=== PATIENT | male | born 1930 | race Caucasian/White ===

== ENCOUNTER 2017-05-22 08:22 | Inpatient (IN) | payer OTHER ==
--- NOTE | 2017-05-22 08:33 | PDOC ---
Attending Attestation - HPI HPI: 05/22/17 10:41 The patient is a 87 year old male, with a significant past medical history of COPD, pneumonia (bilaterally, with recent hospitalization at [facility] 2 weeks ago, treated with Levaquin), hypertension, diverticulosis, and osteoarthritis, who presents to the emergency department [facility] from [facility] with shortness of breath for approximately 2 days. Per EMS patients O2 sat was found to be in the low 30s earlier this morning. EMS reports patient was given a Duoneb treatment with minimal relief of symptoms. However, patients O2 sat went up to 88, which is part of his baseline. Patient reports associated diaphoresis and lightheadedness, but denies any chest pain or palpitations. He denies any recent fever, chills, or headache. He denies any abdominal pain, nausea, or vomiting. Patients history is limited, as he only responds to yes or no questions due to CPap in place. Allergies: NKDA Past Surgical History: None reported - Physicial Exam PE: 05/22/17 10:41 GENERAL: The patient is awake, alert, and fully oriented, Nontoxic - in no acute distress. HEAD: Normocephalic, atraumatic. EYES: extraocular movements intact, sclera anicteric, conjunctiva clear. ENT: + Mildly dry mucous membranes. Normal voice. NECK: Normal range of motion, supple LUNGS: Breath sounds equal, clear to auscultation bilaterally. No wheezes, no rhonchi, no rales. HEART: Regular rate and rhythm, without murmur, rub or gallop. ABDOMEN: Soft, nontender, normoactive bowel sounds. No guarding, no rebound.No CVA tenderness EXTREMITIES: Normal range of motion, no edema. No clubbing or cyanosis. No cords , erythema, or tenderness. NEUROLOGICAL: No facial asymmetry, Normal speech, PSYCH: Normal mood, normal affect. SKIN: Warm, Dry, normal turgor. Back: No midline tenderness to the cervical, thoracic or lumbar spine Musculoskelatal: FROM of b/l shoulders, elbows, wrist. FROM of hips, knees, ankles - No signs of ecchymosis, erythema, or crepitus noted on palpation extremities, chest wall, clavicals, ribs, back. - Medical Decision Making 05/22/17 10:41 Documentation prepared by Beckie Fairbanks, acting as administrative medical director for Zay Major MD. <Beckie Fairbanks - Last Filed: 05/22/17 10:41> - Resident Resident Name: Sourav Beauchamp - ED Attending Attestation I have performed the following: I have examined & evaluated the patient, The case was reviewed & discussed with the resident, I agree w/resident's findings & plan, Exceptions are as noted - HPI HPI: 05/22/17 10:24 87y M hx of anxiety, osteo, htn, copd on3 l of o2, recent admission for b/l pna in early apr sent from [facility] on [address] for evaluation of sob, pt notes he was feeling ok yesterday, this morning started feeling sob. pt notes he felt sweaty yetserday, but denies any fever/chills, cp, n/v, palptitations, abd pain, diarrhea. o2 sat in the 80s per EMS, started on cpap in the field with mild improvement on arrival the pt was started on bipap noted hypoxic to 80 on RA, improvement with bipap to 90s with improvement of respiratory effort. pts pulm exam revealed deiminshed breath sounds at the bases differential ncludes pna, chf, copd exacerbation sepsis orderset initiated continue bipap anticipate admission for further managment - Medical Decision Making 05/22/17 11:39 CRITICAL CARE DOCUMENTATION: I spent ~35 minutes of Critical Care time, excluding separately billable procedures, involving high complexity decision making to assess, manipulate and support vital system function(s) to treat single or multiple vital organ system failure and/or to prevent further life threatening deterioration of the patient' s condition. 05/22/17 11:[address] Young - agree with admission under dr. thornton service Case discussed in detail with admitting physician including history, physical exam and ancillary studies. Admitting physician has assumed care for the patient, will follow all pending diagnostics and will complete the evaluation and treatment. <Zay Major - Last Filed: 05/22/17 11:51> Heart Score/ECG Review - ECG Impressions Comment:: 05/22/17 10:35 Twelve-lead EKG was performed and reviewed by me. There is normal sinus rhythm Right bundle-branch block No ST changes suggestive of acute ischemia <Zay Major - Last Filed: 05/22/17 11:51>
[2017-05-22] MEDS ORDERED: MAGNESIUM SULF 50% (8.12 MEQ/2 ML-1 GM VIAL) IVPB ONE (08:39)
[2017-05-22] MEDS ORDERED: MAGNESIUM SULF 50% (8.12 MEQ/2 ML-1 GM VIAL) ONE (09:30)
--- NOTE | 2017-05-22 09:48 | PDOC ---
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 EMS reports patient was found in respiratory distress and was given 3 rounds of duonebs. Patient denies fevers. Endorses cough, chest pain, shortness of breath. States that he just doesn't feel good. Patient was admitted to [facility] from 04/09-05/01 for sigmoid diverticulosis. Patient finished levaquin 7 day course on 05/15 for bilateral pneumoina. <Sourav Beauchamp - Last Filed: 05/22/17 11:39> <Zay Major - Last Filed: 05/22/17 11:50> - General Chief Complaint: Shortness of Breath Stated Complaint: SOB Time Seen by Provider: 05/22/17 08:25 Past History <Sourav Beauchamp - Last Filed: 05/22/17 11:39> <Zay Major - Last Filed: 05/22/17 11:50> - Past Medical History Allergies/Adverse Reactions: Allergies Allergy/AdvReac Type Severity Reaction Status Date / Time No Known Allergies Allergy Verified 05/22/17 08:24 Home Medications: Ambulatory Orders Albuterol 2.5/Ipratropium 0.5 [Duoneb -] 1 amp NEB TID 05/22/17 Budesonide [Pulmicort Flexhaler] 90 mcg IH BID 05/22/17 Ipratropium 0.02% Nebulizer [Atrovent 0.02% Nebulizer -] 1 amp NEB Q6H PRN 05/22 Metoclopramide HCl 10 mg PO TID 05/22/17 Prednisone 10 mg PO BID 05/22/17 Tramadol HCl [Ultram] 50 mg PO DAILY 05/22/17 Review of Systems - Review of Systems Comments:: 05/22/17 09:48 GENERAL/CONSTITUTIONAL: No fever or chills. HEAD, EYES, EARS, NOSE AND THROAT: No change in vision. Positive for sore throat. CARDIOVASCULAR: Positive for chest pain and shortness of breath. RESPIRATORY: Positive for cough and wheezing. GASTROINTESTINAL: No nausea, vomiting, diarrhea or constipation. GENITOURINARY: No dysuria, frequency, or change in urination. MUSCULOSKELETAL: Positive for arthritis issues, chronic hip/back pain. SKIN: No rash NEUROLOGIC: No headache, vertigo, loss of consciousness, or change in strength/ sensation. HEMATOLOGIC/LYMPHATIC: No anemia, easy bleeding, or history of blood clots. <Sourav Beauchamp - Last Filed: 05/22/17 11:39> *Physical Exam - Vital Signs Last Vital Signs Temp Pulse Resp BP Pulse Ox 91 L 05/22/17 08:35 - Physical Exam Comments: 05/22/17 09:57 GENERAL: Awake, alert, and fully oriented, on bipap, ill appearing HEAD: No signs of trauma, normocephalic, atraumatic EYES: PERRLA, EOMI, sclera anicteric, conjunctiva clear ENT: Auricles normal inspection, hearing grossly normal, nares patent, oropharynx clear without exudates. Dry mucosa NECK: Normal ROM, supple, no lymphadenopathy, JVD, or masses LUNGS: On bipap, shaking head yes/no, not speaking sentences, equal breath rounds, coarse breath sounds HEART: Regular rate, irregular rhythm, normal S1 and S2, no murmurs, rubs or gallops, peripheral pulses normal and equal bilaterally. ABDOMEN: Soft, nontender, normoactive bowel sounds. No guarding, no rebound. No masses EXTREMITIES: Normal inspection, Normal range of motion, no edema. No clubbing or cyanosis. NEUROLOGICAL: Cranial nerves II through XII grossly intact. Normal speech, no focal sensorimotor deficits SKIN: Warm, Dry, normal turgor, in ulna boots, sacral ulcer <Sourav Beauchamp - Last Filed: 05/22/17 11:39> - Vital Signs Last Vital Signs Temp Pulse Resp BP Pulse Ox 100.8 F H 78 22 113/71 86 L 05/22/17 09:46 05/22/17 11:13 05/22/17 11:13 05/22/17 11:13 05/22/17 11:13 <Zay Major - Last Filed: 05/22/17 11:50> ED Treatment Course - LABORATORY CBC & Chemistry Diagram: 05/22/17 09:15 05/22/17 09:15 <QuynhSourav - Last Filed: 05/22/17 11:39> - LABORATORY CBC & Chemistry Diagram: 05/22/17 09:15 05/22/17 09:15 - ADDITIONAL ORDERS Additional order review: Laboratory Results 05/22/17 05/22/17 05/22/17 10:25 09:15 09:15 PT with INR INR PTT (Actin FS) Puncture Site Right brachial ABG pH 7.40 ABG pCO2 at Pt Temp 55.6 H ABG pO2 at Pt Temp 63.3 L ABG HCO3 33.4 H ABG O2 Sat (Measured) 87.5 L ABG O2 Content 13.2 L ABG Base Excess 7.5 H Jonathan Test Not applicable VBG pH POC VBG pCO2 POC VBG pO2 Mixed VBG HCO3 Carboxyhemoglobin 1.4 Methemoglobin 1.1 O2 Delivery Device Bipap Oxygen Flow Rate 50 Vent Mode S/t 12/6 Vent Rate 10 Mechanical Rate Yes Sodium Potassium Chloride Carbon Dioxide Anion Gap BUN Creatinine Creat Clearance w eGFR Random Glucose Lactic Acid 1.5 Calcium Total Bilirubin AST ALT Alkaline Phosphatase Creatine Kinase Troponin I Total Protein Albumin Blood Type A POSITIVE Antibody Screen Negative 05/22/17 05/22/17 05/22/17 09:15 09:15 09:15 PT with INR 12.70 H INR 1.12 PTT (Actin FS) 40.1 H Puncture Site ABG pH ABG pCO2 at Pt Temp ABG pO2 at Pt Temp ABG HCO3 ABG O2 Sat (Measured) ABG O2 Content ABG Base Excess Jonathan Test VBG pH No Result Required. POC VBG pCO2 No Result Required. POC VBG pO2 No Result Required. Mixed VBG HCO3 No Result Required. Carboxyhemoglobin Methemoglobin O2 Delivery Device Oxygen Flow Rate Vent Mode Vent Rate Mechanical Rate Sodium 141 Potassium 3.6 Chloride 100 Carbon Dioxide 34 H Anion Gap 7 L BUN 13 Creatinine 0.4 L Creat Clearance w eGFR > 60 Random Glucose 129 H Lactic Acid Calcium 8.8 Total Bilirubin 0.4 AST 14 L ALT 12 Alkaline Phosphatase 96 Creatine Kinase 36 L Troponin I 0.18 H Total Protein 6.5 Albumin 2.6 L Blood Type Antibody Screen 05/22/17 09:15 RBC 4.13 MCV 95.8 MCHC 29.5 L RDW 16.5 H MPV 8.5 Neutrophils % 85.0 H Lymphocytes % 5.7 L Monocytes % 9.2 Eosinophils % 0.0 Basophils % 0.1 - Medications Given in the ED: ED Medications Discontinued Medications Generic Name Dose Route Start Last Admin Trade Name Bj PRN Reason Stop Dose Admin Acetaminophen 1,000 mg 05/22/17 09:56 05/22/17 10:15 Ofirmev Injection - IVPB 05/22/17 09:57 1,000 mg ONCE ONE Administration Sodium Chloride 1,000 mls @ 1,000 mls/hr 05/22/17 10:07 05/22/17 10:38 Normal Saline - IV 05/22/17 11:06 1,000 mls/hr ASDIR STA Administration Magnesium Sulfate 1 gm 05/22/17 08:39 05/22/17 09:35 Magnesium Sulfate IVPB 05/22/17 08:40 1 gm ONCE ONE Administration Piperacillin/Tazobactam/Dextrose 3.375 gm 05/22/17 10:15 05/22/17 10:38 Zosyn 3.375gm Ivpb (Premix) IVPB 05/22/17 10:16 3.375 gm ONCE ONE Administration <Zay Major - Last Filed: 05/22/17 11:50> Medical Decision Making - Critical Care Time Total Critical Care Time (minutes): 30 Critical Care Statement: The care of this patient involved high complexity decision making to prevent further life threatening deterioration of the patient 's condition and/or to evaluate & treat vital organ system(s) failure or risk of failure. 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 Vital signs notable for fever, tachycardia, tachypnea. PE notable for coarse breath sounds and dry mucosa. Suspect the patient is septic secondary to pneumonia. Differential also includes: pulmonary edema 2/2 CHF, ACS, arrhythmia. Will draw septic workup, give 1L NS and vanc/zosyn. EKG shows sinus tachy (rate 104) with RBBB. QTc 536. [place] 156. No ST elevations/ depressions. No prior EKG available for comparison. Will give mag 1g for QTc prolongation. 05/22/17 10:14 CXR shows possible infiltrate and effusion. 05/22/17 11:16 Laboratory Tests 05/22/17 05/22/17 09:15 10:25 ABG pH 7.40 ABG pCO2 at Pt Temp 55.6 H ABG pO2 at Pt Temp 63.3 L ABG HCO3 33.4 H BUN 13 Creatinine 0.4 L Troponin I 0.18 H ABG shows carbon dioxide retention. Trop positive to .18, no pre-renal picture on labs. Pending CBC. Believe trop is secondary to demand 2/2 sepsis. 05/22/17 11:23 Laboratory Tests 05/22/17 09:15 WBC 12.8 H Hgb 11.7 Hct 39.6 CBC shows leukocytosis, no anemia. Will admit to hospitalist to ICU for sepsis 2 /2 pneumonia. <Sourav Beauchamp - Last Filed: 05/22/17 11:39> *DC/Admit/Observation/Transfer <Sourav Beauchamp - Last Filed: 05/22/17 11:39> - Discharge Dispostion Admit: Yes <Zay Major - Last Filed: 05/22/17 11:50> Diagnosis at time of Disposition: COPD (chronic obstructive pulmonary disease) Qualifiers: COPD type: COPD with acute lower respiratory infection Qualified Code(s): J44.0 - Chronic obstructive pulmonary disease with acute lower respiratory infection Pneumonia Qualifiers: Pneumonia type: due to unspecified organism Laterality: left Lung location: lower lobe of lung Qualified Code(s): J18.1 - Lobar pneumonia, unspecified organism Sepsis Qualifiers: Sepsis type: sepsis due to unspecified organism Qualified Code(s): A41.9 - Sepsis, unspecified organism - Discharge Dispostion Condition at time of disposition: Guarded - Referrals Referrals: Elkin Lockwood MD [Primary Care Provider] - - Patient Instructions - Post Discharge Activity
[2017-05-22] MEDS ORDERED: ACETAMINOPHEN 1000 MG/100 ML VIAL (NON FORMULARY) IVPB ONE (09:56)
[2017-05-22 10:07] VITALS: BMI 28.2
[2017-05-22] MEDS ORDERED: ACETAMINOPHEN INJECTION 100 ML IVPB ONE (10:07)
[2017-05-22] MEDS ORDERED: VANCOMYCIN 1,000 MG in DEXTROSE 5%-WATER - 250 ML IVPB ONE (10:07)
[2017-05-22] MEDS ORDERED: SODIUM CHLORIDE 1,000 ML IV STA (10:07)
[2017-05-22 10:11] LABS: BASO % 0.1 % (0-2.0); HEMATOCRIT 39.6 % (35.4-49); HEMOGLOBIN 11.7 GM/dL (11.7-16.9); LYMPH % 5.7 % (8-40); MCH 28.3 pg (25.7-33.7); MCHC 29.5 g/dl (32.0-35.9); MEAN CELL VOLUME 95.8 fl (80-96); MEAN PLT VOLUME 8.5 fl (7.5-11.1); MONO % 9.2 % (3.8-10.2); RBC 4.13 M/mm3 (4.00-5.60); RDW 16.5 % (11.9-15.9); WHITE BLOOD COUNT 12.8 K/mm3 (4.0-10.0)
[2017-05-22] MEDS ORDERED: PIPERACIL/TAZOB 3.375 GM 3.375 GM/50 ML PREMIX IVPB ONE (10:15)
[2017-05-22] MEDS ORDERED: VANCOMYCIN 1 GRAM (PRE-DOCKED) 1,000 MG/250 ML BAG IVPB ONE (10:25)
[2017-05-22] MEDS ORDERED: PIPERACILLIN/TAZOB 3.375 GM 3.375 GM/50 ML BAG IVPB ONE (10:25)
[2017-05-22 10:27] LABS: INR 1.12 (0.82-1.09); PROTHROMBIN TIME (PATIENT) 12.7 SEC (9.98-11.88)
[2017-05-22 10:29] LABS: ACTIVATED PTT 40.1 SECONDS (26.9-34.4)
[2017-05-22 10:35] LABS: ARTERIAL BLD GAS O2 SATURATION 87.5 % (90-98.9); ARTERIAL BLOOD GAS BASE EXCESS 7.5 meq/l (-2-2); ARTERIAL BLOOD GAS PCO2 55.6 mmHg (35-45); ARTERIAL BLOOD GAS PO2 63.3 mmHg (68-100); CARBOXYHEMOGLOBIN 1.4 gm% (0.5-2.0)
[2017-05-22 10:48] LABS: ALBUMIN 2.6 g/dl (3.4-5.0); ANION GAP 7 (8-16); BLOOD UREA NITROGEN 13 mg/dL (7-18); CALCIUM 8.8 mg/dL (8.5-10.1); CHLORIDE 100 mmol/L (98-107); CO2 34 mmol/L (21-32); GLUCOSE,RANDOM 129 mg/dL (74-106); POTASSIUM 3.6 mmol/L (3.5-5.1); SGPT/ALT 12 U/L (12-78); SODIUM 141 mmol/L (136-145)
[2017-05-22 10:54] LABS: ALK PHOS 96 U/L (45-117); BILIRUBIN,TOTAL 0.4 mg/dL (0.2-1.0); CREATININE 0.4 mg/dL (0.7-1.3); SGOT/AST 14 U/L (15-37); TOT PROT 6.5 g/dl (6.4-8.2)
[2017-05-22] MEDS ORDERED: ALBUTEROL SO4 0.083% IH SOL 2.5 MG/3 ML VIAL.NEB. NEB PRN (12:43)
--- NOTE | 2017-05-22 13:06 | EKG ---
Test Reason : Blood Pressure : / mmHG Vent. Rate : 104 BPM Atrial Rate : 104 BPM P-R Int : 156 ms QRS Dur : 148 ms QT Int : 408 ms P-R-T Axes : 044 070 011 degrees QTc Int : 536 ms SINUS TACHYCARDIA WITH PREMATURE ATRIAL COMPLEXES WITH ABERRANT CONDUCTION RIGHT BUNDLE BRANCH BLOCK ABNORMAL ECG NO PREVIOUS ECGS AVAILABLE Confirmed by NELL HILLS MD ([id number]) on 05/22/2017 1:05:52 PM Referred By: Confirmed By:NELL HILLS MD
--- NOTE | 2017-05-22 13:07 | HP ---
HISTORY OF PRESENT ILLNESS: Unable to obtain information due to patients medical condition. Most information obtained from health care proxy and ED staff. Patient is an 87 year old male with a PMHx of HTN, COPD (oxygen at night), Osteoarthritis, Dysphagia, PUD with recent admission to [facility] for GI bleed, who was BIBEMS from [facility] due to respiratory distress during rounds at the alf at approximately 07:15 this morning. Patient's Respiratory rate was in the mid 20's with accessory muscle use and abdominal breathing. According to the alf records, patient stated that he "doesn't feel good." Patient was given two rounds of DuoNebs at the [facility] with no improvement and transferred here. Patient's health care proxy at bedside who states he was recently hospitalized for GI bleed with an endoscopy done that revealed duodenal ulcers and eventually acquired bilateral pneumonia for which he just completed a 7 day course of Levaquin on 05/15/17. PHYSICAL EXAMINATION Vital Signs - 24 hr 05/22/17 05/22/17 05/22/17 08:35 09:46 11:13 Temperature 100.8 F H Pulse Rate 94 H Pulse Rate [ 78 Apical] Respiratory 26 H 22 Rate Blood Pressure 120/68 Blood Pressure 113/71 [Left Arm] O2 Sat by Pulse 91 L 91 L 86 L Oximetry (%) GENERAL: Awake, alert, in respiratory distress on BIPAP, unable to speak in full sentences EYES: Pupils equal, round and reactive to light, extraocular movements intact, sclera anicteric, conjunctiva clear. No lid lag. LUNGS: Bilateral coarse breath sounds nteriorly. Accessory muscle use and abdominal breathing on BIPAP HEART: Tachycardic with regular rhythm, normal S1 and S2 without murmur, rub or gallop. ABDOMEN: Soft, nontender, not distended, normoactive bowel sounds, no guarding, no rebound, no masses. UPPER EXTREMITIES: No peripheral edema. LOWER EXTREMITIES: 2+ pulses, warm, well-perfused. No calf tenderness. No peripheral edema. Echymosis of the right anterior lizama NEUROLOGICAL: unable to fully assess due to patients medical condition. No facial droop. Laboratory Results - last 24 hr 05/22/17 05/22/17 05/22/17 09:15 09:15 09:15 WBC 12.8 H RBC 4.13 Hgb 11.7 Hct 39.6 MCV 95.8 MCH 28.3 MCHC 29.5 L RDW 16.5 H MPV 8.5 Neutrophils % 85.0 H Lymphocytes % 5.7 L Monocytes % 9.2 Eosinophils % 0.0 Basophils % 0.1 PT with INR 12.70 H INR 1.12 PTT (Actin FS) 40.1 H Puncture Site ABG pH ABG pCO2 at Pt Temp ABG pO2 at Pt Temp ABG HCO3 ABG O2 Sat (Measured) ABG O2 Content ABG Base Excess Jonathan Test VBG pH No Result Required. POC VBG pCO2 No Result Required. POC VBG pO2 No Result Required. Mixed VBG HCO3 No Result Required. Carboxyhemoglobin Methemoglobin O2 Delivery Device Oxygen Flow Rate Vent Mode Vent Rate Mechanical Rate Sodium Potassium Chloride Carbon Dioxide Anion Gap BUN Creatinine Creat Clearance w eGFR Random Glucose Lactic Acid Calcium Total Bilirubin AST ALT Alkaline Phosphatase Creatine Kinase Troponin I Total Protein Albumin Blood Type Antibody Screen 05/22/17 05/22/17 05/22/17 09:15 09:15 09:15 WBC RBC Hgb Hct MCV MCH MCHC RDW MPV Neutrophils % Lymphocytes % Monocytes % Eosinophils % Basophils % PT with INR INR PTT (Actin FS) Puncture Site ABG pH ABG pCO2 at Pt Temp ABG pO2 at Pt Temp ABG HCO3 ABG O2 Sat (Measured) ABG O2 Content ABG Base Excess Jonathan Test VBG pH POC VBG pCO2 POC VBG pO2 Mixed VBG HCO3 Carboxyhemoglobin Methemoglobin O2 Delivery Device Oxygen Flow Rate Vent Mode Vent Rate Mechanical Rate Sodium 141 Potassium 3.6 Chloride 100 Carbon Dioxide 34 H Anion Gap 7 L BUN 13 Creatinine 0.4 L Creat Clearance w eGFR > 60 Random Glucose 129 H Lactic Acid 1.5 Calcium 8.8 Total Bilirubin 0.4 AST 14 L ALT 12 Alkaline Phosphatase 96 Creatine Kinase 36 L Troponin I 0.18 H Total Protein 6.5 Albumin 2.6 L Blood Type A POSITIVE Antibody Screen Negative 05/22/17 10:25 WBC RBC Hgb Hct MCV MCH MCHC RDW MPV Neutrophils % Lymphocytes % Monocytes % Eosinophils % Basophils % PT with INR INR PTT (Actin FS) Puncture Site Right brachial ABG pH 7.40 ABG pCO2 at Pt Temp 55.6 H ABG pO2 at Pt Temp 63.3 L ABG HCO3 33.4 H ABG O2 Sat (Measured) 87.5 L ABG O2 Content 13.2 L ABG Base Excess 7.5 H Jonathan Test Not applicable VBG pH POC VBG pCO2 POC VBG pO2 Mixed VBG HCO3 Carboxyhemoglobin 1.4 Methemoglobin 1.1 O2 Delivery Device Bipap Oxygen Flow Rate 50 Vent Mode S/t 12/6 Vent Rate 10 Mechanical Rate Yes Sodium Potassium Chloride Carbon Dioxide Anion Gap BUN Creatinine Creat Clearance w eGFR Random Glucose Lactic Acid Calcium Total Bilirubin AST ALT Alkaline Phosphatase Creatine Kinase Troponin I Total Protein Albumin Blood Type Antibody Screen IMAGES Chest X-Ray (05/22/17): Imaging reveals scoliosis with degenerative changes, convexity to the right, elevated left hemidiaphragm, normal heart, sclerotic knob and congestive ages with questionable superimposed infiltrate. There is a right effusion. The soft tissues are intact. ASSESSMENT/PLAN: Patient is an 87 year old male who was found to be in respiratory distress at the alf and was found to have sepsis with acute respiratory distress. Patient admitted for further monitoring and management. Sepsis Likely secondary to Healthcare Acquired Pneumonia -Fever 100.8, tachy >90, Tachypnia >20, Leukocytosis 12.8 -Chest X-Ray showing infiltrates -Recently discharged from [facility] due to GI bleed from duodenal ulcer and bilateral PNA. Completed a course of Levaquin on 05/15/17 due to bilateral Pneumonia. -Urine antigens, Mycoplasma IgM, sputum cultures, and influenza swab ordered -Zosyn 3.375mg IVPB ordered Q8H with one dose of Vancomycin 1000mg given. Will resume if ID approves. -IV fluids with D5NS @75mls/hr -IV Tylenol 1000mg IVPB PRN for fevers -Blood cultures pending -HOB -Aspiration precautions -ICU monitoring -Pulmonology consult appreciated -ID consult placed Acute Hypoxic Hypercapnic Respiratory failure -Possibly secondary to PNA vs. COPD exacerbation. 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 Patient also has history of Dysphagia and possibly aspirated. -DuoNeb QID standing -Albuterol PRN -MethylPrednisone 40mg daily -Continue IV antibiotics with Zosyn and Vancomycin -Continue NIPPV and maintain 02 >90% Elevated Troponins -Likely secondary to demand ischemia -Initial Troponins 0.18 -EKG revealed no ST elevations or depressions but did show RBBB. No previous EKG for comparison -Will continue to trend troponins -Cardiac monitoring QTc Prolongation -Initial EKG revealed >530 -Magnesium 1gm IV given in ED -Will need to avoid medications that prolong QTc such as Zofran, azithromycin and Levaquin -Serial EKG's HTN -On no medications currently -Will continue to monitor BP F/E/N -IV D5/NS@75mls/hr -Electrolytes wnl -NPO Prophylaxis -Moderate risk. Heparin 5000 units SQ Q8H for DVT -Protonix 40mg IV daily due to steroid use Disposition -DNR/DNI. Patient's healthcare proxy at bedside who has official documentation of DNR/DNI. Also asked patient three times and nods with agreement -Patient remains hypoxic on BIPAP and will need to be in the ICU for further monitoring. Will likely require three days minimum as inpatient. Visit type - Emergency Visit Emergency Visit: Yes ED Registration Date: 05/22/17 Care time: The patient presented to the Emergency Department on the above date and was hospitalized for further evaluation of their emergent condition. - New Patient This patient is new to me today: Yes Date on this admission: 05/22/17 - Critical Care Critical Care patient: Yes Total Critical Care Time (in minutes): 45 Critical Care Statement: The care of this patient involved high complexity decision making to prevent further life threatening deterioration of the patient 's condition and/or to evaluate & treat vital organ system(s) failure or risk of failure.
[2017-05-22] MEDS ORDERED: PANTOPRAZOLE SODIUM 40 MG/100 ML BAG IVPB ONE (13:27)
[2017-05-22] MEDS ORDERED: ACETAMINOPHEN 1000 MG/100 ML VIAL (NON FORMULARY) IVPB PRN (13:29)
[2017-05-22] MEDS ORDERED: DEXTROSE 5%-NORMAL SALINE 1,000 ML IV SCH (13:30)
[2017-05-22 13:31] LABS: PLATELET ESTIMATE DECREASED
--- NOTE | 2017-05-22 13:56 | HP ---
CHIEF COMPLAINT: PCP: HISTORY OF PRESENT ILLNESS: HPI limited due to medical condition. Information obtained through HCP and chart. 87yo M with history of COPD (3LNC at night), HTN, OA, and PUD who was brought by ambulance from [facility] due to respiratory distress noted during the fdc rounds this morning. Pt has a recent admission to [facility] for GI bleed and received an endoscopy showing duodenal ulcers. Pt was also noted during his previous hospitalization to have bilateral lobe PNA and has completed a 7 day course of Levaquin (terminated 05/15/17). Pt this morning was having respiratory distress and was noted to have tachypnea to 20 breaths per minute and notable accessory muscle use. ER course was notable for: (1) Vanc and Zosyn x1 (2) CXR - Elevated left hemidiaphragm and congestive changes with questionable superimposed infiltrate. R effusion noted (3) BCx x2 (4) DNR/DNI, no pressors, no central lines per HCP confirmed (5) QTc on EKG >530; 1gm IV Magnesium administered Recent Travel: PAST MEDICAL HISTORY: COPD (3LNC at night) HTN OA PUD - recent endoscopy 04/2017 PAST SURGICAL HISTORY: Endoscopy Social History: Smoking: Alcohol: Drugs: Family History: Allergies No Known Allergies Allergy (Verified 05/22/17 08:24) HOME MEDICATIONS: Home Medications Medication Instructions Recorded Albuterol 2.5/Ipratropium 0.5 1 amp NEB TID 05/22/17 [Duoneb -] Budesonide [Pulmicort Flexhaler] 90 mcg IH BID 05/22/17 Ipratropium 0.02% Nebulizer 1 amp NEB Q6H PRN 05/22/17 [Atrovent 0.02% Nebulizer -] Metoclopramide HCl 10 mg PO TID 05/22/17 Prednisone 10 mg PO BID 05/22/17 Tramadol HCl [Ultram] 50 mg PO DAILY 05/22/17 REVIEW OF SYSTEMS ROS limited due to medical condition CONSTITUTIONAL: Absent: fever, chills, generalized weakness HEENT: Absent: rhinorrhea, nasal congestion, throat pain CARDIOVASCULAR: Absent: chest pain, palpitations, irregular heart rat RESPIRATORY: Present: Shortness of breath, accessory muscle use Absent: cough, orthopnea, stridor, hemoptysis GASTROINTESTINAL: Absent: abdominal pain, nausea, vomiting, diarrhea NEUROLOGIC: Absent: headache, focal weakness or paresthesias, dizziness, bladder or bowel incontinence PHYSICAL EXAMINATION Vital Signs - 24 hr 05/22/17 05/22/17 05/22/17 08:35 09:46 11:13 Temperature 100.8 F H Pulse Rate 94 H Pulse Rate [ 78 Apical] Respiratory 26 H 22 Rate Blood Pressure 120/68 Blood Pressure 113/71 [Left Arm] O2 Sat by Pulse 91 L 91 L 86 L Oximetry (%) 05/22/17 12:59 Temperature Pulse Rate Pulse Rate [ 96 H Apical] Respiratory 24 Rate Blood Pressure Blood Pressure 125/78 [Left Arm] O2 Sat by Pulse 86 L Oximetry (%) GENERAL: Moderate distress, awake, unable to speak in full sentences EYES: BRYANT, sclera anicteric, conjunctiva clear. No lid lag. LUNGS: Coarse breath sounds noted bilaterally. Accessory muscle use. On BIPAP HEART: Tachycardic with regular rhythm, normal S1 and S2 without murmur, rub or gallop. ABDOMEN: Soft, nontender, nondistended, normoactive bowel sounds, no guarding, no masses. EXTREMITIES: No peripheral edema. 2+ DP pulses, no calf tenderness, ecchymosis on R anterior lower leg NEUROLOGICAL: unable to fully assess due to patients medical condition. Face symmetrical at baseline Laboratory Results - last 24 hr 05/22/17 05/22/17 05/22/17 09:15 09:15 09:15 WBC 12.8 H RBC 4.13 Hgb 11.7 Hct 39.6 MCV 95.8 MCH 28.3 MCHC 29.5 L RDW 16.5 H MPV 8.5 Neutrophils % 85.0 H Lymphocytes % 5.7 L Monocytes % 9.2 Eosinophils % 0.0 Basophils % 0.1 Platelet Estimate Decreased Platelet Comment Present PT with INR 12.70 H INR 1.12 PTT (Actin FS) 40.1 H Puncture Site ABG pH ABG pCO2 at Pt Temp ABG pO2 at Pt Temp ABG HCO3 ABG O2 Sat (Measured) ABG O2 Content ABG Base Excess Jonathan Test VBG pH No Result Required. POC VBG pCO2 No Result Required. POC VBG pO2 No Result Required. Mixed VBG HCO3 No Result Required. Carboxyhemoglobin Methemoglobin O2 Delivery Device Oxygen Flow Rate Vent Mode Vent Rate Mechanical Rate Sodium Potassium Chloride Carbon Dioxide Anion Gap BUN Creatinine Creat Clearance w eGFR Random Glucose Lactic Acid Calcium Total Bilirubin AST ALT Alkaline Phosphatase Creatine Kinase Troponin I Total Protein Albumin Blood Type Antibody Screen 05/22/17 05/22/17 05/22/17 09:15 09:15 09:15 WBC RBC Hgb Hct MCV MCH MCHC RDW MPV Neutrophils % Lymphocytes % Monocytes % Eosinophils % Basophils % Platelet Estimate Platelet Comment PT with INR INR PTT (Actin FS) Puncture Site ABG pH ABG pCO2 at Pt Temp ABG pO2 at Pt Temp ABG HCO3 ABG O2 Sat (Measured) ABG O2 Content ABG Base Excess Jonathan Test VBG pH POC VBG pCO2 POC VBG pO2 Mixed VBG HCO3 Carboxyhemoglobin Methemoglobin O2 Delivery Device Oxygen Flow Rate Vent Mode Vent Rate Mechanical Rate Sodium 141 Potassium 3.6 Chloride 100 Carbon Dioxide 34 H Anion Gap 7 L BUN 13 Creatinine 0.4 L Creat Clearance w eGFR > 60 Random Glucose 129 H Lactic Acid 1.5 Calcium 8.8 Total Bilirubin 0.4 AST 14 L ALT 12 Alkaline Phosphatase 96 Creatine Kinase 36 L Troponin I 0.18 H Total Protein 6.5 Albumin 2.6 L Blood Type A POSITIVE Antibody Screen Negative 05/22/17 10:25 WBC RBC Hgb Hct MCV MCH MCHC RDW MPV Neutrophils % Lymphocytes % Monocytes % Eosinophils % Basophils % Platelet Estimate Platelet Comment PT with INR INR PTT (Actin FS) Puncture Site Right brachial ABG pH 7.40 ABG pCO2 at Pt Temp 55.6 H ABG pO2 at Pt Temp 63.3 L ABG HCO3 33.4 H ABG O2 Sat (Measured) 87.5 L ABG O2 Content 13.2 L ABG Base Excess 7.5 H Jonathan Test Not applicable VBG pH POC VBG pCO2 POC VBG pO2 Mixed VBG HCO3 Carboxyhemoglobin 1.4 Methemoglobin 1.1 O2 Delivery Device Bipap Oxygen Flow Rate 50 Vent Mode S/t 12/6 Vent Rate 10 Mechanical Rate Yes Sodium Potassium Chloride Carbon Dioxide Anion Gap BUN Creatinine Creat Clearance w eGFR Random Glucose Lactic Acid Calcium Total Bilirubin AST ALT Alkaline Phosphatase Creatine Kinase Troponin I Total Protein Albumin Blood Type Antibody Screen ASSESSMENT/PLAN: 87yo M with history of COPD (3LNC at night), HTN, OA, and PUD who was brought by ambulance from [facility] due to respiratory distress noted during the fdc rounds this morning 1) Severe sepsis 2/2 suspected aspiration PNA --SIRS 4/4 met --CXR noted with superimposed infiltrates --f/u Cultures --Sputum culture, urine antigens, mycoplasma IgM, and flu swab ordered --Continue Vancomycin and Zosyn --ID consulted --IVF D5NS @75cc/hr --Ofirmev PRN for fever --Aspiration precautions --head of bed elevated >30 degrees 2) Acute hypoxic hypercapnic respiratory failure --Pulmonology consulted --Duoneb QID scheduled --Albuterol PRN --Medrol 40mg qDaily --Would benefit from high-flow O2, however if unable continue BiPap due to improving status --Maintain SpO2 >90% 3) Elevated Troponin --Most likely deman ischemia in the setting of severe sepsis --Continue to trend (initial trop 0.18) --EKG - RBBB (unknown if new), no ST elevations or depressions noted; QTc 530 --Mag given in ED 4) HTN --Continue to monitor --No home medications noted; will have to confirm FEN: Fluids: D5NS @75cc/hr Electrolyte abnormalities: None currently Nutrition: None currently; will need speech and swallow eval eventually PPX DVT - Moderate risk pt; Heparin SQ TID GI - Due to initiation of steroids and possible prolonged ICU stay: Protonix 40mg IV qDaily Prognosis: Guarded Code Status: DNR/DNI, no central lines, no pressor support; confirmed by HCP Elis Dispoisition: Admit to ICU Case discussed with Dr. Glez and Dr. Hector Sanabria, DO - Internal Medicine PGY-1 Visit type - Emergency Visit Emergency Visit: Yes ED Registration Date: 05/22/17 Care time: The patient presented to the Emergency Department on the above date and was hospitalized for further evaluation of their emergent condition. - New Patient This patient is new to me today: Yes Date on this admission: 06/10/17 - Critical Care Critical Care patient: Yes Total Critical Care Time (in minutes): 38 Critical Care Statement: The care of this patient involved high complexity decision making to prevent further life threatening deterioration of the patient 's condition and/or to evaluate & treat vital organ system(s) failure or risk of failure.
[2017-05-22] MEDS: methylPREDNISolone NA SUCC 40 MG/1 ML VIAL IVPUSH SCH (14:12)
--- NOTE | 2017-05-22 14:25 | CON.PULM ---
Consult Consult Specialty:: PULMONARY Referred by:: JOSETTE Reason for Consultation:: RESP FAILURE - History of Present Illness Chief Complaint: SOB/COUGH/FEVER History of Present Illness: 87 W MALE ADMITTED FROM [facility] FOUND TO BE SOB/WITH O2 DESAT, BIBA. NOW WITH NIPPV AND IS BEING SEEN IN ER PT HAS H/O RECENT [facility] ADMISSION FOR ACUTE DIVERTICULITIS/PUD WITH HEMORRHAGE AND POSSIBLE PNEUMONIA. THESE EVENTS ARE OBTAINED FROM THE CHART. PATIENT HAS H/O COPD ON O2 AT NIGHT/OA/B/L ILIAC ART ANEURYSMS. - History Source History Provided By: Family Member, Medical Record Limitations to Obtaining History: Clinical Condition - Past Medical History RAVELER: No: Alzheimer's Cardio/Vascular: No: AFIB Pulmonary: Yes: COPD, O2 Dependent, Pneumonia Gastrointestinal: Yes: Diverticulosis, GI Bleed, Peptic Ulcer Disease, Other ( GASTRIC OUTLET OBSTRUCTION) Hepatobiliary: No: Cirrhosis Renal/: No: Renal Failure Heme/Onc: Yes: Anemia Infectious Disease: No: AIDS Psych: No: Addictions - Past Surgical History Additional Surgical History: UNABLE TO OBTAIN ACCURATE INFO/BACK SURG MULTIPLE - Alcohol/Substance Use Hx Alcohol Use: No History of Substance Use: reports: None - Smoking History Smoking history: Unknown if ever smoked - Social History Usual Living Arrangement: Senior Living ADL: Support Services Place of : [facility] History of Recent Travel: No Home Medications - Allergies Allergies/Adverse Reactions: Allergies Allergy/AdvReac Type Severity Reaction Status Date / Time No Known Allergies Allergy Verified 05/22/17 08:24 - Home Medications Home Medications: Ambulatory Orders Albuterol 2.5/Ipratropium 0.5 [Duoneb -] 1 amp NEB TID 05/22/17 Budesonide [Pulmicort Flexhaler] 90 mcg IH BID 05/22/17 Ipratropium 0.02% Nebulizer [Atrovent 0.02% Nebulizer -] 1 amp NEB Q6H PRN 05/22 Metoclopramide HCl 10 mg PO TID 05/22/17 Prednisone 10 mg PO BID 05/22/17 Tramadol HCl [Ultram] 50 mg PO DAILY 05/22/17 Family Disease History - Family Disease History Family History: Unable to Obtain Review of Systems Unable to obtain ROS, reason: UNABLE Physical Exam Vital Sings: Vital Signs Temperature 99 F 05/22/17 14:13 Pulse Rate 96 H 05/22/17 12:59 Respiratory Rate 24 05/22/17 12:59 Blood Pressure 125/78 05/22/17 12:59 O2 Sat by Pulse Oximetry (%) 86 L 05/22/17 12:59 Constitutional: Yes: Moderate Distress Eyes: Yes: EOM Intact HENT: Yes: Normocephalic Neck: Yes: Other (NIPPV MASK) Cardiovascular: Yes: Tachycardia, S1, S2 Respiratory: Yes: Diminished, Rhonchi (SCATTERED B/L) Gastrointestinal: Yes: Normal Bowel Sounds, Soft Renal/: Yes: WNL Extremities: Yes: Other (HEEL OFFLOADERS) Labs: CBC, BMP 05/22/17 09:15 05/22/17 09:15 ABG Results ABG pH 7.40 (7.35-7.45) 05/22/17 10:25 ABG pCO2 at Pt Temp 55.6 mmHg (35-45) H 05/22/17 10:25 ABG pO2 at Pt Temp 63.3 mmHg (68-100) L 05/22/17 10:25 ABG HCO3 33.4 meq/L (22-26) H 05/22/17 10:25 ABG O2 Sat (Measured) 87.5 % (90-98.9) L 05/22/17 10:25 ABG O2 Content 13.2 % vol (15-22) L 05/22/17 10:25 ABG Base Excess 7.5 meq/l (-2-2) H 05/22/17 10:25 REST REVIEWED Imaging - Results Chest X-ray: Report Reviewed, Image Reviewed X-ray: Report Reviewed, Image Reviewed Problem List - Problems (1) COPD (chronic obstructive pulmonary disease) Code(s): J44.9 - CHRONIC OBSTRUCTIVE PULMONARY DISEASE, UNSPECIFIED Qualifiers: COPD type: COPD with acute lower respiratory infection Qualified Code(s): J44.0 - Chronic obstructive pulmonary disease with acute lower respiratory infection (2) Pneumonia Code(s): J18.9 - PNEUMONIA, UNSPECIFIED ORGANISM Qualifiers: Pneumonia type: due to unspecified organism Laterality: left Lung location: lower lobe of lung Qualified Code(s): J18.1 - Lobar pneumonia, unspecified organism (3) Anemia Code(s): D64.9 - ANEMIA, UNSPECIFIED (4) Sepsis Code(s): A41.9 - SEPSIS, UNSPECIFIED ORGANISM Qualifiers: Sepsis type: sepsis due to unspecified organism Qualified Code(s): A41.9 - Sepsis, unspecified organism (5) Hypertension Code(s): I10 - ESSENTIAL (PRIMARY) HYPERTENSION (6) Chronic steroid use Code(s): TPP2331 - Assessment/Plan HYPOXEMIC HYPERCAPNEIC RESP FAILURE LIKELY MULTI-FACTORIAL R/O PNEUMONIA (NO PREVIOUS XRAYS FOR COMPARISON) MULTIPLE CO-MORBID CONDITIONS LISTED IN HX FAILURE TO THRIVE WOULD OBTAIN RECORDS FROM RECENT ADMISSION TO [facility] NOT TO REPEAT TESTING PANCULTURE/BLOOD/SPUTUM/URINE CONTINUE NIPPV WITH O2 TO KEEP SAT GREATER THAN 90% EMPIRIC ANTIBIOTICS TO COVER FACILITY ACQUIRED PATHOGENS INFLU SWAB/URINARY ANTIGENS CYCLE TROPONINS/SERIAL EKG'S/TELEMETRY MONITORING/CARDIAC CONSULT CHECK ECHO/BNP FOLLOW CXR Raheem MONROE MD
[2017-05-22] MEDS: PANTOPRAZOLE SODIUM 40 MG VIAL IVPUSH SCH (15:56)
[2017-05-22] MEDS: HEPARIN NA (PORCINE) 5,000 UNITS/ML 1ML VIAL SQ SCH ×2 (15:56→21:17)
--- NOTE | 2017-05-22 16:24 | PN ---
Progress Note (short form) - Note Progress Note: ID consult dictated imp/reccd 87 year old man admitted from or with fever/hypoxia impending respiratory failure treated with nebs in the field, now awake and alert on high flow nasal canulla recent admission to [facility] 04/19 to 05/01 for gi bleed with endoscopy showing duodenal ulcers- had bilateral pneumonia- treated with levaquin that he completed 05/15 impending resp failure pneumonia (HAP) COPD vanco/zosyn to continue f/u cultures influenza screen legionella/pneumococcal urinary antigens Problem List - Problems (1) Pneumonia Code(s): J18.9 - PNEUMONIA, UNSPECIFIED ORGANISM Qualifiers: Pneumonia type: due to unspecified organism Laterality: left Lung location: lower lobe of lung Qualified Code(s): J18.1 - Lobar pneumonia, unspecified organism (2) Respiratory failure Code(s): J96.90 - RESPIRATORY FAILURE, UNSP, UNSP W HYPOXIA OR HYPERCAPNIA (3) COPD (chronic obstructive pulmonary disease) Code(s): J44.9 - CHRONIC OBSTRUCTIVE PULMONARY DISEASE, UNSPECIFIED Qualifiers: COPD type: COPD with acute lower respiratory infection Qualified Code(s): J44.0 - Chronic obstructive pulmonary disease with acute lower respiratory infection
--- NOTE | 2017-05-22 17:16 | PN ---
Teaching Attending Note Name of Resident: Kolton Sanabria ATTENDING PHYSICIAN STATEMENT I saw and evaluated the patient. I reviewed the resident's note and discussed the case with the resident. I agree with the resident's findings and plan as documented. SUBJECTIVE:pt is non verbal. HPI is from resident report 87 year old male with a PMHx of HTN, COPD (3L NC at night), Osteoarthritis, Dysphagia, PUD with recent admission to [facility] for GI bleed, who was BIBEMS from [facility] due to respiratory distress during rounds at the [facility] at approximately 07:15 this morning. Patient's Respiratory rate was in the mid 20's with accessory muscle use and abdominal breathing. According to the [facility] records, patient stated that he "doesn't feel good." Patient was given two rounds of DuoNebs at the [facility] with no improvement and transferred here. Patient's health care proxy at bedside who states he was recently hospitalized for GI bleed with an endoscopy done that revealed duodenal ulcers and eventually acquired bilateral pneumonia for which he just completed a 7 day course of Levaquin on 05/15/17. OBJECTIVE: Last Vital Signs Temp Pulse Resp BP Pulse Ox 97.5 F L 75 19 112/61 89 L 05/22/17 16:00 05/22/17 16:40 05/22/17 16:40 05/22/17 16:40 05/22/17 16:13 General resting comfortbale, non verbal, alert CV S1 S2 + Lungs coarse breath sounds anteriorly Abdomen soft NT/ND Extremities no pedal edema ASSESSMENT AND PLAN: 87 year old male with a PMHx of HTN, COPD (3L NC at night), Osteoarthritis, Dysphagia, PUD presented to the ER with acute hypoxic respiratory distress 1. Acute hypoxic hypercapnic respiratory distress- ICU admission. due to possible PNA vs acute on chronic COPD. currently saturating well on high flow oxygen. start medrol 40mg Daily. supplemental oxygen to maintain spO2 >88%. pulmonary on board 2. Sepsis due to PNA- Tm 100.8 with tachycardia and leukocytosis,. lactic acid normal. jasonley HCAP with recent hospitalization. start on Vanco/zosyn. check flu , legionella, strep. consult ID 3. HTN- currently normotensive. not on medications at home. cont to monitor. 4. PUD- no sings of bleeding. start ppi as on steroids 5. DVT ppx- hep sq 6. family decided to make status DNR/DNI, no central line or pressors. pt nods in agreement to decision. The care of this patient involved high complexity decision making to prevent further life threatening deterioration of the patient's condition and/or to evaluate & treat vital organ system(s) failure or risk of failure. 40 minutes
[2017-05-22] MEDS: PIPERACILLIN/TAZOB 3.375 GM 3.375 GM in DEXTROSE 5%-WATER - 100 ML IVPB SCH (17:31)
--- NOTE | 2017-05-22 17:34 | CONS ---
INFECTIOUS DISEASE CONSULTATION DATE OF CONSULTATION: 05/22/2017 REQUESTING PROVIDER: The hospitalist service. HISTORY OF PRESENT ILLNESS: This is an 87-year-old man who was admitted for rehab following a hospitalization at [facility] from April 09 to May 01. He had more diverticulosis, a GI bleed, was found to have, on endoscopy, 3 ulcers in his duodenum. He was found as well to have bilateral pneumonia and was treated with a course of Levaquin, apparently which he finished on the 15 of May. This morning, he was noted to have respiratory distress. [facility]. He was hypoxic, he had a fever of 101.1, and he was transferred to the hospital. He was given vancomycin and Zosyn in the ER. His respiratory status improved in the emergency room. He is DNR/DNI. He is currently in the ICU on high-flow oxygen. PAST MEDICAL HISTORY: He has adjustment disorder. He has difficulty walking. He has primary osteoarthritis. He has a history of pneumonia; pressure ulcer of the right hip, stage 2; pressure ulcer of the left hip, stage 2; COPD; rhabdomyolysis; hypertension; BPH; and he has a history of dysphagia, hypoxemia. ALLERGIES: He has no known drug allergies. MEDICATIONS: [facility] include Tylenol, Reglan, prednisone, Pulmicort, Cepastat throat lozenges, DuoNebs, and tramadol. SURGICAL HISTORY: Not available. SOCIAL HISTORY: As well is not available. He is [facility]. REVIEW OF SYSTEMS: As per the [facility] note. PHYSICAL EXAMINATION: General: He is currently on high-flow oxygen, resting comfortably. He has been transferred to the ICU. Vital Signs: Temperature is 98.3. T-max was 100.8, was 101.1 this morning [facility] the [facility]. Pulse is 83, blood pressure 123/73, respiratory rate is 26, saturating 87%. HEENT: He is normocephalic. His eyes are anicteric. He has no thrush. Neck: Supple. Lungs: Diminished breath sounds at the bases. Heart: Regular rate and rhythm. Abdomen: Soft, nontender. Extremities: Without edema. DIAGNOSTIC DATA: His white count is 12.8, hemoglobin 11.7, platelet count is pending. His INR is 1.1. BUN is 13 and creatinine 0.4. Blood cultures are pending. Chest x-ray: He has a right effusion, with congestive changes with questionable superimposed infiltrate. In summary, this is an elderly man recently hospitalized with impending respiratory failure, pneumonia (hospital-acquired), and chronic obstructive pulmonary disease. Given the recent Levaquin use, vancomycin and Zosyn appear to be appropriate. Would follow up his cultures, obtain an influenza screen, and check legionella and pneumococcal antigens. Further recommendations to follow based on his clinical course. ANTONIO FLORES M.D. [id number]
[2017-05-22] MEDS: ALBUTEROL SO4 2.5/IPRATROPIUM 0.5 INH SOL 3 ML VIAL.NEB. NEB SCH (17:53)
[2017-05-22] MEDS ORDERED: PIPERACIL/TAZOB 3.375 GM 3.375 GM/50 ML PREMIX IVPB SCH (18:00)
[2017-05-22] MEDS ORDERED: PIPERACILLIN/TAZOB 3.375 GM 3.375 GM in DEXTROSE 5%-WATER - 100 ML IVPB SCH (18:00)
[2017-05-22 18:48] LABS: URINE APPEARANCE CLOUDY; URINE BILIRUBIN NEGATIVE (NEGATIVE); URINE BLOOD NEGATIVE (NEGATIVE); URINE COLOR YELLOW; URINE GLUCOSE (UA) NEGATIVE (NEGATIVE); URINE KETONE NEGATIVE (NEGATIVE); URINE LEUK ESTERASE NEGATIVE (NEGATIVE); URINE NITRITE NEGATIVE (NEGATIVE); URINE UROBILINOGEN NEGATIVE mg/dL (0.2-1.0)
[2017-05-22 19:22] LABS: URINE PROTEIN 1+ (NEGATIVE)
--- NOTE | 2017-05-22 20:45 | CONSULT ---
Consult Consult Specialty:: Pulmonary Critical Care - History of Present Illness Chief Complaint: SOB History of Present Illness: Pt is a 87 yo male with h/o COPD, HTN, diverticulosis, who was recently hospitalized (04/09-05/01) for GIB 2/2 duodenal ulcer with course at the time c/ b PNA. He has completed a course of Levaquin and was discharged to [place]. Today EMS activated for SOB x 2 days, and pt was brought to ED for evaluation. Admission labs notable for WBC 12, Trop 0.18. EKG with no ischemic changes. Pt placed on BiPAP with improvement in his respiratory status and SpO2. Pt was started on nebs, methylpred, zosyn/vanco and was transferred to the ICU for further management. On arrival to the ICU BiPAP changed to HFNC. Current Medications Acetaminophen (Ofirmev Injection -) 1,000 mg IVPB Q6H PRN PRN Reason: FEVER OR PAIN Albuterol Sulfate (Ventolin 0.083% Nebulizer Soln -) 1 amp NEB Q4H PRN PRN Reason: SHORT OF BREATH/WHEEZING Albuterol/Ipratropium (Duoneb -) 1 amp NEB QIDR [facility] Last Admin: 05/22/17 17:53 Dose: 1 amp Chlorhexidine Gluconate (Hibiclens For Decolonization -) 1 applic TP HS [facility] Heparin Sodium (Porcine) (Heparin -) 5,000 unit SQ TID [facility] Last Admin: 05/22/17 15:56 Dose: 5,000 unit Dextrose/Sodium Chloride (D5-Ns -) 1,000 mls @ 75 mls/hr IV ASDIR [facility] Last Admin: 05/22/17 15:52 Dose: 75 mls/hr Vancomycin HCl 1,000 mg/ (Dextrose) 250 mls @ 250 mls/hr IVPB BID [facility] PRN Reason: Protocol Piperacillin Sod/Tazobactam (Sod 3.375 gm/ Dextrose) 100 mls @ 200 mls/hr IVPB Q8H-IV [facility] Last Admin: 05/22/17 17:31 Dose: 200 mls/hr Methylprednisolone Sodium Succinate (Solu-Medrol -) 40 mg IVPUSH DAILY [facility] Last Admin: 05/22/17 14:12 Dose: 40 mg Mupirocin (Bactroban Ointment (For Decolonization) -) 1 applic NS BID [facility] Stop: 05/27/17 21:59 Pantoprazole Sodium (Protonix Iv) 40 mg IVPUSH DAILY [facility] Last Admin: 05/22/17 15:56 Dose: 40 mg - Past Medical History 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 Cardio/Vascular: No: AFIB Pulmonary: Yes: COPD, O2 Dependent, Pneumonia Gastrointestinal: Yes: Diverticulosis, GI Bleed, Peptic Ulcer Disease, Other ( GASTRIC OUTLET OBSTRUCTION) Hepatobiliary: No: Cirrhosis Renal/: No: Renal Failure Infectious Disease: No: AIDS Psych: No: Addictions - Past Surgical History Additional Surgical History: UNABLE TO OBTAIN ACCURATE INFO/BACK SURG MULTIPLE - Alcohol/Substance Use Hx Alcohol Use: No History of Substance Use: reports: None - Smoking History Smoking history: Unknown if ever smoked - Social History Usual Living Arrangement: [facility] ADL: Support Services History of Recent Travel: No Home Medications - Allergies Allergies/Adverse Reactions: Allergies Allergy/AdvReac Type Severity Reaction Status Date / Time No Known Allergies Allergy Verified 05/22/17 08:24 - Home Medications Home Medications: Ambulatory Orders Acetaminophen [Tylenol] 2 tab PO Q6H PRN 05/22/17 Albuterol 2.5/Ipratropium 0.5 [Duoneb -] 1 amp NEB TID 05/22/17 Budesonide [Pulmicort 0.5 mg Nebulizer -] 1 neb PO BID 05/22/17 Ipratropium 0.02% Nebulizer [Atrovent 0.02% Nebulizer -] 1 amp NEB Q6H PRN 05/22 Menthol/Phenol [Cepastat Lozenge -] 1 each MM QID PRN 05/22/17 Metoclopramide HCl 10 mg PO TID 05/22/17 Prednisone 10 mg PO BID 05/22/17 Tramadol HCl [Ultram] 2 mg PO DAILY 05/22/17 Physical Exam Vital Signs: Vital Signs Temperature 97.5 F L 05/22/17 16:00 Pulse Rate 75 05/22/17 16:40 Respiratory Rate 19 05/22/17 19:28 Blood Pressure 112/61 05/22/17 16:40 O2 Sat by Pulse Oximetry (%) 93 L 05/22/17 19:28 Constitutional: Yes: No Distress Cardiovascular: Yes: Regular Rate and Rhythm, S1, S2 Respiratory: Yes: Regular, On Nasal O2, Other (crackles at bases) Gastrointestinal: Yes: Normal Bowel Sounds, Soft. No: Tenderness Edema: No Labs: CBC, BMP 05/22/17 09:15 05/22/17 09:15 CBCD WBC 12.8 K/mm3 (4.0-10.0) H 05/22/17 09:15 RBC 4.13 M/mm3 (4.00-5.60) 05/22/17 09:15 Hgb 11.7 GM/dL (11.7-16.9) 05/22/17 09:15 Hct 39.6 % (35.4-49) 05/22/17 09:15 MCV 95.8 fl (80-96) 05/22/17 09:15 MCHC 29.5 g/dl (32.0-35.9) L 05/22/17 09:15 RDW 16.5 % (11.9-15.9) H 05/22/17 09:15 Plt Count No Result Required. 05/22/17 09:15 MPV 8.5 fl (7.5-11.1) 05/22/17 09:15 CMP Sodium 141 mmol/L (136-145) 05/22/17 09:15 Potassium 3.6 mmol/L (3.5-5.1) 05/22/17 09:15 Chloride 100 mmol/L (98-107) 05/22/17 09:15 Carbon Dioxide 34 mmol/L (21-32) H 05/22/17 09:15 Anion Gap 7 (8-16) L 05/22/17 09:15 BUN 13 mg/dL (7-18) 05/22/17 09:15 Creatinine 0.4 mg/dL (0.7-1.3) L 05/22/17 09:15 Creat Clearance w eGFR > 60 (>60) 05/22/17 09:15 Calcium 8.8 mg/dL (8.5-10.1) 05/22/17 09:15 Total Bilirubin 0.4 mg/dL (0.2-1.0) 05/22/17 09:15 AST 14 U/L (15-37) L 05/22/17 09:15 ALT 12 U/L (12-78) 05/22/17 09:15 Alkaline Phosphatase 96 U/L (45-117) 05/22/17 09:15 Total Protein 6.5 g/dl (6.4-8.2) 05/22/17 09:15 Albumin 2.6 g/dl (3.4-5.0) L 05/22/17 09:15 Imaging - Results Chest X-ray: Report Reviewed Problem List - Problems (1) COPD (chronic obstructive pulmonary disease) Code(s): J44.9 - CHRONIC OBSTRUCTIVE PULMONARY DISEASE, UNSPECIFIED Qualifiers: COPD type: COPD with acute lower respiratory infection Qualified Code(s): J44.0 - Chronic obstructive pulmonary disease with acute lower respiratory infection (2) Hypertension Code(s): I10 - ESSENTIAL (PRIMARY) HYPERTENSION (3) Pneumonia Code(s): J18.9 - PNEUMONIA, UNSPECIFIED ORGANISM Qualifiers: Pneumonia type: due to unspecified organism Laterality: left Lung location: lower lobe of lung Qualified Code(s): J18.1 - Lobar pneumonia, unspecified organism (4) Respiratory failure Code(s): J96.90 - RESPIRATORY FAILURE, UNSP, UNSP W HYPOXIA OR HYPERCAPNIA Assessment/Plan Hypoxemic respiratory failure, PNA (bacterial or viral) vs fluid overload vs COPD exacerbation Troponin leak likely demand ischemia HTN Recent GIB, now with stable Hgb -f/u respiratory swab -send sputum if able -cont Zosyn/Vanco -cont nebs -cont methylpred -cont HFNC --> wean flow and FiO2 for SpO2 88-94% (currently at 50%/60L) -TTE -stop standing fluids -consider diuresis if depressed EF -trend troponin -not hypertensive now, monitor -LE dopplers -heparin SubQ for ppx -protonix for GI ppx (recent GIB) -DNR/DNI/no invasive procedures as per prior GOC conversations AMY Ralph Critical Care time: 35 min
[2017-05-22] MEDS: MUPIROCIN 2% TOPICAL OINTMENT FOR DECOLONIZATION NS SCH (21:17)
[2017-05-22] MEDS: VANCOMYCIN 1,000 MG in DEXTROSE 5%-WATER - 250 ML IVPB SCH (21:17)
[2017-05-22] MEDS ORDERED: CHLORHEXIDINE GLUCONATE 4% CLEANSER FOR DECOLONIZATION TP SCH (22:00)
[2017-05-22 22:41] LABS: EPI CELLS RARE /HPF (FEW); URINE BACTERIA RARE /hpf (NONE SEEN); URINE MUCUS RARE
[2017-05-23] MEDS: PIPERACILLIN/TAZOB 3.375 GM 3.375 GM in DEXTROSE 5%-WATER - 100 ML IVPB SCH ×3 (02:01→17:39)
[2017-05-23] MEDS: ALBUTEROL SO4 2.5/IPRATROPIUM 0.5 INH SOL 3 ML VIAL.NEB. NEB SCH ×5 (05:44→22:20)
[2017-05-23] MEDS: HEPARIN NA (PORCINE) 5,000 UNITS/ML 1ML VIAL SQ SCH ×3 (06:27→21:06)
[2017-05-23 06:29] LABS: HEMATOCRIT 35.4 % (35.4-49); MCH 29.6 pg (25.7-33.7); MCHC 31.1 g/dl (32.0-35.9); MEAN CELL VOLUME 95.1 fl (80-96); MEAN PLT VOLUME 8.5 fl (7.5-11.1); PLATELET COUNT 217 K/MM3 (134-434); RBC 3.72 M/mm3 (4.00-5.60); RDW 16.4 % (11.9-15.9); WHITE BLOOD COUNT 14.7 K/mm3 (4.0-10.0)
[2017-05-23 07:16] LABS: ANION GAP 5 (8-16); BLOOD UREA NITROGEN 9 mg/dL (7-18); CALCIUM 8.3 mg/dL (8.5-10.1); CHLORIDE 101 mmol/L (98-107); CO2 35 mmol/L (21-32); GLUCOSE,RANDOM 124 mg/dL (74-106); MAGNESIUM 2.2 mg/dL (1.8-2.4); POTASSIUM 3.4 mmol/L (3.5-5.1); SODIUM 141 mmol/L (136-145)
[2017-05-23 07:17] LABS: CREATININE 0.2 mg/dL (0.7-1.3)
--- NOTE | 2017-05-23 07:28 | PN ---
Physical Exam: SUBJECTIVE: Patient seen and examined. Patient did not respond well to Bipap and was put on high flow oxygen. Had a choking episode on water this am. OBJECTIVE: Vital Signs Period Temp Pulse Resp BP Sys/Calderon Pulse Ox Last 24 Hr 97.5 F-100.8 F 71-96 13-32 112-134/57-78 86-96 GENERAL: The patient is awake, alert, and fully oriented, on high flow oxygen HEAD: Normal with no signs of trauma. EYES: PERRL, extraocular movements intact, sclera anicteric, conjunctiva clear. No ptosis. ENT: Ears normal, nares patent, oropharynx clear without exudates, moist mucous membranes. NECK: supple. LUNGS: tachypneic, rhonchi and scattered creps HEART: Regular rate and rhythm, S1, S2 without murmur, rub or gallop. ABDOMEN: Soft, nontender, nondistended, normoactive bowel sounds, no guarding, no rebound, no hepatosplenomegaly, no masses. EXTREMITIES: 2+ pulses, warm, well-perfused, no edema. NEUROLOGICAL: Cranial nerves II through XII grossly intact. Normal speech, gait not observed. PSYCH: Normal mood, normal affect. SKIN: Warm, dry, normal turgor, no rashes or lesions noted Laboratory Results - last 24 hr 05/22/17 05/22/17 05/22/17 09:15 09:15 09:15 WBC 12.8 H RBC 4.13 Hgb 11.7 Hct 39.6 MCV 95.8 MCH 28.3 MCHC 29.5 L RDW 16.5 H Plt Count No Result Required. MPV 8.5 Neutrophils % 85.0 H Lymphocytes % 5.7 L Monocytes % 9.2 Eosinophils % 0.0 Basophils % 0.1 Platelet Estimate Decreased Platelet Comment Present PT with INR 12.70 H INR 1.12 PTT (Actin FS) 40.1 H Puncture Site ABG pH ABG pCO2 at Pt Temp ABG pO2 at Pt Temp ABG HCO3 ABG O2 Sat (Measured) ABG O2 Content ABG Base Excess Jonathan Test VBG pH Quality Control Director POC VBG pCO2 No Result Required. POC VBG pO2 No Result Required. Mixed VBG HCO3 No Result Required. Carboxyhemoglobin Methemoglobin O2 Delivery Device Oxygen Flow Rate Vent Mode Vent Rate Mechanical Rate Sodium Potassium Chloride Carbon Dioxide Anion Gap BUN Creatinine Creat Clearance w eGFR Random Glucose Lactic Acid Calcium Phosphorus Magnesium Total Bilirubin AST ALT Alkaline Phosphatase Creatine Kinase Troponin I B-Natriuretic Peptide Total Protein Albumin Urine Color Urine Appearance Urine pH Ur Specific [place] Urine Protein Urine Glucose (UA) Urine Ketones Urine Blood Urine Nitrite Urine Bilirubin Urine Urobilinogen Ur Leukocyte Esterase Urine WBC (Auto) Urine RBC (Auto) Ur Epithelial Cells Urine Bacteria Urine Mucus Blood Type Antibody Screen 05/22/17 05/22/17 05/22/17 09:15 09:15 09:15 WBC RBC Hgb Hct MCV MCH MCHC RDW Plt Count MPV Neutrophils % Lymphocytes % Monocytes % Eosinophils % Basophils % Platelet Estimate Platelet Comment PT with INR INR PTT (Actin FS) Puncture Site ABG pH ABG pCO2 at Pt Temp ABG pO2 at Pt Temp ABG HCO3 ABG O2 Sat (Measured) ABG O2 Content ABG Base Excess Jonathan Test VBG pH POC VBG pCO2 POC VBG pO2 Mixed VBG HCO3 Carboxyhemoglobin Methemoglobin O2 Delivery Device Oxygen Flow Rate Vent Mode Vent Rate Mechanical Rate Sodium 141 Potassium 3.6 Chloride 100 Carbon Dioxide 34 H Anion Gap 7 L BUN 13 Creatinine 0.4 L Creat Clearance w eGFR > 60 Random Glucose 129 H Lactic Acid 1.5 Calcium 8.8 Phosphorus Magnesium Total Bilirubin 0.4 AST 14 L ALT 12 Alkaline Phosphatase 96 Creatine Kinase 36 L Troponin I 0.18 H B-Natriuretic Peptide Total Protein 6.5 Albumin 2.6 L Urine Color Urine Appearance Urine pH Ur Specific [place] Urine Protein Urine Glucose (UA) Urine Ketones Urine Blood Urine Nitrite Urine Bilirubin Urine Urobilinogen Ur Leukocyte Esterase Urine WBC (Auto) Urine RBC (Auto) Ur Epithelial Cells Urine Bacteria Urine Mucus Blood Type A POSITIVE Antibody Screen Negative 05/22/17 05/22/17 05/22/17 10:25 18:00 18:00 WBC RBC Hgb Hct MCV MCH MCHC RDW Plt Count MPV Neutrophils % Lymphocytes % Monocytes % Eosinophils % Basophils % Platelet Estimate Platelet Comment PT with INR INR PTT (Actin FS) Puncture Site Right brachial ABG pH 7.40 ABG pCO2 at Pt Temp 55.6 H ABG pO2 at Pt Temp 63.3 L ABG HCO3 33.4 H ABG O2 Sat (Measured) 87.5 L ABG O2 Content 13.2 L ABG Base Excess 7.5 H Jonathan Test Not applicable VBG pH POC VBG pCO2 POC VBG pO2 Mixed VBG HCO3 Carboxyhemoglobin 1.4 Methemoglobin 1.1 O2 Delivery Device Bipap Oxygen Flow Rate 50 Vent Mode S/t 12/6 Vent Rate 10 Mechanical Rate Yes Sodium Potassium Chloride Carbon Dioxide Anion Gap BUN Creatinine Creat Clearance w eGFR Random Glucose Lactic Acid Calcium Phosphorus Magnesium Total Bilirubin AST ALT Alkaline Phosphatase Creatine Kinase Troponin I 0.12 H D B-Natriuretic Peptide 1599.52 H Total Protein Albumin Urine Color Urine Appearance Urine pH Ur Specific [place] Urine Protein Urine Glucose (UA) Urine Ketones Urine Blood Urine Nitrite Urine Bilirubin Urine Urobilinogen Ur Leukocyte Esterase Urine WBC (Auto) Urine RBC (Auto) Ur Epithelial Cells Urine Bacteria Urine Mucus Blood Type Antibody Screen 05/22/17 05/23/17 05/23/17 18:08 05:10 05:10 WBC 14.7 H RBC 3.72 L Hgb 11.0 L Hct 35.4 MCV 95.1 MCH 29.6 MCHC 31.1 L RDW 16.4 H Plt Count MPV Neutrophils % Lymphocytes % Monocytes % Eosinophils % Basophils % Platelet Estimate Platelet Comment PT with INR INR PTT (Actin FS) Puncture Site ABG pH ABG pCO2 at Pt Temp ABG pO2 at Pt Temp ABG HCO3 ABG O2 Sat (Measured) ABG O2 Content ABG Base Excess Jonathan Test VBG pH POC VBG pCO2 POC VBG pO2 Mixed VBG HCO3 Carboxyhemoglobin Methemoglobin O2 Delivery Device Oxygen Flow Rate Vent Mode Vent Rate Mechanical Rate Sodium 141 Potassium 3.4 L Chloride 101 Carbon Dioxide 35 H Anion Gap 5 L BUN 9 D Creatinine 0.2 L D Creat Clearance w eGFR Random Glucose 124 H Lactic Acid Calcium 8.3 L Phosphorus 2.0 L Magnesium 2.2 Total Bilirubin AST ALT Alkaline Phosphatase Creatine Kinase Troponin I B-Natriuretic Peptide Total Protein Albumin Urine Color Yellow Urine Appearance Cloudy Urine pH 5.0 Ur Specific [place] 1.032 Urine Protein 1+ H Urine Glucose (UA) Negative Urine Ketones Negative Urine Blood Negative Urine Nitrite Negative Urine Bilirubin Negative Urine Urobilinogen Negative Ur Leukocyte Esterase Negative Urine WBC (Auto) 3 Urine RBC (Auto) 7 Ur Epithelial Cells Rare Urine Bacteria Rare Urine Mucus Rare Blood Type Antibody Screen Active Medications Generic Name Dose Route Start Last Admin Trade Name Freq PRN Reason Stop Dose Admin Acetaminophen 1,000 mg 05/22/17 13:29 Ofirmev Injection - IVPB Q6H PRN FEVER OR PAIN Albuterol Sulfate 1 amp 12/27/17 12:43 Ventolin 0.083% Nebulizer Soln - NEB Q4H PRN SHORT OF BREATH/WHEEZING Albuterol/Ipratropium 1 amp 05/22/17 18:00 05/23/17 05:44 Duoneb - NEB 1 amp QIDR BRITT[facility] Administration Chlorhexidine Gluconate 1 applic 05/22/17 22:00 05/22/17 21:18 Hibiclens For Decolonization - TP 1 applic HS [facility] Administration Heparin Sodium (Porcine) 5,000 unit 05/22/17 12:30 05/23/17 06:27 Heparin - SQ 5,000 unit TID [facility]ITT[facility] Administration Vancomycin HCl 1,000 mg/ 250 mls @ 250 mls/hr 05/22/17 22:00 05/22/17 21:17 Dextrose IVPB 250 mls/hr BID [facility] Administration Protocol Piperacillin Sod/Tazobactam 100 mls @ 200 mls/hr 05/22/17 18:00 05/23/17 02: 01 Sod 3.375 gm/ Dextrose IVPB 200 mls/hr Q8H-IV [facility] Administration Methylprednisolone Sodium Succinate 40 mg 05/22/17 13:30 05/22/17 14:12 Solu-Medrol - IVPUSH 40 mg DAILY [facility] Administration Mupirocin 1 applic 05/22/17 22:00 05/22/17 21:17 Bactroban Ointment (For Decolonization) - NS 05/27/17 21:59 1 applic BID [facility] Administration Pantoprazole Sodium 40 mg 05/22/17 15:15 05/22/17 15:56 Protonix Iv IVPUSH 40 mg DAILY [facility] Administration ASSESSMENT/PLAN: 87 year old male with a PMHx of HTN, COPD (3L NC at night), Osteoarthritis, Dysphagia, PUD presented to the ER with acute hypoxic respiratory distress Resp: Acute hypoxic hypercapnic respiratory distress due to possible PNA vs acute on chronic COPD. currently saturating well on high flow oxygen. on medrol 40mg Daily supplemental oxygen to maintain spO2 >88%. pulmonary on board wean to nasal cannular monitor respiratory status ID: Sepsis due to PNA- afebrile. leukocytosis improving. on Vanco/zosyn day 2. Flu negative. check legionella, strep. consult ID Cardio: HTN- currently normotensive. not on medications at home. monitor. GI: R/o poor swallow speech and swallow consult PUD- no signs of bleeding. stress ulcer ppx Prophylaxis: DVT ppx- hep sq GI prophylaxis Dispo: Currently DNR/DNI, no central line or pressors. For likely transfer to [facility] if stable on NC Visit type - Emergency Visit Emergency Visit: Yes ED Registration Date: 05/22/17 Care time: The patient presented to the Emergency Department on the above date and was hospitalized for further evaluation of their emergent condition. - New Patient This patient is new to me today: Yes Date on this admission: 05/28/17 - Critical Care Critical Care patient: Yes Total Critical Care Time (in minutes): 35 Critical Care Statement: The care of this patient involved high complexity decision making to prevent further life threatening deterioration of the patient 's condition and/or to evaluate & treat vital organ system(s) failure or risk of failure. - Discharge Referral Referred to [facility] No
[2017-05-23] MEDS ORDERED: POTASSIUM CHLORIDE TABS 20 MEQ TABLET.ER (FP) PO ONE (08:30)
[2017-05-23 09:43] LABS: ARTERIAL BLD GAS O2 SATURATION 92.7 % (90-98.9); ARTERIAL BLOOD GAS BASE EXCESS 8.6 meq/l (-2-2); ARTERIAL BLOOD GAS PCO2 53.1 mmHg (35-45); ARTERIAL BLOOD GAS PO2 62.3 mmHg (68-100); ARTERIAL BLOOD GAS pH 7.42 (7.35-7.45)
[2017-05-23 09:55] LABS: ALLENS TEST POSITIVE
[2017-05-23] MEDS: PANTOPRAZOLE SODIUM 40 MG VIAL IVPUSH SCH (10:03)
[2017-05-23] MEDS: methylPREDNISolone NA SUCC 40 MG/1 ML VIAL IVPUSH SCH (10:04)
[2017-05-23] MEDS: VANCOMYCIN 1,000 MG in DEXTROSE 5%-WATER - 250 ML IVPB SCH ×2 (10:04→21:05)
[2017-05-23] MEDS: MUPIROCIN 2% TOPICAL OINTMENT FOR DECOLONIZATION NS SCH (10:38)
--- NOTE | 2017-05-23 13:02 | PN ---
Teaching Attending Note Name of Resident: Linda Pedro ATTENDING PHYSICIAN STATEMENT I saw and evaluated the patient. I reviewed the resident's note and discussed the case with the resident. I agree with the resident's findings and plan as documented. SUBJECTIVE: Patient seen and examined in the ICU. Awake and responsive on HFOT. Reports some improvement in his breathing. Congested cough. CXR: rotated, minimal improvement in congestion/infiltrates. Intake & Output 05/20/17 05/21/17 05/22/17 05/23/17 23:59 23:59 23:59 23:59 Intake Total 550 950 Output Total 75 Balance 475 950 Weight 219 lb 15.988 oz 164 lb 6 oz Last Vital Signs Temp Pulse Resp BP Pulse Ox 98.6 F 80 24 129/65 90 L 05/23/17 12:00 05/23/17 12:19 05/23/17 12:00 05/23/17 12:00 05/23/17 12:19 Active Medications Acetaminophen (Ofirmev Injection -) 1,000 mg IVPB Q6H PRN PRN Reason: FEVER OR PAIN Last Admin: 05/23/17 09:00 Dose: 1,000 mg Albuterol Sulfate (Ventolin 0.083% Nebulizer Soln -) 1 amp NEB Q4H PRN PRN Reason: SHORT OF BREATH/WHEEZING Albuterol/Ipratropium (Duoneb -) 1 amp NEB QIDR [facility] Last Admin: 05/23/17 12:36 Dose: 1 amp Chlorhexidine Gluconate (Hibiclens For Decolonization -) 1 applic TP HS [facility] Last Admin: 05/22/17 21:18 Dose: 1 applic Heparin Sodium (Porcine) (Heparin -) 5,000 unit SQ TID [facility] Last Admin: 05/23/17 06:27 Dose: 5,000 unit Vancomycin HCl 1,000 mg/ (Dextrose) 250 mls @ 250 mls/hr IVPB BID [facility] PRN Reason: Protocol Last Admin: 05/23/17 10:04 Dose: 250 mls/hr Piperacillin Sod/Tazobactam (Sod 3.375 gm/ Dextrose) 100 mls @ 200 mls/hr IVPB Q8H-IV [facility] Last Admin: 05/23/17 10:04 Dose: 200 mls/hr Methylprednisolone Sodium Succinate (Solu-Medrol -) 40 mg IVPUSH DAILY [facility] Last Admin: 05/23/17 10:04 Dose: 40 mg Mupirocin (Bactroban Ointment (For Decolonization) -) 1 applic NS BID [facility] Stop: 05/27/17 21:59 Last Admin: 05/23/17 10:38 Dose: 1 applic Pantoprazole Sodium (Protonix Iv) 40 mg IVPUSH DAILY [facility] Last Admin: 05/23/17 10:03 Dose: 40 mg Constitutional: Yes: Mildly tachypneic Cardiovascular: Yes: Regular Rate and Rhythm, S1, S2 Respiratory: Yes: On HFOT, bibasilar crackles, mild expiratory wheeze Gastrointestinal: Yes: Normal Bowel Sounds, Soft. No: Tenderness Edema: No Labs: Laboratory Results - last 24 hr 05/22/17 05/22/17 05/22/17 09:15 09:15 09:15 WBC RBC Hgb Hct MCV MCH MCHC RDW Plt Count No Result Required. Platelet Estimate Decreased Platelet Comment Present Puncture Site ABG pH ABG pCO2 at Pt Temp ABG pO2 at Pt Temp ABG HCO3 ABG O2 Sat (Measured) ABG O2 Content ABG Base Excess Jonathan Test VBG pH Corrections Officer PEEP Pressure Support Vent Sodium Potassium Chloride Carbon Dioxide Anion Gap BUN Creatinine Random Glucose Lactic Acid 1.5 Calcium Phosphorus Magnesium Troponin I B-Natriuretic Peptide Urine Color Urine Appearance Urine pH Ur Specific [place] Urine Protein Urine Glucose (UA) Urine Ketones Urine Blood Urine Nitrite Urine Bilirubin Urine Urobilinogen Ur Leukocyte Esterase Urine WBC (Auto) Urine RBC (Auto) Ur Epithelial Cells Urine Bacteria Urine Mucus 05/22/17 05/22/17 05/22/17 18:00 18:00 18:08 WBC RBC Hgb Hct MCV MCH MCHC RDW Plt Count Platelet Estimate Platelet Comment Puncture Site ABG pH ABG pCO2 at Pt Temp ABG pO2 at Pt Temp ABG HCO3 ABG O2 Sat (Measured) ABG O2 Content ABG Base Excess Jonathan Test VBG pH PEEP Pressure Support Vent Sodium Potassium Chloride Carbon Dioxide Anion Gap BUN Creatinine Random Glucose Lactic Acid Calcium Phosphorus Magnesium Troponin I 0.12 H D B-Natriuretic Peptide 1599.52 H Urine Color Yellow Urine Appearance Cloudy Urine pH 5.0 Ur Specific [place] 1.032 Urine Protein 1+ H Urine Glucose (UA) Negative Urine Ketones Negative Urine Blood Negative Urine Nitrite Negative Urine Bilirubin Negative Urine Urobilinogen Negative Ur Leukocyte Esterase Negative Urine WBC (Auto) 3 Urine RBC (Auto) 7 Ur Epithelial Cells Rare Urine Bacteria Rare Urine Mucus Rare 05/23/17 05/23/17 05/23/17 05:10 05:10 09:30 WBC 14.7 H RBC 3.72 L Hgb 11.0 L Hct 35.4 MCV 95.1 MCH 29.6 MCHC 31.1 L RDW 16.4 H Plt Count Platelet Estimate Platelet Comment Puncture Site Right radial ABG pH 7.42 ABG pCO2 at Pt Temp 53.1 H ABG pO2 at Pt Temp 62.3 L ABG HCO3 34.1 H ABG O2 Sat (Measured) 92.7 ABG O2 Content 14.1 L ABG Base Excess 8.6 H Jonathan Test Positive VBG pH PEEP 5.0 Pressure Support Vent 300 Sodium 141 Potassium 3.4 L Chloride 101 Carbon Dioxide 35 H Anion Gap 5 L BUN 9 D Creatinine 0.2 L D Random Glucose 124 H Lactic Acid Calcium 8.3 L Phosphorus 2.0 L Magnesium 2.2 Troponin I B-Natriuretic Peptide Urine Color Urine Appearance Urine pH Ur Specific [place] Urine Protein Urine Glucose (UA) Urine Ketones Urine Blood Urine Nitrite Urine Bilirubin Urine Urobilinogen Ur Leukocyte Esterase Urine WBC (Auto) Urine RBC (Auto) Ur Epithelial Cells Urine Bacteria Urine Mucus Problem List - Problems (1) COPD (chronic obstructive pulmonary disease) Code(s): J44.9 - CHRONIC OBSTRUCTIVE PULMONARY DISEASE, UNSPECIFIED Qualifiers: COPD type: COPD with acute lower respiratory infection Qualified Code(s): J44.0 - Chronic obstructive pulmonary disease with acute lower respiratory infection (2) Hypertension Code(s): I10 - ESSENTIAL (PRIMARY) HYPERTENSION (3) Pneumonia Code(s): J18.9 - PNEUMONIA, UNSPECIFIED ORGANISM Qualifiers: Pneumonia type: due to unspecified organism Laterality: left Lung location: lower lobe of lung Qualified Code(s): J18.1 - Lobar pneumonia, unspecified organism (4) Respiratory failure Code(s): J96.90 - RESPIRATORY FAILURE, UNSP, UNSP W HYPOXIA OR HYPERCAPNIA Assessment/Plan Hypoxemic respiratory failure R/O PNA vs fluid overload Acute COPD exacerbation Troponin leak likely demand ischemia HTN Recent GIB, now with stable Hgb -f/u respiratory swab -Check sputum if able -ABX per ID -BD TX -Medrol -Wean HFOT -TTE -Monitor off IVF -trend troponin -LE dopplers -heparin SubQ -protonix for GI ppx (recent GIB) -DNR/DNI/no invasive procedures as per prior GOC conversations Dr Tobar Critical care time spent in reviewing chart, evaluating patient and formulating plan - 40 minutes.
--- NOTE | 2017-05-23 14:24 | CONSULT ---
Admitting History and Physical - Primary Care Physician PCP: Nora Glez - Admission History of Present Illness: Per EMR: hypoxemic respiratory failure R/O PNA vs fluid overload Acute COPD exacerbation Troponin leak likely demand ischemia HTN Recent GIB, now with stable Hgb pt transferred from [facility], with h/o PNA/dysphagia on transfer summary. Pt was on pureed diet and thin liquid. Per [facility] Sp path, he refuses to sit up at [place]. Pt referred as noted to cough on thin liquids in ICU. 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 Cardiovascular: No: AFIB Pulmonary: Yes: COPD, O2 Dependent, Pneumonia Gastrointestinal: Yes: Diverticulosis, GI Bleed, Peptic Ulcer Disease, Other ( GASTRIC OUTLET OBSTRUCTION) Hepatobiliary: No: Cirrhosis Renal/: No: Renal Failure Heme/Onc: Yes: Anemia Infectious Disease: No: AIDS Psych: No: Addictions - Advance Directives Advance Directives: Yes: Health Care Proxy, DNR - Smoking History Smoking history: Unknown if ever smoked - Alcohol/Substance Use Hx Alcohol Use: No History of Substance Use: reports: None - Social History ADL: Support Services History of Recent Travel: No History - Admission Reason For Visit: SEPSIS,COPD,PNEUMONIA - Diagnostics X-ray: Report Reviewed - General Mental Status: Alert and Oriented, Awake and Alert, Able to Follow Commands Attention: Intact Ability to Follow Directions: Good Head/Neck Control: WFL - Hearing Hearing: Impaired Speech Evaluation - Communication Primary Language: BERMUDIAN Communication: Yes: Within Normal Limits Oral Expression Ability: Yes: No Impairment - Speech Production Able to Make Needs Known: Yes: WNL Intelligibility: Yes: Mildly Impaired - Speech Characteristics Voice Loudness: Mildly Soft/Quiet, Hypophonia Voice Pitch: Yes: Pitch Breaks Voice Phonatory-based Quality: Yes: Breathy, Weak, Dysphonia Speech Pattern: Impaired Speech Clarity: < 100% Nasal Resonance: Normal Articulation: Yes: Precise - Language/Auditory Comprehension Follows: Yes: 2 Stage Simple Commands - Language/Verbal Expression Able to Respond to Simple Queries: Yes: WNL Able to Communicate Wants and Needs: Yes: WNL Functional Communication Status: Yes: WNL - 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/Perception 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 Memory: Yes: WNL Short Term Memory: Yes: WNL - Swallow Evaluation/Bedside Assessment Current Nutritional Intake: Soft, Thin Liquids Dentition: Yes: Edentulous Facial Symmetry at Rest: Symmetrical Facial Symmetry on Retraction: Symmetrical Facial Movement: Controlled Sensation: Normal Jaw Position: Open at Rest Against Resistance Opening: Weak Pucker Lips: Normal Smile: Normal Lingual Movement: Symmetric Lingual Speed of Movement: Normal Lingual Movement Strgth Against Opposition: Normal Lingual Movement Characteristics: Normal Velopharyngeal Movement: Normal Laryngeal Elevation: Impaired Laryngeal Movement: Reduced Excursion, Labored,delay initiation, Reduced Velocity Bolus Size: WFL Labial Seal: WFL Chewing: Impaired Oral Prep Time: WFL A-P Transit: WFL Pocketing: None Timing of Swallow: Delayed Coughing/Throat Clear: Yes Recommendations - Speech Evaluation, Impression/Plan Impression: Dysphonia with impaired breath support for speech. Swallow reflex is quite weak, with delayed onset and reduced laryngeal excursion and rate. Suspect pharyngeal stasis and intermittent aspiration. Pt was a good historian for me. o2 saturation was 85-93 with nasal o2. - [facility]position [facility] - Dysphagia Impressions/Plan Swallowing Skills: Impaired Dysphagia Impressions: Moderate Impairment *Silent aspiration: cannot be R/O at bedside Dysphagia Treatment Plan: Small Bites, Chin Tuck/Down, 1/2 tsp. at a time, Other (Swallow is weak. HOB fully elevated, chin tucked down, tell pt to swallow HARD, TWICE, per 1/2 tsp) Recommendations: Modified Barium Swallow, Other (monitor tolerance. NPO if cough , congestion, fever) - Recommendations Diet Consistency: Dysphagia Pureed (thinned out with gravy) Liquids: [place] Thick Supplement: Other (ensure compact)
--- NOTE | 2017-05-23 14:55 | PN ---
Progress Note (short form) - Note Progress Note: much more comfortable today on nc alert and conversant no complaints Vital Signs Period Temp Pulse Resp BP Sys/Calderon Pulse Ox Last 24 Hr 97.5 F-98.8 F 71-89 13-32 107-134/50-73 89-98 cor-rrr lungs decreased bs at bases abd soft,nt ext no edema CBC, BMP 05/23/17 05:10 05/23/17 05:10 Microbiology 05/22/17 09:15 Blood - Peripheral Venous Blood Culture - Preliminary NO GROWTH OBTAINED AFTER 24 HOURS, INCUBATION TO CONTINUE FOR 4 DAYS. 05/22/17 09:15 Blood - Peripheral Venous Blood Culture - Preliminary NO GROWTH OBTAINED AFTER 24 HOURS, INCUBATION TO CONTINUE FOR 4 DAYS. 05/22/17 17:30 Nasopharyngeal Swab Influenza Types A,B Antigen (LAURA) - Final 05/22/17 17:30 Nasopharyngeal Swab - Final Active Medications Generic Name Dose Route Start Last Admin Trade Name Freq PRN Reason Stop Dose Admin Acetaminophen 1,000 mg 05/22/17 13:29 05/23/17 09:00 Ofirmev Injection - IVPB 1,000 mg Q6H PRN Administration FEVER OR PAIN Albuterol Sulfate 1 amp 05/22/17 12:43 Ventolin 0.083% Nebulizer Soln - NEB Q4H PRN SHORT OF BREATH/WHEEZING Albuterol/Ipratropium 1 amp 05/22/17 18:00 05/23/17 12:36 Duoneb - NEB 1 amp QIDR BRITTNY Administration Chlorhexidine Gluconate 1 applic 05/22/17 22:00 05/22/17 21:18 Hibiclens For Decolonization - TP 1 applic HS BRITTNY Administration Heparin Sodium (Porcine) 5,000 unit 05/22/17 12:30 05/23/17 13:21 Heparin - SQ 5,000 unit TID BRITTNY Administration Vancomycin HCl 1,000 mg/ 250 mls @ 250 mls/hr 05/22/17 22:00 05/23/17 10:04 Dextrose IVPB 250 mls/hr BID BRITTNY Administration Protocol Piperacillin Sod/Tazobactam 100 mls @ 200 mls/hr 05/22/17 18:00 05/23/17 10: 04 Sod 3.375 gm/ Dextrose IVPB 200 mls/hr Q8H-IV BRITTNY Administration Methylprednisolone Sodium Succinate 40 mg 05/22/17 13:30 05/23/17 10:04 Solu-Medrol - IVPUSH 40 mg DAILY BRITTNY Administration Mupirocin 1 applic 05/22/17 22:00 05/23/17 10:38 Bactroban Ointment (For Decolonization) - NS 05/27/17 21:59 1 applic BID BRITTNY Administration Pantoprazole Sodium 40 mg 05/22/17 15:15 05/23/17 10:03 Protonix Iv IVPUSH 40 mg DAILY BRITTNY Administration a/p i pneumonia (HAP) COPD vanco/zosyn to continue f/u cultures influenza screen negative legionella/pneumococcal urinary antigens-reorder check vanco trough Problem List - Problems (1) Pneumonia Code(s): J18.9 - PNEUMONIA, UNSPECIFIED ORGANISM Qualifiers: Pneumonia type: due to unspecified organism Laterality: left Lung location: lower lobe of lung Qualified Code(s): J18.1 - Lobar pneumonia, unspecified organism (2) Respiratory failure Code(s): J96.90 - RESPIRATORY FAILURE, UNSP, UNSP W HYPOXIA OR HYPERCAPNIA (3) COPD (chronic obstructive pulmonary disease) Code(s): J44.9 - CHRONIC OBSTRUCTIVE PULMONARY DISEASE, UNSPECIFIED Qualifiers: COPD type: COPD with acute lower respiratory infection Qualified Code(s): J44.0 - Chronic obstructive pulmonary disease with acute lower respiratory infection
--- NOTE | 2017-05-23 16:03 | PN ---
Physical Exam: SUBJECTIVE: Patient looks comfortable today. Minimal speaking, but verbal with yes and no questions. Says no to associated symptoms, but unsure if reliable at this point. OBJECTIVE: Vital Signs Period Temp Pulse Resp BP Sys/Calderon Pulse Ox Last 24 Hr 97.6 F-98.8 F 71-89 19-32 107-134/50-71 89-98 GENERAL: NAD, awake, alert to verbal stimulus HEENT: NC/AT, No JVD, sclera anicteric, EOMI, BRYANT LUNGS: Coarse breath sounds anteriorly, questionable superimposed rales? No accessory muscle use. HEART: RRR, S1, S2 without murmur ABDOMEN: Soft, nontender, nondistended, normoactive bowel sounds, no guarding EXTREMITIES: 2+ DP pulses, no edema, DIP joint deviation noted on hands b/l NEUROLOGICAL: Cannot assess due to clinical condition SKIN: Warm, no rashes noted, sacral ulcer noted Laboratory Results - last 24 hr 05/22/17 05/22/17 05/22/17 09:15 09:15 18:00 WBC RBC Hgb Hct MCV MCH MCHC RDW Plt Count MPV Platelet Comment Puncture Site ABG pH ABG pCO2 at Pt Temp ABG pO2 at Pt Temp ABG HCO3 ABG O2 Sat (Measured) ABG O2 Content ABG Base Excess Jonathan Test VBG pH Cryptanalyst PEEP Pressure Support Vent Sodium Potassium Chloride Carbon Dioxide Anion Gap BUN Creatinine Random Glucose Lactic Acid 1.5 Calcium Phosphorus Magnesium Troponin I 0.12 H D B-Natriuretic Peptide Urine Color Urine Appearance Urine pH Ur Specific [place] Urine Protein Urine Glucose (UA) Urine Ketones Urine Blood Urine Nitrite Urine Bilirubin Urine Urobilinogen Ur Leukocyte Esterase Urine WBC (Auto) Urine RBC (Auto) Ur Epithelial Cells Urine Bacteria Urine Mucus 05/22/17 05/22/17 05/23/17 18:00 18:08 05:10 WBC RBC Hgb Hct MCV MCH MCHC RDW Plt Count MPV Platelet Comment Puncture Site ABG pH ABG pCO2 at Pt Temp ABG pO2 at Pt Temp ABG HCO3 ABG O2 Sat (Measured) ABG O2 Content ABG Base Excess Jonathan Test VBG pH PEEP Pressure Support Vent Sodium 141 Potassium 3.4 L Chloride 101 Carbon Dioxide 35 H Anion Gap 5 L BUN 9 D Creatinine 0.2 L D Random Glucose 124 H Lactic Acid Calcium 8.3 L Phosphorus 2.0 L Magnesium 2.2 Troponin I B-Natriuretic Peptide 1599.52 H Urine Color Yellow Urine Appearance Cloudy Urine pH 5.0 Ur Specific [place] 1.032 Urine Protein 1+ H Urine Glucose (UA) Negative Urine Ketones Negative Urine Blood Negative Urine Nitrite Negative Urine Bilirubin Negative Urine Urobilinogen Negative Ur Leukocyte Esterase Negative Urine WBC (Auto) 3 Urine RBC (Auto) 7 Ur Epithelial Cells Rare Urine Bacteria Rare Urine Mucus Rare 05/23/17 05/23/17 05:10 09:30 WBC 14.7 H RBC 3.72 L Hgb 11.0 L Hct 35.4 MCV 95.1 MCH 29.6 MCHC 31.1 L RDW 16.4 H Plt Count 217 MPV 8.5 Platelet Comment No clumping noted Puncture Site Right radial ABG pH 7.42 ABG pCO2 at Pt Temp 53.1 H ABG pO2 at Pt Temp 62.3 L ABG HCO3 34.1 H ABG O2 Sat (Measured) 92.7 ABG O2 Content 14.1 L ABG Base Excess 8.6 H Jonathan Test Positive VBG pH PEEP 5.0 Pressure Support Vent 300 Sodium Potassium Chloride Carbon Dioxide Anion Gap BUN Creatinine Random Glucose Lactic Acid Calcium Phosphorus Magnesium Troponin I B-Natriuretic Peptide Urine Color Urine Appearance Urine pH Ur Specific [place] Urine Protein Urine Glucose (UA) Urine Ketones Urine Blood Urine Nitrite Urine Bilirubin Urine Urobilinogen Ur Leukocyte Esterase Urine WBC (Auto) Urine RBC (Auto) Ur Epithelial Cells Urine Bacteria Urine Mucus Active Medications Generic Name Dose Route Start Last Admin Trade Name Freq PRN Reason Stop Dose Admin Acetaminophen 1,000 mg 05/22/17 13:29 05/23/17 09:00 Ofirmev Injection - IVPB 1,000 mg Q6H PRN Administration FEVER OR PAIN Albuterol Sulfate 1 amp 05/22/17 12:43 Ventolin 0.083% Nebulizer Soln - NEB Q4H PRN SHORT OF BREATH/WHEEZING Albuterol/Ipratropium 1 amp 05/22/17 18:00 05/23/17 12:36 Duoneb - NEB 1 amp QIDR BRITTNY Administration Chlorhexidine Gluconate 1 applic 05/22/17 22:00 05/22/17 21:18 Hibiclens For Decolonization - TP 1 applic HS BRITTNY Administration Heparin Sodium (Porcine) 5,000 unit 05/22/17 12:30 05/23/17 13:21 Heparin - SQ 5,000 unit TID BRITTNY Administration Vancomycin HCl 1,000 mg/ 250 mls @ 250 mls/hr 05/22/17 22:00 05/23/17 10:04 Dextrose IVPB 250 mls/hr BID BRITTNY Administration Protocol Piperacillin Sod/Tazobactam 100 mls @ 200 mls/hr 05/22/17 18:00 05/23/17 10: 04 Sod 3.375 gm/ Dextrose IVPB 200 mls/hr Q8H-IV BRITTNY Administration Methylprednisolone Sodium Succinate 40 mg 05/22/17 13:30 05/23/17 10:04 Solu-Medrol - IVPUSH 40 mg DAILY BRITTNY Administration Mupirocin 1 applic 05/22/17 22:00 05/23/17 10:38 Bactroban Ointment (For Decolonization) - NS 05/27/17 21:59 1 applic BID BRITTNY Administration Pantoprazole Sodium 40 mg 05/22/17 15:15 05/23/17 10:03 Protonix Iv IVPUSH 40 mg DAILY BRITTNY Administration ASSESSMENT/PLAN: 87yo M with history of COPD (3LNC at night), HTN, OA, and PUD who was brought by ambulance from [facility] due to respiratory distress noted during the half-way rounds this morning 1) Severe sepsis 2/2 suspected aspiration PNA --SIRS 4/4 met --CXR noted with superimposed infiltrates --f/u Cultures --Sputum culture, urine antigens, mycoplasma IgM, and flu swab ordered --Continue Vancomycin and Zosyn Day 2 --ID consulted --Ofirmev PRN for fever --Aspiration precautions --head of bed elevated >30 degrees 2) Acute hypoxic hypercapnic respiratory failure --Pulmonology consulted --Duoneb QID scheduled --Albuterol PRN --Continue solu-medrol 40mg qDaily --Would benefit from high-flow O2, however if unable continue BiPap due to improving status --Maintain SpO2 >90% 3) Elevated Troponin --Most likely demand ischemia in the setting of severe sepsis --Continue to trend (initial trop 0.18) --EKG - RBBB (unknown if new), no ST elevations or depressions noted; QTc 530 --Mag given in ED 4) HTN --Continue to monitor --No home medications noted; will have to confirm FEN: Fluids: Hold fluids due to overload? Electrolyte abnormalities: None currently Nutrition: None currently; will need speech and swallow eval eventually PPX DVT - Moderate risk pt; Heparin SQ TID GI - Due to initiation of steroids and possible prolonged ICU stay: Protonix 40mg IV qDaily Code Status: DNR/DNI, no central lines, no pressor support; confirmed by HCP Elis Dispoisition: Continue ICU monitoring Case discussed with Dr. Newton Sanabria, DO - Internal Medicine PGY-1 Visit type - Emergency Visit Emergency Visit: No - New Patient This patient is new to me today: No - Critical Care Critical Care patient: Yes Total Critical Care Time (in minutes): 36 Critical Care Statement: The care of this patient involved high complexity decision making to prevent further life threatening deterioration of the patient 's condition and/or to evaluate & treat vital organ system(s) failure or risk of failure.
--- NOTE | 2017-05-23 16:28 | PN ---
Teaching Attending Note Name of Resident: Kolton Sanabria ATTENDING PHYSICIAN STATEMENT I saw and evaluated the patient. I reviewed the resident's note and discussed the case with the resident. I agree with the resident's findings and plan as documented. SUBJECTIVE:resting comfortable. answers no to all questions OBJECTIVE: Last Vital Signs Temp Pulse Resp BP Pulse Ox 98.6 F 80 24 129/64 90 L 05/23/17 16:00 05/23/17 16:00 05/23/17 16:00 05/23/17 16:00 05/23/17 12:19 General NAD CV S1 S2 + Lungs coarse breath sounds anteriorly Abdomen soft NT/ND Extremities no pedal edema ASSESSMENT AND PLAN: 87 year old male with a PMHx of HTN, COPD (3L NC at night), Osteoarthritis, Dysphagia, PUD presented to the ER with acute hypoxic respiratory distress 1. Acute hypoxic hypercapnic respiratory distress- due to possible PNA vs acute on chronic COPD. currently saturating well on high flow oxygen.on medrol 40mg Daily,. supplemental oxygen to maintain spO2 >88%. pulmonary on board 2. Sepsis due to PNA- afebrile. leukocytosis improving. on Vanco/zosyn day 2. Flu negative. check legionella, strep. consult ID 3. HTN- currently normotensive. not on medications at home. cont to monitor. 4. PUD- no sings of bleeding. stress ulcer ppx 5. DVT ppx- hep sq 6. family decided to make status DNR/DNI, no central line or pressors. The care of this patient involved high complexity decision making to prevent further life threatening deterioration of the patient's condition and/or to evaluate & treat vital organ system(s) failure or risk of failure. 35 minutes
[2017-05-23] MEDS ORDERED: ACETAMINOPHEN 1000 MG/100 ML VIAL (NON FORMULARY) IVPB PRN (16:51)
[2017-05-23] MEDS ORDERED: PT OWN MED DRAWER 7, Y5N ONE (17:01)
[2017-05-23] MEDS ORDERED: FUROSEMIDE 40 MG/4 ML INJECTABLE VIAL ONE (19:57)
[2017-05-23] MEDS ORDERED: FUROSEMIDE 40 MG/4 ML INJECTABLE VIAL IVPUSH ONE (21:00)
--- NOTE | 2017-05-23 22:00 | RAPID ---
Physical Examination Vital Signs: Vital Signs Temperature 97.5 F L 05/23/17 17:41 Pulse Rate 98 H 05/23/17 17:41 Respiratory Rate 20 05/23/17 17:41 Blood Pressure 127/73 05/23/17 17:41 O2 Sat by Pulse Oximetry (%) 90 L 05/23/17 12:19 Constitutional: Yes: Anxious Eyes: Yes: WNL HENT: Yes: WNL, Atraumatic, Normocephalic Neck: Yes: WNL, Trachea Midline Cardiovascular: Yes: WNL, Regular Rate and Rhythm Respiratory: Yes: Tachypnea, Other (BL diffuse crackles, decreased lung sounds at bases) Gastrointestinal: Yes: WNL, Normal Bowel Sounds, Soft Extremities: Yes: WNL Edema: No Peripheral Pulses WNL: Yes Labs: CBC, BMP 05/23/17 05:10 05/23/17 05:10 Rapid Response - Rapid Response Assessment: Rapid Response called by nurse due to pt tachypnea, decreased sat to 85%, increased WOB Vitals 121/78 pulse 95 sat 85% on 3L NC, T 97.5 PE: NCAT S1S2 no m/c/r/g BL pulmonary crackles, decreased breath sounds at base Abdomen S/NT/ND No LE edema. 2+ pulses DP, PT Patient placed on Venti mask w/ correction of sats to low 90s. Given one dose lasix 40mg IV. Stat EKG, CXR, BMP, Trops ordered. Assessment: f/u CXR, EKG f/u BMP, Trops Venti mask w/ escalation to NRB as needed. If persistently hypoxic, start on bipap and send stat ABG Replete K, given lasix dose
[2017-05-24] MEDS: HEPARIN NA (PORCINE) 5,000 UNITS/ML 1ML VIAL SQ SCH ×4 (00:30→21:38)
[2017-05-24 00:49] LABS: ANION GAP 9 (8-16); BLOOD UREA NITROGEN 11 mg/dL (7-18); CALCIUM 8.9 mg/dL (8.5-10.1); CHLORIDE 97 mmol/L (98-107); CO2 35 mmol/L (21-32); CREATININE 0.5 mg/dL (0.7-1.3); GLUCOSE,RANDOM 234 mg/dL (74-106); POTASSIUM 3.3 mmol/L (3.5-5.1); SODIUM 141 mmol/L (136-145)
[2017-05-24] MEDS: PIPERACILLIN/TAZOB 3.375 GM 3.375 GM in DEXTROSE 5%-WATER - 100 ML IVPB SCH ×3 (02:07→17:33)
[2017-05-24] MEDS ORDERED: KCL 10 MEQ IVPB 10 MEQ/100 ML INFUS.BAG IVPB SCH (04:00)
[2017-05-24] MEDS ORDERED: POTASSIUM CHLORIDE 30 MEQ in SODIUM CHLORIDE 300 ML IVPB ONE (04:30)
[2017-05-24] MEDS ORDERED: POTASSIUM CHLORIDE TABS 20 MEQ TABLET.ER (FP) PO ONE (06:00)
[2017-05-24] MEDS: ALBUTEROL SO4 2.5/IPRATROPIUM 0.5 INH SOL 3 ML VIAL.NEB. NEB SCH ×4 (06:35→23:25)
[2017-05-24 07:28] LABS: BASO % 0.2 % (0-2.0); HEMATOCRIT 36.2 % (35.4-49); HEMOGLOBIN 11.1 GM/dL (11.7-16.9); LYMPH % 3.7 % (8-40); MCH 28.6 pg (25.7-33.7); MCHC 30.6 g/dl (32.0-35.9); MEAN CELL VOLUME 93.5 fl (80-96); MEAN PLT VOLUME 8.4 fl (7.5-11.1); MONO % 6.4 % (3.8-10.2); NEUT % 89.7 % (42.8-82.8); PLATELET COUNT 278 K/MM3 (134-434); RBC 3.87 M/mm3 (4.00-5.60); RDW 16.4 % (11.9-15.9)
[2017-05-24 08:44] LABS: CHLORIDE 98 mmol/L (98-107); POTASSIUM 3.9 mmol/L (3.5-5.1); SODIUM 142 mmol/L (136-145)
[2017-05-24 08:51] LABS: ALBUMIN 2.2 g/dl (3.4-5.0); ALK PHOS 102 U/L (45-117); ANION GAP 11 (8-16); BILIRUBIN,TOTAL 0.5 mg/dL (0.2-1.0); BLOOD UREA NITROGEN 11 mg/dL (7-18); CALCIUM 8.9 mg/dL (8.5-10.1); CO2 33 mmol/L (21-32); CREATININE 0.3 mg/dL (0.7-1.3); GLUCOSE,RANDOM 94 mg/dL (74-106); MAGNESIUM 2.1 mg/dL (1.8-2.4); PHOSPHOROUS 1.9 mg/dL (2.5-4.9); SGOT/AST 34 U/L (15-37); SGPT/ALT 20 U/L (12-78); TOT PROT 6.1 g/dl (6.4-8.2)
[2017-05-24] MEDS ORDERED: PT OWN MED DRAWER 7, Y5N ONE (09:18)
[2017-05-24] MEDS: methylPREDNISolone NA SUCC 40 MG/1 ML VIAL IVPUSH SCH (09:20)
[2017-05-24] MEDS: PANTOPRAZOLE SODIUM 40 MG VIAL IVPUSH SCH (09:21)
[2017-05-24] MEDS: MULTIVITAMINS (DAILY MVI) TABLET (FP) PO SCH (10:45)
[2017-05-24] MEDS: VANCOMYCIN 1,000 MG in DEXTROSE 5%-WATER - 250 ML IVPB SCH ×2 (10:45→21:38)
--- NOTE | 2017-05-24 10:57 | PN ---
Progress Note, UI DESIGNER - Note Progress Note: RR yesterday. Now on telemetry. On pureed diet and nectar thick liquid. Cup with thin water and pitcher noted at bedside. Pt reports he had thin water last night but not today. On VM. dyspneic with reduced respiratory support for speech purposes and dysphonia. CXR noted. Selected Entries 05/24/17 05/24/17 05/24/17 02:38 06:04 09:33 Temperature 97.8 F 97.5 F L 97.8 F Laboratory Tests 05/22/17 05/23/17 05/24/17 09:15 05:10 06:20 WBC 12.8 H 14.7 H 16.0 H MBS indicated to further evaluate swallowing function and r/o silent aspiration on PO intake. Pt coughs responsively on thin liquid but not nectar/puree. Pt with limited cooperation, however, oriented x 3 for me. He is refusing MBS for me. "No tests!" If he changes his mind, next date MBS are done is 05/28/17. If continued aspiration is suspected, consider thick liquid on a tsp only, possibly downgrade to honey/NPO, pending on pulmonary status.
--- NOTE | 2017-05-24 11:00 | PN ---
Progress Note (short form) - Note Progress Note: more dyspneic today Vital Signs Period Temp Pulse Resp BP Sys/Calderon Pulse Ox Last 24 Hr 97.4 F-98.8 F 71-98 20-30 119-142/58-93 83-90 cor-rrr lungs bibasilar crackles abd soft,nt ext no edema cxray-unchanged, ?new right effusion CBC, BMP 05/24/17 06:20 05/24/17 06:20 Microbiology 05/22/17 09:15 Blood - Peripheral Venous Blood Culture - Preliminary NO GROWTH OBTAINED AFTER 48 HOURS, INCUBATION TO CONTINUE FOR 3 DAYS. 05/22/17 09:15 Blood - Peripheral Venous Blood Culture - Preliminary NO GROWTH OBTAINED AFTER 48 HOURS, INCUBATION TO CONTINUE FOR 3 DAYS. 05/22/17 17:30 Nasopharyngeal Swab Influenza Types A,B Antigen (LAURA) - Final 05/22/17 17:30 Nasopharyngeal Swab - Final a/p i pneumonia (HAP) COPD ?CHF-consider echo vanco/zosyn to continue f/u cultures influenza screen negative legionella/pneumococcal urinary antigens-reorder check vanco trough suspect leukocytosis may be partially due to steroids Problem List - Problems (1) Pneumonia Code(s): J18.9 - PNEUMONIA, UNSPECIFIED ORGANISM Qualifiers: Pneumonia type: due to unspecified organism Laterality: left Lung location: lower lobe of lung Qualified Code(s): J18.1 - Lobar pneumonia, unspecified organism (2) Respiratory failure Code(s): J96.90 - RESPIRATORY FAILURE, UNSP, UNSP W HYPOXIA OR HYPERCAPNIA (3) COPD (chronic obstructive pulmonary disease) Code(s): J44.9 - CHRONIC OBSTRUCTIVE PULMONARY DISEASE, UNSPECIFIED Qualifiers: COPD type: COPD with acute lower respiratory infection Qualified Code(s): J44.0 - Chronic obstructive pulmonary disease with acute lower respiratory infection
[2017-05-24] MEDS ORDERED: FUROSEMIDE 40 MG/4 ML INJECTABLE VIAL IVPUSH ONE (11:40)
[2017-05-24] MEDS ORDERED: NAPH,MB-DB/K PH,MBDB POWDER PACKET PO ONE (12:35)
--- NOTE | 2017-05-24 12:41 | PN ---
Teaching Attending Note Name of Resident: Kolton Sanabria ATTENDING PHYSICIAN STATEMENT I saw and evaluated the patient. I reviewed the resident's note and discussed the case with the resident. I agree with the resident's findings and plan as documented. SUBJECTIVE:offers no complaints. 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 now improved. becca Cp , SOB, fever, chills, cough OBJECTIVE: Last Vital Signs Temp Pulse Resp BP Pulse Ox 97.8 F 98 H 20 142/93 83 L 05/24/17 09:33 05/24/17 09:33 05/24/17 09:33 05/24/17 09:33 05/23/17 20:00 General NAD, A&O x2 (self and location) CV S1 S2 + Lungs crackles B/L bases Abdomen soft NT/ND Extremities no pedal edema ASSESSMENT AND PLAN: 87 year old male with a PMHx of HTN, COPD (3L NC at night), Osteoarthritis, Dysphagia, PUD presented to the ER with acute hypoxic respiratory distress 1. Acute hypoxic hypercapnic respiratory distress- due to possible PNA vs acute on chronic COPD. episode of hypoxia. improved with lasix IV. will give additional dose of Lasix IV. monitor respiratory status. will cont Medrol 40mg today and transition po if improved. currently 90% on 40% face mask. Supplemental oxygen to maintain spO2 >88%. pulmonary on board 2. Sepsis due to PNA- afebrile. leukocytosis trending up likely due to steroids. concern for aspiration. swallow therapist evaluated but pt refusing MBS. on Vanco/zosyn day 3. check vanco trough. Flu and legonella negative. ID on board 3. Hypophosphatemia- neutraphos x2 4. HTN- currently normotensive. not on medications at home. cont to monitor. 5. PUD- no sings of bleeding. stress ulcer ppx 6. DVT ppx- hep sq 7. family decided to make status DNR/DNI, no central line or pressors. 8. d/c caroline
--- NOTE | 2017-05-24 13:40 | PN ---
Progress Note, Physician History of Present Illness: PULMONARY AWAKE,NON-VERBAL,CONGESTED ,MILDLY DYSPNEIC - Current Medication List Current Medications: Active Medications Acetaminophen (Ofirmev Injection -) 1,000 mg IVPB Q6H PRN PRN Reason: FEVER OR PAIN Albuterol Sulfate (Ventolin 0.083% Nebulizer Soln -) 1 amp NEB Q4H PRN PRN Reason: SHORT OF BREATH/WHEEZING Albuterol/Ipratropium (Duoneb -) 1 amp NEB QIDR [facility] Last Admin: 05/24/17 11:35 Dose: 1 amp Amino Acids (Prosource No Carb Liquid Pkt) 30 ml PO BID@0800,1730 [facility] Heparin Sodium (Porcine) (Heparin -) 5,000 unit SQ TID [facility] Last Admin: 05/24/17 05:10 Dose: 5,000 unit Piperacillin Sod/Tazobactam (Sod 3.375 gm/ Dextrose) 100 mls @ 200 mls/hr IVPB Q8H-IV [facility] Last Admin: 05/24/17 09:20 Dose: 200 mls/hr Vancomycin HCl 1,000 mg/ (Dextrose) 250 mls @ 166.667 mls/hr IVPB BID [facility] PRN Reason: Protocol Last Admin: 05/24/17 10:45 Dose: 166.667 mls/hr Methylprednisolone Sodium Succinate (Solu-Medrol -) 40 mg IVPUSH DAILY [facility] Last Admin: 05/24/17 09:20 Dose: 40 mg Multivitamins/Minerals/Vitamin C (Tab-A-Vit -) 1 tab PO DAILY [facility] Last Admin: 05/24/17 10:45 Dose: 1 tab Pantoprazole Sodium (Protonix Iv) 40 mg IVPUSH DAILY [facility] Last Admin: 05/24/17 09:21 Dose: 40 mg - Objective Vital Signs: Vital Signs Temperature 97.8 F 05/24/17 09:33 Pulse Rate 98 H 05/24/17 09:33 Respiratory Rate 20 05/24/17 09:33 Blood Pressure 142/93 05/24/17 09:33 O2 Sat by Pulse Oximetry (%) 83 L 05/23/17 20:00 Constitutional: Yes: Well Nourished, Calm, Other (DYSPNEIC) Eyes: Yes: WNL HENT: Yes: WNL Neck: Yes: WNL Cardiovascular: Yes: Regular Rate and Rhythm, S1, S2 Respiratory: Yes: Rhonchi (SCATTERED NIYA RHONCHI) Gastrointestinal: Yes: Normal Bowel Sounds, Soft Extremities: Yes: WNL Edema: No Labs: CBC, BMP 05/24/17 06:20 05/24/17 06:20 INR, PTT INR 1.12 (0.82-1.09) 05/22/17 09:15 - ....Imaging Chest X-ray: Report Reviewed, Image Reviewed Assessment/Plan Problem List - Problems (1) COPD (chronic obstructive pulmonary disease) Code(s): J44.9 - CHRONIC OBSTRUCTIVE PULMONARY DISEASE, UNSPECIFIED Qualifiers: COPD type: COPD with acute lower respiratory infection Qualified Code(s): J44.0 - Chronic obstructive pulmonary disease with acute lower respiratory infection (2) Hypertension Code(s): I10 - ESSENTIAL (PRIMARY) HYPERTENSION (3) Pneumonia Code(s): J18.9 - PNEUMONIA, UNSPECIFIED ORGANISM Qualifiers: Pneumonia type: due to unspecified organism Laterality: left Lung location: lower lobe of lung Qualified Code(s): J18.1 - Lobar pneumonia, unspecified organism (4) Respiratory failure Code(s): J96.90 - RESPIRATORY FAILURE, UNSP, UNSP W HYPOXIA OR HYPERCAPNIA Assessment/Plan Hypoxemic respiratory failure R/O PNA vs fluid overload Acute COPD exacerbation Troponin leak likely demand ischemia HTN Recent GIB, now with stable Hgb -ABX per ID -BD TX -Medrol -TTE -trend troponin -heparin SubQ -protonix for GI ppx (recent GIB) -DNR/DNI/no invasive procedures as per prior GOC conversations DR JEFFERS
--- NOTE | 2017-05-24 17:04 | PN ---
Physical Exam: SUBJECTIVE: Pt alert, will nod yes and no per baseline and sometimes speak a few words. Denies any pain or problems. Overnight rapid response was called for hypoxic episode down to 84% SpO2 while on 3LNC. Pt was given one dose of Lasix 40mg IVP and was placed onto VM 35% mask. Pt rapidly regained saturation afterward and had good urine output. OBJECTIVE: Vital Signs Period Temp Pulse Resp BP Sys/Calderon Pulse Ox Last 24 Hr 97.4 F-97.8 F 80-98 20-30 121-142/69-93 83 GENERAL: NAD, awake, alert, laying in bed with VM on face. HEENT: No JVD, sclera anicteric, EOMI, BRYANT LUNGS: Rales noted in bilateral lower lobes with good air entry. No wheezes or rhonchi noted. No accessory muscle use. Currently on VM 35% HEART: RRR, S1, S2 without murmur ABDOMEN: Soft, nontender, nondistended, normoactive bowel sounds, no guarding, no hepatomegaly EXTREMITIES: 2+ DP pulses, warm, well-perfused, no 1+ edema b/l NEUROLOGICAL: Cranial nerves II through XII grossly intact. Normal speech, gait not observed. SKIN: Warm, fragile skin, dry, no rashes noted Laboratory Results - last 24 hr 05/23/17 05/23/17 05/24/17 22:00 23:47 06:20 WBC 16.0 H RBC 3.87 L Hgb 11.1 L Hct 36.2 MCV 93.5 MCH 28.6 MCHC 30.6 L RDW 16.4 H Plt Count 278 D MPV 8.4 Neutrophils % 89.7 H Lymphocytes % 3.7 L D Monocytes % 6.4 Eosinophils % 0.0 Basophils % 0.2 Sodium Cancelled 141 Potassium Cancelled 3.3 L Chloride Cancelled 97 L Carbon Dioxide Cancelled 35 H Anion Gap Cancelled 9 BUN Cancelled 11 D Creatinine Cancelled 0.5 L D Creat Clearance w eGFR Random Glucose Cancelled 234 H D Calcium Cancelled 8.9 Phosphorus Magnesium Total Bilirubin AST ALT Alkaline Phosphatase Creatine Kinase Cancelled 18 L Troponin I Cancelled 0.04 D Total Protein Albumin 05/24/17 06:20 WBC RBC Hgb Hct MCV MCH MCHC RDW Plt Count MPV Neutrophils % Lymphocytes % Monocytes % Eosinophils % Basophils % Sodium 142 Potassium 3.9 Chloride 98 Carbon Dioxide 33 H Anion Gap 11 BUN 11 Creatinine 0.3 L D Creat Clearance w eGFR > 60 Random Glucose 94 D Calcium 8.9 Phosphorus 1.9 L Magnesium 2.1 Total Bilirubin 0.5 D AST 34 D ALT 20 D Alkaline Phosphatase 102 Creatine Kinase Troponin I Total Protein 6.1 L Albumin 2.2 L Active Medications Generic Name Dose Route Start Last Admin Trade Name Freq PRN Reason Stop Dose Admin Acetaminophen 1,000 mg 05/23/17 16:51 Ofirmev Injection - IVPB Q6H PRN FEVER OR PAIN Albuterol Sulfate 1 amp 05/23/17 16:51 Ventolin 0.083% Nebulizer Soln - NEB Q4H PRN SHORT OF BREATH/WHEEZING Albuterol/Ipratropium 1 amp 05/23/17 18:00 05/24/17 11:35 Duoneb - NEB 1 amp QIDR [facility] Administration Amino Acids 30 ml 05/24/17 17:30 Prosource No Carb Liquid Pkt PO BID@0800,1730 [facility] Heparin Sodium (Porcine) 5,000 unit 05/23/17 22:00 05/24/17 14:12 Heparin - SQ 5,000 unit TID [facility] Administration Piperacillin Sod/Tazobactam 100 mls @ 200 mls/hr 05/23/17 18:00 05/24/17 09: 20 Sod 3.375 gm/ Dextrose IVPB 200 mls/hr Q8H-IV [facility] Administration Vancomycin HCl 1,000 mg/ 250 mls @ 166.667 mls/hr 05/23/17 22:00 05/24/17 10: 45 Dextrose IVPB 166.667 mls/hr BID [facility] Administration Protocol Methylprednisolone Sodium Succinate 40 mg 05/24/17 10:00 05/24/17 09:20 Solu-Medrol - IVPUSH 40 mg DAILY [facility] Administration Multivitamins/Minerals/Vitamin C 1 tab 05/24/17 10:00 05/24/17 10:45 Tab-A-Vit - PO 1 tab DAILY [facility] Administration Pantoprazole Sodium 40 mg 05/24/17 10:00 05/24/17 09:21 Protonix Iv IVPUSH 40 mg DAILY [facility] Administration ASSESSMENT/PLAN: 87yo M with h/o COPD (baseline 3LNC at night), HTN, OA who was found to acute hypoxic hypercapnic distress. 1) Acute hypoxic hypercapnic respiratory distress --2/2 to PNA most likely with component of COPD --Lasix given last night --One more dose of Lasix 40mg IVP --Continue Solumedrol 40mg IVP qDaily --Will begin to transition to oral tomorrow --Maintain SpO2 >88-90% on VM 35% --Pulmonology on board 2) Sepsis 2/2 to PNA --Afebrile --WBC noted to increase; 2/2 to steroids --Suspect aspiration --S&S evaluation noted, but pt currently refusing MBS (will reassess later ) --Zosyn Day 3 3) HTN --Continue to hold medications due to being normotensive --Monitor BP and if elevation occurs can start to add on regiment FEN: Fluids: Avoid currently due to hypervolemia Electrolyte abnormalities: Hypophosphatemia (repleted with phos packet) Nutrition: PPX: DVT - Heparin SQ TID Dispo: Continue M/S Case discussed with Dr. Newton Sanabria, DO - Internal Medicine PGY-1 Visit type - Emergency Visit Emergency Visit: No - New Patient This patient is new to me today: No - Critical Care Critical Care patient: No
[2017-05-24] MEDS: AMINO ACIDS/PROTEIN HYDROLYS 30 ML LIQUID.PKT PO SCH (17:33)
[2017-05-25] MEDS ORDERED: PT OWN MED DRAWER 7, Y5N ONE (01:23)
[2017-05-25] MEDS: PIPERACILLIN/TAZOB 3.375 GM 3.375 GM in DEXTROSE 5%-WATER - 100 ML IVPB SCH ×3 (01:31→17:30)
[2017-05-25] MEDS: ALBUTEROL SO4 0.083% IH SOL 2.5 MG/3 ML VIAL.NEB. NEB PRN ×2 (02:16→21:04)
[2017-05-25] MEDS ORDERED: FUROSEMIDE 40 MG/4 ML INJECTABLE VIAL IVPUSH ONE ×2 (03:46→21:05)
[2017-05-25] MEDS: ALBUTEROL SO4 2.5/IPRATROPIUM 0.5 INH SOL 3 ML VIAL.NEB. NEB SCH ×4 (04:55→23:08)
[2017-05-25] MEDS: HEPARIN NA (PORCINE) 5,000 UNITS/ML 1ML VIAL SQ SCH ×3 (05:11→21:23)
[2017-05-25 07:29] LABS: HEMATOCRIT 38.1 % (35.4-49); HEMOGLOBIN 11.6 GM/dL (11.7-16.9); MCH 28.4 pg (25.7-33.7); MCHC 30.5 g/dl (32.0-35.9); MEAN CELL VOLUME 93.1 fl (80-96); PLATELET COUNT 285 K/MM3 (134-434); RDW 16.6 % (11.9-15.9); WHITE BLOOD COUNT 13.8 K/mm3 (4.0-10.0)
[2017-05-25 08:33] LABS: ALBUMIN 2.3 g/dl (3.4-5.0); ANION GAP 8 (8-16); BILIRUBIN,TOTAL 0.7 mg/dL (0.2-1.0); BLOOD UREA NITROGEN 10 mg/dL (7-18); CALCIUM 8.6 mg/dL (8.5-10.1); CHLORIDE 92 mmol/L (98-107); CO2 38 mmol/L (21-32); CREATININE 0.4 mg/dL (0.7-1.3); GLUCOSE,RANDOM 143 mg/dL (74-106); POTASSIUM 3.4 mmol/L (3.5-5.1); SGOT/AST 77 U/L (15-37); SGPT/ALT 55 U/L (12-78); SODIUM 138 mmol/L (136-145); TOT PROT 6.4 g/dl (6.4-8.2)
[2017-05-25 08:34] LABS: ALK PHOS 114 U/L (45-117)
[2017-05-25] MEDS: PANTOPRAZOLE SODIUM 40 MG VIAL IVPUSH SCH (10:12)
[2017-05-25] MEDS: AMINO ACIDS/PROTEIN HYDROLYS 30 ML LIQUID.PKT PO SCH ×2 (10:12→17:30)
[2017-05-25] MEDS: methylPREDNISolone NA SUCC 40 MG/1 ML VIAL IVPUSH SCH (10:12)
[2017-05-25] MEDS: MULTIVITAMINS (DAILY MVI) TABLET (FP) PO SCH (10:12)
--- NOTE | 2017-05-25 11:19 | EKG ---
Test Reason : Blood Pressure : / mmHG Vent. Rate : 090 BPM Atrial Rate : 090 BPM P-R Int : 168 ms QRS Dur : 150 ms QT Int : 402 ms P-R-T Axes : 038 072 026 degrees QTc Int : 491 ms SINUS RHYTHM WITH OCCASIONAL PREMATURE VENTRICULAR COMPLEXES AND PREMATURE ATRIAL COMPLEXES RIGHT BUNDLE BRANCH BLOCK ABNORMAL ECG WHEN COMPARED WITH ECG OF 22-MAY-2017 08:35, PREMATURE VENTRICULAR COMPLEXES ARE NOW PRESENT BASELINE ARTIFACT Confirmed by EDU TEE, ALFONSO ([id number]) on 05/25/2017 11:19:28 AM Referred By: Confirmed By:ALFONSO SORENSEN MD
--- NOTE | 2017-05-25 11:37 | PN ---
Progress Note (short form) - Note Progress Note: Remains mildy tachypneic at rest on 5 L NC O@. Congested cough is noted. Intake & Output 05/22/17 05/23/17 05/24/17 05/25/17 23:59 23:59 23:59 23:59 Intake Total 550 1250 640 50 Output Total 75 1000 Balance 475 1250 640 -950 Weight 219 lb 15.988 oz 164 lb 6 oz Last Vital Signs Temp Pulse Resp BP Pulse Ox 97.7 F 91 H 20 117/72 91 L 05/25/17 10:00 05/25/17 10:00 05/25/17 10:00 05/25/17 10:00 05/24/17 21:00 Active Medications Acetaminophen (Ofirmev Injection -) 1,000 mg IVPB Q6H PRN PRN Reason: FEVER OR PAIN Albuterol Sulfate (Ventolin 0.083% Nebulizer Soln -) 1 amp NEB Q4H PRN PRN Reason: SHORT OF BREATH/WHEEZING Last Admin: 05/25/17 02:16 Dose: 1 amp Albuterol/Ipratropium (Duoneb -) 1 amp NEB QIDR [facility] Last Admin: 05/25/17 04:55 Dose: 1 amp Amino Acids (Prosource No Carb Liquid Pkt) 30 ml PO BID@0800,1730 [facility] Last Admin: 05/25/17 10:12 Dose: 30 ml Heparin Sodium (Porcine) (Heparin -) 5,000 unit SQ TID [facility] Last Admin: 05/25/17 05:11 Dose: 5,000 unit Piperacillin Sod/Tazobactam (Sod 3.375 gm/ Dextrose) 100 mls @ 200 mls/hr IVPB Q8H-IV [facility] Last Admin: 05/25/17 10:12 Dose: 200 mls/hr Vancomycin HCl 1,000 mg/ (Dextrose) 250 mls @ 166.667 mls/hr IVPB BID [facility] PRN Reason: Protocol Last Admin: 05/24/17 21:38 Dose: 166.667 mls/hr Methylprednisolone Sodium Succinate (Solu-Medrol -) 40 mg IVPUSH DAILY [facility] Last Admin: 05/25/17 10:12 Dose: 40 mg Multivitamins/Minerals/Vitamin C (Tab-A-Vit -) 1 tab PO DAILY [facility] Last Admin: 05/25/17 10:12 Dose: 1 tab Pantoprazole Sodium (Protonix Iv) 40 mg IVPUSH DAILY [facility] Last Admin: 05/25/17 10:12 Dose: 40 mg Constitutional: Yes: Mildly tachypneic at rest Eyes: Yes: WNL HENT: Yes: WNL Neck: Yes: WNL Cardiovascular: Yes: Regular Rate and Rhythm, S1, S2 Respiratory: Yes: Bilateral Rhonchi, no wheeze Gastrointestinal: Yes: Normal Bowel Sounds, Soft Extremities: Yes: WNL Edema: No Labs: Laboratory Results - last 24 hr 05/25/17 05/25/17 05/25/17 06:30 06:30 09:15 WBC 13.8 H RBC 4.10 Hgb 11.6 L Hct 38.1 MCV 93.1 MCH 28.4 MCHC 30.5 L RDW 16.6 H Plt Count 285 MPV 9.0 Sodium 138 Potassium 3.4 L Chloride 92 L Carbon Dioxide 38 H Anion Gap 8 BUN 10 Creatinine 0.4 L D Creat Clearance w eGFR > 60 Random Glucose 143 H D Calcium 8.6 Total Bilirubin 0.7 D AST 77 H D ALT 55 D Alkaline Phosphatase 114 Total Protein 6.4 Albumin 2.3 L Vancomycin Pre-Dose 17.728 H* Assessment/Plan Problem List - Problems (1) COPD (chronic obstructive pulmonary disease) Code(s): J44.9 - CHRONIC OBSTRUCTIVE PULMONARY DISEASE, UNSPECIFIED Qualifiers: COPD type: COPD with acute lower respiratory infection Qualified Code(s): J44.0 - Chronic obstructive pulmonary disease with acute lower respiratory infection (2) Hypertension Code(s): I10 - ESSENTIAL (PRIMARY) HYPERTENSION (3) Pneumonia Code(s): J18.9 - PNEUMONIA, UNSPECIFIED ORGANISM Qualifiers: Pneumonia type: due to unspecified organism Laterality: left Lung location: lower lobe of lung Qualified Code(s): J18.1 - Lobar pneumonia, unspecified organism (4) Respiratory failure Code(s): J96.90 - RESPIRATORY FAILURE, UNSP, UNSP W HYPOXIA OR HYPERCAPNIA Assessment/Plan Hypoxemic respiratory failure R/O PNA vs fluid overload Acute COPD exacerbation Troponin leak likely demand ischemia HTN Recent GIB, now with stable Hgb -ABX per ID -BD TX -Medrol -heparin SubQ -protonix for GI ppx (recent GIB) -DNR/DNI/no invasive procedures as per prior GOC conversations Dr Tobar
[2017-05-25] MEDS: VANCOMYCIN 1,000 MG in DEXTROSE 5%-WATER - 250 ML IVPB SCH (11:57)
--- NOTE | 2017-05-25 12:25 | PN ---
Progress Note (short form) - Note Progress Note: less sob congested cough Vital Signs Period Temp Pulse Resp BP Sys/Calderon Pulse Ox Last 24 Hr 97.3 F-98.2 F 81-96 20-20 116-146/71-86 91 cor-rrr lungs bilateral rhonchi abd soft,nt ext no edema CBC, BMP 05/25/17 06:30 05/25/17 06:30 Microbiology 05/22/17 22:52 Urine - Urine Clean Catch Urine Culture - Final NO GROWTH OBTAINED 05/22/17 09:15 Blood - Peripheral Venous Blood Culture - Preliminary NO GROWTH OBTAINED AFTER 72 HOURS, INCUBATION TO CONTINUE FOR 2 DAYS. 05/22/17 09:15 Blood - Peripheral Venous Blood Culture - Preliminary NO GROWTH OBTAINED AFTER 72 HOURS, INCUBATION TO CONTINUE FOR 2 DAYS. 05/23/17 18:15 Urine For Antigen Detection Legionella Antigen - Final 05/23/17 18:15 Urine For Antigen Detection Streptococcus pneumoniae Antigen (M - Final 05/22/17 17:30 Nasopharyngeal Swab Influenza Types A,B Antigen (LAURA) - Final 05/22/17 17:30 Nasopharyngeal Swab - Final vanco trough 17 a/p i pneumonia (HAP) COPD ?CHF-c vanco/zosyn to continue , decrease vanco to daily f/u cultures influenza screen negative Problem List - Problems (1) Pneumonia Code(s): J18.9 - PNEUMONIA, UNSPECIFIED ORGANISM Qualifiers: Pneumonia type: due to unspecified organism Laterality: left Lung location: lower lobe of lung Qualified Code(s): J18.1 - Lobar pneumonia, unspecified organism (2) Respiratory failure Code(s): J96.90 - RESPIRATORY FAILURE, UNSP, UNSP W HYPOXIA OR HYPERCAPNIA (3) COPD (chronic obstructive pulmonary disease) Code(s): J44.9 - CHRONIC OBSTRUCTIVE PULMONARY DISEASE, UNSPECIFIED Qualifiers: COPD type: COPD with acute lower respiratory infection Qualified Code(s): J44.0 - Chronic obstructive pulmonary disease with acute lower respiratory infection
--- NOTE | 2017-05-25 15:11 | PN ---
Progress Note (short form) - Note Progress Note: c/o dypsnea at rest. feels lethargic. dnies Cp, fever, chills, N/V/c/D Current Medications Generic Name Dose Route Start Last Admin Trade Name Freq PRN Reason Stop Dose Admin Acetaminophen 1,000 mg 05/23/17 16:51 Ofirmev Injection - IVPB Q6H PRN FEVER OR PAIN Albuterol Sulfate 1 amp 05/23/17 16:51 05/25/17 02:16 Ventolin 0.083% Nebulizer Soln - NEB 1 amp Q4H PRN Administration SHORT OF BREATH/WHEEZING Albuterol/Ipratropium 1 amp 05/23/17 18:00 05/25/17 11:55 Duoneb - NEB 1 amp QIDR [facility] Administration Amino Acids 30 ml 05/24/17 17:30 05/25/17 10:12 Prosource No Carb Liquid Pkt PO 30 ml BID@0800,1730 [facility] Administration Heparin Sodium (Porcine) 5,000 unit 05/23/17 22:00 05/25/17 05:11 Heparin - SQ 5,000 unit TID [facility] Administration Piperacillin Sod/Tazobactam 100 mls @ 200 mls/hr 05/23/17 18:00 05/25/17 10: 12 Sod 3.375 gm/ Dextrose IVPB 200 mls/hr Q8H-IV [facility] Administration Vancomycin HCl 1,000 mg/ 250 mls @ 166.667 mls/hr 05/26/17 10:00 Dextrose IVPB DAILY [facility] Methylprednisolone Sodium Succinate 40 mg 05/24/17 10:00 05/25/17 10:12 Solu-Medrol - IVPUSH 40 mg DAILY [facility] Administration Multivitamins/Minerals/Vitamin C 1 tab 05/24/17 10:00 05/25/17 10:12 Tab-A-Vit - PO 1 tab DAILY [facility] Administration Pantoprazole Sodium 40 mg 05/24/17 10:00 05/25/17 10:12 Protonix Iv IVPUSH 40 mg DAILY [facility] Administration Last Vital Signs Temp Pulse Resp BP Pulse Ox 97.8 F 90 20 137/76 92 L 05/25/17 13:55 05/25/17 13:55 05/25/17 13:55 05/25/17 13:55 05/25/17 09:00 General tachypnic, A&O x2 (self and location) CV S1 S2 + Lungs coarse breath sounds diffusely. no wheezing Abdomen soft NT/ND Extremities no pedal edema CBCD WBC 13.8 K/mm3 (4.0-10.0) H 05/25/17 06:30 RBC 4.10 M/mm3 (4.00-5.60) 05/25/17 06:30 Hgb 11.6 GM/dL (11.7-16.9) L 05/25/17 06:30 Hct 38.1 % (35.4-49) 05/25/17 06:30 MCV 93.1 fl (80-96) 05/25/17 06:30 MCHC 30.5 g/dl (32.0-35.9) L 05/25/17 06:30 RDW 16.6 % (11.9-15.9) H 05/25/17 06:30 Plt Count 285 K/MM3 (134-434) 05/25/17 06:30 MPV 9.0 fl (7.5-11.1) 05/25/17 06:30 CMP Sodium 138 mmol/L (136-145) 05/25/17 06:30 Potassium 3.4 mmol/L (3.5-5.1) L 05/25/17 06:30 Chloride 92 mmol/L (98-107) L 05/25/17 06:30 Carbon Dioxide 38 mmol/L (21-32) H 05/25/17 06:30 Anion Gap 8 (8-16) 05/25/17 06:30 BUN 10 mg/dL (7-18) 05/25/17 06:30 Creatinine 0.4 mg/dL (0.7-1.3) L D 05/25/17 06:30 Creat Clearance w eGFR > 60 (>60) 05/25/17 06:30 Calcium 8.6 mg/dL (8.5-10.1) 05/25/17 06:30 Total Bilirubin 0.7 mg/dL (0.2-1.0) D 05/25/17 06:30 AST 77 U/L (15-37) H D 05/25/17 06:30 ALT 55 U/L (12-78) D 05/25/17 06:30 Alkaline Phosphatase 114 U/L (45-117) 05/25/17 06:30 Total Protein 6.4 g/dl (6.4-8.2) 05/25/17 06:30 Albumin 2.3 g/dl (3.4-5.0) L 05/25/17 06:30 Microbiology 05/22/17 22:52 Urine Culture - Final Urine - Urine Clean Catch NO GROWTH OBTAINED 05/22/17 09:15 Blood Culture - Preliminary Blood - Peripheral Venous NO GROWTH OBTAINED AFTER 72 HOURS, INCUBATION TO CONTINUE FOR 2 DAYS. 05/22/17 09:15 Blood Culture - Preliminary Blood - Peripheral Venous NO GROWTH OBTAINED AFTER 72 HOURS, INCUBATION TO CONTINUE FOR 2 DAYS. 05/23/17 18:15 Legionella Antigen - Final Urine For Antigen Detection Streptococcus pneumoniae Antigen (M - Final ASSESSMENT AND PLAN: 87 year old male with a PMHx of HTN, COPD (3L NC at night), Osteoarthritis, Dysphagia, PUD presented to the ER with acute hypoxic respiratory distress 1. Acute hypoxic hypercapnic respiratory distress- due to possible PNA vs acute on chronic COPD. remains tachynic. will give additional dose of lasix 40mg IV. saturating 96% on 4L NC. transition to prednisone po tomorrow. Supplemental oxygen to maintain spO2 >88%. pulmonary on board 2. Sepsis due to PNA- afebrile. leukocytosis trending down. agreed to MBS and placed on puree diet no liquids. on Vanco/zosyn day 4. vanco trough reduced. check vanco trough prior to 4th dose ( ) Flu and legonella negative. ID on board 3. Hypophosphatemia- 4. hypokalemia- kcl 40meq 4. HTN- currently normotensive. not on medications at home. cont to monitor. 5. PUD- no sings of bleeding. stress ulcer ppx. switch protonix to po 6. DVT ppx- hep sq 7. family decided to make status DNR/DNI, no central line or pressors. will need JOON on discharge Visit type - Emergency Visit Emergency Visit: Yes ED Registration Date: 05/22/17 Care time: The patient presented to the Emergency Department on the above date and was hospitalized for further evaluation of their emergent condition. - New Patient This patient is new to me today: No - Critical Care Critical Care patient: No - Discharge Referral Referred to [facility] Med P.C.: No
[2017-05-25] MEDS ORDERED: FUROSEMIDE 100 MG/10 ML INJECTABLE VIAL IVPB ONE (16:06)
[2017-05-26] MEDS ORDERED: PT OWN MED DRAWER 7, Y5N ONE ×2 (01:41→16:14)
[2017-05-26] MEDS: PIPERACILLIN/TAZOB 3.375 GM 3.375 GM in DEXTROSE 5%-WATER - 100 ML IVPB SCH ×3 (01:46→17:06)
[2017-05-26] MEDS: HEPARIN NA (PORCINE) 5,000 UNITS/ML 1ML VIAL SQ SCH ×3 (05:32→21:00)
[2017-05-26] MEDS: ALBUTEROL SO4 2.5/IPRATROPIUM 0.5 INH SOL 3 ML VIAL.NEB. NEB SCH ×4 (05:35→23:08)
[2017-05-26] MEDS ORDERED: POTASSIUM CHLORIDE TABS 20 MEQ TABLET.ER (FP) PO ONE ×2 (07:43→10:45)
[2017-05-26 07:57] LABS: BASO % 0.2 % (0-2.0); HEMATOCRIT 39.9 % (35.4-49); HEMOGLOBIN 12.2 GM/dL (11.7-16.9); LYMPH % 8.3 % (8-40); MCH 28.5 pg (25.7-33.7); MCHC 30.7 g/dl (32.0-35.9); MEAN CELL VOLUME 92.9 fl (80-96); MEAN PLT VOLUME 8.6 fl (7.5-11.1); MONO % 8.9 % (3.8-10.2); NEUT % 82.6 % (42.8-82.8); PLATELET COUNT 381 K/MM3 (134-434); RDW 16.8 % (11.9-15.9); WHITE BLOOD COUNT 12.8 K/mm3 (4.0-10.0)
[2017-05-26 08:43] LABS: ANION GAP 9 (8-16); BLOOD UREA NITROGEN 17 mg/dL (7-18); CALCIUM 8.9 mg/dL (8.5-10.1); CHLORIDE 90 mmol/L (98-107); CO2 39 mmol/L (21-32); CREATININE 0.4 mg/dL (0.7-1.3); GLUCOSE,RANDOM 105 mg/dL (74-106); PHOSPHOROUS 2.6 mg/dL (2.5-4.9); POTASSIUM 3.3 mmol/L (3.5-5.1); SODIUM 138 mmol/L (136-145)
[2017-05-26] MEDS ORDERED: VANCOMYCIN 1 GRAM (PRE-DOCKED) 1,000 MG/250 ML BAG IVPB SCH (10:00)
[2017-05-26] MEDS: AMINO ACIDS/PROTEIN HYDROLYS 30 ML LIQUID.PKT PO SCH ×2 (10:45→19:13)
[2017-05-26] MEDS: predniSONE 20 MG TABLET (UD) PO SCH (10:46)
[2017-05-26] MEDS: PANTOPRAZOLE 40 MG TABLET (FP) PO SCH (10:46)
[2017-05-26] MEDS: MULTIVITAMINS (DAILY MVI) TABLET (FP) PO SCH (10:46)
[2017-05-26] MEDS: VANCOMYCIN 1,000 MG in DEXTROSE 5%-WATER - 250 ML IVPB SCH (10:48)
--- NOTE | 2017-05-26 10:50 | PN ---
Progress Note (short form) - Note Progress Note: Remains mildy tachypneic at rest on 5 L NC O@. Still with some congested cough. Intake & Output 05/23/17 05/24/17 05/25/17 05/26/17 23:59 23:59 23:59 23:59 Intake Total 1250 640 270 100 Output Total 1500 500 Balance 1250 640 -1230 -400 Weight 164 lb 6 oz Last Vital Signs Temp Pulse Resp BP Pulse Ox 97.5 F L 82 20 134/69 93 L 05/26/17 06:00 05/26/17 06:00 05/26/17 06:00 05/26/17 06:00 05/25/17 21:00 Active Medications Acetaminophen (Ofirmev Injection -) 1,000 mg IVPB Q6H PRN PRN Reason: FEVER OR PAIN Albuterol Sulfate (Ventolin 0.083% Nebulizer Soln -) 1 amp NEB Q4H PRN PRN Reason: SHORT OF BREATH/WHEEZING Last Admin: 05/25/17 21:04 Dose: 1 amp Albuterol/Ipratropium (Duoneb -) 1 amp NEB QIDR [facility] Last Admin: 05/26/17 05:57 Dose: 1 amp Amino Acids (Prosource No Carb Liquid Pkt) 30 ml PO BID@0800,1730 [facility] Last Admin: 05/26/17 10:45 Dose: 30 ml Heparin Sodium (Porcine) (Heparin -) 5,000 unit SQ TID [facility] Last Admin: 05/26/17 05:32 Dose: 5,000 unit Piperacillin Sod/Tazobactam (Sod 3.375 gm/ Dextrose) 100 mls @ 200 mls/hr IVPB Q8H-IV [facility] Last Admin: 05/26/17 10:46 Dose: 200 mls/hr Vancomycin HCl 1,000 mg/ (Dextrose) 250 mls @ 166.667 mls/hr IVPB DAILY [facility] Last Admin: 05/26/17 10:48 Dose: 166.667 mls/hr Multivitamins/Minerals/Vitamin C (Tab-A-Vit -) 1 tab PO DAILY [facility] Last Admin: 05/26/17 10:46 Dose: 1 tab Pantoprazole Sodium (Protonix -) 40 mg PO DAILY [facility] Last Admin: 05/26/17 10:46 Dose: 40 mg Prednisone (Deltasone -) 40 mg PO DAILY [facility] Last Admin: 05/26/17 10:46 Dose: 40 mg Constitutional: Yes: Mildly tachypneic at rest Eyes: Yes: WNL HENT: Yes: WNL Neck: Yes: WNL Cardiovascular: Yes: Regular Rate and Rhythm, S1, S2 Respiratory: Yes: Bilateral Rhonchi, no wheeze Gastrointestinal: Yes: Normal Bowel Sounds, Soft Extremities: Yes: WNL Edema: No Labs: Laboratory Results - last 24 hr 05/22/17 05/26/17 05/26/17 18:00 07:30 07:30 WBC 12.8 H RBC 4.30 Hgb 12.2 Hct 39.9 MCV 92.9 MCH 28.5 MCHC 30.7 L RDW 16.8 H Plt Count 381 D MPV 8.6 Neutrophils % 82.6 Lymphocytes % 8.3 D Monocytes % 8.9 Eosinophils % 0.0 Basophils % 0.2 Sodium 138 Potassium 3.3 L Chloride 90 L Carbon Dioxide 39 H Anion Gap 9 BUN 17 D Creatinine 0.4 L Random Glucose 105 D Calcium 8.9 Phosphorus 2.6 D Magnesium 2.0 M.pneumoniae IgM Titer <770 Assessment/Plan Problem List - Problems (1) COPD (chronic obstructive pulmonary disease) Code(s): J44.9 - CHRONIC OBSTRUCTIVE PULMONARY DISEASE, UNSPECIFIED Qualifiers: COPD type: COPD with acute lower respiratory infection Qualified Code(s): J44.0 - Chronic obstructive pulmonary disease with acute lower respiratory infection (2) Hypertension Code(s): I10 - ESSENTIAL (PRIMARY) HYPERTENSION (3) Pneumonia Code(s): J18.9 - PNEUMONIA, UNSPECIFIED ORGANISM Qualifiers: Pneumonia type: due to unspecified organism Laterality: left Lung location: lower lobe of lung Qualified Code(s): J18.1 - Lobar pneumonia, unspecified organism (4) Respiratory failure Code(s): J96.90 - RESPIRATORY FAILURE, UNSP, UNSP W HYPOXIA OR HYPERCAPNIA Assessment/Plan Hypoxemic respiratory failure R/O PNA vs fluid overload Acute COPD exacerbation Troponin leak likely demand ischemia HTN Recent GIB, now with stable Hgb -ABX per ID -BD TX -Prednisone -heparin SubQ -protonix for GI ppx (recent GIB) -DNR/DNI/no invasive procedures as per prior GOC conversations Dr Tobar
--- NOTE | 2017-05-26 12:22 | PN ---
Physical Exam: SUBJECTIVE: Patient seen and examined. He is lethargic, denies pain. No overnight events. PVC on monitor recorded. OBJECTIVE: Vital Signs Period Temp Pulse Resp BP Sys/Calderon Pulse Ox Last 24 Hr 97.5 F-98.3 F 82-90 20-20 120-137/68-87 93 GENERAL: NAD, awake, alert, laying in bed with VM on face. HEENT: No JVD, sclera anicteric, EOMI, MMM LUNGS: Rhales B/L, no wheezes or rhonchi noted. No accessory muscle use. HEART: RRR, S1, S2 without murmur, rubs, gallops. ABDOMEN: Soft, nontender, nondistended, normoactive bowel sounds, no guarding, no hepatomegaly EXTREMITIES: 2+ DP pulses, warm, well-perfused, no edema b/l NEUROLOGICAL: Normal speech, gait not observed. SKIN: Warm, no rashes noted Laboratory Results - last 24 hr 05/22/17 05/26/17 05/26/17 18:00 07:30 07:30 WBC 12.8 H RBC 4.30 Hgb 12.2 Hct 39.9 MCV 92.9 MCH 28.5 MCHC 30.7 L RDW 16.8 H Plt Count 381 D MPV 8.6 Neutrophils % 82.6 Lymphocytes % 8.3 D Monocytes % 8.9 Eosinophils % 0.0 Basophils % 0.2 Sodium 138 Potassium 3.3 L Chloride 90 L Carbon Dioxide 39 H Anion Gap 9 BUN 17 D Creatinine 0.4 L Random Glucose 105 D Calcium 8.9 Phosphorus 2.6 D Magnesium 2.0 M.pneumoniae IgM Titer <770 Active Medications Generic Name Dose Route Start Last Admin Trade Name Freq PRN Reason Stop Dose Admin Acetaminophen 1,000 mg 05/23/17 16:51 Ofirmev Injection - IVPB Q6H PRN FEVER OR PAIN Albuterol Sulfate 1 amp 05/23/17 16:51 05/25/17 21:04 Ventolin 0.083% Nebulizer Soln - NEB 1 amp Q4H PRN Administration SHORT OF BREATH/WHEEZING Albuterol/Ipratropium 1 amp 05/23/17 18:00 05/26/17 05:57 Duoneb - NEB 1 amp QIDR BRITTNY Administration Amino Acids 30 ml 05/24/17 17:30 05/26/17 10:45 Prosource No Carb Liquid Pkt PO 30 ml BID@0800,1730 BRITTNY Administration Heparin Sodium (Porcine) 5,000 unit 05/23/17 22:00 05/26/17 05:32 Heparin - SQ 5,000 unit TID BRITTNY Administration Piperacillin Sod/Tazobactam 100 mls @ 200 mls/hr 05/23/17 18:00 05/26/17 10: 46 Sod 3.375 gm/ Dextrose IVPB 200 mls/hr Q8H-IV [facility] Administration Vancomycin HCl 1,000 mg/ 250 mls @ 166.667 mls/hr 05/26/17 10:00 05/26/17 10: 48 Dextrose IVPB 166.667 mls/hr DAILY [facility] Administration Multivitamins/Minerals/Vitamin C 1 tab 05/24/17 10:00 05/26/17 10:46 Tab-A-Vit - PO 1 tab DAILY [facility] Administration Pantoprazole Sodium 40 mg 05/26/17 10:00 05/26/17 10:46 Protonix - PO 40 mg DAILY [facility] Administration Prednisone 40 mg 05/26/17 10:00 05/26/17 10:46 Deltasone - PO 40 mg DAILY [facility] Administration ASSESSMENT/PLAN: 87 year old male with a PMHx of HTN, COPD (3L NC at night), Osteoarthritis, PUD presented to the ER with acute hypoxic respiratory distress. Acute hypoxic hypercapnic respiratory distress due to PNA vs acute on chronic COPD. saturating 93% on VM, continue Prednisone 40 mg PO qd continue supplemental oxygen f/u Pulmonary recmmendations Sepsis due to PNA afebrile, leukocytosis trending down, today 12.8 on Vanco/zosyn day 5, vanco trough prior to 4th dose-will be on Saturday Flu and legonella negative f/u ID recommendations CXR-improvement on R base today blood cultures neg hypokalemia kcl 40meq PO ONCE added today Hypophosphatemia resolved HTN monitor, not on meds PUD cont Protonix PO DVT ppx hep sq Dispo: Med surg Code Status: DNR/DNI Problem List - Problems (1) COPD (chronic obstructive pulmonary disease) Code(s): J44.9 - CHRONIC OBSTRUCTIVE PULMONARY DISEASE, UNSPECIFIED Qualifiers: COPD type: COPD with acute lower respiratory infection Qualified Code(s): J44.0 - Chronic obstructive pulmonary disease with acute lower respiratory infection (2) Chronic steroid use Code(s): HRY1086 - (3) Hypertension Code(s): I10 - ESSENTIAL (PRIMARY) HYPERTENSION (4) Pneumonia Code(s): J18.9 - PNEUMONIA, UNSPECIFIED ORGANISM Qualifiers: Pneumonia type: due to unspecified organism Laterality: left Lung location: lower lobe of lung Qualified Code(s): J18.1 - Lobar pneumonia, unspecified organism (5) Respiratory failure Code(s): J96.90 - RESPIRATORY FAILURE, UNSP, UNSP W HYPOXIA OR HYPERCAPNIA (6) Sepsis Code(s): A41.9 - SEPSIS, UNSPECIFIED ORGANISM Qualifiers: Sepsis type: sepsis due to unspecified organism Qualified Code(s): A41.9 - Sepsis, unspecified organism Visit type - Emergency Visit Emergency Visit: Yes ED Registration Date: 05/22/17 Care time: The patient presented to the Emergency Department on the above date and was hospitalized for further evaluation of their emergent condition. - New Patient This patient is new to me today: No - Critical Care Critical Care patient: No - Discharge Referral Referred to [facility] Med P.C.: No
--- NOTE | 2017-05-26 12:53 | PN ---
Teaching Attending Note Name of Resident: Radhika Ogden ATTENDING PHYSICIAN STATEMENT I saw and evaluated the patient. I reviewed the resident's note and discussed the case with the resident. I agree with the resident's findings and plan as documented. SUBJECTIVE:states breathing is the same. denies Cp, SOB, fever, chills, cough, N /V/C/D. +BM yesterday PVC noted on monitor OBJECTIVE: Last Vital Signs Temp Pulse Resp BP Pulse Ox 97.5 F L 82 20 134/69 93 L 05/26/17 06:00 05/26/17 06:00 05/26/17 06:00 05/26/17 06:00 05/25/17 21:00 General NAD Lungs coarse breath sounds no crackles or wheezing Extremities no pedal edema ASSESSMENT AND PLAN: 87 year old male with a PMHx of HTN, COPD (3L NC at night), Osteoarthritis, Dysphagia, PUD presented to the ER with acute hypoxic respiratory distress 1. Acute hypoxic hypercapnic respiratory distress- due to possible PNA vs acute on chronic COPD. saturating 90% on 3L NC. will hold lasix today as CXR looks improved. no crackles on exam. on prednison po. Supplemental oxygen to maintain spO2 >88%. pulmonary on board 2. Sepsis due to PNA- afebrile. leukocytosis trending down. agreed to MBS and placed on puree diet no liquids. on Vanco/zosyn day 5. vanco trough reduced. check vanco trough prior to 4th dose ( ) Flu and legonella negative. ID on board 3. Hypophosphatemia- resolved 4. hypokalemia- kcl 40meq po 4. HTN- currently normotensive. not on medications at home. cont to monitor. 5. PUD- no sings of bleeding. stress ulcer ppx. protonix po 6. DVT ppx- hep sq 7. family decided to make status DNR/DNI, no central line or pressors. will need JOON on discharge
[2017-05-26] MEDS ORDERED: POTASSIUM CHLORIDE ORAL LIQUID 20 MEQ/15 ML PO ONE ×2 (14:20→19:15)
--- NOTE | 2017-05-26 15:41 | PN ---
Progress Note, BEE KEEPER - Note Progress Note: 87 seen at bedside for f/up to MBS with recommendations for dysphagia puree and honey thicken liquids via spoon when congestion subsides. Currently pt is tolerating the diet with minimal s/s of dysphagia / aspiration. Chart review indicates pt is consuming approximately 50% of most meals at this time. Recommendations: Continue current diet of dysphagia puree and honey thick via spoon BEE KEEPER will continue to monitor and revise diet plan as needed.
[2017-05-27] MEDS ORDERED: PT OWN MED DRAWER 7, Y5N ONE (01:43)
[2017-05-27] MEDS: PIPERACILLIN/TAZOB 3.375 GM 3.375 GM in DEXTROSE 5%-WATER - 100 ML IVPB SCH ×3 (02:12→17:44)
[2017-05-27] MEDS: HEPARIN NA (PORCINE) 5,000 UNITS/ML 1ML VIAL SQ SCH ×3 (05:32→21:09)
[2017-05-27] MEDS: ALBUTEROL SO4 2.5/IPRATROPIUM 0.5 INH SOL 3 ML VIAL.NEB. NEB SCH ×4 (06:48→23:21)
[2017-05-27 08:36] LABS: HEMATOCRIT 41.1 % (35.4-49); HEMOGLOBIN 12.7 GM/dL (11.7-16.9); MCH 28.9 pg (25.7-33.7); MCHC 30.8 g/dl (32.0-35.9); MEAN CELL VOLUME 93.7 fl (80-96); MEAN PLT VOLUME 8.9 fl (7.5-11.1); PLATELET COUNT 388 K/MM3 (134-434); RBC 4.38 M/mm3 (4.00-5.60); RDW 16.9 % (11.9-15.9); WHITE BLOOD COUNT 11.6 K/mm3 (4.0-10.0)
[2017-05-27 08:53] LABS: ANION GAP 8 (8-16); BLOOD UREA NITROGEN 16 mg/dL (7-18); CALCIUM 9.6 mg/dL (8.5-10.1); CHLORIDE 93 mmol/L (98-107); CO2 40 mmol/L (21-32); CREATININE 0.4 mg/dL (0.7-1.3); GLUCOSE,RANDOM 86 mg/dL (74-106); SODIUM 141 mmol/L (136-145)
[2017-05-27] MEDS: MULTIVITAMINS (DAILY MVI) TABLET (FP) PO SCH (10:03)
[2017-05-27] MEDS: PANTOPRAZOLE 40 MG TABLET (FP) PO SCH (10:03)
[2017-05-27] MEDS: predniSONE 20 MG TABLET (UD) PO SCH (10:03)
[2017-05-27] MEDS: AMINO ACIDS/PROTEIN HYDROLYS 30 ML LIQUID.PKT PO SCH ×2 (10:03→17:44)
[2017-05-27 10:32] LABS: PLATELET ESTIMATE ADEQUATE
--- NOTE | 2017-05-27 11:30 | PN ---
Progress Note (short form) - Note Progress Note: Remains mildy tachypneic at rest on 4 L NC O@. Still with some congested cough. Intake & Output 05/24/17 05/25/17 05/26/17 05/27/17 23:59 23:59 23:59 23:59 Intake Total 640 270 450 100 Output Total 1500 900 300 Balance 640 -1230 -450 -200 Weight 170 lb 8 oz Last Vital Signs Temp Pulse Resp BP Pulse Ox 97.7 F 99 H 20 132/83 90 L 05/27/17 09:00 05/27/17 09:00 05/27/17 09:00 05/27/17 09:00 05/26/17 21:00 Active Medications Acetaminophen (Ofirmev Injection -) 1,000 mg IVPB Q6H PRN PRN Reason: FEVER OR PAIN Albuterol Sulfate (Ventolin 0.083% Nebulizer Soln -) 1 amp NEB Q4H PRN PRN Reason: SHORT OF BREATH/WHEEZING Last Admin: 05/25/17 21:04 Dose: 1 amp Albuterol/Ipratropium (Duoneb -) 1 amp NEB QIDR [facility] Last Admin: 05/27/17 06:48 Dose: 1 amp Amino Acids (Prosource No Carb Liquid Pkt) 30 ml PO BID@0800,1730 [facility] Last Admin: 05/27/17 10:03 Dose: 30 ml Heparin Sodium (Porcine) (Heparin -) 5,000 unit SQ TID [facility] Last Admin: 05/27/17 05:32 Dose: 5,000 unit Piperacillin Sod/Tazobactam (Sod 3.375 gm/ Dextrose) 100 mls @ 200 mls/hr IVPB Q8H-IV [facility] Last Admin: 05/27/17 09:44 Dose: 200 mls/hr Vancomycin HCl 1,000 mg/ (Dextrose) 250 mls @ 166.667 mls/hr IVPB DAILY [facility] Last Admin: 05/26/17 10:48 Dose: 166.667 mls/hr Multivitamins/Minerals/Vitamin C (Tab-A-Vit -) 1 tab PO DAILY [facility] Last Admin: 05/27/17 10:03 Dose: 1 tab Pantoprazole Sodium (Protonix -) 40 mg PO DAILY [facility] Last Admin: 05/27/17 10:03 Dose: 40 mg Prednisone (Deltasone -) 40 mg PO DAILY [facility] Last Admin: 05/27/17 10:03 Dose: 40 mg Constitutional: Yes: Mildly tachypneic at rest Eyes: Yes: WNL HENT: Yes: WNL Neck: Yes: WNL Cardiovascular: Yes: Regular Rate and Rhythm, S1, S2 Respiratory: Yes: Bilateral Rhonchi, no wheeze Gastrointestinal: Yes: Normal Bowel Sounds, Soft Extremities: Yes: WNL Edema: No Labs: Laboratory Results - last 24 hr 05/27/17 05/27/17 08:20 08:20 WBC 11.6 H RBC 4.38 Hgb 12.7 Hct 41.1 MCV 93.7 MCH 28.9 MCHC 30.8 L RDW 16.9 H Plt Count 388 MPV 8.9 Total Counted 100 Neutrophils % No Result Required. Neutrophils % (Manual) 68.0 Band Neutrophils % 8.0 Lymphocytes % No Result Required. Lymphocytes % (Manual) 12.0 Monocytes % (Manual) 11 H Platelet Estimate Adequate Sodium 141 Potassium 4.0 D Chloride 93 L Carbon Dioxide 40 H Anion Gap 8 BUN 16 Creatinine 0.4 L Random Glucose 86 Calcium 9.6 Assessment/Plan Problem List - Problems (1) COPD (chronic obstructive pulmonary disease) Code(s): J44.9 - CHRONIC OBSTRUCTIVE PULMONARY DISEASE, UNSPECIFIED Qualifiers: COPD type: COPD with acute lower respiratory infection Qualified Code(s): J44.0 - Chronic obstructive pulmonary disease with acute lower respiratory infection (2) Hypertension Code(s): I10 - ESSENTIAL (PRIMARY) HYPERTENSION (3) Pneumonia Code(s): J18.9 - PNEUMONIA, UNSPECIFIED ORGANISM Qualifiers: Pneumonia type: due to unspecified organism Laterality: left Lung location: lower lobe of lung Qualified Code(s): J18.1 - Lobar pneumonia, unspecified organism (4) Respiratory failure Code(s): J96.90 - RESPIRATORY FAILURE, UNSP, UNSP W HYPOXIA OR HYPERCAPNIA Assessment/Plan Hypoxemic respiratory failure Multilobar PNA Fluid overload Acute COPD exacerbation Troponin leak likely demand ischemia HTN Recent GIB -ABX per ID -BD TX -Prednisone -heparin SubQ -protonix for GI ppx -O2 to maintain saturation -DNR/DNI/no invasive procedures as per prior GOC conversations Dr Tobar
[2017-05-27] MEDS: VANCOMYCIN 1,000 MG in DEXTROSE 5%-WATER - 250 ML IVPB SCH (11:35)
--- NOTE | 2017-05-27 11:53 | PN ---
Progress Note (short form) - Note Progress Note: states breathing is improved. denies Cp, SOB, fever, chills, cough, N/V/C/D Current Medications Generic Name Dose Route Start Last Admin Trade Name Freq PRN Reason Stop Dose Admin Acetaminophen 1,000 mg 05/23/17 16:51 Ofirmev Injection - IVPB Q6H PRN FEVER OR PAIN Albuterol Sulfate 1 amp 05/23/17 16:51 05/25/17 21:04 Ventolin 0.083% Nebulizer Soln - NEB 1 amp Q4H PRN Administration SHORT OF BREATH/WHEEZING Albuterol/Ipratropium 1 amp 05/23/17 18:00 05/27/17 06:48 Duoneb - NEB 1 amp QIDR BRITTNY Administration Amino Acids 30 ml 05/24/17 17:30 05/27/17 10:03 Prosource No Carb Liquid Pkt PO 30 ml BID@0800,1730 BRITTNY Administration Heparin Sodium (Porcine) 5,000 unit 05/23/17 22:00 05/27/17 05:32 Heparin - SQ 5,000 unit TID BRITTNY Administration Piperacillin Sod/Tazobactam 100 mls @ 200 mls/hr 05/23/17 18:00 05/27/17 09: 44 Sod 3.375 gm/ Dextrose IVPB 200 mls/hr Q8H-IV BRITTNY Administration Vancomycin HCl 1,000 mg/ 250 mls @ 166.667 mls/hr 05/26/17 10:00 05/27/17 11: 35 Dextrose IVPB 166.667 mls/hr DAILY BRITTNY Administration Multivitamins/Minerals/Vitamin C 1 tab 05/24/17 10:00 05/27/17 10:03 Tab-A-Vit - PO 1 tab DAILY BRITTNY Administration Pantoprazole Sodium 40 mg 05/26/17 10:00 05/27/17 10:03 Protonix - PO 40 mg DAILY BRITTNY Administration Prednisone 40 mg 05/26/17 10:00 05/27/17 10:03 Deltasone - PO 40 mg DAILY BRITTNY Administration Last Vital Signs Temp Pulse Resp BP Pulse Ox 97.7 F 99 H 20 132/83 90 L 05/27/17 09:00 05/27/17 09:00 05/27/17 09:00 05/27/17 09:00 05/26/17 21:00 General NAD Lungs mild wheezing, no crackles Extremities no pedal edema CBCD WBC 11.6 K/mm3 (4.0-10.0) H 05/27/17 08:20 RBC 4.38 M/mm3 (4.00-5.60) 05/27/17 08:20 Hgb 12.7 GM/dL (11.7-16.9) 05/27/17 08:20 Hct 41.1 % (35.4-49) 05/27/17 08:20 MCV 93.7 fl (80-96) 05/27/17 08:20 MCHC 30.8 g/dl (32.0-35.9) L 05/27/17 08:20 RDW 16.9 % (11.9-15.9) H 05/27/17 08:20 Plt Count 388 K/MM3 (134-434) 05/27/17 08:20 MPV 8.9 fl (7.5-11.1) 05/27/17 08:20 CMP Sodium 141 mmol/L (136-145) 05/27/17 08:20 Potassium 4.0 mmol/L (3.5-5.1) D 05/27/17 08:20 Chloride 93 mmol/L (98-107) L 05/27/17 08:20 Carbon Dioxide 40 mmol/L (21-32) H 05/27/17 08:20 Anion Gap 8 (8-16) 05/27/17 08:20 BUN 16 mg/dL (7-18) 05/27/17 08:20 Creatinine 0.4 mg/dL (0.7-1.3) L 05/27/17 08:20 Creat Clearance w eGFR > 60 (>60) 05/25/17 06:30 Calcium 9.6 mg/dL (8.5-10.1) 05/27/17 08:20 Total Bilirubin 0.7 mg/dL (0.2-1.0) D 05/25/17 06:30 AST 77 U/L (15-37) H D 05/25/17 06:30 ALT 55 U/L (12-78) D 05/25/17 06:30 Alkaline Phosphatase 114 U/L (45-117) 05/25/17 06:30 Total Protein 6.4 g/dl (6.4-8.2) 05/25/17 06:30 Albumin 2.3 g/dl (3.4-5.0) L 05/25/17 06:30 Microbiology 05/22/17 09:15 Blood Culture - Final Blood - Peripheral Venous NO GROWTH AFTER 5 DAYS INCUBATION 05/22/17 09:15 Blood Culture - Final Blood - Peripheral Venous NO GROWTH AFTER 5 DAYS INCUBATION ASSESSMENT AND PLAN: 87 year old male with a PMHx of HTN, COPD (3L NC at night), Osteoarthritis, Dysphagia, PUD presented to the ER with acute hypoxic respiratory distress 1. Acute hypoxic hypercapnic respiratory distress- due to possible PNA vs acute on chronic COPD. saturating 92% on 3.5L NC. clinically improved. less tachypnic. on prednisone taper. reduce dose tomorrow to 30mg. Supplemental oxygen to maintain spO2 >88%. pulmonary on board. check pre and post prior to discharge 2. Sepsis due to PNA- afebrile. leukocytosis trending down. tolerating puree diet. on Vanco/zosyn day 6. vanco trough reduced. check vanco trough prior to 4th dose () Flu and legonella negative. ID on board 3. Hypophosphatemia- resolved 4. hypokalemia-resolved 4. HTN- currently normotensive. not on medications at home. cont to monitor. 5. PUD- no sings of bleeding. stress ulcer ppx. protonix po 6. DVT ppx- hep sq 7. family decided to make status DNR/DNI, no central line or pressors. will need JOON on discharge Visit type - Emergency Visit Emergency Visit: Yes ED Registration Date: 05/22/17 Care time: The patient presented to the Emergency Department on the above date and was hospitalized for further evaluation of their emergent condition. - New Patient This patient is new to me today: No - Critical Care Critical Care patient: No - Discharge Referral Referred to [facility] Med P.C.: No
--- NOTE | 2017-05-27 14:52 | PN ---
Progress Note, Physician History of Present Illness: Awake, lethargic Offers no complaints Breathing non-labored Afebrile WBC improved - Current Medication List Current Medications: Active Medications Acetaminophen (Ofirmev Injection -) 1,000 mg IVPB Q6H PRN PRN Reason: FEVER OR PAIN Albuterol Sulfate (Ventolin 0.083% Nebulizer Soln -) 1 amp NEB Q4H PRN PRN Reason: SHORT OF BREATH/WHEEZING Last Admin: 05/25/17 21:04 Dose: 1 amp Albuterol/Ipratropium (Duoneb -) 1 amp NEB QIDR [facility] Last Admin: 05/27/17 13:49 Dose: Not Given Amino Acids (Prosource No Carb Liquid Pkt) 30 ml PO BID@0800,1730 [facility] Last Admin: 05/27/17 10:03 Dose: 30 ml Heparin Sodium (Porcine) (Heparin -) 5,000 unit SQ TID [facility] Last Admin: 05/27/17 14:45 Dose: 5,000 unit Piperacillin Sod/Tazobactam (Sod 3.375 gm/ Dextrose) 100 mls @ 200 mls/hr IVPB Q8H-IV [facility] Last Admin: 05/27/17 09:44 Dose: 200 mls/hr Vancomycin HCl 1,000 mg/ (Dextrose) 250 mls @ 166.667 mls/hr IVPB DAILY [facility] Last Admin: 05/27/17 11:35 Dose: 166.667 mls/hr Multivitamins/Minerals/Vitamin C (Tab-A-Vit -) 1 tab PO DAILY [facility] Last Admin: 05/27/17 10:03 Dose: 1 tab Pantoprazole Sodium (Protonix -) 40 mg PO DAILY [facility] Last Admin: 05/27/17 10:03 Dose: 40 mg Prednisone (Deltasone -) 30 mg PO DAILY [facility] - Objective Vital Signs: Vital Signs Temperature 97.7 F 05/27/17 09:00 Pulse Rate 99 H 05/27/17 09:00 Respiratory Rate 20 05/27/17 09:00 Blood Pressure 132/83 05/27/17 09:00 O2 Sat by Pulse Oximetry (%) 90 L 05/27/17 09:00 Constitutional: Yes: No Distress Eyes: Yes: Conjunctiva Clear Cardiovascular: Yes: Regular Rate and Rhythm, S1, S2 Respiratory: Yes: Rhonchi Gastrointestinal: Yes: Normal Bowel Sounds, Soft Labs: CBC, BMP 05/27/17 08:20 05/27/17 08:20 INR, PTT INR 1.12 (0.82-1.09) 05/22/17 09:15 Assessment/Plan Pneumonia Leukocytosis Continue zosyn/ vancomycin
[2017-05-28] MEDS ORDERED: PT OWN MED DRAWER 7, Y5N ONE ×2 (02:51→03:11)
[2017-05-28] MEDS: PIPERACILLIN/TAZOB 3.375 GM 3.375 GM in DEXTROSE 5%-WATER - 100 ML IVPB SCH ×3 (03:26→17:04)
[2017-05-28] MEDS: HEPARIN NA (PORCINE) 5,000 UNITS/ML 1ML VIAL SQ SCH ×3 (05:36→21:57)
[2017-05-28] MEDS: ALBUTEROL SO4 2.5/IPRATROPIUM 0.5 INH SOL 3 ML VIAL.NEB. NEB SCH ×3 (06:34→17:24)
[2017-05-28 09:55] LABS: ANION GAP 6 (8-16); BLOOD UREA NITROGEN 16 mg/dL (7-18); CALCIUM 9.5 mg/dL (8.5-10.1); CHLORIDE 97 mmol/L (98-107); CO2 37 mmol/L (21-32); GLUCOSE,RANDOM 103 mg/dL (74-106); POTASSIUM 3.9 mmol/L (3.5-5.1); SODIUM 140 mmol/L (136-145)
[2017-05-28 09:59] LABS: CREATININE 0.4 mg/dL (0.7-1.3)
[2017-05-28] MEDS: AMINO ACIDS/PROTEIN HYDROLYS 30 ML LIQUID.PKT PO SCH ×2 (10:02→17:04)
[2017-05-28] MEDS: predniSONE 20 MG TABLET (UD) PO SCH (10:05)
[2017-05-28] MEDS: PANTOPRAZOLE 40 MG TABLET (FP) PO SCH (10:05)
[2017-05-28] MEDS: MULTIVITAMINS (DAILY MVI) TABLET (FP) PO SCH (10:05)
[2017-05-28] MEDS: VANCOMYCIN 1,000 MG in DEXTROSE 5%-WATER - 250 ML IVPB SCH (11:42)
--- NOTE | 2017-05-28 13:58 | PN ---
Progress Note (short form) - Note Progress Note: Remains mildy tachypneic at rest on 4 L NC O@. Still with some congested cough. No acute events overnight. Intake & Output 05/25/17 05/26/17 05/27/17 05/28/17 23:59 23:59 23:59 23:59 Intake Total 270 450 510 360 Output Total 0172 918 5470 Balance -1230 -450 -540 360 Weight 170 lb 8 oz Last Vital Signs Temp Pulse Resp BP Pulse Ox 97.5 F L 93 H 22 124/78 90 L 05/28/17 10:00 05/28/17 10:00 05/28/17 10:00 05/28/17 10:00 05/28/17 09:00 Active Medications Acetaminophen (Ofirmev Injection -) 1,000 mg IVPB Q6H PRN PRN Reason: FEVER OR PAIN Albuterol Sulfate (Ventolin 0.083% Nebulizer Soln -) 1 amp NEB Q4H PRN PRN Reason: SHORT OF BREATH/WHEEZING Last Admin: 05/25/17 21:04 Dose: 1 amp Albuterol/Ipratropium (Duoneb -) 1 amp NEB QIDR [facility] Last Admin: 05/28/17 11:15 Dose: 1 amp Amino Acids (Prosource No Carb Liquid Pkt) 30 ml PO BID@0800,1730 [facility] Last Admin: 05/28/17 10:02 Dose: 30 ml Heparin Sodium (Porcine) (Heparin -) 5,000 unit SQ TID [facility] Last Admin: 05/28/17 05:36 Dose: 5,000 unit Piperacillin Sod/Tazobactam (Sod 3.375 gm/ Dextrose) 100 mls @ 200 mls/hr IVPB Q8H-IV [facility] Last Admin: 05/28/17 10:02 Dose: 200 mls/hr Vancomycin HCl 1,000 mg/ (Dextrose) 250 mls @ 166.667 mls/hr IVPB DAILY [facility] Last Admin: 05/28/17 11:42 Dose: 166.667 mls/hr Multivitamins/Minerals/Vitamin C (Tab-A-Vit -) 1 tab PO DAILY [facility] Last Admin: 05/28/17 10:05 Dose: 1 tab Pantoprazole Sodium (Protonix -) 40 mg PO DAILY [facility] Last Admin: 05/28/17 10:05 Dose: 40 mg Prednisone (Deltasone -) 30 mg PO DAILY [facility] Last Admin: 05/28/17 10:05 Dose: 30 mg Constitutional: Yes: Mildly tachypneic at rest Eyes: Yes: WNL HENT: Yes: WNL Neck: Yes: WNL Cardiovascular: Yes: Regular Rate and Rhythm, S1, S2 Respiratory: Yes: Bilateral Rhonchi, no wheeze Gastrointestinal: Yes: Normal Bowel Sounds, Soft Extremities: Yes: WNL Edema: No Labs: Laboratory Results - last 24 hr 05/28/17 05/28/17 09:05 09:05 Sodium 140 Potassium 3.9 Chloride 97 L Carbon Dioxide 37 H Anion Gap 6 L BUN 16 Creatinine 0.4 L Random Glucose 103 Calcium 9.5 Vancomycin Pre-Dose 10.663 H D Assessment/Plan Problem List - Problems (1) COPD (chronic obstructive pulmonary disease) Code(s): J44.9 - CHRONIC OBSTRUCTIVE PULMONARY DISEASE, UNSPECIFIED Qualifiers: COPD type: COPD with acute lower respiratory infection Qualified Code(s): J44.0 - Chronic obstructive pulmonary disease with acute lower respiratory infection (2) Hypertension Code(s): I10 - ESSENTIAL (PRIMARY) HYPERTENSION (3) Pneumonia Code(s): J18.9 - PNEUMONIA, UNSPECIFIED ORGANISM Qualifiers: Pneumonia type: due to unspecified organism Laterality: left Lung location: lower lobe of lung Qualified Code(s): J18.1 - Lobar pneumonia, unspecified organism (4) Respiratory failure Code(s): J96.90 - RESPIRATORY FAILURE, UNSP, UNSP W HYPOXIA OR HYPERCAPNIA Assessment/Plan Hypoxemic respiratory failure Multilobar PNA Fluid overload Acute COPD exacerbation Troponin leak likely demand ischemia HTN Recent GIB -ABX per ID -BD TX -Prednisone -heparin SubQ -protonix for GI ppx -O2 to maintain saturation -DNR/DNI/no invasive procedures as per prior GOC conversations Dr Tobar
--- NOTE | 2017-05-28 14:26 | PN ---
Teaching Attending Note Name of Resident: Kolton Sanabria ATTENDING PHYSICIAN STATEMENT time of evaluation: 11:40 AM I saw and evaluated the patient. I reviewed the resident's note and discussed the case with the resident. I agree with the resident's findings and plan as documented. SUBJECTIVE: Patient seen and examined. Eating with assistance from family. no complaints. OBJECTIVE: Vital Signs Period Temp Pulse Resp BP Sys/Calderon Pulse Ox Last 24 Hr 97.4 F-98.0 F 78-93 20-22 117-133/50-79 90-90 Intake & Output 05/25/17 05/26/17 05/27/17 05/28/17 23:59 23:59 23:59 23:59 Intake Total 270 450 510 360 Output Total 0237 577 2466 Balance -1230 -450 -540 360 Weight 170 lb 8 oz general: eating in no acute distress Chest: scattered expiratory wheezing with mild decrease in air entry Abdomen: soft, NT, Nd, positive bowel sounds extremities: no edema Home Medication List Medication Instructions Recorded Confirmed Type Acetaminophen [Tylenol] 2 tab PO Q6H PRN 05/22/17 05/22/17 History Albuterol 2.5/Ipratropium 0.5 1 amp NEB TID 05/22/17 05/22/17 History [Duoneb -] Budesonide [Pulmicort 0.5 mg 1 neb PO BID 05/22/17 05/22/17 History Nebulizer -] Ipratropium 0.02% Nebulizer 1 amp NEB Q6H PRN 05/22/17 05/22/17 History [Atrovent 0.02% Nebulizer -] Menthol/Phenol [Cepastat Lozenge -] 1 each MM QID PRN 05/22/17 05/22/17 History Metoclopramide HCl 10 mg PO TID 05/22/17 05/22/17 History Prednisone 10 mg PO BID 05/22/17 05/22/17 History Tramadol HCl [Ultram] 2 mg PO DAILY 05/22/17 05/22/17 History Active Medications Generic Name Dose Route Start Last Admin Trade Name Freq PRN Reason Stop Dose Admin Acetaminophen 1,000 mg 05/23/17 16:51 Ofirmev Injection - IVPB Q6H PRN FEVER OR PAIN Albuterol Sulfate 1 amp 05/23/17 16:51 05/25/17 21:04 Ventolin 0.083% Nebulizer Soln - NEB 1 amp Q4H PRN Administration SHORT OF BREATH/WHEEZING Albuterol/Ipratropium 1 amp 05/23/17 18:00 05/28/17 17:24 Duoneb - NEB 1 amp QIDR BRITTNY Administration Amino Acids 30 ml 05/24/17 17:30 05/28/17 17:04 Prosource No Carb Liquid Pkt PO 30 ml BID@0800,1730 BRITTNY Administration Heparin Sodium (Porcine) 5,000 unit 05/23/17 22:00 05/28/17 14:19 Heparin - SQ 5,000 unit TID BRITTNY Administration Piperacillin Sod/Tazobactam 100 mls @ 200 mls/hr 05/23/17 18:00 05/28/17 17: 04 Sod 3.375 gm/ Dextrose IVPB 200 mls/hr Q8H-IV BRITTNY Administration Vancomycin HCl 1,000 mg/ 250 mls @ 166.667 mls/hr 05/26/17 10:00 05/28/17 11: 42 Dextrose IVPB 166.667 mls/hr DAILY BRITTNY Administration Multivitamins/Minerals/Vitamin C 1 tab 05/24/17 10:00 05/28/17 10:05 Tab-A-Vit - PO 1 tab DAILY BRITTNY Administration Pantoprazole Sodium 40 mg 05/26/17 10:00 05/28/17 10:05 Protonix - PO 40 mg DAILY BRITTNY Administration Prednisone 30 mg 05/28/17 10:00 05/28/17 10:05 Deltasone - PO 30 mg DAILY BRITTNY Administration Laboratory Results - last 24 hr 05/28/17 05/28/17 09:05 09:05 Sodium 140 Potassium 3.9 Chloride 97 L Carbon Dioxide 37 H Anion Gap 6 L BUN 16 Creatinine 0.4 L Random Glucose 103 Calcium 9.5 Vancomycin Pre-Dose 10.663 H D Microbiology 05/22/17 09:15 Blood - Peripheral Venous Blood Culture - Final NO GROWTH AFTER 5 DAYS INCUBATION 05/22/17 09:15 Blood - Peripheral Venous Blood Culture - Final NO GROWTH AFTER 5 DAYS INCUBATION 05/22/17 22:52 Urine - Urine Clean Catch Urine Culture - Final NO GROWTH OBTAINED 05/23/17 18:15 Urine For Antigen Detection Legionella Antigen - Final 05/23/17 18:15 Urine For Antigen Detection Streptococcus pneumoniae Antigen (M - Final 05/22/17 17:30 Nasopharyngeal Swab Influenza Types A,B Antigen (LAURA) - Final 05/22/17 17:30 Nasopharyngeal Swab - Final ASSESSMENT AND PLAN: 87 year old male with a PMHx of HTN, COPD (3L NC at night), Osteoarthritis, Dysphagia, PUD presented to the ER with acute hypoxic respiratory distress 1. Acute hypoxic hypercapnic respiratory distress- due to possible PNA vs acute on chronic COPD. saturating 90% on 4L NC. clinically improved. less tachypnic. on prednisone taper. reduce dose tomorrow to 30mg. Supplemental oxygen to maintain spO2 >88%. pulmonary on board. check pre and post prior to discharge 2. Sepsis due to PNA- afebrile. leukocytosis trending down. tolerating puree diet. on Vanco/zosyn day 6/. vanco trough noted. flu and legionella neg ID on board Also s/p lasix x 2 since admission, CXR with marked improvement, unlikely infiltrate related, check BNP, follow up 2D echo. additional lasix prn based on oxygenation and volume status. 3. Hypophosphatemia- resolved 4. hypokalemia-resolved 4. HTN- currently normotensive. not on medications at home. cont to monitor. 5. PUD- no sings of bleeding. stress ulcer ppx. protonix po 6. DVT ppx- hep sq 7. family decided to make status DNR/DNI, no central line or pressors. will need JOON on discharge, PT eval and OOB
--- NOTE | 2017-05-28 15:08 | PN ---
Progress Note (short form) - Note Progress Note: less sob feels better no complaints alert vanco trough 17 Vital Signs Period Temp Pulse Resp BP Sys/Calderon Pulse Ox Last 24 Hr 97.4 F-98.2 F 74-93 20-22 117-133/50-79 90-90 cor-rrr lungs clear, decreased bs at bases abd soft,nt ext no edema CBC, BMP 05/27/17 08:20 05/28/17 09:05 a/p pneumonia (HAP) COPD ?CHF- vanco/zosyn day #6 of 7 appears clinically improved Problem List - Problems (1) Pneumonia Code(s): J18.9 - PNEUMONIA, UNSPECIFIED ORGANISM Qualifiers: Pneumonia type: due to unspecified organism Laterality: left Lung location: lower lobe of lung Qualified Code(s): J18.1 - Lobar pneumonia, unspecified organism (2) Respiratory failure Code(s): J96.90 - RESPIRATORY FAILURE, UNSP, UNSP W HYPOXIA OR HYPERCAPNIA (3) COPD (chronic obstructive pulmonary disease) Code(s): J44.9 - CHRONIC OBSTRUCTIVE PULMONARY DISEASE, UNSPECIFIED Qualifiers: COPD type: COPD with acute lower respiratory infection Qualified Code(s): J44.0 - Chronic obstructive pulmonary disease with acute lower respiratory infection
[2017-05-28] MEDS ORDERED: FUROSEMIDE 40 MG/4 ML INJECTABLE VIAL IVPUSH ONE (19:45)
[2017-05-28 21:00] LABS: N-TERMINAL BNP 276.83 pg/ml (5-450)
[2017-05-29] MEDS: PIPERACILLIN/TAZOB 3.375 GM 3.375 GM in DEXTROSE 5%-WATER - 100 ML IVPB SCH ×3 (01:23→17:30)
[2017-05-29] MEDS: ALBUTEROL SO4 2.5/IPRATROPIUM 0.5 INH SOL 3 ML VIAL.NEB. NEB SCH ×5 (05:36→23:22)
[2017-05-29] MEDS: HEPARIN NA (PORCINE) 5,000 UNITS/ML 1ML VIAL SQ SCH ×3 (06:27→22:03)
[2017-05-29] MEDS: AMINO ACIDS/PROTEIN HYDROLYS 30 ML LIQUID.PKT PO SCH ×2 (08:35→17:30)
[2017-05-29 09:05] LABS: ANION GAP 7 (8-16); BLOOD UREA NITROGEN 19 mg/dL (7-18); CALCIUM 8.9 mg/dL (8.5-10.1); CHLORIDE 96 mmol/L (98-107); CO2 37 mmol/L (21-32); CREATININE 0.4 mg/dL (0.7-1.3); GLUCOSE,RANDOM 90 mg/dL (74-106); POTASSIUM 3.8 mmol/L (3.5-5.1); SODIUM 140 mmol/L (136-145)
[2017-05-29] MEDS: PANTOPRAZOLE 40 MG TABLET (FP) PO SCH (09:51)
[2017-05-29] MEDS: MULTIVITAMINS (DAILY MVI) TABLET (FP) PO SCH (09:51)
[2017-05-29] MEDS: predniSONE 20 MG TABLET (UD) PO SCH (09:51)
[2017-05-29] MEDS: VANCOMYCIN 1,000 MG in DEXTROSE 5%-WATER - 250 ML IVPB SCH (09:51)
--- NOTE | 2017-05-29 13:04 | PN ---
Progress Note (short form) - Note Progress Note: PULMONARY AWAKE/ALERT/AFEBRILE PALE/ANICTERIC BIBASILAR DIMINISHED BREATH SOUNDS S1S2 BS+ HEEL OFF-ENGRAVER SEALS NO EDEMA LABS/BARIUM SWALLOW/IMAGES/MEDS REVIEWED Hypoxemic respiratory failure Multilobar PNA Fluid overload Acute COPD exacerbation Troponin leak likely demand ischemia HTN Recent GIB -ABX per ID -BD TX -Prednisone -heparin SubQ -protonix for GI ppx -O2 to maintain saturation -DNR/DNI -Aspiration precautions Raheem MONROE MD Problem List - Problems (1) COPD (chronic obstructive pulmonary disease) Code(s): J44.9 - CHRONIC OBSTRUCTIVE PULMONARY DISEASE, UNSPECIFIED Qualifiers: COPD type: COPD with acute lower respiratory infection Qualified Code(s): J44.0 - Chronic obstructive pulmonary disease with acute lower respiratory infection (2) Pneumonia Code(s): J18.9 - PNEUMONIA, UNSPECIFIED ORGANISM Qualifiers: Pneumonia type: due to unspecified organism Laterality: left Lung location: lower lobe of lung Qualified Code(s): J18.1 - Lobar pneumonia, unspecified organism (3) Anemia Code(s): D64.9 - ANEMIA, UNSPECIFIED (4) Sepsis Code(s): A41.9 - SEPSIS, UNSPECIFIED ORGANISM Qualifiers: Sepsis type: sepsis due to unspecified organism Qualified Code(s): A41.9 - Sepsis, unspecified organism (5) Hypertension Code(s): I10 - ESSENTIAL (PRIMARY) HYPERTENSION (6) Chronic steroid use Code(s): ALA1054 -
--- NOTE | 2017-05-29 15:34 | PN ---
Progress Note (short form) - Note Progress Note: alert NAD Vital Signs Period Temp Pulse Resp BP Sys/Calderon Pulse Ox Last 24 Hr 97.8 F-98.4 F 70-98 20-20 119-139/63-90 90-93 cor-rrr lungs bilateral rhonchi abd soft,nt ext no edema CBC, BMP 05/27/17 08:20 05/29/17 06:30 Microbiology 05/22/17 09:15 Blood - Peripheral Venous Blood Culture - Final NO GROWTH AFTER 5 DAYS INCUBATION 05/22/17 09:15 Blood - Peripheral Venous Blood Culture - Final NO GROWTH AFTER 5 DAYS INCUBATION 05/22/17 22:52 Urine - Urine Clean Catch Urine Culture - Final NO GROWTH OBTAINED 05/23/17 18:15 Urine For Antigen Detection Legionella Antigen - Final 05/23/17 18:15 Urine For Antigen Detection Streptococcus pneumoniae Antigen (M - Final 05/22/17 17:30 Nasopharyngeal Swab Influenza Types A,B Antigen (LAURA) - Final 05/22/17 17:30 Nasopharyngeal Swab - Final a/p pneumonia (HAP) COPD ?CHF-improved with lasix vanco/zosyn day #7 of 7-d/c antibiotics in am please call back if needed Problem List - Problems (1) Pneumonia Code(s): J18.9 - PNEUMONIA, UNSPECIFIED ORGANISM Qualifiers: Pneumonia type: due to unspecified organism Laterality: left Lung location: lower lobe of lung Qualified Code(s): J18.1 - Lobar pneumonia, unspecified organism (2) Respiratory failure Code(s): J96.90 - RESPIRATORY FAILURE, UNSP, UNSP W HYPOXIA OR HYPERCAPNIA (3) COPD (chronic obstructive pulmonary disease) Code(s): J44.9 - CHRONIC OBSTRUCTIVE PULMONARY DISEASE, UNSPECIFIED Qualifiers: COPD type: COPD with acute lower respiratory infection Qualified Code(s): J44.0 - Chronic obstructive pulmonary disease with acute lower respiratory infection
--- NOTE | 2017-05-29 16:03 | PN ---
Physical Exam: SUBJECTIVE: Patient seen and examined at bedside. Patient is breathing comfortably with his nasal cannula partially off his face when examined. Patient denies chest pain, shortness of breath, nausea, vomiting, diarrhea. OBJECTIVE: Vital Signs Period Temp Pulse Resp BP Sys/Calderon Pulse Ox Last 24 Hr 97.8 F-98.4 F 70-98 20-20 119-139/63-90 90-93 GENERAL: The patient is awake, alert, and fully oriented, in no acute distress. LUNGS: Breath sounds equal but course, crackles noted bilaterally at the lung bases, mild wheezes noted bilaterally on exam, accessory muscle use. Saturating at 90% on partially-attached nasal cannula @ 4L. HEART: Regular rate and rhythm, S1, S2 without murmur, rub or gallop. ABDOMEN: Soft, nontender, nondistended, normoactive bowel sounds, no guarding, no rebound, no hepatosplenomegaly, no masses. EXTREMITIES: 2+ pulses, warm, well-perfused, no edema. NEUROLOGICAL: Cranial nerves II through XII grossly intact. Normal speech, gait not observed. Laboratory Results - last 24 hr 05/28/17 05/29/17 05/29/17 09:05 06:30 06:30 Sodium 140 140 Potassium 3.9 3.8 Chloride 97 L 96 L Carbon Dioxide 37 H 37 H Anion Gap 6 L 7 L BUN 16 19 H Creatinine 0.4 L 0.4 L Random Glucose 103 90 Calcium 9.5 8.9 B-Natriuretic Peptide 276.83 232.80 Active Medications Generic Name Dose Route Start Last Admin Trade Name Freq PRN Reason Stop Dose Admin Acetaminophen 1,000 mg 05/23/17 16:51 Ofirmev Injection - IVPB Q6H PRN FEVER OR PAIN Albuterol Sulfate 1 amp 05/23/17 16:51 05/25/17 21:04 Ventolin 0.083% Nebulizer Soln - NEB 1 amp Q4H PRN Administration SHORT OF BREATH/WHEEZING Albuterol/Ipratropium 1 amp 05/23/17 18:00 05/29/17 11:40 Duoneb - NEB 1 amp QIDR BRITTNY Administration Amino Acids 30 ml 05/24/17 17:30 05/29/17 08:35 Prosource No Carb Liquid Pkt PO 30 ml BID@0800,1730 BRITTNY Administration Heparin Sodium (Porcine) 5,000 unit 12/28/17 22:00 05/29/17 13:31 Heparin - SQ 5,000 unit TID BRITTNY Administration Piperacillin Sod/Tazobactam 100 mls @ 200 mls/hr 05/23/17 18:00 05/29/17 09: 51 Sod 3.375 gm/ Dextrose IVPB 200 mls/hr Q8H-IV BRITTNY Administration Vancomycin HCl 1,000 mg/ 250 mls @ 166.667 mls/hr 05/26/17 10:00 05/29/17 09: 51 Dextrose IVPB 166.667 mls/hr DAILY BRITTNY Administration Multivitamins/Minerals/Vitamin C 1 tab 05/24/17 10:00 05/29/17 09:51 Tab-A-Vit - PO 1 tab DAILY BRITTNY Administration Pantoprazole Sodium 40 mg 05/26/17 10:00 05/29/17 09:51 Protonix - PO 40 mg DAILY BRITTNY Administration Prednisone 30 mg 05/28/17 10:00 05/29/17 09:51 Deltasone - PO 30 mg DAILY BRITTNY Administration ASSESSMENT/PLAN: 87 year old male with a PMHx of HTN, COPD (3L NC at night), Osteoarthritis, PUD presented to the ER with acute hypoxic respiratory distress. #Acute hypoxic hypercapnic respiratory distress - PNA vs COPD vs component of CHF, patient afebrile -strict I's/O's -f/u echocardiogram -lasix given previously helped clear patient -continue Prednisone 30 mg PO qd -duonebs -patient completing day 11/30 of abx. Stop in AM per ID recs -blood cx negative -O2 by nasal cannula -f/u Pulmonary recs #Hypokalemia - resolved -kcl 40meq PO ONCE added today #Hypophosphatemia -resolved #HTN -monitor, not on meds #Peptic Ulcer Disease -cont Protonix PO #Prophylaxis -Heparin subq 5000 TID #Disposition: Med surg Pt is DNR/DNI Visit type - Emergency Visit Emergency Visit: No - New Patient This patient is new to me today: No - Critical Care Critical Care patient: No
--- NOTE | 2017-05-29 17:01 | PN ---
Teaching Attending Note Name of Resident: Kolton Rose ATTENDING PHYSICIAN STATEMENT Time of evaluation: 11:15 AM I saw and evaluated the patient. I reviewed the resident's note and discussed the case with the resident. I agree with the resident's findings and plan as documented. SUBJECTIVE: Patient seen and examined. No complaints. limited ROS given dementia. OBJECTIVE: Vital Signs Period Temp Pulse Resp BP Sys/Calderon Pulse Ox Last 24 Hr 97.8 F-98.4 F 70-98 20-20 119-139/63-90 90-93 Intake & Output 05/26/17 05/27/17 05/28/17 05/29/17 23:59 23:59 23:59 23:59 Intake Total 450 510 410 518 Output Total 900 1050 600 200 Balance -450 -540 -190 318 Weight 170 lb 8 oz 1626 lb 8 oz General: lying in bed in mild respiratory distress, mild use of acessory muscles of respiration Chest: bialteral scattered coarse rhonchi, rales bilaterally, improved air entry from yesterday Extremities: trace pedal edema Home Medication List Medication Instructions Recorded Confirmed Type Acetaminophen [Tylenol] 2 tab PO Q6H PRN 05/22/17 05/22/17 History Albuterol 2.5/Ipratropium 0.5 1 amp NEB TID 05/22/17 05/22/17 History [Duoneb -] Budesonide [Pulmicort 0.5 mg 1 neb PO BID 05/22/17 05/22/17 History Nebulizer -] Ipratropium 0.02% Nebulizer 1 amp NEB Q6H PRN 05/22/17 05/22/17 History [Atrovent 0.02% Nebulizer -] Menthol/Phenol [Cepastat Lozenge -] 1 each MM QID PRN 05/22/17 05/22/17 History Metoclopramide HCl 10 mg PO TID 05/22/17 05/22/17 History Prednisone 10 mg PO BID 05/22/17 05/22/17 History Tramadol HCl [Ultram] 2 mg PO DAILY 05/22/17 05/22/17 History Active Medications Generic Name Dose Route Start Last Admin Trade Name Freq PRN Reason Stop Dose Admin Acetaminophen 1,000 mg 05/23/17 16:51 Ofirmev Injection - IVPB Q6H PRN FEVER OR PAIN Albuterol Sulfate 1 amp 05/23/17 16:51 05/25/17 21:04 Ventolin 0.083% Nebulizer Soln - NEB 1 amp Q4H PRN Administration SHORT OF BREATH/WHEEZING Albuterol/Ipratropium 1 amp 05/23/17 18:00 05/29/17 11:40 Duoneb - NEB 1 amp QIDR BRITTNY Administration Amino Acids 30 ml 05/24/17 17:30 05/29/17 17:30 Prosource No Carb Liquid Pkt PO 30 ml BID@0800,1730 BRITTNY Administration Heparin Sodium (Porcine) 5,000 unit 05/23/17 22:00 05/29/17 13:31 Heparin - SQ 5,000 unit TID BRITTNY Administration Piperacillin Sod/Tazobactam 100 mls @ 200 mls/hr 05/23/17 18:00 05/29/17 17: 30 Sod 3.375 gm/ Dextrose IVPB 200 mls/hr Q8H-IV BRITTNY Administration Vancomycin HCl 1,000 mg/ 250 mls @ 166.667 mls/hr 05/26/17 10:00 05/29/17 09: 51 Dextrose IVPB 166.667 mls/hr DAILY BRITTNY Administration Multivitamins/Minerals/Vitamin C 1 tab 05/24/17 10:00 05/29/17 09:51 Tab-A-Vit - PO 1 tab DAILY BRITTNY Administration Pantoprazole Sodium 40 mg 05/26/17 10:00 05/29/17 09:51 Protonix - PO 40 mg DAILY BRITTNY Administration Prednisone 30 mg 05/28/17 10:00 05/29/17 09:51 Deltasone - PO 30 mg DAILY BRITTNY Administration Laboratory Results - last 24 hr 05/28/17 05/29/17 05/29/17 09:05 06:30 06:30 Sodium 140 140 Potassium 3.9 3.8 Chloride 97 L 96 L Carbon Dioxide 37 H 37 H Anion Gap 6 L 7 L BUN 16 19 H Creatinine 0.4 L 0.4 L Random Glucose 103 90 Calcium 9.5 8.9 B-Natriuretic Peptide 276.83 232.80 Microbiology 05/22/17 09:15 Blood - Peripheral Venous Blood Culture - Final NO GROWTH AFTER 5 DAYS INCUBATION 05/22/17 09:15 Blood - Peripheral Venous Blood Culture - Final NO GROWTH AFTER 5 DAYS INCUBATION 05/22/17 22:52 Urine - Urine Clean Catch Urine Culture - Final NO GROWTH OBTAINED 05/23/17 18:15 Urine For Antigen Detection Legionella Antigen - Final 05/23/17 18:15 Urine For Antigen Detection Streptococcus pneumoniae Antigen (M - Final 05/22/17 17:30 Nasopharyngeal Swab Influenza Types A,B Antigen (LAURA) - Final 05/22/17 17:30 Nasopharyngeal Swab - Final ASSESSMENT AND PLAN: 87 year old male with a PMHx of HTN, COPD (3L NC at night), Osteoarthritis, Dysphagia, PUD presented to the ER with acute hypoxic respiratory distress - Acute hypoxic hypercarpneic respiratory distress, due to possible PNA vs acute on chronic COPD -Sepsis due to PNA -Hypophosphateia -Hypokalemia -HTN -PUD Plan: Oxygenation slowly improved. still with coarse . clinically improved. less tachypneic. on prednisone taper. reduce dose tomorrow to 30mg. Supplemental oxygen to maintain spO2 >88%. pulmonary on board. check pre and post prior to discharge. s/p lasix x 2 on admission with improvement in CXR, unlikely infiltrated, follow up 2D echo, Follow up BNP. Additional lasix 20 mg IV today. Strict I/Os. Vanco/zosyn day 11/30, d/c antibiotics in AM. suspect fluid +/- micro-aspiration more contributory. Currently normotensive. not on medications at home. cont to monitor. Stress ulcer ppx. protonix po [id number] Family decided to make status DNR/DNI, no central line or pressors. will need JOON on discharge, PT eval and OOB, dispo planning as respiratory status improves
[2017-05-29] MEDS ORDERED: PT OWN MED DRAWER 7, Y5N ONE (17:28)
[2017-05-29] MEDS ORDERED: FUROSEMIDE 40 MG/4 ML INJECTABLE VIAL IVPUSH ONE (18:00)
[2017-05-30] MEDS ORDERED: PT OWN MED DRAWER 7, Y5N ONE ×2 (01:11→05:44)
[2017-05-30] MEDS: PIPERACILLIN/TAZOB 3.375 GM 3.375 GM in DEXTROSE 5%-WATER - 100 ML IVPB SCH (01:47)
[2017-05-30] MEDS: HEPARIN NA (PORCINE) 5,000 UNITS/ML 1ML VIAL SQ SCH ×3 (05:56→22:29)
[2017-05-30] MEDS: ALBUTEROL SO4 2.5/IPRATROPIUM 0.5 INH SOL 3 ML VIAL.NEB. NEB SCH ×4 (06:29→23:11)
--- NOTE | 2017-05-30 07:12 | PN ---
Physical Exam: SUBJECTIVE: No acute events overnight. No complaints. Denies SOB, CP/discomfort , fevers/chills. OBJECTIVE: Vital Signs Period Temp Pulse Resp BP Sys/Calderon Pulse Ox Last 24 Hr 97.5 F-98.4 F 76-98 18-20 115-134/63-78 93-95 GENERAL: NAD, awake, alert, laying in bed, thin-appearing. HEENT: No JVD, sclera anicteric, EOMI, moist mucosa LUNGS: Coarse breath sounds anteriorly with component of bibasillar rales noted , No wheezes. No accessory muscle use. Currently on 4LNC. HEART: RRR, S1, S2 with 3/6 systolic murmur at LLSB auscultated ABDOMEN: Soft, nontender, nondistended, normoactive bowel sounds, no guarding, no hepatomegaly EXTREMITIES: 2+ DP pulses, warm, well-perfused, no edema b/l NEUROLOGICAL: Normal speech, gait not observed. SKIN: Warm, no rashes noted Laboratory Results - last 24 hr 05/29/17 05/29/17 06:30 06:30 Sodium 140 Potassium 3.8 Chloride 96 L Carbon Dioxide 37 H Anion Gap 7 L BUN 19 H Creatinine 0.4 L Random Glucose 90 Calcium 8.9 B-Natriuretic Peptide 232.80 Active Medications Generic Name Dose Route Start Last Admin Trade Name Freq PRN Reason Stop Dose Admin Acetaminophen 1,000 mg 05/23/17 16:51 Ofirmev Injection - IVPB Q6H PRN FEVER OR PAIN Albuterol Sulfate 1 amp 05/23/17 16:51 05/25/17 21:04 Ventolin 0.083% Nebulizer Soln - NEB 1 amp Q4H PRN Administration SHORT OF BREATH/WHEEZING Albuterol/Ipratropium 1 amp 05/23/17 18:00 05/30/17 06:29 Duoneb - NEB 1 amp QIDR BEKAH Administration Amino Acids 30 ml 05/24/17 17:30 05/29/17 17:30 Prosource No Carb Liquid Pkt PO 30 ml BID@0800,1730 BEKAH Administration Heparin Sodium (Porcine) 5,000 unit 05/23/17 22:00 05/30/17 05:56 Heparin - SQ 5,000 unit TID BEKAH Administration Multivitamins/Minerals/Vitamin C 1 tab 05/24/17 10:00 01/03/18 09:51 Tab-A-Vit - PO 1 tab DAILY BEKAH Administration Pantoprazole Sodium 40 mg 05/26/17 10:00 05/29/17 09:51 Protonix - PO 40 mg DAILY BEKAH Administration Prednisone 30 mg 05/28/17 10:00 05/29/17 09:51 Deltasone - PO 30 mg DAILY BEKAH Administration ASSESSMENT/PLAN: 87yo M with h/o COPD (baseline 3LNC at night), HTN, OA who was found to acute hypoxic hypercapnic distress. 1) Acute hypoxic hypercapnic respiratory distress --2/2 to PNA most likely with component of COPD --Lasix given last night --One more dose of Lasix 20mg IVP --Continue Prednisone 30mg qdaily --Taper down --Maintain SpO2 >88-90% --Pulmonology on board --Duoneb QID bekah --Nebs PRN q4h --RPT CXR today; will assess for vascular congestion 2) Sepsis 2/2 to PNA --Suspected aspiration --Afebrile --downtrending leukocytosis --Completed 7 day course of antibiotics --Can discontinue today per ID 3) HTN --Currently controlled --Continue BP monitoring FEN: Fluids: None; suspected hypervolemia Electrolyte abnormalities: Hypokalemia; repleted with liquid potassium chloride Nutrition: Dysphagia puree with honey-thick liquids PPX: DVT - Heparin SQ TID Dispo: Continue M/S; PT eval (baseline used to walk with walker prior to [facility] admission at [facility]) Case discussed with Dr. Danii Sanabria, DO - Internal Medicine PGY-1 Visit type - Emergency Visit Emergency Visit: No - New Patient This patient is new to me today: No - Critical Care Critical Care patient: No
[2017-05-30 07:58] LABS: HEMATOCRIT 41.8 % (35.4-49); HEMOGLOBIN 12.9 GM/dL (11.7-16.9); MCH 28.8 pg (25.7-33.7); MCHC 30.9 g/dl (32.0-35.9); MEAN CELL VOLUME 93.3 fl (80-96); MEAN PLT VOLUME 8.3 fl (7.5-11.1); PLATELET COUNT 454 K/MM3 (134-434); RBC 4.48 M/mm3 (4.00-5.60); RDW 16.8 % (11.9-15.9); WHITE BLOOD COUNT 9.2 K/mm3 (4.0-10.0)
[2017-05-30] MEDS: AMINO ACIDS/PROTEIN HYDROLYS 30 ML LIQUID.PKT PO SCH ×2 (08:00→16:53)
[2017-05-30 08:19] LABS: ANION GAP 6 (8-16); BLOOD UREA NITROGEN 21 mg/dL (7-18); CHLORIDE 96 mmol/L (98-107); CO2 38 mmol/L (21-32); CREATININE 0.4 mg/dL (0.7-1.3); GLUCOSE,RANDOM 105 mg/dL (74-106); POTASSIUM 3.4 mmol/L (3.5-5.1); SODIUM 140 mmol/L (136-145)
[2017-05-30] MEDS ORDERED: POTASSIUM CHLORIDE IVPB ONE (09:30)
[2017-05-30] MEDS ORDERED: WATER IVPB ONE (09:30)
[2017-05-30] MEDS ORDERED: KCL 10 MEQ IVPB 10 MEQ/100 ML INFUS.BAG IVPB ONE (09:30)
[2017-05-30] MEDS ORDERED: DEXTROSE 5% IVPB ONE (09:30)
[2017-05-30] MEDS: PANTOPRAZOLE 40 MG TABLET (FP) PO SCH (10:02)
[2017-05-30] MEDS: MULTIVITAMINS (DAILY MVI) TABLET (FP) PO SCH (10:02)
[2017-05-30] MEDS: predniSONE 20 MG TABLET (UD) PO SCH (10:03)
[2017-05-30] MEDS: ALBUTEROL SO4 0.083% IH SOL 2.5 MG/3 ML VIAL.NEB. NEB PRN (10:11)
--- NOTE | 2017-05-30 11:46 | PN ---
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 NO EDEMA LABS/BARIUM SWALLOW/IMAGES/MEDS REVIEWED Hypoxemic respiratory failure Multilobar PNA Fluid overload Acute COPD exacerbation Troponin leak likely demand ischemia HTN Recent GIB -ABX per ID -BD TX -Prednisone -heparin SubQ -protonix for GI ppx -O2 to maintain saturation -DNR/DNI -Aspiration precautions Raheem MONROE MD Problem List - Problems (1) COPD (chronic obstructive pulmonary disease) Code(s): J44.9 - CHRONIC OBSTRUCTIVE PULMONARY DISEASE, UNSPECIFIED Qualifiers: COPD type: COPD with acute lower respiratory infection Qualified Code(s): J44.0 - Chronic obstructive pulmonary disease with acute lower respiratory infection (2) Pneumonia Code(s): J18.9 - PNEUMONIA, UNSPECIFIED ORGANISM Qualifiers: Pneumonia type: due to unspecified organism Laterality: left Lung location: lower lobe of lung Qualified Code(s): J18.1 - Lobar pneumonia, unspecified organism (3) Anemia Code(s): D64.9 - ANEMIA, UNSPECIFIED (4) Sepsis Code(s): A41.9 - SEPSIS, UNSPECIFIED ORGANISM Qualifiers: Sepsis type: sepsis due to unspecified organism Qualified Code(s): A41.9 - Sepsis, unspecified organism (5) Hypertension Code(s): I10 - ESSENTIAL (PRIMARY) HYPERTENSION (6) Chronic steroid use Code(s): [id number] -
[2017-05-30] MEDS ORDERED: POTASSIUM CHLORIDE ORAL LIQUID 20 MEQ/15 ML PO ONE (12:18)
--- NOTE | 2017-05-30 15:19 | PN ---
Teaching Attending Note Name of Resident: Kolton Sanabria ATTENDING PHYSICIAN STATEMENT Time of evaluation: 11;10 AM I saw and evaluated the patient. I reviewed the resident's note and discussed the case with the resident. I agree with the resident's findings and plan as documented. SUBJECTIVE: patient seen and examined. feels better, denies dsypnea, oriented to self. No complaints. OBJECTIVE: Vital Signs Period Temp Pulse Resp BP Sys/Calderon Pulse Ox Last 24 Hr 97.3 F-98.4 F 52-96 18-20 115-134/63-78 91-95 Intake & Output 05/27/17 05/28/17 05/29/17 05/30/17 23:59 23:59 23:59 23:59 Intake Total 510 410 638 100 Output Total 6953 872 6367 800 Balance -540 -190 -362 -700 Weight 170 lb 8 oz 1626 lb 8 oz 161 lb 12.8 oz General: lying in bed, improved from yesterday, no use of acessory muslces of respiration Chest: bialteral scattered coarse rhonchi, rales bilaterally, improved air entry from yesterday Extremities: trace pedal edema Home Medication List Medication Instructions Recorded Confirmed Type Acetaminophen [Tylenol] 2 tab PO Q6H PRN 05/22/17 05/22/17 History Albuterol 2.5/Ipratropium 0.5 1 amp NEB TID 05/22/17 05/22/17 History [Duoneb -] Budesonide [Pulmicort 0.5 mg 1 neb PO BID 05/22/17 05/22/17 History Nebulizer -] Ipratropium 0.02% Nebulizer 1 amp NEB Q6H PRN 05/22/17 05/22/17 History [Atrovent 0.02% Nebulizer -] Menthol/Phenol [Cepastat Lozenge -] 1 each MM QID PRN 05/22/17 05/22/17 History Metoclopramide HCl 10 mg PO TID 05/22/17 05/22/17 History Prednisone 10 mg PO BID 05/22/17 05/22/17 History Tramadol HCl [Ultram] 2 mg PO DAILY 05/22/17 05/22/17 History Active Medications Generic Name Dose Route Start Last Admin Trade Name Freq PRN Reason Stop Dose Admin Acetaminophen 1,000 mg 05/23/17 16:51 Ofirmev Injection - IVPB Q6H PRN FEVER OR PAIN Albuterol Sulfate 1 amp 05/23/17 16:51 05/30/17 10:11 Ventolin 0.083% Nebulizer Soln - NEB 1 amp Q4H PRN Administration SHORT OF BREATH/WHEEZING Albuterol/Ipratropium 1 amp 05/23/17 18:00 05/30/17 12:30 Duoneb - NEB 1 amp QIDR BRITTNY Administration Amino Acids 30 ml 05/24/17 17:30 05/30/17 08:00 Prosource No Carb Liquid Pkt PO 30 ml BID@0800,1730 BRITTNY Administration Furosemide 20 mg 05/30/17 16:00 Lasix Injection - IVPUSH 05/30/17 16:01 ONCE ONE Heparin Sodium (Porcine) 5,000 unit 05/23/17 22:00 05/30/17 14:31 Heparin - SQ 5,000 unit TID BRITTNY Administration Multivitamins/Minerals/Vitamin C 1 tab 05/24/17 10:00 05/30/17 10:02 Tab-A-Vit - PO 1 tab DAILY BRITTNY Administration Pantoprazole Sodium 40 mg 05/26/17 10:00 05/30/17 10:02 Protonix - PO 40 mg DAILY BRITTNY Administration Prednisone 20 mg 05/30/17 11:43 Deltasone - PO DAILY [facility] Laboratory Results - last 24 hr 05/30/17 05/30/17 05/30/17 06:00 06:00 06:00 WBC 9.2 RBC 4.48 Hgb 12.9 Hct 41.8 MCV 93.3 MCH 28.8 MCHC 30.9 L RDW 16.8 H Plt Count 454 H MPV 8.3 Sodium 140 Potassium 3.4 L Chloride 96 L Carbon Dioxide 38 H Anion Gap 6 L BUN 21 H Creatinine 0.4 L Random Glucose 105 Calcium 9.0 B-Natriuretic Peptide 191.44 Microbiology 05/22/17 09:15 Blood - Peripheral Venous Blood Culture - Final NO GROWTH AFTER 5 DAYS INCUBATION 05/22/17 09:15 Blood - Peripheral Venous Blood Culture - Final NO GROWTH AFTER 5 DAYS INCUBATION 05/22/17 22:52 Urine - Urine Clean Catch Urine Culture - Final NO GROWTH OBTAINED 05/23/17 18:15 Urine For Antigen Detection Legionella Antigen - Final 05/23/17 18:15 Urine For Antigen Detection Streptococcus pneumoniae Antigen (M - Final 05/22/17 17:30 Nasopharyngeal Swab Influenza Types A,B Antigen (LAURA) - Final 05/22/17 17:30 Nasopharyngeal Swab - Final 2D echo limited study, results reviewed ASSESSMENT AND PLAN: 87 year old male with a PMHx of HTN, COPD (3L NC at night), Osteoarthritis, Dysphagia, PUD presented to the ER with acute hypoxic respiratory distress - Acute hypoxic hypercarpneic respiratory distress, due to possible PNA vs acute on chronic COPD -Sepsis due to PNA -Hypophosphateia -Hypokalemia -HTN -PUD Plan: Oxygenation slowly improved. on prednisone taper. reduce dose tomorrow to 30mg. Supplemental oxygen to maintain spO2 >88%. pulmonary on board. check pre and post prior to discharge. Gentle diuresis as tolerated, responding slowly. Additional lasix 20 mg IV x 1, 2D echo limited, results reviewed. Strict I/Os. s/p 7 days of Vanco/zosyn. suspect fluid +/- micro-aspiration more contributory. Currently normotensive. not on medications at home. cont to monitor. Stress ulcer ppx. protonix po DVTPPX Family decided to make status DNR/DNI, no central line or pressors. will need JOON on discharge, PT eval and OOB, dispo planning as respiratory status improves OOB to Chair, PT eval, dispo planning over next 2-3 days a continues to improve.
[2017-05-30] MEDS ORDERED: FUROSEMIDE 40 MG/4 ML INJECTABLE VIAL IVPUSH ONE (16:00)
[2017-05-30] MEDS ORDERED: FUROSEMIDE 40 MG/4 ML INJECTABLE VIAL ONE (16:18)
[2017-05-31] MEDS: HEPARIN NA (PORCINE) 5,000 UNITS/ML 1ML VIAL SQ SCH ×3 (06:05→22:42)
[2017-05-31] MEDS: ALBUTEROL SO4 2.5/IPRATROPIUM 0.5 INH SOL 3 ML VIAL.NEB. NEB SCH ×4 (06:35→23:06)
[2017-05-31] MEDS: AMINO ACIDS/PROTEIN HYDROLYS 30 ML LIQUID.PKT PO SCH ×2 (07:31→16:47)
[2017-05-31 07:50] LABS: HEMATOCRIT 41.7 % (35.4-49); HEMOGLOBIN 12.7 GM/dL (11.7-16.9); MCH 28.3 pg (25.7-33.7); MCHC 30.4 g/dl (32.0-35.9); MEAN CELL VOLUME 93.3 fl (80-96); MEAN PLT VOLUME 8.5 fl (7.5-11.1); PLATELET COUNT 370 K/MM3 (134-434); RBC 4.47 M/mm3 (4.00-5.60); RDW 16.5 % (11.9-15.9); WHITE BLOOD COUNT 11.1 K/mm3 (4.0-10.0)
[2017-05-31 08:15] LABS: CALCIUM 9.4 mg/dL (8.5-10.1); CHLORIDE 97 mmol/L (98-107); POTASSIUM 3.5 mmol/L (3.5-5.1); SODIUM 142 mmol/L (136-145)
[2017-05-31 08:19] LABS: ANION GAP 9 (8-16); BLOOD UREA NITROGEN 24 mg/dL (7-18); CO2 36 mmol/L (21-32); CREATININE 0.4 mg/dL (0.7-1.3); GLUCOSE,RANDOM 141 mg/dL (74-106); MAGNESIUM 2.5 mg/dL (1.8-2.4)
[2017-05-31] MEDS: MULTIVITAMINS (DAILY MVI) TABLET (FP) PO SCH (09:49)
[2017-05-31] MEDS: PANTOPRAZOLE 40 MG TABLET (FP) PO SCH (09:49)
[2017-05-31] MEDS: predniSONE 20 MG TABLET (UD) PO SCH (09:49)
[2017-05-31] MEDS: POLYETHYLENE GLYCOL 3350 119 GM BTL PO SCH (13:41)
--- NOTE | 2017-05-31 14:48 | PN ---
Progress Note, Physician History of Present Illness: pulmonary alert,comfortable,-resp distress - Current Medication List Current Medications: Active Medications Acetaminophen (Ofirmev Injection -) 1,000 mg IVPB Q6H PRN PRN Reason: FEVER OR PAIN Albuterol Sulfate (Ventolin 0.083% Nebulizer Soln -) 1 amp NEB Q4H PRN PRN Reason: SHORT OF BREATH/WHEEZING Last Admin: 05/30/17 10:11 Dose: 1 amp Albuterol/Ipratropium (Duoneb -) 1 amp NEB QIDR [facility] Last Admin: 05/31/17 11:01 Dose: 1 amp Amino Acids (Prosource No Carb Liquid Pkt) 30 ml PO BID@0800,1730 [facility] Last Admin: 05/31/17 07:31 Dose: 30 ml Heparin Sodium (Porcine) (Heparin -) 5,000 unit SQ TID [facility] Last Admin: 05/31/17 14:19 Dose: 5,000 unit Multivitamins/Minerals/Vitamin C (Tab-A-Vit -) 1 tab PO DAILY [facility] Last Admin: 05/31/17 09:49 Dose: 1 tab Pantoprazole Sodium (Protonix -) 40 mg PO DAILY [facility] Last Admin: 05/31/17 09:49 Dose: 40 mg Polyethylene Glycol (Miralax (For Daily Use) -) 17 gm PO DAILY [facility] Last Admin: 05/31/17 13:41 Dose: 17 grams Prednisone (Deltasone -) 20 mg PO DAILY [facility] Last Admin: 05/31/17 09:49 Dose: 20 mg - Objective Vital Signs: Vital Signs Temperature 97.4 F L 05/31/17 14:27 Pulse Rate 93 H 05/31/17 14:27 Respiratory Rate 18 05/31/17 14:27 Blood Pressure 125/82 05/31/17 14:27 O2 Sat by Pulse Oximetry (%) 92 L 05/31/17 09:45 Constitutional: Yes: Well Nourished, Calm Eyes: Yes: WNL HENT: Yes: WNL Neck: Yes: WNL Cardiovascular: Yes: Regular Rate and Rhythm, S1, S2 Respiratory: Yes: Diminished Gastrointestinal: Yes: Normal Bowel Sounds, Soft Extremities: Yes: WNL Edema: No Labs: CBC, BMP 05/31/17 06:00 05/31/17 06:00 INR, PTT INR 1.12 (0.82-1.09) 05/22/17 09:15 - ....Imaging Chest X-ray: Report Reviewed, Image Reviewed Assessment/Plan Problem List - Problems (1) COPD (chronic obstructive pulmonary disease) Code(s): J44.9 - CHRONIC OBSTRUCTIVE PULMONARY DISEASE, UNSPECIFIED Qualifiers: COPD type: COPD with acute lower respiratory infection Qualified Code(s): J44.0 - Chronic obstructive pulmonary disease with acute lower respiratory infection (2) Hypertension Code(s): I10 - ESSENTIAL (PRIMARY) HYPERTENSION (3) Pneumonia Code(s): J18.9 - PNEUMONIA, UNSPECIFIED ORGANISM Qualifiers: Pneumonia type: due to unspecified organism Laterality: left Lung location: lower lobe of lung Qualified Code(s): J18.1 - Lobar pneumonia, unspecified organism (4) Respiratory failure Code(s): J96.90 - RESPIRATORY FAILURE, UNSP, UNSP W HYPOXIA OR HYPERCAPNIA Assessment/Plan Hypoxemic respiratory failure improved R/O PNA vs fluid overload Acute COPD exacerbation improved Troponin leak likely demand ischemia HTN Recent GIB, now with stable Hgb -ABX per ID -BD TX -prednisone -heparin SubQ -protonix for GI ppx (recent GIB) DR JEFFERS
[2017-05-31] MEDS ORDERED: FUROSEMIDE 20 MG TABLET (FP) PO ONE (17:26)
--- NOTE | 2017-05-31 18:10 | PN ---
Teaching Attending Note Name of Resident: Kolton Sanabria ATTENDING PHYSICIAN STATEMENT Time of evaluation: 11;25 AM I saw and evaluated the patient. I reviewed the resident's note and discussed the case with the resident. I agree with the resident's findings and plan as documented. SUBJECTIVE: Patient seen and examined. looks better today, no complaints. limited ROS given dementia. OBJECTIVE: Vital Signs Period Temp Pulse Resp BP Sys/Calderon Pulse Ox Last 24 Hr 97.2 F-98.3 F 83-93 18-20 114-159/59-82 91-93 Intake & Output 05/28/17 05/29/17 05/30/17 05/31/17 23:59 23:59 23:59 23:59 Intake Total 410 638 330 500 Output Total 600 1000 1300 500 Balance -190 -362 -970 0 Weight 1626 lb 8 oz 161 lb 12.8 oz 160 lb 12.8 oz General: sitting in bed, comfortable today Chest: improved air entry, minimal rhonchi today, few right basilar rales Abdomen: soft, NT, ND, positive bowel sounds extremities: no edema Home Medication List Medication Instructions Recorded Confirmed Type Acetaminophen [Tylenol] 2 tab PO Q6H PRN 05/22/17 05/22/17 History Albuterol 2.5/Ipratropium 0.5 1 amp NEB TID 05/22/17 05/22/17 History [Duoneb -] Budesonide [Pulmicort 0.5 mg 1 neb PO BID 05/22/17 05/22/17 History Nebulizer -] Ipratropium 0.02% Nebulizer 1 amp NEB Q6H PRN 05/22/17 05/22/17 History [Atrovent 0.02% Nebulizer -] Menthol/Phenol [Cepastat Lozenge -] 1 each MM QID PRN 05/22/17 05/22/17 History Metoclopramide HCl 10 mg PO TID 05/22/17 05/22/17 History Prednisone 10 mg PO BID 05/22/17 05/22/17 History Tramadol HCl [Ultram] 2 mg PO DAILY 05/22/17 05/22/17 History Active Medications Generic Name Dose Route Start Last Admin Trade Name Freq PRN Reason Stop Dose Admin Acetaminophen 1,000 mg 05/23/17 16:51 Ofirmev Injection - IVPB Q6H PRN FEVER OR PAIN Albuterol Sulfate 1 amp 05/23/17 16:51 05/30/17 10:11 Ventolin 0.083% Nebulizer Soln - NEB 1 amp Q4H PRN Administration SHORT OF BREATH/WHEEZING Albuterol/Ipratropium 1 amp 05/23/17 18:00 05/31/17 17:37 Duoneb - NEB 1 amp QIDR BRITTNY Administration Amino Acids 30 ml 05/24/17 17:30 05/31/17 16:47 Prosource No Carb Liquid Pkt PO 30 ml BID@0800,1730 BRITTNY Administration Heparin Sodium (Porcine) 5,000 unit 05/23/17 22:00 05/31/17 14:19 Heparin - SQ 5,000 unit TID BRITTNY Administration Multivitamins/Minerals/Vitamin C 1 tab 05/24/17 10:00 05/31/17 09:49 Tab-A-Vit - PO 1 tab DAILY BRITTNY Administration Pantoprazole Sodium 40 mg 05/26/17 10:00 05/31/17 09:49 Protonix - PO 40 mg DAILY BRITTNY Administration Polyethylene Glycol 17 gm 05/31/17 13:00 05/31/17 13:41 Miralax (For Daily Use) - PO 17 grams DAILY BRITTNY Administration Prednisone 20 mg 05/30/17 11:43 05/31/17 09:49 Deltasone - PO 20 mg DAILY BRITTNY Administration Laboratory Results - last 24 hr 05/31/17 05/31/17 06:00 06:00 WBC 11.1 H RBC 4.47 Hgb 12.7 Hct 41.7 MCV 93.3 MCH 28.3 MCHC 30.4 L RDW 16.5 H Plt Count 370 MPV 8.5 Sodium 142 Potassium 3.5 Chloride 97 L Carbon Dioxide 36 H Anion Gap 9 BUN 24 H Creatinine 0.4 L Random Glucose 141 H D Calcium 9.4 Magnesium 2.5 H D Microbiology 05/22/17 09:15 Blood - Peripheral Venous Blood Culture - Final NO GROWTH AFTER 5 DAYS INCUBATION 05/22/17 09:15 Blood - Peripheral Venous Blood Culture - Final NO GROWTH AFTER 5 DAYS INCUBATION 05/22/17 22:52 Urine - Urine Clean Catch Urine Culture - Final NO GROWTH OBTAINED 05/23/17 18:15 Urine For Antigen Detection Legionella Antigen - Final 05/23/17 18:15 Urine For Antigen Detection Streptococcus pneumoniae Antigen (M - Final 05/22/17 17:30 Nasopharyngeal Swab Influenza Types A,B Antigen (LAURA) - Final 05/22/17 17:30 Nasopharyngeal Swab - Final ASSESSMENT AND PLAN: 87 year old male with a PMHx of HTN, COPD (3L NC at night), Osteoarthritis, Dysphagia, PUD presented to the ER with acute hypoxic respiratory distress - Acute hypoxic hypercarpneic respiratory distress, due to possible PNA vs acute on chronic COPD -Sepsis due to PNA -Hypophosphateia -Hypokalemia -HTN -PUD Plan: Oxygenation slowly improved. on prednisone taper. Supplemental oxygen to maintain spO2 >88%. pulmonary on board. check pre and post prior to discharge. Gentle diuresis as tolerated, responding slowly. Improved with gentle diuresis, additional lasix 20 mg PO , 2D echo limited, results reviewed. Strict I/Os. s/p 7 days of Vanco/zosyn. suspect fluid +/- micro-aspiration more contributory. Currently normotensive. not on medications at home. cont to monitor. Stress ulcer ppx. protonix po DVTPPX Family decided to make status DNR/DNI, no central line or pressors. will need JOON on discharge, PT eval and OOB, dispo planning as respiratory status improves OOB to Chair, PT eval, dispo planning in 24-48 hours as improves.
--- NOTE | 2017-05-31 20:36 | PN ---
Physical Exam: SUBJECTIVE: Comfortable looking. no new complaints today. no events overnight. hpi limited due to dementia OBJECTIVE: Vital Signs Period Temp Pulse Resp BP Sys/Calderon Pulse Ox Last 24 Hr 97.2 F-98.3 F 84-93 18-20 123-159/59-82 91-93 GENERAL: NAD, awake, alert HEENT: NC/AT, No JVD LUNGS: Improved since yesterday. Minimal rhonchi, bibasillar rales. No wheezes. No accessory muscle use. HEART: Regular rate and rhythm, S1, S2 without murmur, rub or gallop. ABDOMEN: Soft, nontender, nondistended, normoactive bowel sounds, no hepatomegaly. EXTREMITIES: 2+ DP pulses no edema. SKIN: Warm, no rashes or lesions noted Laboratory Results - last 24 hr 05/31/17 05/31/17 06:00 06:00 WBC 11.1 H RBC 4.47 Hgb 12.7 Hct 41.7 MCV 93.3 MCH 28.3 MCHC 30.4 L RDW 16.5 H Plt Count 370 MPV 8.5 Sodium 142 Potassium 3.5 Chloride 97 L Carbon Dioxide 36 H Anion Gap 9 BUN 24 H Creatinine 0.4 L Random Glucose 141 H D Calcium 9.4 Magnesium 2.5 H D Active Medications Generic Name Dose Route Start Last Admin Trade Name Freq PRN Reason Stop Dose Admin Acetaminophen 1,000 mg 05/23/17 16:51 Ofirmev Injection - IVPB Q6H PRN FEVER OR PAIN Albuterol Sulfate 1 amp 05/23/17 16:51 05/30/17 10:11 Ventolin 0.083% Nebulizer Soln - NEB 1 amp Q4H PRN Administration SHORT OF BREATH/WHEEZING Albuterol/Ipratropium 1 amp 05/23/17 18:00 05/31/17 17:37 Duoneb - NEB 1 amp QIDR BEKAH Administration Amino Acids 30 ml 05/24/17 17:30 05/31/17 16:47 Prosource No Carb Liquid Pkt PO 30 ml BID@0800,1730 BEKAH Administration Heparin Sodium (Porcine) 5,000 unit 05/23/17 22:00 05/31/17 14:19 Heparin - SQ 5,000 unit TID BEKAH Administration Multivitamins/Minerals/Vitamin C 1 tab 05/24/17 10:00 05/31/17 09:49 Tab-A-Vit - PO 1 tab DAILY BEKAH Administration Pantoprazole Sodium 40 mg 05/26/17 10:00 05/31/17 09:49 Protonix - PO 40 mg DAILY BEKAH Administration Polyethylene Glycol 17 gm 05/31/17 13:00 05/31/17 13:41 Miralax (For Daily Use) - PO 17 grams DAILY BEKAH Administration Prednisone 20 mg 05/30/17 11:43 05/31/17 09:49 Deltasone - PO 20 mg DAILY BEKAH Administration ASSESSMENT/PLAN: 87yo M with h/o COPD (baseline 3LNC at night), HTN, OA who was found to acute hypoxic hypercapnic distress. 1) Acute hypoxic hypercapnic respiratory distress --2/2 to PNA most likely with component of COPD --No lasix today --Continue Prednisone 30mg qdaily --Taper down tomorrow? --Maintain SpO2 >88-90% --Pulmonology on board --Duoneb QID bekah --Nebs PRN q4h --RPT CXR today; will assess for vascular congestion 2) Sepsis 2/2 to PNA --Suspected aspiration --Possibly micro-aspiration still --Afebrile --downtrending leukocytosis --Completed 7 day course of antibiotics --Can discontinue today per ID 3) HTN --Currently controlled --Continue BP monitoring FEN: Fluids: None; suspected hypervolemia Electrolyte abnormalities: Hypokalemia; repleted with liquid potassium chloride Nutrition: Dysphagia puree with honey-thick liquids PPX: DVT - Heparin SQ TID Dispo: Continue M/S, will need pre and post prior to discharge Case discussed with Dr. Danii Sanabria, DO - Internal Medicine PGY-1 Visit type - Emergency Visit Emergency Visit: No - New Patient This patient is new to me today: No - Critical Care Critical Care patient: No
[2017-06-01] MEDS: HEPARIN NA (PORCINE) 5,000 UNITS/ML 1ML VIAL SQ SCH ×3 (05:31→22:11)
[2017-06-01] MEDS: ALBUTEROL SO4 2.5/IPRATROPIUM 0.5 INH SOL 3 ML VIAL.NEB. NEB SCH ×3 (05:47→18:52)
[2017-06-01] MEDS: POLYETHYLENE GLYCOL 3350 119 GM BTL PO SCH (09:34)
[2017-06-01] MEDS: predniSONE 20 MG TABLET (UD) PO SCH (09:34)
[2017-06-01] MEDS: PANTOPRAZOLE 40 MG TABLET (FP) PO SCH (09:34)
[2017-06-01] MEDS: MULTIVITAMINS (DAILY MVI) TABLET (FP) PO SCH (09:34)
[2017-06-01] MEDS: AMINO ACIDS/PROTEIN HYDROLYS 30 ML LIQUID.PKT PO SCH ×2 (09:34→18:41)
--- NOTE | 2017-06-01 12:00 | PN ---
Teaching Attending Note Name of Resident: . ATTENDING PHYSICIAN STATEMENT Time of evaluation: 8:40 AM I saw and evaluated the patient. I reviewed the resident's note and discussed the case with the resident. I agree with the resident's findings and plan as documented. SUBJECTIVE: Patient seen and examined. No complaints, ROS limited by dementia. OBJECTIVE: Vital Signs Period Temp Pulse Resp BP Sys/Calderon Pulse Ox Last 24 Hr 97.3 F-97.6 F 82-94 18-20 118-125/67-82 93 Intake & Output 05/29/17 05/30/17 05/31/17 06/01/17 23:59 23:59 23:59 23:59 Intake Total 638 330 500 300 Output Total 1000 1300 800 200 Balance -362 -970 -300 100 Weight 1626 lb 8 oz 161 lb 12.8 oz 160 lb 12.8 oz 160 lb general; still dyspneic with minimal conversation or activity Abdomen: soft, NT chest; scattered rhonchi, few basilar rales extremities: no edema Home Medication List Medication Instructions Recorded Confirmed Type Acetaminophen [Tylenol] 2 tab PO Q6H PRN 05/22/17 05/22/17 History Albuterol 2.5/Ipratropium 0.5 1 amp NEB TID 05/22/17 05/22/17 History [Duoneb -] Budesonide [Pulmicort 0.5 mg 1 neb PO BID 05/22/17 05/22/17 History Nebulizer -] Ipratropium 0.02% Nebulizer 1 amp NEB Q6H PRN 05/22/17 05/22/17 History [Atrovent 0.02% Nebulizer -] Menthol/Phenol [Cepastat Lozenge -] 1 each MM QID PRN 05/22/17 05/22/17 History Metoclopramide HCl 10 mg PO TID 05/22/17 05/22/17 History Prednisone 10 mg PO BID 05/22/17 05/22/17 History Tramadol HCl [Ultram] 2 mg PO DAILY 05/22/17 05/22/17 History Active Medications Generic Name Dose Route Start Last Admin Trade Name Freq PRN Reason Stop Dose Admin Acetaminophen 1,000 mg 05/23/17 16:51 Ofirmev Injection - IVPB Q6H PRN FEVER OR PAIN Albuterol Sulfate 1 amp 05/23/17 16:51 05/30/17 10:11 Ventolin 0.083% Nebulizer Soln - NEB 1 amp Q4H PRN Administration SHORT OF BREATH/WHEEZING Albuterol/Ipratropium 1 amp 05/23/17 18:00 06/01/17 11:27 Duoneb - NEB 1 amp QIDR BRITTNY Administration Amino Acids 30 ml 05/24/17 17:30 06/01/17 09:34 Prosource No Carb Liquid Pkt PO 30 ml BID@0800,1730 BRITTNY Administration Heparin Sodium (Porcine) 5,000 unit 05/23/17 22:00 06/01/17 05:31 Heparin - SQ 5,000 unit TID BRITTNY Administration Methylprednisolone Sodium Succinate 40 mg 06/01/17 22:00 Solu-Medrol - IVPUSH BID BRITTNY Multivitamins/Minerals/Vitamin C 1 tab 05/24/17 10:00 06/01/17 09:34 Tab-A-Vit - PO 1 tab DAILY BRITTNY Administration Pantoprazole Sodium 40 mg 05/26/17 10:00 06/01/17 09:34 Protonix - PO 40 mg DAILY BRITTNY Administration Polyethylene Glycol 17 gm 05/31/17 13:00 06/01/17 09:34 Miralax (For Daily Use) - PO 17 grams DAILY BRITTNY Administration Microbiology 05/22/17 09:15 Blood - Peripheral Venous Blood Culture - Final NO GROWTH AFTER 5 DAYS INCUBATION 05/22/17 09:15 Blood - Peripheral Venous Blood Culture - Final NO GROWTH AFTER 5 DAYS INCUBATION 05/22/17 22:52 Urine - Urine Clean Catch Urine Culture - Final NO GROWTH OBTAINED 05/23/17 18:15 Urine For Antigen Detection Legionella Antigen - Final 05/23/17 18:15 Urine For Antigen Detection Streptococcus pneumoniae Antigen (M - Final 05/22/17 17:30 Nasopharyngeal Swab Influenza Types A,B Antigen (LAURA) - Final 05/22/17 17:30 Nasopharyngeal Swab - Final ASSESSMENT AND PLAN: 87 year old male with a PMHx of HTN, COPD (3L NC at night), Osteoarthritis, Dysphagia, PUD presented to the ER with acute hypoxic respiratory distress - Acute hypoxic hypercarpneic respiratory distress, due to possible PNA vs acute on chronic COPD -Sepsis due to PNA -Hypophosphateia -Hypokalemia -HTN -PUD Plan: Oxygenation overall unchanged. Volume status and gurgling have improved with gentle diuresis. However still dyspneic with minimal exertion and scattered rhonchi. ?ongoing micro-aspiration. Will place on solumedrol 40 mg IV q12h, x 24 hours to see if clinical improvement in symptoms and oxygenation noted. S/p 7 days of zosyn/vancomycin. BUN rising, volume status improved, hold additional diuresis. Supplemental oxygen to maintain spO2 >88%. pulmonary on board. Gentle diuresis 2D echo limited, results reviewed. Strict I/Os. s/p 7 days of Vanco/zosyn. Currently normotensive. not on medications at home. cont to monitor. Stress ulcer ppx. protonix po DVTPPX Family decided to make status DNR/DNI, no central line or pressors. will need JOON on discharge, PT eval and OOB, dispo planning as respiratory status improves OOB to Chair, PT eval, dispo planning in 24-48 hours as improves.
--- NOTE | 2017-06-01 13:46 | PN ---
Progress Note, Physician History of Present Illness: pulmonary alert,mildly dyspneic when talking - Current Medication List Current Medications: Active Medications Acetaminophen (Ofirmev Injection -) 1,000 mg IVPB Q6H PRN PRN Reason: FEVER OR PAIN Albuterol Sulfate (Ventolin 0.083% Nebulizer Soln -) 1 amp NEB Q4H PRN PRN Reason: SHORT OF BREATH/WHEEZING Last Admin: 05/30/17 10:11 Dose: 1 amp Albuterol/Ipratropium (Duoneb -) 1 amp NEB QIDR [facility] Last Admin: 06/01/17 11:27 Dose: 1 amp Amino Acids (Prosource No Carb Liquid Pkt) 30 ml PO BID@0800,1730 [facility] Last Admin: 06/01/17 09:34 Dose: 30 ml Heparin Sodium (Porcine) (Heparin -) 5,000 unit SQ TID [facility] Last Admin: 06/01/17 05:31 Dose: 5,000 unit Methylprednisolone Sodium Succinate (Solu-Medrol -) 40 mg IVPUSH BID [facility] Multivitamins/Minerals/Vitamin C (Tab-A-Vit -) 1 tab PO DAILY [facility] Last Admin: 06/01/17 09:34 Dose: 1 tab Pantoprazole Sodium (Protonix -) 40 mg PO DAILY [facility] Last Admin: 06/01/17 09:34 Dose: 40 mg Polyethylene Glycol (Miralax (For Daily Use) -) 17 gm PO DAILY [facility] Last Admin: 06/01/17 09:34 Dose: 17 grams - Objective Vital Signs: Vital Signs Temperature 98.4 F 06/01/17 13:32 Pulse Rate 97 H 06/01/17 13:32 Respiratory Rate 18 06/01/17 13:32 Blood Pressure 125/66 06/01/17 13:32 O2 Sat by Pulse Oximetry (%) 91 L 06/01/17 09:00 Constitutional: Yes: Well Nourished, Calm Eyes: Yes: WNL HENT: Yes: WNL Neck: Yes: WNL Cardiovascular: Yes: Regular Rate and Rhythm, S1, S2 Respiratory: Yes: Rhonchi (few rhonchi anteriorly) Gastrointestinal: Yes: Normal Bowel Sounds, Soft Extremities: Yes: WNL Edema: No Labs: CBC, BMP Assessment/Plan Problem List - Problems (1) COPD (chronic obstructive pulmonary disease) Code(s): J44.9 - CHRONIC OBSTRUCTIVE PULMONARY DISEASE, UNSPECIFIED Qualifiers: COPD type: COPD with acute lower respiratory infection Qualified Code(s): J44.0 - Chronic obstructive pulmonary disease with acute lower respiratory infection (2) Hypertension Code(s): I10 - ESSENTIAL (PRIMARY) HYPERTENSION (3) Pneumonia Code(s): J18.9 - PNEUMONIA, UNSPECIFIED ORGANISM Qualifiers: Pneumonia type: due to unspecified organism Laterality: left Lung location: lower lobe of lung Qualified Code(s): J18.1 - Lobar pneumonia, unspecified organism (4) Respiratory failure Code(s): J96.90 - RESPIRATORY FAILURE, UNSP, UNSP W HYPOXIA OR HYPERCAPNIA Assessment/Plan Hypoxemic respiratory failure improved R/O PNA vs fluid overload Acute COPD exacerbation improved Troponin leak likely demand ischemia HTN Recent GIB, now with stable Hgb -ABX per ID -BD TX -steroids -heparin SubQ -O2 - ct chest DR JEFFERS
[2017-06-01] MEDS: methylPREDNISolone NA SUCC 40 MG/1 ML VIAL IVPUSH SCH (22:11)
[2017-06-02] MEDS: ALBUTEROL SO4 2.5/IPRATROPIUM 0.5 INH SOL 3 ML VIAL.NEB. NEB SCH ×5 (06:24→23:02)
[2017-06-02] MEDS: HEPARIN NA (PORCINE) 5,000 UNITS/ML 1ML VIAL SQ SCH ×3 (06:27→21:10)
[2017-06-02] MEDS: AMINO ACIDS/PROTEIN HYDROLYS 30 ML LIQUID.PKT PO SCH ×2 (08:05→18:30)
[2017-06-02 08:10] LABS: BASO % 0.2 % (0-2.0); HEMATOCRIT 41.6 % (35.4-49); HEMOGLOBIN 12.8 GM/dL (11.7-16.9); LYMPH % 5.6 % (8-40); MCH 28.7 pg (25.7-33.7); MCHC 30.9 g/dl (32.0-35.9); MEAN CELL VOLUME 92.8 fl (80-96); MEAN PLT VOLUME 8.8 fl (7.5-11.1); MONO % 3.2 % (3.8-10.2); PLATELET COUNT 331 K/MM3 (134-434); RBC 4.48 M/mm3 (4.00-5.60); WHITE BLOOD COUNT 13.8 K/mm3 (4.0-10.0)
[2017-06-02 08:34] LABS: ANION GAP 6 (8-16); BLOOD UREA NITROGEN 21 mg/dL (7-18); CALCIUM 9.4 mg/dL (8.5-10.1); CHLORIDE 97 mmol/L (98-107); CO2 38 mmol/L (21-32); CREATININE 0.4 mg/dL (0.7-1.3); GLUCOSE,RANDOM 144 mg/dL (74-106); POTASSIUM 4.2 mmol/L (3.5-5.1); SODIUM 141 mmol/L (136-145)
[2017-06-02] MEDS: PANTOPRAZOLE 40 MG TABLET (FP) PO SCH (10:07)
[2017-06-02] MEDS: MULTIVITAMINS (DAILY MVI) TABLET (FP) PO SCH (10:07)
[2017-06-02] MEDS: methylPREDNISolone NA SUCC 40 MG/1 ML VIAL IVPUSH SCH ×2 (10:07→21:10)
[2017-06-02] MEDS: POLYETHYLENE GLYCOL 3350 119 GM BTL PO SCH (10:07)
[2017-06-02] MEDS ORDERED: BISACODYL 10 MG SUPP.RECT RC ONE (11:00)
--- NOTE | 2017-06-02 12:27 | PN ---
Teaching Attending Note Name of Resident: . ATTENDING PHYSICIAN STATEMENT SUBJECTIVE: Patient seen and examined, No complaints, just ate a bit. OBJECTIVE: Vital Signs Period Temp Pulse Resp BP Sys/Calderon Pulse Ox Last 24 Hr 97.4 F-98.4 F 61-97 18-20 122-131/66-81 91 Intake & Output 05/30/17 05/31/17 06/01/17 06/02/17 23:59 23:59 23:59 23:59 Intake Total 330 500 300 400 Output Total 1300 800 400 200 Balance -970 -300 -100 200 Weight 161 lb 12.8 oz 160 lb 12.8 oz 160 lb 164 lb 12.8 oz General: dyspneic with minimal exertion or conversation in bed CVS:S1S2 regular Chest: right sided coarse rales anteriorly, right basilar rales, positive air entry bilaterally Abdomen: soft, NT, ND, positive bowel sounds extremities: no edema Home Medication List Medication Instructions Recorded Confirmed Type Acetaminophen [Tylenol] 2 tab PO Q6H PRN 05/22/17 05/22/17 History Albuterol 2.5/Ipratropium 0.5 1 amp NEB TID 05/22/17 05/22/17 History [Duoneb -] Budesonide [Pulmicort 0.5 mg 1 neb PO BID 05/22/17 05/22/17 History Nebulizer -] Ipratropium 0.02% Nebulizer 1 amp NEB Q6H PRN 05/22/17 05/22/17 History [Atrovent 0.02% Nebulizer -] Menthol/Phenol [Cepastat Lozenge -] 1 each MM QID PRN 05/22/17 05/22/17 History Metoclopramide HCl 10 mg PO TID 05/22/17 05/22/17 History Prednisone 10 mg PO BID 05/22/17 05/22/17 History Tramadol HCl [Ultram] 2 mg PO DAILY 05/22/17 05/22/17 History Active Medications Generic Name Dose Route Start Last Admin Trade Name Freq PRN Reason Stop Dose Admin Acetaminophen 1,000 mg 05/23/17 16:51 Ofirmev Injection - IVPB Q6H PRN FEVER OR PAIN Albuterol Sulfate 1 amp 05/23/17 16:51 05/30/17 10:11 Ventolin 0.083% Nebulizer Soln - NEB 1 amp Q4H PRN Administration SHORT OF BREATH/WHEEZING Albuterol/Ipratropium 1 amp 05/23/17 18:00 06/02/17 06:24 Duoneb - NEB 1 amp QIDR BRITTNY Administration Amino Acids 30 ml 05/24/17 17:30 06/02/17 08:05 Prosource No Carb Liquid Pkt PO 30 ml BID@0800,1730 BRITTNY Administration Heparin Sodium (Porcine) 5,000 unit 05/23/17 22:00 06/02/17 06:27 Heparin - SQ 5,000 unit TID BRITTNY Administration Methylprednisolone Sodium Succinate 40 mg 06/01/17 22:00 06/02/17 10:07 Solu-Medrol - IVPUSH 40 mg BID BRITTNY Administration Multivitamins/Minerals/Vitamin C 1 tab 05/24/17 10:00 06/02/17 10:07 Tab-A-Vit - PO 1 tab DAILY BRITTNY Administration Pantoprazole Sodium 40 mg 05/26/17 10:00 06/02/17 10:07 Protonix - PO 40 mg DAILY BRITTNY Administration Polyethylene Glycol 17 gm 05/31/17 13:00 06/02/17 10:07 Miralax (For Daily Use) - PO 17 grams DAILY BRITTNY Administration Laboratory Results - last 24 hr 06/02/17 06/02/17 06:30 06:30 WBC 13.8 H RBC 4.48 Hgb 12.8 Hct 41.6 MCV 92.8 MCH 28.7 MCHC 30.9 L RDW 17.0 H Plt Count 331 MPV 8.8 Neutrophils % 91.0 H Lymphocytes % 5.6 L D Monocytes % 3.2 L Eosinophils % 0.0 Basophils % 0.2 Sodium 141 Potassium 4.2 Chloride 97 L Carbon Dioxide 38 H Anion Gap 6 L BUN 21 H Creatinine 0.4 L Random Glucose 144 H Calcium 9.4 Microbiology 05/22/17 09:15 Blood - Peripheral Venous Blood Culture - Final NO GROWTH AFTER 5 DAYS INCUBATION 05/22/17 09:15 Blood - Peripheral Venous Blood Culture - Final NO GROWTH AFTER 5 DAYS INCUBATION 05/22/17 22:52 Urine - Urine Clean Catch Urine Culture - Final NO GROWTH OBTAINED 05/23/17 18:15 Urine For Antigen Detection Legionella Antigen - Final 05/23/17 18:15 Urine For Antigen Detection Streptococcus pneumoniae Antigen (M - Final 05/22/17 17:30 Nasopharyngeal Swab Influenza Types A,B Antigen (LAURA) - Final 05/22/17 17:30 Nasopharyngeal Swab - Final CT chest reviewed, looks right sided infiltrate vs aspiration, ground glass opacification lung, also stool in colon, follow up official read for additional findings. ASSESSMENT AND PLAN: 87 year old male with a PMHx of HTN, COPD (3L NC at night), Osteoarthritis, Dysphagia, PUD presented to the ER with acute hypoxic respiratory distress - Acute hypoxic hypercarpneic respiratory distress, suspect largely from ongoing aspiration +/- volume overload/COPD exacerbation -Sepsis due to PNA -Hypophosphateia -Hypokalemia -HTN -PUD Plan: Oxygenation overall unchanged. Ongoing coarse rales, right sided, lunch tray at bedside. Overall picture highly suspicious for ongoing aspiration. WBC elevated today, ?Steroids vs aspiration. Monitor for new fevers or increased oxygen needs. Gentle diuresis prn since admission with some response. Follow up CT chest, additional diuresis accordingly. Place on scopolamine patch. Solumedrol 40 mg IV q12h, though COPD doesn't seem the main etiology. Nebs. S/p 7 days of zosyn/vancomycin. Supplemental oxygen to maintain spO2 >88%. pulmonary on board. Gentle diuresis on hold, 2D echo limited, results reviewed. Strict I/Os. s/p 7 days of Vanco/zosyn. Currently normotensive. not on medications at home. cont to monitor. Stress ulcer ppx. protonix po DVTPPX [place] OOB, aspiration precautions, HOB elevated, meals with assist. Family decided to make status DNR/DNI, no central line or pressors. patient dyspneic with minimal exertion or even conversation, unable to work with PT. Suspect ongoing aspiration. ?Clinical endpoint as not infected currently but not much improvement in respiratory status. Palliative care consult to address overall goals of care.
[2017-06-02] MEDS: SCOPOLAMINE HYDROBROMIDE 1 PATCH PATCH.TD72 TD SCH (13:58)
--- NOTE | 2017-06-02 14:00 | PN ---
Progress Note, Physician History of Present Illness: pulmonary alert,no change,mildly dyspneic when speaking - Current Medication List Current Medications: Active Medications Acetaminophen (Ofirmev Injection -) 1,000 mg IVPB Q6H PRN PRN Reason: FEVER OR PAIN Albuterol Sulfate (Ventolin 0.083% Nebulizer Soln -) 1 amp NEB Q4H PRN PRN Reason: SHORT OF BREATH/WHEEZING Last Admin: 05/30/17 10:11 Dose: 1 amp Albuterol/Ipratropium (Duoneb -) 1 amp NEB QIDR [facility] Last Admin: 06/02/17 12:00 Dose: 1 amp Amino Acids (Prosource No Carb Liquid Pkt) 30 ml PO BID@0800,1730 [facility] Last Admin: 06/02/17 08:05 Dose: 30 ml Heparin Sodium (Porcine) (Heparin -) 5,000 unit SQ TID [facility] Last Admin: 06/02/17 06:27 Dose: 5,000 unit Methylprednisolone Sodium Succinate (Solu-Medrol -) 40 mg IVPUSH BID [facility] Last Admin: 06/02/17 10:07 Dose: 40 mg Multivitamins/Minerals/Vitamin C (Tab-A-Vit -) 1 tab PO DAILY [facility] Last Admin: 06/02/17 10:07 Dose: 1 tab Pantoprazole Sodium (Protonix -) 40 mg PO DAILY [facility] Last Admin: 06/02/17 10:07 Dose: 40 mg Polyethylene Glycol (Miralax (For Daily Use) -) 17 gm PO DAILY [facility] Last Admin: 06/02/17 10:07 Dose: 17 grams Scopolamine HBr (Transderm-Scop -) 1 patch TD Q3D [facility] - Objective Vital Signs: Vital Signs Temperature 97.4 F L 06/02/17 09:10 Pulse Rate 61 06/02/17 09:10 Respiratory Rate 20 06/02/17 09:10 Blood Pressure 129/74 06/02/17 09:10 O2 Sat by Pulse Oximetry (%) 89 L 06/02/17 09:00 Constitutional: Yes: Well Nourished, Calm Eyes: Yes: WNL HENT: Yes: WNL Neck: Yes: WNL Cardiovascular: Yes: Regular Rate and Rhythm, S1, S2 Respiratory: Yes: Rhonchi (scattered april rhonchi) Gastrointestinal: Yes: Normal Bowel Sounds, Soft Extremities: Yes: WNL Edema: No Labs: CBC, BMP 06/02/17 06:30 06/02/17 06:30 INR, PTT INR 1.12 (0.82-1.09) 05/22/17 09:15 - ....Imaging Cat Scan: Report Reviewed, Image Reviewed Assessment/Plan Problem List - Problems (1) COPD (chronic obstructive pulmonary disease) Code(s): J44.9 - CHRONIC OBSTRUCTIVE PULMONARY DISEASE, UNSPECIFIED Qualifiers: COPD type: COPD with acute lower respiratory infection Qualified Code(s): J44.0 - Chronic obstructive pulmonary disease with acute lower respiratory infection (2) Hypertension Code(s): I10 - ESSENTIAL (PRIMARY) HYPERTENSION (3) Pneumonia Code(s): J18.9 - PNEUMONIA, UNSPECIFIED ORGANISM Qualifiers: Pneumonia type: due to unspecified organism Laterality: left Lung location: lower lobe of lung Qualified Code(s): J18.1 - Lobar pneumonia, unspecified organism (4) Respiratory failure Code(s): J96.90 - RESPIRATORY FAILURE, UNSP, UNSP W HYPOXIA OR HYPERCAPNIA Assessment/Plan Hypoxemic respiratory failure improved R/O PNA Acute COPD exacerbation improved Bronchiectasis Troponin leak likely demand ischemia HTN Recent GIB, now with stable Hgb -BD TX -steroids -heparin SubQ -O2 DR JEFFERS
[2017-06-03] MEDS: HEPARIN NA (PORCINE) 5,000 UNITS/ML 1ML VIAL SQ SCH ×3 (05:42→21:41)
[2017-06-03] MEDS: ALBUTEROL SO4 2.5/IPRATROPIUM 0.5 INH SOL 3 ML VIAL.NEB. NEB SCH ×3 (06:23→17:11)
[2017-06-03] MEDS: AMINO ACIDS/PROTEIN HYDROLYS 30 ML LIQUID.PKT PO SCH ×2 (07:59→17:41)
[2017-06-03 08:27] LABS: HEMATOCRIT 44.1 % (35.4-49); HEMOGLOBIN 13.5 GM/dL (11.7-16.9); MCH 28.6 pg (25.7-33.7); MCHC 30.6 g/dl (32.0-35.9); MEAN CELL VOLUME 93.5 fl (80-96); PLATELET COUNT 361 K/MM3 (134-434); RBC 4.72 M/mm3 (4.00-5.60); RDW 17.1 % (11.9-15.9); WHITE BLOOD COUNT 16.7 K/mm3 (4.0-10.0)
[2017-06-03 08:53] LABS: BLOOD UREA NITROGEN 21 mg/dL (7-18); CALCIUM 9.4 mg/dL (8.5-10.1); CHLORIDE 100 mmol/L (98-107); MAGNESIUM 2.6 mg/dL (1.8-2.4); POTASSIUM 4.3 mmol/L (3.5-5.1); SODIUM 140 mmol/L (136-145)
[2017-06-03 08:55] LABS: ANION GAP 9 (8-16); CO2 31 mmol/L (21-32); CREATININE 0.5 mg/dL (0.7-1.3); GLUCOSE,RANDOM 125 mg/dL (74-106)
[2017-06-03] MEDS: methylPREDNISolone NA SUCC 40 MG/1 ML VIAL IVPUSH SCH ×2 (09:25→21:44)
[2017-06-03] MEDS: PANTOPRAZOLE 40 MG TABLET (FP) PO SCH (09:25)
[2017-06-03] MEDS: POLYETHYLENE GLYCOL 3350 119 GM BTL PO SCH (09:25)
[2017-06-03] MEDS: MULTIVITAMINS (DAILY MVI) TABLET (FP) PO SCH (09:25)
--- NOTE | 2017-06-03 11:39 | PN ---
Progress Note (short form) - Note Progress Note: PULMONARY Breathing slightly improved from yesterday but still significant dyspnea with minimal exertion. +nonproductive cough and wheezing. No fevers or chills. Last Vital Signs Temp Pulse Resp BP Pulse Ox 98.1 F 92 H 20 123/71 92 L 06/03/17 09:00 06/03/17 09:00 06/03/17 09:00 06/03/17 09:00 06/03/17 09:00 Intake & Output 05/31/17 06/01/17 06/02/17 06/03/17 23:59 23:59 23:59 23:59 Intake Total 500 300 500 120 Output Total 800 400 600 Balance -300 -100 -100 120 Weight 72.938 kg 72.575 kg 74.752 kg 73.028 kg Gen: tachypneic with speaking Heart: RRR Lung: bilateral expiratory rhonchi Abd: soft, nontender Ext: no edema CBC, BMP 06/03/17 07:00 06/03/17 07:00 Active Medications Acetaminophen (Ofirmev Injection -) 1,000 mg IVPB Q6H PRN PRN Reason: FEVER OR PAIN Albuterol Sulfate (Ventolin 0.083% Nebulizer Soln -) 1 amp NEB Q4H PRN PRN Reason: SHORT OF BREATH/WHEEZING Last Admin: 05/30/17 10:11 Dose: 1 amp Albuterol/Ipratropium (Duoneb -) 1 amp NEB QIDR [facility] Last Admin: 06/03/17 06:23 Dose: 1 amp Amino Acids (Prosource No Carb Liquid Pkt) 30 ml PO BID@0800,1730 [facility] Last Admin: 06/03/17 07:59 Dose: 30 ml Heparin Sodium (Porcine) (Heparin -) 5,000 unit SQ TID [facility] Last Admin: 06/03/17 05:42 Dose: 5,000 unit Methylprednisolone Sodium Succinate (Solu-Medrol -) 40 mg IVPUSH BID [facility] Last Admin: 06/03/17 09:25 Dose: 40 mg Multivitamins/Minerals/Vitamin C (Tab-A-Vit -) 1 tab PO DAILY [facility] Last Admin: 06/03/17 09:25 Dose: 1 tab Pantoprazole Sodium (Protonix -) 40 mg PO DAILY [facility] Last Admin: 06/03/17 09:25 Dose: 40 mg Polyethylene Glycol (Miralax (For Daily Use) -) 17 gm PO DAILY [facility] Last Admin: 06/03/17 09:25 Dose: 17 grams Scopolamine HBr (Transderm-Scop -) 1 patch TD Q3D [facility] Last Admin: 06/02/17 13:58 Dose: 1 patch A/P Acute COPD/Bronchiectasis Exacerbation Acute on Chronic Hypoxic Respiratory Failure r/o Pneumonia Emphysema +Troponins likely Demand Ischemia HTN - completed antibiotics - continue medrol at current dose - inhaled bronchodilators standing and PRN - O2 to keep SpO2 >90% - OOB to chair if possible - rehab/physical therapy - DVT prophylaxis
[2017-06-03 12:16] LABS: ANISOCYTOSIS 0; MACROCYTOSIS 0; PLATELET ESTIMATE NORMAL
--- NOTE | 2017-06-03 13:46 | PN ---
Progress Note, [employer] - Note Progress Note: MBS results reviewed with staff. Pt's vocal quality is euphonic, much stronger. Vocal wetness intermittently with honey thick Pt has been on puree and honey thick liquid, self feeding from spoon, cup and straw. He has received Miralax in water. No evidence of coughing with PO intake. Silent aspiration noted on thin, nectar and intermittently on honey during MBS. Selected Entries 06/02/17 06/02/17 06/02/17 05:40 09:10 09:44 Breakfast 75% Lunch Supper Temperature 97.6 F 97.4 F L 06/02/17 06/02/17 06/02/17 15:02 18:00 19:27 Breakfast Lunch 50% Supper 50% Temperature 97.9 F 97.4 F L 06/02/17 06/03/17 06/03/17 20:13 06:00 09:00 Breakfast Lunch Supper Temperature 97.4 F L 97.4 F L 98.1 F 06/03/17 09:57 Breakfast 75% Lunch Supper Temperature Laboratory Tests 05/30/17 05/31/17 06/02/17 06:00 06:00 06:30 WBC 9.2 11.1 H 13.8 H 06/03/17 07:00 WBC 16.7 H Per PULMONARY: Breathing slightly improved from yesterday but still significant dyspnea with minimal exertion. +nonproductive cough and wheezing. No fevers or chills. Gen: tachypneic with speaking Heart: RRR Lung: bilateral expiratory rhonchi IMP:Suspect aspiration REC: d/c miralax/other medication better tolerated? It can NOT be mixed in thick liquid as it becomes thin due to chemical interaction. Honey thick liquid on teaspoon only. Assist with meals. Pt needs reminders to SWALLOW HARD TWICE per tsp. If persistent congestion, elevated wbc, consider holding po liquids, may need peg for hydration.
--- NOTE | 2017-06-03 14:10 | PN ---
Teaching Attending Note Name of Resident: Kolton Sanabria ATTENDING PHYSICIAN STATEMENT time of evaluation: 11:25 AM I saw and evaluated the patient. I reviewed the resident's note and discussed the case with the resident. I agree with the resident's findings and plan as documented. SUBJECTIVE: Patient seen and examined. Denies any complaints or pain. 12 point ROS limited by dementia. OBJECTIVE: Vital Signs Period Temp Pulse Resp BP Sys/Claderon Pulse Ox Last 24 Hr 97.4 F-98.1 F 77-95 18-20 122-134/62-90 90-92 Intake & Output 05/31/17 06/01/17 06/02/17 06/03/17 23:59 23:59 23:59 23:59 Intake Total 500 300 500 120 Output Total 800 400 600 Balance -300 -100 -100 120 Weight 160 lb 12.8 oz 160 lb 164 lb 12.8 oz 161 lb General: lying in bed, dyspneic with minimal exertion or conversation in bed CVs;S1S2 regular Chest: bilateral rhoncherous breath sounds abdomen: soft, NT extremities; no edema Home Medication List Medication Instructions Recorded Confirmed Type Acetaminophen [Tylenol] 2 tab PO Q6H PRN 05/22/17 05/22/17 History Albuterol 2.5/Ipratropium 0.5 1 amp NEB TID 05/22/17 05/22/17 History [Duoneb -] Budesonide [Pulmicort 0.5 mg 1 neb PO BID 05/22/17 05/22/17 History Nebulizer -] Ipratropium 0.02% Nebulizer 1 amp NEB Q6H PRN 05/22/17 05/22/17 History [Atrovent 0.02% Nebulizer -] Menthol/Phenol [Cepastat Lozenge -] 1 each MM QID PRN 05/22/17 05/22/17 History Metoclopramide HCl 10 mg PO TID 05/22/17 05/22/17 History Prednisone 10 mg PO BID 05/22/17 05/22/17 History Tramadol HCl [Ultram] 2 mg PO DAILY 05/22/17 05/22/17 History Active Medications Generic Name Dose Route Start Last Admin Trade Name Freq PRN Reason Stop Dose Admin Acetaminophen 1,000 mg 05/23/17 16:51 Ofirmev Injection - IVPB Q6H PRN FEVER OR PAIN Albuterol Sulfate 1 amp 05/23/17 16:51 05/30/17 10:11 Ventolin 0.083% Nebulizer Soln - NEB 1 amp Q4H PRN Administration SHORT OF BREATH/WHEEZING Albuterol/Ipratropium 1 amp 05/23/17 18:00 06/03/17 11:00 Duoneb - NEB 1 amp QIDR BRITTNY Administration Amino Acids 30 ml 05/24/17 17:30 06/03/17 07:59 Prosource No Carb Liquid Pkt PO 30 ml BID@0800,1730 BRITTNY Administration Heparin Sodium (Porcine) 5,000 unit 05/23/17 22:00 06/03/17 13:52 Heparin - SQ 5,000 unit TID BRITTNY Administration Methylprednisolone Sodium Succinate 40 mg 06/01/17 22:00 06/03/17 09:25 Solu-Medrol - IVPUSH 40 mg BID BRITTNY Administration Multivitamins/Minerals/Vitamin C 1 tab 05/24/17 10:00 06/03/17 09:25 Tab-A-Vit - PO 1 tab DAILY BRITTNY Administration Pantoprazole Sodium 40 mg 05/26/17 10:00 06/03/17 09:25 Protonix - PO 40 mg DAILY BRITTNY Administration Polyethylene Glycol 17 gm 05/31/17 13:00 06/03/17 09:25 Miralax (For Daily Use) - PO 17 grams DAILY BRITTNY Administration Scopolamine HBr 1 patch 06/02/17 12:30 06/02/17 13:58 Transderm-Scop - TD 1 patch Q3D BRITTNY Administration Laboratory Results - last 24 hr 06/03/17 06/03/17 07:00 07:00 WBC 16.7 H RBC 4.72 Hgb 13.5 Hct 44.1 MCV 93.5 MCH 28.6 MCHC 30.6 L RDW 17.1 H Plt Count 361 MPV 9.0 Neutrophils % No Result Required. Neutrophils % (Manual) 88.9 H D Band Neutrophils % 2.0 Lymphocytes % No Result Required. Lymphocytes % (Manual) 2.0 L D Monocytes % (Manual) 7 Eosinophils % (Manual) 0.0 Basophils % (Manual) 0.0 Myelocytes % (Man) 0 Metamyelocytes 0 Hypochromia 0 Platelet Estimate Normal Polychromasia 0 Poikilocytosis 0 Anisocytosis 0 Microcytosis 0 Macrocytosis 0 Sodium 140 Potassium 4.3 Chloride 100 Carbon Dioxide 31 Anion Gap 9 BUN 21 H Creatinine 0.5 L D Random Glucose 125 H Calcium 9.4 Magnesium 2.6 H Microbiology 05/22/17 09:15 Blood - Peripheral Venous Blood Culture - Final NO GROWTH AFTER 5 DAYS INCUBATION 05/22/17 09:15 Blood - Peripheral Venous Blood Culture - Final NO GROWTH AFTER 5 DAYS INCUBATION 05/22/17 22:52 Urine - Urine Clean Catch Urine Culture - Final NO GROWTH OBTAINED 05/23/17 18:15 Urine For Antigen Detection Legionella Antigen - Final 05/23/17 18:15 Urine For Antigen Detection Streptococcus pneumoniae Antigen (M - Final 05/22/17 17:30 Nasopharyngeal Swab Influenza Types A,B Antigen (LAURA) - Final 05/22/17 17:30 Nasopharyngeal Swab - Final CT chest results reviewed ASSESSMENT AND PLAN: 87 year old male with a PMHx of HTN, COPD (3L NC at night), Osteoarthritis, Dysphagia, PUD presented to the ER with acute hypoxic respiratory distress - Acute hypoxic hypercarpneic respiratory distress, suspect largely from ongoing RLL aspiration PNA +/- volume overload/COPD exacerbation -Sepsis due to PNA -Hypophosphateia -Hypokalemia -HTN -PUD Plan: Oxygenation overall unchanged. Ongoing coarse rales. Overall picture highly suspicious for ongoing aspiration. Rising WBC, ?Steroids vs aspiration Gentle diuresis prn since admission with some response. 2D echo reviewed. strict I/Os. CT chest noted Scopolamine patch. Solumedrol 40 mg IV q12h. Nebs. S/p 7 days of zosyn/vancomycin. Discussed with Dr. Mondragon for input, will follow up. Supplemental oxygen to maintain spO2 >88%. pulmonary on board. Currently normotensive. not on medications at home. cont to monitor. Stress ulcer ppx. protonix po DVTPPX Encourage OOB, aspiration precautions, HOB elevated, meals with assist. Family decided to make status DNR/DNI, no central line or pressors. patient dyspneic with minimal exertion or even conversation, unable to work with PT. Suspect ongoing aspiration. Rising WBC and overall unchanged tenuous respiratory status. ?Clinical endpoint Palliative care consult to address overall goals of care and possible hospice options, Discussed with Elaine Palliative care RN.
--- NOTE | 2017-06-03 14:38 | PN ---
Progress Note (short form) - Note Progress Note: alert moist cough unchanged Vital Signs Period Temp Pulse Resp BP Sys/Calderon Pulse Ox Last 24 Hr 97.4 F-98.1 F 77-95 18-20 122-134/62-90 90-92 edentulous cor-rrr lungs bilateral rhonchi abd soft,nt ext no edema CBC, BMP 06/03/17 07:00 06/03/17 07:00 a/p aspiration pneumonia- ct scan with RLL infiltrate rising WBC- ?infection, ?steroids start cefepime, repeat cxray modify diet and meds palliative care COPD ?CHF-improved with lasix Problem List - Problems (1) Pneumonia Code(s): J18.9 - PNEUMONIA, UNSPECIFIED ORGANISM Qualifiers: Pneumonia type: due to unspecified organism Laterality: left Lung location: lower lobe of lung Qualified Code(s): J18.1 - Lobar pneumonia, unspecified organism (2) Respiratory failure Code(s): J96.90 - RESPIRATORY FAILURE, UNSP, UNSP W HYPOXIA OR HYPERCAPNIA (3) COPD (chronic obstructive pulmonary disease) Code(s): J44.9 - CHRONIC OBSTRUCTIVE PULMONARY DISEASE, UNSPECIFIED Qualifiers: COPD type: COPD with acute lower respiratory infection Qualified Code(s): J44.0 - Chronic obstructive pulmonary disease with acute lower respiratory infection
[2017-06-03] MEDS ORDERED: CEFEPIME HCL 1 GM VIAL (RESTRICTED TO ID) IVPB SCH (14:45)
--- NOTE | 2017-06-03 17:01 | PN ---
Physical Exam: SUBJECTIVE: Patient seen and examined no events overnight. No new complaints today. OBJECTIVE: Vital Signs Period Temp Pulse Resp BP Sys/Calderon Pulse Ox Last 24 Hr 97.4 F-98.1 F 77-95 18-20 122-134/68-90 90-92 GENERAL: NAD, awake, alert, laying in bed, thin-appearing. HEENT: No JVD, sclera anicteric, EOMI, moist mucosa LUNGS: Coarse breath sounds anteriorly No wheezes. no rales. No accessory muscle use. Currently on 4LNC. HEART: RRR, S1, S2 with 3/6 systolic murmur at LLSB auscultated ABDOMEN: Soft, nontender, nondistended, normoactive bowel sounds, no guarding, no hepatomegaly EXTREMITIES: 2+ DP pulses, warm, well-perfused, no edema b/l NEUROLOGICAL: Normal speech, gait not observed. SKIN: Warm, no rashes noted Laboratory Results - last 24 hr 06/03/17 06/03/17 07:00 07:00 WBC 16.7 H RBC 4.72 Hgb 13.5 Hct 44.1 MCV 93.5 MCH 28.6 MCHC 30.6 L RDW 17.1 H Plt Count 361 MPV 9.0 Neutrophils % No Result Required. Neutrophils % (Manual) 88.9 H D Band Neutrophils % 2.0 Lymphocytes % No Result Required. Lymphocytes % (Manual) 2.0 L D Monocytes % (Manual) 7 Eosinophils % (Manual) 0.0 Basophils % (Manual) 0.0 Myelocytes % (Man) 0 Metamyelocytes 0 Hypochromia 0 Platelet Estimate Normal Polychromasia 0 Poikilocytosis 0 Anisocytosis 0 Microcytosis 0 Macrocytosis 0 Sodium 140 Potassium 4.3 Chloride 100 Carbon Dioxide 31 Anion Gap 9 BUN 21 H Creatinine 0.5 L D Random Glucose 125 H Calcium 9.4 Magnesium 2.6 H Active Medications Generic Name Dose Route Start Last Admin Trade Name Freq PRN Reason Stop Dose Admin Acetaminophen 1,000 mg 05/23/17 16:51 Ofirmev Injection - IVPB Q6H PRN FEVER OR PAIN Albuterol Sulfate 1 amp 05/23/17 16:51 05/30/17 10:11 Ventolin 0.083% Nebulizer Soln - NEB 1 amp Q4H PRN Administration SHORT OF BREATH/WHEEZING Albuterol/Ipratropium 1 amp 05/23/17 18:00 06/03/17 11:00 Duoneb - NEB 1 amp QIDR BEKAH Administration Amino Acids 30 ml 05/24/17 17:30 06/03/17 07:59 Prosource No Carb Liquid Pkt PO 30 ml BID@0800,1730 BEKAH Administration Cefepime HCl 1 gm 06/03/17 16:15 Maxipime 1 Gm Premix Ivpb IVPB BID BEKAH Heparin Sodium (Porcine) 5,000 unit 05/23/17 22:00 06/03/17 13:52 Heparin - SQ 5,000 unit TID BEKAH Administration Methylprednisolone Sodium Succinate 40 mg 06/01/17 22:00 06/03/17 09:25 Solu-Medrol - IVPUSH 40 mg BID BEKAH Administration Multivitamins/Minerals/Vitamin C 1 tab 05/24/17 10:00 06/03/17 09:25 Tab-A-Vit - PO 1 tab DAILY BEKAH Administration Pantoprazole Sodium 40 mg 05/26/17 10:00 06/03/17 09:25 Protonix - PO 40 mg DAILY BEKAH Administration Scopolamine HBr 1 patch 06/02/17 12:30 06/02/17 13:58 Transderm-Scop - TD 1 patch Q3D BEKAH Administration ASSESSMENT/PLAN: 87yo M with h/o COPD (baseline 3LNC at night), HTN, OA who was found to acute hypoxic hypercapnic distress. 1) Acute hypoxic hypercapnic respiratory distress --2/2 to PNA most likely with component of COPD --Continue Medrol 40mg IVP BID --Maintain SpO2 >88-90% --Pulmonology on board --Duoneb QID bekah --Nebs PRN q4h 2) Sepsis 2/2 to PNA --s/p 7 days regiment of zosyn --Suspected on-going aspiration due to no improvement in breath sounds --Afebrile --Leukocytosis 16.7, most likely steroids however will monitor 3) HTN --Currently controlled --Continue BP monitoring FEN: Fluids: None; suspected hypervolemia Electrolyte abnormalities: None Nutrition: Dysphagia puree with honey-thick liquids PPX: DVT - Heparin SQ TID Code Status: DNR/DNI Dispo: Palliative care consult to address overall goals of care and possible hospice options Case discussed with Dr. Danii Sanabria, DO - Internal Medicine PGY-1 Visit type - Emergency Visit Emergency Visit: No - New Patient This patient is new to me today: No - Critical Care Critical Care patient: No
[2017-06-03] MEDS: CEFEPIME HCL/D5W 1 GM/50 ML PREMIX BAG IVPB SCH ×2 (18:23→22:33)
[2017-06-04] MEDS: ALBUTEROL SO4 2.5/IPRATROPIUM 0.5 INH SOL 3 ML VIAL.NEB. NEB SCH ×5 (06:15→20:20)
[2017-06-04] MEDS: HEPARIN NA (PORCINE) 5,000 UNITS/ML 1ML VIAL SQ SCH ×3 (06:16→21:44)
[2017-06-04] MEDS: AMINO ACIDS/PROTEIN HYDROLYS 30 ML LIQUID.PKT PO SCH ×2 (07:56→17:15)
[2017-06-04] MEDS: methylPREDNISolone NA SUCC 40 MG/1 ML VIAL IVPUSH SCH (09:28)
[2017-06-04] MEDS: MULTIVITAMINS (DAILY MVI) TABLET (FP) PO SCH (09:28)
[2017-06-04 09:29] LABS: HEMATOCRIT 41.3 % (35.4-49); HEMOGLOBIN 12.5 GM/dL (11.7-16.9); MCH 28.4 pg (25.7-33.7); MCHC 30.2 g/dl (32.0-35.9); MEAN CELL VOLUME 93.9 fl (80-96); MEAN PLT VOLUME 8.6 fl (7.5-11.1); PLATELET COUNT 179 K/MM3 (134-434); RDW 17.9 % (11.9-15.9); WHITE BLOOD COUNT 15.7 K/mm3 (4.0-10.0)
[2017-06-04] MEDS: PANTOPRAZOLE 40 MG TABLET (FP) PO SCH (09:29)
[2017-06-04] MEDS: CEFEPIME HCL/D5W 1 GM/50 ML PREMIX BAG IVPB SCH ×3 (09:31→22:35)
--- NOTE | 2017-06-04 12:00 | PN ---
Progress Note, [employer] - Note Progress Note: MBS results reviewed with staff. Pt's vocal quality is euphonic, much stronger. Vocal wetness intermittently with honey thick Pt has been on puree and honey thick liquid, self feeding from spoon, cup and straw. He has received Miralax in water. No evidence of coughing with PO intake. Silent aspiration noted on thin, nectar and intermittently on honey during MBS. Pt is feeding himself. IV fluids on hold, according to nursing. Miralax d/c'd. IMP:Suspect aspiration REC: Please adjust diet order which states puree, honey thick liquid on tsp, no liquids. Appreciate Palliative care consult. F/u regarding pt's end of life wishes for nutrition, especially for hydration. Honey thick liquid on teaspoon only. Assist with meals. Pt needs reminders to SWALLOW HARD TWICE per tsp. Reviewed with [employer]/RN. Monitor nutrition/hydration/pulmonary status. If persistent congestion, consider holding po liquids, may benefit from peg for hydration.
--- NOTE | 2017-06-04 12:00 | PN ---
Progress Note (short form) - Note Progress Note: alert moist cough unchanged he is feeding himself! Vital Signs Period Temp Pulse Resp BP Sys/Calderon Pulse Ox Last 24 Hr 97.4 F-98.4 F 70-92 20-20 115-136/68-81 90-94 cor-rrr lungs scattered rhonchi abd soft,nt ext no edema CBC, BMP 06/04/17 06:00 06/03/17 07:00 Microbiology 05/22/17 09:15 Blood - Peripheral Venous Blood Culture - Final NO GROWTH AFTER 5 DAYS INCUBATION 05/22/17 09:15 Blood - Peripheral Venous Blood Culture - Final NO GROWTH AFTER 5 DAYS INCUBATION 05/22/17 22:52 Urine - Urine Clean Catch Urine Culture - Final NO GROWTH OBTAINED 05/23/17 18:15 Urine For Antigen Detection Legionella Antigen - Final 05/23/17 18:15 Urine For Antigen Detection Streptococcus pneumoniae Antigen (M - Final 05/22/17 17:30 Nasopharyngeal Swab Influenza Types A,B Antigen (LAURA) - Final 05/22/17 17:30 Nasopharyngeal Swab - Final a/p aspiration pneumonia- ct scan with RLL infiltrate rising WBC- ?infection, ?steroids cefepime day #2 repeat cxray is unchanged modify diet and meds palliative care COPD ?CHF-improved with lasix Problem List - Problems (1) Pneumonia Code(s): J18.9 - PNEUMONIA, UNSPECIFIED ORGANISM Qualifiers: Pneumonia type: due to unspecified organism Laterality: left Lung location: lower lobe of lung Qualified Code(s): J18.1 - Lobar pneumonia, unspecified organism (2) Respiratory failure Code(s): J96.90 - RESPIRATORY FAILURE, UNSP, UNSP W HYPOXIA OR HYPERCAPNIA (3) COPD (chronic obstructive pulmonary disease) Code(s): J44.9 - CHRONIC OBSTRUCTIVE PULMONARY DISEASE, UNSPECIFIED Qualifiers: COPD type: COPD with acute lower respiratory infection Qualified Code(s): J44.0 - Chronic obstructive pulmonary disease with acute lower respiratory infection
--- NOTE | 2017-06-04 14:54 | PN ---
Teaching Attending Note Name of Resident: Kolton Sanabria ATTENDING PHYSICIAN STATEMENT I saw and evaluated the patient. I reviewed the resident's note and discussed the case with the resident. I agree with the resident's findings and plan as documented. SUBJECTIVE:no complaints. states he coughs intermittently but not related to food. denies Cp, SOB, fever, chills, N/V/C/D OBJECTIVE: Last Vital Signs Temp Pulse Resp BP Pulse Ox 97.6 F 70 20 136/69 94 L 06/04/17 09:00 06/04/17 10:17 06/04/17 09:00 06/04/17 09:00 06/04/17 10:17 General NAD Lungs coarse breath sounds no crackles or wheezing Extremities no pedal edema ASSESSMENT AND PLAN: 87 year old male with a PMHx of HTN, COPD (3L NC at night), Osteoarthritis, Dysphagia, PUD presented to the ER with acute hypoxic respiratory distress 1. Acute hypoxic hypercapnic respiratory distress- due to possible PNA vs acute on chronic COPD. appears to be aspiration at this time as started to worsen. CT chest showing RLL infiltrate. plan for MBS today. may need to consider PEG. on Cefipime. will decrease medrol to 40mg daily from BID. saturating 94% on 3L NC. Supplemental oxygen to maintain spO2 >88%. pulmonary on board 2. Sepsis due to aspiration PNA- afebrile. leukocytosis trending down. Repeat MBS today. on cefipime day 2. after completing course of vanco/zosyn. Flu and legonella negative. ID on board 3. Hypophosphatemia- resolved 4. hypokalemia-resolved 4. HTN- currently normotensive. not on medications at home. cont to monitor. 5. PUD- no sings of bleeding. stress ulcer ppx. protonix po 6. DVT ppx- hep sq 7. Poor prognosis. palliative care on board. awaiting family decision on GOC. DNR/DNI, no central line or pressors.
--- NOTE | 2017-06-04 15:40 | PN ---
Progress Note (short form) - Note Progress Note: PULMONARY States breathing slightly improving but still significant dyspnea with minimal exertion. +nonproductive cough and wheezing. No fevers or chills. Last Vital Signs Temp Pulse Resp BP Pulse Ox 97.3 F L 94 H 20 139/87 94 L 06/04/17 14:51 06/04/17 14:51 06/04/17 14:51 06/04/17 14:51 06/04/17 10:17 Gen: less tachypneic with speaking Heart: RRR Lung: bilateral expiratory rhonchi Abd: soft, nontender Ext: no edema CBC, BMP 06/04/17 06:00 06/03/17 07:00 Active Medications Acetaminophen (Ofirmev Injection -) 1,000 mg IVPB Q6H PRN PRN Reason: FEVER OR PAIN Albuterol Sulfate (Ventolin 0.083% Nebulizer Soln -) 1 amp NEB Q4H PRN PRN Reason: SHORT OF BREATH/WHEEZING Last Admin: 05/30/17 10:11 Dose: 1 amp Albuterol/Ipratropium (Duoneb -) 1 amp NEB RQID [facility] Last Admin: 06/04/17 12:01 Dose: 1 amp Amino Acids (Prosource No Carb Liquid Pkt) 30 ml PO BID@0800,1730 [facility] Last Admin: 06/04/17 07:56 Dose: 30 ml Cefepime HCl (Maxipime 1 Gm Premix Ivpb) 1 gm IVPB BID [facility] Last Admin: 06/04/17 09:31 Dose: 1 gm Heparin Sodium (Porcine) (Heparin -) 5,000 unit SQ TID [facility] Last Admin: 06/04/17 14:25 Dose: 5,000 unit Methylprednisolone Sodium Succinate (Solu-Medrol -) 40 mg IVPUSH DAILY [facility] Multivitamins/Minerals/Vitamin C (Tab-A-Vit -) 1 tab PO DAILY [facility] Last Admin: 06/04/17 09:28 Dose: 1 tab Pantoprazole Sodium (Protonix -) 40 mg PO DAILY [facility] Last Admin: 06/04/17 09:29 Dose: 40 mg Scopolamine HBr (Transderm-Scop -) 1 patch TD Q3D [facility] Last Admin: 06/02/17 13:58 Dose: 1 patch A/P Acute COPD/Bronchiectasis Exacerbation Acute on Chronic Hypoxic Respiratory Failure r/o Pneumonia Emphysema +Troponins likely Demand Ischemia HTN - antibiotics per ID - slow medrol taper - inhaled bronchodilators standing and PRN - O2 to keep SpO2 >90% - OOB to chair if possible - rehab/physical therapy - DVT prophylaxis
--- NOTE | 2017-06-04 17:23 | PN ---
Physical Exam: SUBJECTIVE: Patient seen and examined earlier in morning. no acute events and no new complaints OBJECTIVE: Vital Signs Period Temp Pulse Resp BP Sys/Calderon Pulse Ox Last 24 Hr 97.3 F-98.4 F 70-94 20-20 115-139/69-87 94-94 GENERAL: NAD, awake, alert, laying in bed, thin-appearing. HEENT: No JVD, sclera anicteric, EOMI, moist mucosa LUNGS: Coarse breath sounds anteriorly No wheezes. no rales. No accessory muscle use. Currently on 4LNC. HEART: RRR, S1, S2 with 3/6 systolic murmur at LLSB auscultated ABDOMEN: Soft, nontender, nondistended, normoactive bowel sounds, no guarding, no hepatomegaly EXTREMITIES: 2+ DP pulses, warm, well-perfused, no edema b/l NEUROLOGICAL: Normal speech, gait not observed. SKIN: Warm, no rashes noted Laboratory Results - last 24 hr 06/04/17 06:00 WBC 15.7 H RBC 4.40 Hgb 12.5 Hct 41.3 MCV 93.9 MCH 28.4 MCHC 30.2 L RDW 17.9 H Plt Count 179 D MPV 8.6 Active Medications Generic Name Dose Route Start Last Admin Trade Name Freq PRN Reason Stop Dose Admin Acetaminophen 1,000 mg 05/23/17 16:51 Ofirmev Injection - IVPB Q6H PRN FEVER OR PAIN Albuterol Sulfate 1 amp 05/23/17 16:51 05/30/17 10:11 Ventolin 0.083% Nebulizer Soln - NEB 1 amp Q4H PRN Administration SHORT OF BREATH/WHEEZING Albuterol/Ipratropium 1 amp 06/04/17 10:22 06/04/17 12:01 Duoneb - NEB 1 amp RQID [facility] Administration Amino Acids 30 ml 05/24/17 17:30 06/04/17 17:15 Prosource No Carb Liquid Pkt PO 30 ml BID@0800,1730 [facility] Administration Cefepime HCl 1 gm 06/03/17 16:15 06/04/17 09:31 Maxipime 1 Gm Premix Ivpb IVPB 1 gm BID [facility] Administration Heparin Sodium (Porcine) 5,000 unit 05/23/17 22:00 06/04/17 14:25 Heparin - SQ 5,000 unit TID [facility] Administration Methylprednisolone Sodium Succinate 40 mg 06/05/17 10:00 Solu-Medrol - IVPUSH DAILY [facility] Multivitamins/Minerals/Vitamin C 1 tab 05/24/17 10:00 06/04/17 09:28 Tab-A-Vit - PO 1 tab DAILY [facility] Administration Pantoprazole Sodium 40 mg 05/26/17 10:00 06/04/17 09:29 Protonix - PO 40 mg DAILY [facility] Administration Scopolamine HBr 1 patch 06/02/17 12:30 06/02/17 13:58 Transderm-Scop - TD 1 patch Q3D [facility] Administration ASSESSMENT/PLAN: 87yo M with h/o COPD (baseline 3LNC at night), HTN, OA who was found to acute hypoxic hypercapnic distress. 1) Acute hypoxic hypercapnic respiratory distress --2/2 to PNA most likely with component of COPD --Continue Medrol 40mg IVP qDaily --Maintain SpO2 >88-90% --Pulmonology on board --Duoneb QID bekah --Nebs PRN q4h 2) Sepsis 2/2 to PNA --Cefepime day 2 --Suspected on-going aspiration due to no improvement in breath sounds --Repeat barium swallow with suggestion of PEG; however will discuss GOC tomorrow with HCP in meeting with palliative tomorrow --Afebrile --Leukocytosis 16.7, most likely steroids however will monitor 3) HTN --Currently controlled --Continue BP monitoring FEN: Fluids: None; suspected hypervolemia Electrolyte abnormalities: None Nutrition: Dysphagia puree with honey-thick liquids PPX: DVT - Heparin SQ TID Code Status: DNR/DNI, no pressors, no central lines Dispo: HCP, palliative, and medical team meeting tomorrow to discuss goals of care Case discussed with Dr. Newton Sanabria, DO - Internal Medicine PGY-1 Visit type - Emergency Visit Emergency Visit: No - New Patient This patient is new to me today: No - Critical Care Critical Care patient: No
[2017-06-04] MEDS ORDERED: PT OWN MED DRAWER 7, Y5N ONE (20:39)
[2017-06-05] MEDS: HEPARIN NA (PORCINE) 5,000 UNITS/ML 1ML VIAL SQ SCH ×3 (05:31→22:13)
[2017-06-05] MEDS: AMINO ACIDS/PROTEIN HYDROLYS 30 ML LIQUID.PKT PO SCH ×2 (08:25→17:19)
[2017-06-05] MEDS: ALBUTEROL SO4 2.5/IPRATROPIUM 0.5 INH SOL 3 ML VIAL.NEB. NEB SCH ×4 (08:54→20:30)
[2017-06-05] MEDS: PANTOPRAZOLE 40 MG TABLET (FP) PO SCH (09:58)
[2017-06-05] MEDS: MULTIVITAMINS (DAILY MVI) TABLET (FP) PO SCH (09:58)
[2017-06-05] MEDS ORDERED: methylPREDNISolone NA SUCC 40 MG/1 ML VIAL IVPUSH SCH (10:00)
[2017-06-05] MEDS: CEFEPIME HCL/D5W 1 GM/50 ML BAG IVPB SCH ×2 (11:29→22:14)
[2017-06-05] MEDS: CEFEPIME HCL/D5W 1 GM/50 ML PREMIX BAG IVPB SCH (11:29)
--- NOTE | 2017-06-05 13:03 | PN ---
Progress Note, LDR NURSE - Note Progress Note: Selected Entries 06/04/17 06/04/17 06/04/17 06:00 09:00 14:51 Breakfast Temperature 98.2 F 97.6 F 97.3 F L 06/04/17 06/04/17 06/05/17 17:44 21:56 05:00 Breakfast Temperature 97.4 F L 97.8 F 97.7 F 06/05/17 06/05/17 10:11 10:17 Breakfast 50% Temperature 97.9 F Laboratory Tests 06/02/17 06/03/17 06/04/17 06:30 07:00 06:00 WBC 13.8 H 16.7 H 15.7 H Reviewed with pt,staff multiple effortful swallows per bite and honey thick on tsp. I spoke with Mr. Pritchett and his HCP. They would like PEG placement. Hopefully PEG can be used for hydration, medication, and supplemental nutrition, with puree continued PO. Suggest continued swallowing tx upon d/c at [facility].
[2017-06-05] MEDS: SCOPOLAMINE HYDROBROMIDE 1 PATCH PATCH.TD72 TD SCH (13:09)
--- NOTE | 2017-06-05 13:56 | PN ---
Teaching Attending Note Name of Resident: Kolton Sanabria ATTENDING PHYSICIAN STATEMENT I saw and evaluated the patient. I reviewed the resident's note and discussed the case with the resident. I agree with the resident's findings and plan as documented. SUBJECTIVE:asymptomatic. continues to have cough but claims not related to eating. dneies CP, SOB, fever, chills, N/V/C/D OBJECTIVE: Last Vital Signs Temp Pulse Resp BP Pulse Ox 97.9 F 82 20 118/74 93 L 06/05/17 10:11 06/05/17 10:11 06/05/17 10:11 06/05/17 10:11 06/05/17 09:00 General NAD Lungs coarse breath sounds no crackles or wheezing Extremities no pedal edema ASSESSMENT AND PLAN: 87 year old male with a PMHx of HTN, COPD (3L NC at night), Osteoarthritis, Dysphagia, PUD presented to the ER with acute hypoxic respiratory distress 1. Acute hypoxic hypercapnic respiratory distress- due to possible PNA vs acute on chronic COPD. appears to be aspiration at this time as started to worsen. CT chest showing RLL infiltrate. family discussion today regarding PEG placement. family decided to proceed with PEG for hydration and enough caloric intake. GI consulted. on Cefipime. will decrease medrol to 40mg daily. titrate as tolerated. saturating 92% on 2L NC. Supplemental oxygen to maintain spO2 >88%. pulmonary on board 2. Sepsis due to aspiration PNA- afebrile. leukocytosis trending down. on cefipime day 3. after completing course of vanco/zosyn. Flu and legonella negative. ID on board 3. Dysphagia- on puree diet. GI consulted for PEG placement 4. Hypophosphatemia- resolved 5. hypokalemia-resolved 6. HTN- currently normotensive. not on medications at home. cont to monitor. 7. PUD- no sings of bleeding. stress ulcer ppx. protonix po 8. DVT ppx- hep sq 9. Poor prognosis. palliative care on board. DNR/DNI, no central line or pressors.
--- NOTE | 2017-06-05 14:00 | PN ---
Progress Note (short form) - Note Progress Note: PULMONARY RESTING COMFORTABLY/FAMILY PRESENT VSS/AFEBRILE PALE/ANICTERIC BIBASILAR DIMINISHED BREATH SOUNDS/SCATTERED RHONCHI S1S2 BS+ HEEL OFF-VINYL WELDER AND FABRICATOR NO EDEMA LABS/IMAGES/MEDS/NOTES REVIEWED Hypoxemic respiratory failure Multilobar PNA/? aspiration Fluid overload Acute COPD exacerbation HTN -wants peg -ABX per ID -BD TX -medrol -heparin SubQ -protonix for GI ppx -O2 to maintain saturation -DNR/DNI -Aspiration precautions Raheem MONROE MD Problem List - Problems (1) COPD (chronic obstructive pulmonary disease) Code(s): J44.9 - CHRONIC OBSTRUCTIVE PULMONARY DISEASE, UNSPECIFIED Qualifiers: Qualified Code(s): J44.0 - Chronic obstructive pulmonary disease with acute lower respiratory infection (2) Pneumonia Code(s): J18.9 - PNEUMONIA, UNSPECIFIED ORGANISM Qualifiers: Qualified Code(s): J18.1 - Lobar pneumonia, unspecified organism (3) Anemia Code(s): D64.9 - ANEMIA, UNSPECIFIED (4) Sepsis Code(s): A41.9 - SEPSIS, UNSPECIFIED ORGANISM Qualifiers: Qualified Code(s): A41.9 - Sepsis, unspecified organism (5) Hypertension Code(s): I10 - ESSENTIAL (PRIMARY) HYPERTENSION (6) Chronic steroid use Code(s): DSO1802 -
--- NOTE | 2017-06-05 19:47 | PN ---
Physical Exam: SUBJECTIVE: Patient seen and examined earlier in morning. No acute events overnight. No new complaints. OBJECTIVE: Vital Signs Period Temp Pulse Resp BP Sys/Calderon Pulse Ox Last 24 Hr 97.7 F-97.9 F 66-88 20-20 118-129/70-79 93-96 GENERAL: NAD, awake, alert, laying in bed, thin-appearing. HEENT: No JVD, sclera anicteric, EOMI, moist mucosa LUNGS: Coarse breath sounds anteriorly No wheezes. no rales. No accessory muscle use. Currently on 4LNC. HEART: RRR, S1, S2 with 3/6 systolic murmur at LLSB auscultated ABDOMEN: Soft, nontender, nondistended, normoactive bowel sounds, no guarding, no hepatomegaly EXTREMITIES: 2+ DP pulses, warm, well-perfused, no edema b/l NEUROLOGICAL: Normal speech, gait not observed. SKIN: Warm, no rashes noted Active Medications Generic Name Dose Route Start Last Admin Trade Name Freq PRN Reason Stop Dose Admin Acetaminophen 1,000 mg 05/23/17 16:51 Ofirmev Injection - IVPB Q6H PRN FEVER OR PAIN Albuterol Sulfate 1 amp 05/23/17 16:51 05/30/17 10:11 Ventolin 0.083% Nebulizer Soln - NEB 1 amp Q4H PRN Administration SHORT OF BREATH/WHEEZING Albuterol/Ipratropium 1 amp 06/04/17 10:22 06/05/17 17:00 Duoneb - NEB 1 amp RQID [facility] Administration Amino Acids 30 ml 05/24/17 17:30 06/05/17 17:19 Prosource No Carb Liquid Pkt PO 30 ml BID@0800,1730 [facility] Administration Heparin Sodium (Porcine) 5,000 unit 05/23/17 22:00 06/05/17 14:47 Heparin - SQ 5,000 unit TID [facility] Administration Cefepime HCl 1 gm in 50 mls @ 100 mls/hr 06/05/17 10:00 06/05/17 11:29 Maxipime 1 Gm Premix Ivpb IVPB 100 mls/hr Q12H [facility] Administration Methylprednisolone Sodium Succinate 40 mg 06/05/17 10:00 06/05/17 09:58 Solu-Medrol - IVPUSH 40 mg DAILY [facility] Administration Multivitamins/Minerals/Vitamin C 1 tab 05/24/17 10:00 06/05/17 09:58 Tab-A-Vit - PO 1 tab DAILY [facility] Administration Pantoprazole Sodium 40 mg 05/26/17 10:00 06/05/17 09:58 Protonix - PO 40 mg DAILY [facility] Administration Scopolamine HBr 1 patch 06/02/17 12:30 06/05/17 13:09 Transderm-Scop - TD 1 patch Q3D [facility] Administration ASSESSMENT/PLAN: 87yo M with h/o COPD (baseline 3LNC at night), HTN, OA who was found to acute hypoxic hypercapnic distress. 1) Acute hypoxic hypercapnic respiratory distress --2/2 to PNA most likely with component of COPD --Continue Medrol 40mg IVP qDaily --Maintain SpO2 >88-90% --Pulmonology on board --Duoneb QID bekah --Nebs PRN q4h 2) Sepsis 2/2 to PNA --Cefepime day 3 --Suspected on-going aspiration due to no improvement in breath sounds --Repeat barium swallow with suggestion of PEG --Pt, Pt's HCP Elaine Cleaning and I had discussion regarding PEG tube and some goals of care. Pt and HCP leaning towards PEG placement however wanted to discuss the possibilities. --Afebrile --Leukocytosis 16.7, most likely steroids however will monitor 3) HTN --Currently controlled --Continue BP monitoring FEN: Fluids: None; suspected hypervolemia Electrolyte abnormalities: None Nutrition: Dysphagia puree with honey-thick liquids PPX: DVT - Heparin SQ TID Code Status: DNR/DNI, no pressors, no central lines Dispo: Pt and HCP to make their decision about PEG Case discussed with Dr. Newton Sanabria, DO - Internal Medicine PGY-1 Visit type - Emergency Visit Emergency Visit: No - New Patient This patient is new to me today: No - Critical Care Critical Care patient: No
[2017-06-06] MEDS: HEPARIN NA (PORCINE) 5,000 UNITS/ML 1ML VIAL SQ SCH ×3 (06:32→21:29)
--- NOTE | 2017-06-06 08:14 | CON.GI ---
Consult Consult Specialty:: GI - History of Present Illness History of Present Illness: Chart reviewed. Events noted. An 87 yom treated for aspiration PNA requires alternative mode of feeding. Speech and swallow recommendation noted. Patient and family wishes regarding PEG noted. - History Source History Provided By: Patient, Medical Record - Past Medical History STORM CHASER: No: Alzheimer's Cardio/Vascular: No: AFIB Pulmonary: Yes: COPD, O2 Dependent, Pneumonia Gastrointestinal: Yes: Diverticulosis, GI Bleed, Peptic Ulcer Disease, Other ( GASTRIC OUTLET OBSTRUCTION) Hepatobiliary: No: Cirrhosis Renal/: No: Renal Failure Infectious Disease: No: AIDS Psych: No: Addictions - Past Surgical History Additional Surgical History: UNABLE TO OBTAIN ACCURATE INFO/BACK SURG MULTIPLE - Alcohol/Substance Use Hx Alcohol Use: No History of Substance Use: reports: None - Smoking History Smoking history: Unknown if ever smoked - Social History Usual Living Arrangement: Prison ADL: Support Services History of Recent Travel: No Home Medications - Allergies Allergies/Adverse Reactions: Allergies Allergy/AdvReac Type Severity Reaction Status Date / Time No Known Allergies Allergy Verified 05/22/17 08:24 - Home Medications Home Medications: Ambulatory Orders Acetaminophen [Tylenol] 2 tab PO Q6H PRN 05/22/17 Albuterol 2.5/Ipratropium 0.5 [Duoneb -] 1 amp NEB TID 05/22/17 Budesonide [Pulmicort 0.5 mg Nebulizer -] 1 neb PO BID 05/22/17 Ipratropium 0.02% Nebulizer [Atrovent 0.02% Nebulizer -] 1 amp NEB Q6H PRN 05/22 Menthol/Phenol [Cepastat Lozenge -] 1 each MM QID PRN 05/22/17 Metoclopramide HCl 10 mg PO TID 05/22/17 Prednisone 10 mg PO BID 05/22/17 Tramadol HCl [Ultram] 2 mg PO DAILY 05/22/17 Family Disease History - Family Disease History Family History: Unremarkable Review of Systems Findings/Remarks: as per H&P Physical Exam-GI Vital Signs: Vital Signs Temperature 98.4 F 06/06/17 05:46 Pulse Rate 67 06/06/17 05:46 Respiratory Rate 20 06/06/17 05:46 Blood Pressure 122/73 06/06/17 05:46 O2 Sat by Pulse Oximetry (%) 93 L 06/05/17 20:22 Constitutional: Yes: No Distress, Calm Eyes: Yes: Conjunctiva Clear HENT: Yes: Atraumatic Neck: Yes: Supple Cardiovascular: Yes: Regular Rate and Rhythm Respiratory: Yes: Rhonchi, Wheezes Gastrointestinal Inspection: No: Ascites, Distention ...Auscultate: Yes: Normoactive Bowel Sounds ...Palpate: Yes: Soft. No: Firm/Rigid, Guarding, Mass, Tenderness, Tenderness, Epigastium, Tenderness, Rebound ...Percussion: No: Fluid Wave Neurological: Yes: Alert, Oriented Labs: CBC, BMP 06/04/17 06:00 06/03/17 07:00 INR, PTT INR 1.12 (0.82-1.09) 05/22/17 09:15 Imaging - Results Cat Scan: Report Reviewed (Chest) Problem List - Problems (1) Aspiration into airway Code(s): T17.908A - UNSP FB IN RESP TRACT, PART UNSP CAUSING OTH INJURY, INIT (2) Inadequate oral nutritional intake Code(s): R63.8 - OTHER SYMPTOMS AND SIGNS CONCERNING FOOD AND FLUID INTAKE Assessment/Plan Stills has mild respiratory symptoms, otherwise clinically appears well. We discussed, and pt agreed to PEG. Continue current management Plan PEG when leukocytes resolves, or consistently trending down Will follow
[2017-06-06] MEDS: AMINO ACIDS/PROTEIN HYDROLYS 30 ML LIQUID.PKT PO SCH ×2 (08:15→17:20)
[2017-06-06] MEDS: ALBUTEROL SO4 2.5/IPRATROPIUM 0.5 INH SOL 3 ML VIAL.NEB. NEB SCH ×4 (08:45→20:57)
[2017-06-06 09:01] LABS: BASO % 0.2 % (0-2.0); EOS % 0.6 % (0-4.5); HEMATOCRIT 40.1 % (35.4-49); HEMOGLOBIN 12.1 GM/dL (11.7-16.9); LYMPH % 8.2 % (8-40); MCH 28.2 pg (25.7-33.7); MCHC 30.2 g/dl (32.0-35.9); MEAN CELL VOLUME 93.5 fl (80-96); MEAN PLT VOLUME 8.3 fl (7.5-11.1); MONO % 8.6 % (3.8-10.2); NEUT % 82.4 % (42.8-82.8); PLATELET COUNT 255 K/MM3 (134-434); RBC 4.29 M/mm3 (4.00-5.60); RDW 17.5 % (11.9-15.9); WHITE BLOOD COUNT 12.3 K/mm3 (4.0-10.0)
--- NOTE | 2017-06-06 09:02 | PN ---
Physical Exam: SUBJECTIVE: No acute events overnight. No new complaints voiced today. OBJECTIVE: Vital Signs Period Temp Pulse Resp BP Sys/Calderon Pulse Ox Last 24 Hr 97.3 F-98.4 F 67-82 20-20 112-122/67-74 93 GENERAL: NAD, awake, alert, laying in bed, thin-appearing. HEENT: No JVD, sclera anicteric, EOMI, moist mucosa LUNGS: Coarse breath sounds anteriorly No wheezes. no rales. No accessory muscle use. Currently on 4LNC. HEART: RRR, S1, S2 with 3/6 systolic murmur at LLSB auscultated ABDOMEN: Soft, nontender, nondistended, normoactive bowel sounds, no guarding, no hepatomegaly EXTREMITIES: 2+ DP pulses, warm, well-perfused, no edema b/l NEUROLOGICAL: Normal speech, gait not observed. SKIN: Warm, no rashes noted Active Medications Generic Name Dose Route Start Last Admin Trade Name Freq PRN Reason Stop Dose Admin Acetaminophen 1,000 mg 05/23/17 16:51 Ofirmev Injection - IVPB Q6H PRN FEVER OR PAIN Albuterol Sulfate 1 amp 05/23/17 16:51 05/30/17 10:11 Ventolin 0.083% Nebulizer Soln - NEB 1 amp Q4H PRN Administration SHORT OF BREATH/WHEEZING Albuterol/Ipratropium 1 amp 06/04/17 10:22 06/05/17 20:30 Duoneb - NEB 1 amp RQID BEK[facility] Administration Amino Acids 30 ml 05/24/17 17:30 06/06/17 08:15 Prosource No Carb Liquid Pkt PO 30 ml BID@0800,1730 [facility] Administration Heparin Sodium (Porcine) 5,000 unit 05/23/17 22:00 06/06/17 06:32 Heparin - SQ 5,000 unit TID [facility] Administration Cefepime HCl 1 gm in 50 mls @ 100 mls/hr 06/05/17 10:00 06/05/17 22:14 Maxipime 1 Gm Premix Ivpb IVPB 100 mls/hr Q12H [facility] Administration Multivitamins/Minerals/Vitamin C 1 tab 05/24/17 10:00 06/05/17 09:58 Tab-A-Vit - PO 1 tab DAILY [facility] Administration Pantoprazole Sodium 40 mg 05/26/17 10:00 06/05/17 09:58 Protonix - PO 40 mg DAILY [facility] Administration Prednisone 40 mg 06/06/17 10:00 Deltasone - PO DAILY [facility] Scopolamine HBr 1 patch 06/02/17 12:30 06/05/17 13:09 Transderm-Scop - TD 1 patch Q3D [facility] Administration ASSESSMENT/PLAN: 87yo M with h/o COPD (baseline 3LNC at night), HTN, OA who was found to acute hypoxic hypercapnic distress. 1) Acute hypoxic hypercapnic respiratory distress --2/2 to PNA most likely with component of COPD --Change to Prednisone 40mg qDaily (day 1 of 3) --Maintain SpO2 >88-90% --Pulmonology on board --Duoneb QID bekah --Nebs PRN q4h 2) Sepsis 2/2 to PNA --Cefepime day 4 --Suspected on-going aspiration due to no improvement in breath sounds --Per PEG tube: pt to be evaluated by Dr. Staples today -- if his leukocytosis is clearly trending down procedure will be in effect --NPO after midnight; hold heparin dose --Afebrile --Leukocytosis 16.7, most likely steroids however will monitor 3) HTN --Currently controlled --Continue BP monitoring FEN: Fluids: None; suspected hypervolemia Electrolyte abnormalities: None Nutrition: Dysphagia puree with honey-thick liquids PPX: DVT - Heparin SQ TID Code Status: DNR/DNI, no pressors, no central lines Dispo: possible PEG tube tomorrow Case discussed with Dr. Newton Sanabria, DO - Internal Medicine PGY-1 Visit type - Emergency Visit Emergency Visit: No - New Patient This patient is new to me today: No - Critical Care Critical Care patient: No
--- NOTE | 2017-06-06 10:43 | PN ---
Progress Note (short form) - Note Progress Note: PULMONARY States breathing slightly better. Sitting on edge of bed with PT, not standing yet. +nonproductive cough. No fevers or chills. Last Vital Signs Temp Pulse Resp BP Pulse Ox 98.4 F 81 20 122/73 95 06/06/17 05:46 06/06/17 09:07 06/06/17 05:46 06/06/17 05:46 06/06/17 09:07 Gen: less tachypneic with speaking Heart: RRR Lung: bilateral expiratory rhonchi but less Abd: soft, nontender Ext: no edema CBC, BMP 06/06/17 08:57 06/03/17 07:00 Active Medications Acetaminophen (Ofirmev Injection -) 1,000 mg IVPB Q6H PRN PRN Reason: FEVER OR PAIN Albuterol Sulfate (Ventolin 0.083% Nebulizer Soln -) 1 amp NEB Q4H PRN PRN Reason: SHORT OF BREATH/WHEEZING Last Admin: 05/30/17 10:11 Dose: 1 amp Albuterol/Ipratropium (Duoneb -) 1 amp NEB RQID [facility] Last Admin: 06/06/17 08:45 Dose: 1 amp Amino Acids (Prosource No Carb Liquid Pkt) 30 ml PO BID@0800,1730 [facility] Last Admin: 06/06/17 08:15 Dose: 30 ml Heparin Sodium (Porcine) (Heparin -) 5,000 unit SQ TID [facility] Last Admin: 06/06/17 06:32 Dose: 5,000 unit Cefepime HCl (Maxipime 1 Gm Premix Ivpb) 1 gm in 50 mls @ 100 mls/hr IVPB Q12H [facility] Last Admin: 06/05/17 22:14 Dose: 100 mls/hr Multivitamins/Minerals/Vitamin C (Tab-A-Vit -) 1 tab PO DAILY [facility] Last Admin: 06/05/17 09:58 Dose: 1 tab Pantoprazole Sodium (Protonix -) 40 mg PO DAILY [facility] Last Admin: 06/05/17 09:58 Dose: 40 mg Prednisone (Deltasone -) 40 mg PO DAILY [facility] Scopolamine HBr (Transderm-Scop -) 1 patch TD Q3D [facility] Last Admin: 06/05/17 13:09 Dose: 1 patch A/P Acute COPD/Bronchiectasis Exacerbation Acute on Chronic Hypoxic Respiratory Failure r/o Pneumonia Emphysema +Troponins likely Demand Ischemia HTN - antibiotics per ID - slow prednisone taper, would taper by 10mg q5-7 days - inhaled bronchodilators standing and PRN - O2 to keep SpO2 >90% - OOB to chair if possible - rehab/physical therapy - DVT prophylaxis
[2017-06-06] MEDS: predniSONE 20 MG TABLET (UD) PO SCH (10:57)
[2017-06-06] MEDS: MULTIVITAMINS (DAILY MVI) TABLET (FP) PO SCH (10:57)
[2017-06-06] MEDS: PANTOPRAZOLE 40 MG TABLET (FP) PO SCH (10:57)
[2017-06-06] MEDS: CEFEPIME HCL/D5W 1 GM/50 ML BAG IVPB SCH ×2 (11:35→21:29)
--- NOTE | 2017-06-06 11:36 | PN ---
Progress Note, [employer] - Note Progress Note: GI note appreciated. Per GI-Stills has mild respiratory symptoms, otherwise clinically appears well. We discussed, and pt agreed to PEG. Continue current management Plan PEG when leukocytes resolves, or consistently trending down Selected Entries 06/05/17 06/05/17 06/06/17 10:17 14:39 10:44 Breakfast 50% 50% Lunch 50% Laboratory Tests 06/03/17 06/04/17 06/06/17 07:00 06:00 08:57 WBC 16.7 H 15.7 H 12.3 H Although pt is now fed and reminded to perform chin tuck and effortful swallow twice per tsp, follow through is not always achieved. May consider holding PO honey thick liquids for now with anticipation that pulmonary status will improve more quickly.
[2017-06-06] MEDS: PANTOPRAZOLE SOD 40 MG SUSPENSION PACKET PO SCH (14:10)
--- NOTE | 2017-06-06 14:52 | PN ---
Teaching Attending Note Name of Resident: Kolton Sanabria ATTENDING PHYSICIAN STATEMENT I saw and evaluated the patient. I reviewed the resident's note and discussed the case with the resident. I agree with the resident's findings and plan as documented. SUBJECTIVE:asymptomatic. denies CP, SOB, fever, chills, N/V/C/D, cough OBJECTIVE: Last Vital Signs Temp Pulse Resp BP Pulse Ox 97.4 F L 87 20 121/73 95 06/06/17 10:00 06/06/17 10:00 06/06/17 10:00 06/06/17 10:00 06/06/17 09:07 General NAD Lungs coarse breath sounds no crackles or wheezing Extremities no pedal edema ASSESSMENT AND PLAN: 87 year old male with a PMHx of HTN, COPD (3L NC at night), Osteoarthritis, Dysphagia, PUD presented to the ER with acute hypoxic respiratory distress 1. Acute hypoxic hypercapnic respiratory distress- due to possible PNA vs acute on chronic COPD. appears to be aspiration at this time as started to worsen. slowly improving. switch medrol to prednsione po. plan for PEG placement once leukocytosis improves. GI and pulmonary on board. saturating 92% on 2L NC. Supplemental oxygen to maintain spO2 >88%. 2. Sepsis due to aspiration PNA- afebrile. leukocytosis trending down. on cefipime day 4. after completing course of vanco/zosyn. Flu and legonella negative. ID on board 3. Dysphagia- on puree diet. plan is for PEG. will d/w GI if able to do tomorrow if leukocytosis resolved. 4. Hypophosphatemia- resolved 5. hypokalemia-resolved 6. HTN- currently normotensive. not on medications at home. cont to monitor. 7. PUD- no sings of bleeding. stress ulcer ppx. protonix po 8. DVT ppx- hep sq 9. Poor prognosis. palliative care on board. DNR/DNI, no central line or pressors. family desires pt to return to [facility] after peg placement. not interested in Hospice at this time
--- NOTE | 2017-06-06 18:45 | PN ---
Progress Note (short form) - Note Progress Note: alert less cough less sob Vital Signs Period Temp Pulse Resp BP Sys/Calderon Pulse Ox Last 24 Hr 97.3 F-98.4 F 67-87 20-20 112-122/63-73 93-96 cor-rrr lungs decreased bs at bases abd soft,nt ext no edema CBC, BMP 06/06/17 08:57 06/03/17 07:00 Microbiology 05/22/17 09:15 Blood - Peripheral Venous Blood Culture - Final NO GROWTH AFTER 5 DAYS INCUBATION 05/22/17 09:15 Blood - Peripheral Venous Blood Culture - Final NO GROWTH AFTER 5 DAYS INCUBATION 05/22/17 22:52 Urine - Urine Clean Catch Urine Culture - Final NO GROWTH OBTAINED 05/23/17 18:15 Urine For Antigen Detection Legionella Antigen - Final 05/23/17 18:15 Urine For Antigen Detection Streptococcus pneumoniae Antigen (M - Final 05/22/17 17:30 Nasopharyngeal Swab Influenza Types A,B Antigen (LAURA) - Final 05/22/17 17:30 Nasopharyngeal Swab - Final Current Medications Acetaminophen (Ofirmev Injection -) 1,000 mg IVPB Q6H PRN PRN Reason: FEVER OR PAIN Albuterol Sulfate (Ventolin 0.083% Nebulizer Soln -) 1 amp NEB Q4H PRN PRN Reason: SHORT OF BREATH/WHEEZING Last Admin: 05/30/17 10:11 Dose: 1 amp Albuterol/Ipratropium (Duoneb -) 1 amp NEB RQID [facility] Last Admin: 06/06/17 16:38 Dose: 1 amp Amino Acids (Prosource No Carb Liquid Pkt) 30 ml PO BID@0800,1730 [facility] Last Admin: 06/06/17 17:20 Dose: 30 ml Heparin Sodium (Porcine) (Heparin -) 5,000 unit SQ TID [facility] Last Admin: 06/06/17 15:00 Dose: 5,000 unit Cefepime HCl (Maxipime 1 Gm Premix Ivpb) 1 gm in 50 mls @ 100 mls/hr IVPB Q12H [facility] Last Admin: 06/06/17 11:35 Dose: 100 mls/hr Multivitamins/Minerals/Vitamin C (Tab-A-Vit -) 1 tab PO DAILY [facility] Last Admin: 06/06/17 10:57 Dose: 1 tab Pantoprazole Sodium (Protonix Packets For Oral Suspension -) 40 mg PO DAILY [facility] Last Admin: 06/06/17 14:10 Dose: Not Given Prednisone (Deltasone -) 40 mg PO DAILY [facility] Last Admin: 06/06/17 10:57 Dose: 40 mg Scopolamine HBr (Transderm-Scop -) 1 patch TD Q3D [facility] Last Admin: 06/05/17 13:09 Dose: 1 patch a/p aspiration pneumonia- ct scan with RLL infiltrate rising WBC- ?infection, ?steroids cefepime day #4 , wbc trending down modify diet and meds palliative care COPD ?CHF Problem List - Problems (1) Pneumonia Code(s): J18.9 - PNEUMONIA, UNSPECIFIED ORGANISM Qualifiers: Pneumonia type: due to unspecified organism Laterality: left Lung location: lower lobe of lung Qualified Code(s): J18.1 - Lobar pneumonia, unspecified organism (2) Respiratory failure Code(s): J96.90 - RESPIRATORY FAILURE, UNSP, UNSP W HYPOXIA OR HYPERCAPNIA (3) COPD (chronic obstructive pulmonary disease) Code(s): J44.9 - CHRONIC OBSTRUCTIVE PULMONARY DISEASE, UNSPECIFIED Qualifiers: COPD type: COPD with acute lower respiratory infection Qualified Code(s): J44.0 - Chronic obstructive pulmonary disease with acute lower respiratory infection
[2017-06-07] MEDS: HEPARIN NA (PORCINE) 5,000 UNITS/ML 1ML VIAL SQ SCH (05:19)
[2017-06-07 08:11] LABS: HEMATOCRIT 38.9 % (35.4-49); HEMOGLOBIN 11.9 GM/dL (11.7-16.9); MCH 28.8 pg (25.7-33.7); MCHC 30.7 g/dl (32.0-35.9); MEAN CELL VOLUME 93.8 fl (80-96); MEAN PLT VOLUME 8.8 fl (7.5-11.1); PLATELET COUNT 237 K/MM3 (134-434); RBC 4.15 M/mm3 (4.00-5.60); RDW 17.3 % (11.9-15.9); WHITE BLOOD COUNT 11.4 K/mm3 (4.0-10.0)
[2017-06-07 08:16] LABS: INR 0.96 (0.82-1.09); PROTHROMBIN TIME (PATIENT) 10.8 SEC (9.98-11.88)
[2017-06-07 08:28] LABS: ANION GAP 6 (8-16); BLOOD UREA NITROGEN 20 mg/dL (7-18); CALCIUM 8.6 mg/dL (8.5-10.1); CHLORIDE 102 mmol/L (98-107); CO2 32 mmol/L (21-32); CREATININE 0.3 mg/dL (0.7-1.3); GLUCOSE,RANDOM 79 mg/dL (74-106); SODIUM 140 mmol/L (136-145)
[2017-06-07] MEDS: ALBUTEROL SO4 2.5/IPRATROPIUM 0.5 INH SOL 3 ML VIAL.NEB. NEB SCH ×4 (09:00→21:11)
--- NOTE | 2017-06-07 09:45 | PN ---
Physical Exam: SUBJECTIVE: Leukocytosis trending down. Pt to have PEG today. No new complaints OBJECTIVE: Vital Signs Period Temp Pulse Resp BP Sys/Calderon Pulse Ox Last 24 Hr 97.4 F-98.4 F 65-87 20-20 114-125/63-73 GENERAL: NAD, awake, alert, laying in bed, thin-appearing. HEENT: No JVD, sclera anicteric, EOMI, moist mucosa LUNGS: Coarse breath sounds anteriorly No wheezes. no rales. No accessory muscle use. Currently on 4LNC. HEART: RRR, S1, S2 with 3/6 systolic murmur at LLSB auscultated ABDOMEN: Soft, nontender, nondistended, normoactive bowel sounds, no guarding, no hepatomegaly EXTREMITIES: 2+ DP pulses, warm, well-perfused, no edema b/l NEUROLOGICAL: Normal speech, gait not observed. SKIN: Warm, no rashes noted Laboratory Results - last 24 hr 06/07/17 06/07/17 06/07/17 06:35 06:35 06:35 WBC 11.4 H RBC 4.15 Hgb 11.9 Hct 38.9 MCV 93.8 MCH 28.8 MCHC 30.7 L RDW 17.3 H Plt Count 237 MPV 8.8 PT with INR 10.80 INR 0.96 Sodium 140 Potassium 4.0 Chloride 102 Carbon Dioxide 32 Anion Gap 6 L BUN 20 H Creatinine 0.3 L D Random Glucose 79 D Calcium 8.6 Active Medications Generic Name Dose Route Start Last Admin Trade Name Freq PRN Reason Stop Dose Admin Acetaminophen 1,000 mg 05/23/17 16:51 Ofirmev Injection - IVPB Q6H PRN FEVER OR PAIN Albuterol Sulfate 1 amp 05/23/17 16:51 05/30/17 10:11 Ventolin 0.083% Nebulizer Soln - NEB 1 amp Q4H PRN Administration SHORT OF BREATH/WHEEZING Albuterol/Ipratropium 1 amp 06/04/17 10:22 06/07/17 09:00 Duoneb - NEB 1 amp RQID [facility] Administration Amino Acids 30 ml 05/24/17 17:30 06/06/17 17:20 Prosource No Carb Liquid Pkt PO 30 ml BID@0800,1730 [facility] Administration Cefepime HCl 1 gm in 50 mls @ 100 mls/hr 06/05/17 10:00 06/06/17 21:29 Maxipime 1 Gm Premix Ivpb IVPB 100 mls/hr Q12H [facility] Administration Multivitamins/Minerals/Vitamin C 1 tab 05/24/17 10:00 06/06/17 10:57 Tab-A-Vit - PO 1 tab DAILY [facility] Administration Pantoprazole Sodium 40 mg 06/06/17 13:15 06/06/17 14:10 Protonix Packets For Oral Suspension - PO Not Given DAILY [facility] Prednisone 40 mg 06/06/17 10:00 06/06/17 10:57 Deltasone - PO 40 mg DAILY [facility] Administration Scopolamine HBr 1 patch 06/02/17 12:30 06/05/17 13:09 Transderm-Scop - TD 1 patch Q3D [facility] Administration ASSESSMENT/PLAN: 87yo M with h/o COPD (baseline 3LNC at night), HTN, OA who was found to acute hypoxic hypercapnic distress. 1) Acute hypoxic hypercapnic respiratory distress --2/2 to PNA most likely with component of COPD --Change to Prednisone 40mg qDaily (day 2 of 3) --Maintain SpO2 >88-90% --Pulmonology on board --Duoneb QID bekah --Nebs PRN q4h 2) Sepsis 2/2 to PNA --Cefepime day 5 --Suspected on-going aspiration due to no improvement in breath sounds --PEG tube to be placed today! --Medication use only; no food or fluids until approved by GI --Afebrile --Leukocytosis downtrending 3) HTN --Currently controlled --Continue BP monitoring FEN: Fluids: None; suspected hypervolemia Electrolyte abnormalities: None Nutrition: Dysphagia puree with honey-thick liquids PPX: DVT - Heparin SQ TID Code Status: DNR/DNI, no pressors, no central lines Dispo: D/C to [facility] over weekend highly likely Case discussed with Dr. Mandie Sanabria, DO - Internal Medicine PGY-1 Visit type - Emergency Visit Emergency Visit: No - New Patient This patient is new to me today: No - Critical Care Critical Care patient: No
[2017-06-07] MEDS ORDERED: amLODIPine BESYLATE 5 MG TABLET (FP) ONE (10:24)
[2017-06-07] MEDS ORDERED: PT OWN MED DRAWER 7, Y5N ONE ×2 (10:45→21:18)
[2017-06-07] MEDS ORDERED: SODIUM CHLORIDE 1,000 ML IV SCH (11:30)
--- NOTE | 2017-06-07 11:35 | PN ---
Progress Note, Physician History of Present Illness: No events. Awake and alert. WBC trending down. Afebrile. - Current Medication List Current Medications: Active Medications Acetaminophen (Ofirmev Injection -) 1,000 mg IVPB Q6H PRN PRN Reason: FEVER OR PAIN Albuterol Sulfate (Ventolin 0.083% Nebulizer Soln -) 1 amp NEB Q4H PRN PRN Reason: SHORT OF BREATH/WHEEZING Last Admin: 05/30/17 10:11 Dose: 1 amp Albuterol/Ipratropium (Duoneb -) 1 amp NEB RQID [facility] Last Admin: 06/07/17 09:00 Dose: 1 amp Amino Acids (Prosource No Carb Liquid Pkt) 30 ml PO BID@0800,1730 [facility] Last Admin: 06/06/17 17:20 Dose: 30 ml Cefepime HCl (Maxipime 1 Gm Premix Ivpb) 1 gm in 50 mls @ 100 mls/hr IVPB Q12H [facility] Last Admin: 06/06/17 21:29 Dose: 100 mls/hr Multivitamins/Minerals/Vitamin C (Tab-A-Vit -) 1 tab PO DAILY [facility] Last Admin: 06/06/17 10:57 Dose: 1 tab Pantoprazole Sodium (Protonix Packets For Oral Suspension -) 40 mg PO DAILY [facility] Last Admin: 06/06/17 14:10 Dose: Not Given Prednisone (Deltasone -) 40 mg PO DAILY [facility] Last Admin: 06/06/17 10:57 Dose: 40 mg Scopolamine HBr (Transderm-Scop -) 1 patch TD Q3D [facility] Last Admin: 06/05/17 13:09 Dose: 1 patch - Objective Vital Signs: Vital Signs Temperature 98.4 F 06/07/17 06:00 Pulse Rate 65 06/07/17 06:00 Respiratory Rate 20 06/07/17 06:00 Blood Pressure 122/72 06/07/17 06:00 O2 Sat by Pulse Oximetry (%) 95 06/06/17 09:07 Constitutional: Yes: No Distress, Calm Eyes: Yes: Conjunctiva Clear HENT: Yes: Atraumatic Neck: Yes: Supple Cardiovascular: Yes: Regular Rate and Rhythm Respiratory: Yes: Regular Gastrointestinal: Yes: Normal Bowel Sounds, Soft. No: Melena, Rectal Bleeding, Tenderness, Tenderness, Epigastrium, Tenderness, Rebound Neurological: Yes: Alert, Oriented Labs: CBC, BMP 06/07/17 06:35 06/07/17 06:35 INR, PTT INR 0.96 (0.82-1.09) 06/07/17 06:35 Abnormal Lab Results 06/07/17 06/07/17 06:35 06:35 WBC 11.4 H MCHC 30.7 L RDW 17.3 H Anion Gap 6 L BUN 20 H Creatinine 0.3 L D Problem List - Problems (1) Aspiration into airway Code(s): T17.908A - UNSP FB IN RESP TRACT, PART UNSP CAUSING OTH INJURY, INIT (2) Inadequate oral nutritional intake Code(s): R63.8 - OTHER SYMPTOMS AND SIGNS CONCERNING FOOD AND FLUID INTAKE Assessment/Plan PEG today Discussed with pt's nurse and resident Msg to call back left with pt's HCP, Hermila @ [phone].
[2017-06-07] MEDS: CEFEPIME HCL/D5W 1 GM/50 ML BAG IVPB SCH ×2 (12:13→22:12)
--- NOTE | 2017-06-07 12:25 | PN ---
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 LABS/IMAGES/MEDS/NOTES REVIEWED Hypoxemic respiratory failure Multilobar PNA/ aspiration Fluid overload Acute COPD exacerbation HTN - peg -ABX per ID -BD TX - prednisone to taper -heparin SubQ -protonix for GI ppx -O2 to maintain saturation -DNR/DNI -Aspiration precautions Raheem MONROE MD Problem List - Problems (1) COPD (chronic obstructive pulmonary disease) Code(s): J44.9 - CHRONIC OBSTRUCTIVE PULMONARY DISEASE, UNSPECIFIED Qualifiers: COPD type: COPD with acute lower respiratory infection Qualified Code(s): J44.0 - Chronic obstructive pulmonary disease with acute lower respiratory infection (2) Pneumonia Code(s): J18.9 - PNEUMONIA, UNSPECIFIED ORGANISM Qualifiers: Pneumonia type: due to unspecified organism Laterality: left Lung location: lower lobe of lung Qualified Code(s): J18.1 - Lobar pneumonia, unspecified organism (3) Anemia Code(s): D64.9 - ANEMIA, UNSPECIFIED (4) Sepsis Code(s): A41.9 - SEPSIS, UNSPECIFIED ORGANISM Qualifiers: Sepsis type: sepsis due to unspecified organism Qualified Code(s): A41.9 - Sepsis, unspecified organism (5) Hypertension Code(s): I10 - ESSENTIAL (PRIMARY) HYPERTENSION (6) Chronic steroid use Code(s): CCX0623 -
[2017-06-07] MEDS ORDERED: MIDAZOLAM HCL 2 MG/2 ML SINGLE DOSE VIAL ONE (14:11)
[2017-06-07] MEDS ORDERED: PROPOFOL 20 ML ONE (14:11)
[2017-06-07] MEDS ORDERED: TETRACAINE/BENZOCAINE/BUTAMBEN 20 GM SPR TP ONE ×2 (14:15)
--- NOTE | 2017-06-07 14:54 | PROC ---
Endoscopy Procedure Endoscopy procedure completed. Please see scanned procedure report. Please see PEG orders in [facility] Do not use PEG for nutrition, or hydration until cleared by GI OK to use peg for medications
[2017-06-07] MEDS ORDERED: ACETAMINOPHEN WITH CODEINE 300MG/30MG TABLET PO PRN (14:58)
--- NOTE | 2017-06-07 16:25 | PN ---
Teaching Attending Note Name of Resident: Kolton Sanabria ATTENDING PHYSICIAN STATEMENT I saw and evaluated the patient. I reviewed the resident's note and discussed the case with the resident. I agree with the resident's findings and plan as documented. SUBJECTIVE: Patient awake, alert and comfortable. OBJECTIVE: Vital Signs Period Temp Pulse Resp BP Sys/Calderon Pulse Ox Last 24 Hr 97.4 F-98.4 F 65-91 18-20 117-143/63-80 90-99 HEART: S1S2, RRR LUNGS: Scattered rhonchi ABDOMEN: Soft, non-tender, non-distended, normal BS EXTREMITIES: No edema Laboratory Results - last 24 hr 06/07/17 06/07/17 06/07/17 06:35 06:35 06:35 WBC 11.4 H RBC 4.15 Hgb 11.9 Hct 38.9 MCV 93.8 MCH 28.8 MCHC 30.7 L RDW 17.3 H Plt Count 237 MPV 8.8 PT with INR 10.80 INR 0.96 Sodium 140 Potassium 4.0 Chloride 102 Carbon Dioxide 32 Anion Gap 6 L BUN 20 H Creatinine 0.3 L D Random Glucose 79 D Calcium 8.6 Current Medications Generic Name Dose Route Start Last Admin Trade Name Freq PRN Reason Stop Dose Admin Acetaminophen 1,000 mg 05/23/17 16:51 Ofirmev Injection - IVPB Q6H PRN FEVER OR PAIN Acetaminophen/Codeine Phosphate 1 tab 06/07/17 14:58 Tylenol # 3 - PO 06/08/17 14:57 Q4H PRN PAIN Albuterol Sulfate 1 amp 05/23/17 16:51 05/30/17 10:11 Ventolin 0.083% Nebulizer Soln - NEB 1 amp Q4H PRN Administration SHORT OF BREATH/WHEEZING Albuterol/Ipratropium 1 amp 06/04/17 10:22 06/07/17 11:31 Duoneb - NEB 1 amp RQID [facility]ITT[facility] Administration Amino Acids 30 ml 05/24/17 17:30 06/06/17 17:20 Prosource No Carb Liquid Pkt PO 30 ml BID@0800,1730 [facility] Administration Cefepime HCl 1 gm in 50 mls @ 100 mls/hr 06/05/17 10:00 06/07/17 12:13 Maxipime 1 Gm Premix Ivpb IVPB 100 mls/hr Q12H [facility] Administration Sodium Chloride 1,000 mls @ 50 mls/hr 06/07/17 11:30 06/07/17 12:13 Normal Saline - IV 06/08/17 11:25 50 mls/hr ASDIR BRITT[facility] Administration Multivitamins/Minerals/Vitamin C 1 tab 05/24/17 10:00 06/06/17 10:57 Tab-A-Vit - PO 1 tab DAILY [facility] Administration Pantoprazole Sodium 40 mg 06/06/17 13:15 06/06/17 14:10 Protonix Packets For Oral Suspension - PO Not Given DAILY [facility] Prednisone 40 mg 06/06/17 10:00 06/06/17 10:57 Deltasone - PO 40 mg DAILY [facility] Administration Scopolamine HBr 1 patch 06/02/17 12:30 06/05/17 13:09 Transderm-Scop - TD 1 patch Q3D [facility] Administration ASSESSMENT AND PLAN: This is an 87 year old man with history of HTN, COPD, osteoarthritis, dysphagia , PUD who presented to the ER from [facility] with respiratory distress 1. Acute hypoxic and hypercapnic respiratory failure secondary to COPD and aspiration pneumonia - Continue Cefepime, Prednisone, DuoNeb - Continue oxygen to maintain saturation >90% 2. Sepsis secondary to aspiration pneumonia - Completed Zosyn, Vancomycin - Continue Cefepime 3. Dysphagia with aspiration - s/p PEG today 4. Hypophosphatemia - Resolved 5. Hypokalemia - Resolved 6. HTN - On no meds 7. PUD - Continue Protonix 8. Disposition - Plan for discharge to [facility] once PEG can be used
[2017-06-07] MEDS: MULTIVITAMINS (DAILY MVI) TABLET (FP) PO SCH (16:59)
[2017-06-07] MEDS: PANTOPRAZOLE SOD 40 MG SUSPENSION PACKET PO SCH (16:59)
[2017-06-07] MEDS: predniSONE 20 MG TABLET (UD) PO SCH (16:59)
[2017-06-07] MEDS: AMINO ACIDS/PROTEIN HYDROLYS 30 ML LIQUID.PKT PO SCH ×2 (16:59)
[2017-06-08] MEDS: ALBUTEROL SO4 2.5/IPRATROPIUM 0.5 INH SOL 3 ML VIAL.NEB. NEB SCH ×4 (08:35→22:00)
--- NOTE | 2017-06-08 09:00 | PN ---
Progress Note (short form) - Note Progress Note: no complaints. denies CP, SOB, fever, chills, N/V/C/D Current Medications Generic Name Dose Route Start Last Admin Trade Name Freq PRN Reason Stop Dose Admin Acetaminophen 1,000 mg 05/23/17 16:51 Ofirmev Injection - IVPB Q6H PRN FEVER OR PAIN Acetaminophen/Codeine Phosphate 1 tab 06/07/17 14:58 06/07/17 16:59 Tylenol # 3 - PO 06/08/17 14:57 1 tab Q4H PRN Administration PAIN Albuterol Sulfate 1 amp 05/23/17 16:51 05/30/17 10:11 Ventolin 0.083% Nebulizer Soln - NEB 1 amp Q4H PRN Administration SHORT OF BREATH/WHEEZING Albuterol/Ipratropium 1 amp 06/04/17 10:22 06/08/17 08:35 Duoneb - NEB 1 amp RQID [facility] Administration Amino Acids 30 ml 05/24/17 17:30 06/07/17 16:59 Prosource No Carb Liquid Pkt PO 30 ml BID@0800,1730 [facility] Administration Cefepime HCl 1 gm in 50 mls @ 100 mls/hr 06/05/17 10:00 06/07/17 22:12 Maxipime 1 Gm Premix Ivpb IVPB 100 mls/hr Q12H [facility] Administration Sodium Chloride 1,000 mls @ 50 mls/hr 06/07/17 11:30 06/07/17 12:13 Normal Saline - IV 06/08/17 11:25 50 mls/hr ASDIR BRITTNY Administration Multivitamins/Minerals/Vitamin C 1 tab 05/24/17 10:00 06/07/17 16:59 Tab-A-Vit - PO 1 tab DAILY [facility] Administration Pantoprazole Sodium 40 mg 06/06/17 13:15 06/07/17 16:59 Protonix Packets For Oral Suspension - PO 40 mg DAILY [facility] Administration Prednisone 40 mg 06/06/17 10:00 06/07/17 16:59 Deltasone - PO 40 mg DAILY [facility] Administration Scopolamine HBr 1 patch 06/02/17 12:30 06/05/17 13:09 Transderm-Scop - TD 1 patch Q3D [facility] Administration Last Vital Signs Temp Pulse Resp BP Pulse Ox 97.6 F 91 H 20 117/81 92 L 06/08/17 05:54 06/08/17 05:54 06/08/17 05:54 06/08/17 05:54 06/07/17 21:00 General NAD Lungs coarse breath sounds + crackles no wheezing Abdomen soft NT/ND +abdominal binder. PEG under binder Extremities no pedal edema ASSESSMENT AND PLAN: 87 year old male with a PMHx of HTN, COPD (3L NC at night), Osteoarthritis, Dysphagia, PUD presented to the ER with acute hypoxic respiratory distress 1. Acute hypoxic hypercapnic respiratory distress- due to possible PNA vs acute on chronic COPD. +crackles. will d/c IVF. titrate down prednisone to 30mg. s/p PEG placement. cont aspiration precuations. NPO. GI and pulmonary on board. saturating 94% on 3.5L NC. Supplemental oxygen to maintain spO2 >88%. 2. Sepsis due to aspiration PNA- afebrile. leukocytosis trending down. on cefipime day 6. after completing course of vanco/zosyn. Flu and legonella negative. ID on board 3. Dysphagia- on puree diet. s/p PEG 06/07. awaiting GI evaluation to start PEG feeds. dietary to recommend TF rate. 4. Hypophosphatemia- resolved 5. hypokalemia-resolved 6. HTN- currently normotensive. not on medications at home. cont to monitor. 7. PUD- no sings of bleeding. stress ulcer ppx. protonix po 8. DVT ppx- hep sq 9. Poor prognosis. palliative care on board. DNR/DNI, no central line or pressors. family desires pt to return to [facility]. not interested in Hospice at this time Visit type - Emergency Visit Emergency Visit: Yes ED Registration Date: 05/22/17 Care time: The patient presented to the Emergency Department on the above date and was hospitalized for further evaluation of their emergent condition. - New Patient This patient is new to me today: No - Critical Care Critical Care patient: No - Discharge Referral Referred to [facility] Med P.C.: No
[2017-06-08] MEDS ORDERED: predniSONE 10 MG TABLET (UD) PO SCH (10:00)
[2017-06-08] MEDS ORDERED: PT OWN MED DRAWER 7, Y5N ONE ×2 (10:28→10:43)
[2017-06-08] MEDS: MULTIVITAMINS (DAILY MVI) TABLET (FP) PO SCH (10:49)
[2017-06-08] MEDS: PANTOPRAZOLE SOD 40 MG SUSPENSION PACKET PO SCH (10:49)
[2017-06-08] MEDS: CEFEPIME HCL/D5W 1 GM/50 ML BAG IVPB SCH ×2 (10:49→22:28)
[2017-06-08] MEDS: AMINO ACIDS/PROTEIN HYDROLYS 30 ML LIQUID.PKT PO SCH (10:49)
--- NOTE | 2017-06-08 13:11 | PN ---
Progress Note (short form) - Note Progress Note: Dr. Guerra covering for Dr. Staples who resumes care 06/10 Asked to evaluate PEG tube: Placed yesterday 06/07 Abdomen non-distended, + normoactive BS. PEG noted in LUQ with external bumper at the 2cm lina at the abdominal wall. some TTP at the peg site itself, rotating freely, flushing well. No induration / erythema. Some dried blood at the incision site was removed with 4 x 4 and betadine OK to use PEG for feeds: Keep head of bed elevated 35 degress at all times Keep loose fitting abdominal binder in place to prevent tube dislodgement Avoid excessive traction on PEG No dressing between external bolster and abdominal wall Flush tube with 30 cc water after feeds and meds Bacitracin to PEG site BID for 5 days Follow dietaician instructions regarding tube feed initiation and titration
--- NOTE | 2017-06-08 13:21 | PN ---
Progress Note (short form) - Note Progress Note: PULMONARY s/p PEG placement. States breathing slightly better. +nonproductive cough. No fevers or chills. Last Vital Signs Temp Pulse Resp BP Pulse Ox 97.6 F 91 H 20 117/81 92 L 06/08/17 05:54 06/08/17 05:54 06/08/17 05:54 06/08/17 05:54 06/07/17 21:00 Gen: less tachypneic with speaking Heart: RRR Lung: bilateral expiratory rhonchi but less Abd: soft, nontender Ext: no edema CBC, BMP 06/07/17 06:35 06/07/17 06:35 Active Medications Acetaminophen (Ofirmev Injection -) 1,000 mg IVPB Q6H PRN PRN Reason: FEVER OR PAIN Acetaminophen/Codeine Phosphate (Tylenol # 3 -) 1 tab PO Q4H PRN PRN Reason: PAIN Stop: 06/08/17 14:57 Last Admin: 06/07/17 16:59 Dose: 1 tab Albuterol Sulfate (Ventolin 0.083% Nebulizer Soln -) 1 amp NEB Q4H PRN PRN Reason: SHORT OF BREATH/WHEEZING Last Admin: 05/30/17 10:11 Dose: 1 amp Albuterol/Ipratropium (Duoneb -) 1 amp NEB RQID [facility] Last Admin: 06/08/17 12:00 Dose: 1 amp Amino Acids (Prosource No Carb Liquid Pkt) 30 ml PO BID@0800,1730 [facility] Last Admin: 06/08/17 10:49 Dose: 30 ml Cefepime HCl (Maxipime 1 Gm Premix Ivpb) 1 gm in 50 mls @ 100 mls/hr IVPB Q12H [facility] Last Admin: 06/08/17 10:49 Dose: 100 mls/hr Multivitamins/Minerals/Vitamin C (Tab-A-Vit -) 1 tab PO DAILY [facility] Last Admin: 06/08/17 10:49 Dose: 1 tab Pantoprazole Sodium (Protonix Packets For Oral Suspension -) 40 mg PO DAILY [facility] Last Admin: 06/08/17 10:49 Dose: 40 mg Prednisone (Deltasone -) 30 mg PO DAILY [facility] Last Admin: 06/08/17 10:49 Dose: 30 mg Scopolamine HBr (Transderm-Scop -) 1 patch TD Q3D [facility] Last Admin: 06/05/17 13:09 Dose: 1 patch A/P Acute COPD/Bronchiectasis Exacerbation Acute on Chronic Hypoxic Respiratory Failure r/o Pneumonia Emphysema +Troponins likely Demand Ischemia HTN - antibiotics per ID - slow prednisone taper, would taper by 10mg q5 days - inhaled bronchodilators standing and PRN - O2 to keep SpO2 >90% - OOB to chair if possible - start enteral feeds - rehab/physical therapy - DVT prophylaxis
[2017-06-08] MEDS: SCOPOLAMINE HYDROBROMIDE 1 PATCH PATCH.TD72 TD SCH (13:48)
[2017-06-08] MEDS: AMINO ACIDS/PROTEIN HYDROLYS 30 ML LIQUID.PKT PEG SCH (17:39)
--- NOTE | 2017-06-09 08:11 | PN ---
Physical Exam: SUBJECTIVE: No acute events overnight. No new complaints. Pt has started tube feeds with Jevity over the weekend and has tolerated well. OBJECTIVE: Vital Signs Period Temp Pulse Resp BP Sys/Calderon Pulse Ox Last 24 Hr 97.3 F-98.8 F 68-72 20-20 115-135/60-82 92-94 GENERAL: NAD, awake, alert, laying in bed, thin-appearing. HEENT: No JVD, sclera anicteric, EOMI, moist mucosa LUNGS: Coarse breath sounds anteriorly, slight rales noted. No wheezes. No accessory muscle use. Currently on 4LNC. HEART: RRR, S1, S2 with no murmur appreciated today ABDOMEN: Soft, nontender, nondistended, normoactive bowel sounds, no guarding, no hepatomegaly. PEG noted under abdominal binder. site C/D/I EXTREMITIES: 2+ DP pulses, warm, well-perfused, no edema b/l NEUROLOGICAL: Normal speech, gait not observed. SKIN: Warm, no rashes noted Active Medications Generic Name Dose Route Start Last Admin Trade Name Freq PRN Reason Stop Dose Admin Acetaminophen 1,000 mg 05/23/17 16:51 Ofirmev Injection - IVPB Q6H PRN FEVER OR PAIN Albuterol Sulfate 1 amp 05/23/17 16:51 05/30/17 10:11 Ventolin 0.083% Nebulizer Soln - NEB 1 amp Q4H PRN Administration SHORT OF BREATH/WHEEZING Albuterol/Ipratropium 1 amp 06/04/17 10:22 06/08/17 22:00 Duoneb - NEB 1 amp RQID BRITTNY Administration Amino Acids 30 ml 06/08/17 17:30 06/08/17 17:39 Prosource No Carb Liquid Pkt PEG 30 ml BID@0800,1730 BRITT[facility] Administration Cefepime HCl 1 gm in 50 mls @ 100 mls/hr 06/05/17 10:00 06/08/17 22:28 Maxipime 1 Gm Premix Ivpb IVPB 100 mls/hr Q12H [facility]ITT[facility] Administration Pantoprazole Sodium 40 mg 06/08/17 16:15 Protonix Packets For Oral Suspension - PEG DAILY [facility]ITT[facility] Prednisone 30 mg 06/08/17 16:15 Deltasone - PEG DAILY BRITT[facility] Scopolamine HBr 1 patch 06/02/17 12:30 06/08/17 13:48 Transderm-Scop - TD 1 patch Q3D BRTITNY Administration ASSESSMENT/PLAN: 87yo M with h/o COPD (baseline 3LNC at night), HTN, OA who was found to acute hypoxic hypercapnic distress. 1) Acute hypoxic hypercapnic respiratory distress --2/2 to PNA most likely with component of COPD --Prednisone 30mg qDaily (day 1); continue to taper --One time dose Lasix 40mg IVP --Maintain SpO2 >88-90% --Pulmonology on board --Duoneb QID PRN --Nebs PRN q4h 2) Sepsis 2/2 to PNA --Cefepime day 7 today --Suspected on-going aspiration due to no improvement in breath sounds --s/p PEG tube 06/07; currently being used --Afebrile --Leukocytosis downtrending 3) HTN --Currently controlled --Continue BP monitoring FEN: Fluids: None; free water with Jevity feeds Electrolyte abnormalities: None Nutrition: Jevity PEG feeds PPX: DVT - Heparin SQ TID Code Status: DNR/DNI, no pressors, no central lines Dispo: Will want to go to [facility]; no interest in hospice Case discussed with Dr. Newton Sanabria, DO - Internal Medicine PGY-1 Visit type - Emergency Visit Emergency Visit: No - New Patient This patient is new to me today: No - Critical Care Critical Care patient: No
[2017-06-09] MEDS: ALBUTEROL SO4 2.5/IPRATROPIUM 0.5 INH SOL 3 ML VIAL.NEB. NEB SCH ×4 (08:16→20:43)
--- NOTE | 2017-06-09 08:45 | PN ---
Teaching Attending Note Name of Resident: Kloton Sanabria ATTENDING PHYSICIAN STATEMENT I saw and evaluated the patient. I reviewed the resident's note and discussed the case with the resident. I agree with the resident's findings and plan as documented. SUBJECTIVE:upset that he is unable to eat. states breathing is ok. continues to have cough. denies CP, fever, chills, N/v/C/D OBJECTIVE: Last Vital Signs Temp Pulse Resp BP Pulse Ox 97.3 F L 71 20 129/71 94 L 06/09/17 06:03 06/09/17 06:03 06/09/17 06:03 06/09/17 06:03 06/08/17 21:00 General NAD Lungs coarse breath sounds + crackles no wheezing Abdomen soft NT/ND +abdominal binder. + PEG no surrounding erythema or drainage noted Extremities no pedal edema ASSESSMENT AND PLAN: 87 year old male with a PMHx of HTN, COPD (3L NC at night), Osteoarthritis, Dysphagia, PUD presented to the ER with acute hypoxic respiratory distress 1. Acute hypoxic hypercapnic respiratory distress- due to possible PNA vs acute on chronic COPD. continues to have crackles with IVF stopped yesterday. will give lasix 40mg IV x1. cont prednisone 30mg with slow taper (decrease by 10mg every 5days). s/p PEG placement 06/07. cont aspiration precautions. NPO until re- evaluated by [facility]. GI and pulmonary on board. saturating 88% on 3.5L NC. Supplemental oxygen to maintain spO2 >88%. 2. Sepsis due to aspiration PNA- afebrile. leukocytosis trending down. on cefipime day 7. after completing course of vanco/zosyn. Flu and legonella negative. ID on board 3. Dysphagia- s/p PEG 06/07. tolerating TF. . dietary to recommend TF rate. 4. Hypophosphatemia- resolved 5. hypokalemia-resolved 6. HTN- currently normotensive. not on medications at home. cont to monitor. 7. PUD- no sings of bleeding. stress ulcer ppx. protonix po 8. DVT ppx- hep sq 9. Poor prognosis. palliative care on board. DNR/DNI, no central line or pressors. family desires pt to return to [facility]. not interested in Hospice at this time
[2017-06-09] MEDS ORDERED: FUROSEMIDE 40 MG/4 ML INJECTABLE VIAL IVPUSH ONE (10:00)
[2017-06-09] MEDS: AMINO ACIDS/PROTEIN HYDROLYS 30 ML LIQUID.PKT PEG SCH ×2 (10:19→17:32)
[2017-06-09] MEDS: predniSONE 10 MG TABLET (UD) PEG SCH (10:19)
[2017-06-09] MEDS: PANTOPRAZOLE SOD 40 MG SUSPENSION PACKET PEG SCH (10:19)
[2017-06-09] MEDS ORDERED: methylPREDNISolone NA SUCC 40 MG/1 ML VIAL IVPUSH ONE (12:28)
--- NOTE | 2017-06-09 12:28 | PN ---
Progress Note (short form) - Note Progress Note: PULMONARY Suprapubic distention today with more shortness of breath. Last Vital Signs Temp Pulse Resp BP Pulse Ox 97.3 F L 71 20 129/71 94 L 06/09/17 06:03 06/09/17 06:03 06/09/17 06:03 06/09/17 06:03 06/08/17 21:00 Gen: more tachypneic today Heart: RRR Lung: increased bilateral rhonchi Abd: soft, nontender Ext: no edema CBC, BMP 06/07/17 06:35 06/07/17 06:35 Active Medications Acetaminophen (Ofirmev Injection -) 1,000 mg IVPB Q6H PRN PRN Reason: FEVER OR PAIN Albuterol Sulfate (Ventolin 0.083% Nebulizer Soln -) 1 amp NEB Q4H PRN PRN Reason: SHORT OF BREATH/WHEEZING Last Admin: 05/30/17 10:11 Dose: 1 amp Albuterol/Ipratropium (Duoneb -) 1 amp NEB RQID [facility] Last Admin: 06/09/17 08:16 Dose: 1 amp Amino Acids (Prosource No Carb Liquid Pkt) 30 ml PEG BID@0800,1730 [facility] Last Admin: 06/09/17 10:19 Dose: 30 ml Cefepime HCl (Maxipime 1 Gm Premix Ivpb) 1 gm in 50 mls @ 100 mls/hr IVPB Q12H [facility] Last Admin: 06/08/17 22:28 Dose: 100 mls/hr Pantoprazole Sodium (Protonix Packets For Oral Suspension -) 40 mg PEG DAILY [facility] Last Admin: 06/09/17 10:19 Dose: 40 mg Prednisone (Deltasone -) 30 mg PEG DAILY [facility] Last Admin: 06/09/17 10:19 Dose: 30 mg Scopolamine HBr (Transderm-Scop -) 1 patch TD Q3D [facility] Last Admin: 06/08/17 13:48 Dose: 1 patch A/P Acute COPD/Bronchiectasis Exacerbation Acute on Chronic Hypoxic Respiratory Failure r/o Pneumonia Emphysema +Troponins likely Demand Ischemia HTN - place velazquez catheter - antibiotics per ID - prednisone taper, but will give additional dose today - inhaled bronchodilators standing and PRN - O2 to keep SpO2 >90% - OOB to chair if possible - hold enteral feeds - rehab/physical therapy - DVT prophylaxis
[2017-06-09 12:57] LABS: HEMATOCRIT 42.5 % (35.4-49); HEMOGLOBIN 13.1 GM/dL (11.7-16.9); MCH 28.5 pg (25.7-33.7); MCHC 30.8 g/dl (32.0-35.9); MEAN CELL VOLUME 92.6 fl (80-96); MEAN PLT VOLUME 8.7 fl (7.5-11.1); PLATELET COUNT 206 K/MM3 (134-434); RBC 4.59 M/mm3 (4.00-5.60); RDW 17.3 % (11.9-15.9); WHITE BLOOD COUNT 18.1 K/mm3 (4.0-10.0)
[2017-06-09 13:23] LABS: ALBUMIN 2.9 g/dl (3.4-5.0); ANION GAP 7 (8-16); BLOOD UREA NITROGEN 20 mg/dL (7-18); CALCIUM 8.6 mg/dL (8.5-10.1); CHLORIDE 99 mmol/L (98-107); CO2 30 mmol/L (21-32); CREATININE 0.4 mg/dL (0.7-1.3); GLUCOSE,RANDOM 163 mg/dL (74-106); POTASSIUM 3.7 mmol/L (3.5-5.1); SGOT/AST 21 U/L (15-37); SGPT/ALT 42 U/L (12-78); SODIUM 136 mmol/L (136-145)
[2017-06-09 13:24] LABS: ALK PHOS 106 U/L (45-117); BILIRUBIN,TOTAL 0.7 mg/dL (0.2-1.0); TOT PROT 6.5 g/dl (6.4-8.2)
[2017-06-09] MEDS: CEFEPIME HCL/D5W 1 GM/50 ML BAG IVPB SCH ×2 (15:50→23:10)
--- NOTE | 2017-06-09 16:11 | PN ---
Progress Note (short form) - Note Progress Note: Mr. Pritchett complained of abdominal pain earlier On exam earlier TTP suprapubic region rectal exam was performed revealing copious amounts of soft light brown stool Moore catheter was subsequently placed with improvement in suprapubic tenderness per nurse suspected urinary retention contributing to pelvic pain Continue to monitor If pain persists, CT scan of the abdomen and pelvis Bowel regimen: MiraLAX 17g BID via G-Tube Dr. Staples resumes coverage 06/10
[2017-06-09] MEDS ORDERED: PT OWN MED DRAWER 7, Y5N ONE (22:44)
[2017-06-09] MEDS: POLYETHYLENE GLYCOL 3350 119 GM BTL NGT SCH (23:10)
[2017-06-10 08:21] LABS: ANION GAP 9 (8-16); BLOOD UREA NITROGEN 21 mg/dL (7-18); CALCIUM 9.3 mg/dL (8.5-10.1); CHLORIDE 96 mmol/L (98-107); CO2 34 mmol/L (21-32); GLUCOSE,RANDOM 103 mg/dL (74-106); MAGNESIUM 2.3 mg/dL (1.8-2.4); POTASSIUM 3.6 mmol/L (3.5-5.1); SODIUM 139 mmol/L (136-145)
[2017-06-10 08:22] LABS: CREATININE 0.3 mg/dL (0.7-1.3)
[2017-06-10] MEDS: ALBUTEROL SO4 2.5/IPRATROPIUM 0.5 INH SOL 3 ML VIAL.NEB. NEB SCH ×4 (08:25→20:30)
[2017-06-10 08:38] LABS: BASO % 0.1 % (0-2.0); EOS % 0.1 % (0-4.5); HEMATOCRIT 43.1 % (35.4-49); HEMOGLOBIN 13.3 GM/dL (11.7-16.9); MCH 28.7 pg (25.7-33.7); MCHC 30.9 g/dl (32.0-35.9); MEAN CELL VOLUME 92.6 fl (80-96); MEAN PLT VOLUME 8.9 fl (7.5-11.1); MONO % 7.7 % (3.8-10.2); NEUT % 88.1 % (42.8-82.8); PLATELET COUNT 176 K/MM3 (134-434); RBC 4.65 M/mm3 (4.00-5.60); RDW 17.7 % (11.9-15.9); WHITE BLOOD COUNT 12.4 K/mm3 (4.0-10.0)
[2017-06-10] MEDS: AMINO ACIDS/PROTEIN HYDROLYS 30 ML LIQUID.PKT PEG SCH ×2 (10:10→17:33)
[2017-06-10] MEDS: PANTOPRAZOLE SOD 40 MG SUSPENSION PACKET PEG SCH (10:11)
[2017-06-10] MEDS: predniSONE 10 MG TABLET (UD) PEG SCH (10:11)
[2017-06-10] MEDS: POLYETHYLENE GLYCOL 3350 119 GM BTL NGT SCH ×2 (10:19→21:49)
--- NOTE | 2017-06-10 10:41 | PN ---
Progress Note (short form) - Note Progress Note: c/o back pain. progressively worsening since being in the hospital. denies Cp, SOB, fever, chills, adbominal pain, N/v/C/D Current Medications Generic Name Dose Route Start Last Admin Trade Name Freq PRN Reason Stop Dose Admin Acetaminophen 1,000 mg 05/23/17 16:51 06/10/17 10:11 Ofirmev Injection - IVPB 1,000 mg Q6H PRN Administration FEVER OR PAIN Albuterol Sulfate 1 amp 05/23/17 16:51 05/30/17 10:11 Ventolin 0.083% Nebulizer Soln - NEB 1 amp Q4H PRN Administration SHORT OF BREATH/WHEEZING Albuterol/Ipratropium 1 amp 06/04/17 10:22 06/10/17 08:25 Duoneb - NEB 1 amp RQID [facility]ITT[facility] Administration Amino Acids 30 ml 06/08/17 17:30 06/10/17 10:10 Prosource No Carb Liquid Pkt PEG Not Given BID@0800,1730 [facility] Cefepime HCl 1 gm in 50 mls @ 100 mls/hr 06/05/17 10:00 06/09/17 23:10 Maxipime 1 Gm Premix Ivpb IVPB 100 mls/hr Q12H [facility] Administration Pantoprazole Sodium 40 mg 06/08/17 16:15 06/10/17 10:11 Protonix Packets For Oral Suspension - PEG 40 mg DAILY [facility] Administration Polyethylene Glycol 17 gm 06/09/17 22:00 06/10/17 10:19 Miralax (For Daily Use) - NGT 17 gm BID [facility]ITTNY Administration Prednisone 30 mg 06/08/17 16:15 06/10/17 10:11 Deltasone - PEG 30 mg DAILY [facility] Administration Scopolamine HBr 1 patch 06/02/17 12:30 06/08/17 13:48 Transderm-Scop - TD 1 patch Q3D [facility]ITT[facility] Administration Last Vital Signs Temp Pulse Resp BP Pulse Ox 98.3 F 85 20 130/78 89 L 06/10/17 06:51 06/10/17 06:51 06/10/17 06:51 06/10/17 06:51 06/09/17 21:00 General NAD Lungs coarse breath sounds + crackles no wheezing Abdomen soft NT/ND +abdominal binder. + PEG no surrounding erythema or drainage noted Extremities no pedal edema CBCD WBC 12.4 K/mm3 (4.0-10.0) H D 06/10/17 06:20 RBC 4.65 M/mm3 (4.00-5.60) 06/10/17 06:20 Hgb 13.3 GM/dL (11.7-16.9) 06/10/17 06:20 Hct 43.1 % (35.4-49) 06/10/17 06:20 MCV 92.6 fl (80-96) 06/10/17 06:20 MCHC 30.9 g/dl (32.0-35.9) L 06/10/17 06:20 RDW 17.7 % (11.9-15.9) H 06/10/17 06:20 Plt Count 176 K/MM3 (134-434) 06/10/17 06:20 MPV 8.9 fl (7.5-11.1) 06/10/17 06:20 CMP Sodium 139 mmol/L (136-145) 06/10/17 06:00 Potassium 3.6 mmol/L (3.5-5.1) 06/10/17 06:00 Chloride 96 mmol/L (98-107) L 06/10/17 06:00 Carbon Dioxide 34 mmol/L (21-32) H 06/10/17 06:00 Anion Gap 9 (8-16) 06/10/17 06:00 BUN 21 mg/dL (7-18) H 06/10/17 06:00 Creatinine 0.3 mg/dL (0.7-1.3) L D 06/10/17 06:00 Creat Clearance w eGFR > 60 (>60) 06/09/17 12:35 Calcium 9.3 mg/dL (8.5-10.1) 06/10/17 06:00 Total Bilirubin 0.7 mg/dL (0.2-1.0) 06/09/17 12:35 AST 21 U/L (15-37) D 06/09/17 12:35 ALT 42 U/L (12-78) D 06/09/17 12:35 Alkaline Phosphatase 106 U/L (45-117) 06/09/17 12:35 Total Protein 6.5 g/dl (6.4-8.2) 06/09/17 12:35 Albumin 2.9 g/dl (3.4-5.0) L D 06/09/17 12:35 ASSESSMENT AND PLAN: 87 year old male with a PMHx of HTN, COPD (3L NC at night), Osteoarthritis, Dysphagia, PUD presented to the ER with acute hypoxic respiratory distress 1. Acute hypoxic hypercapnic respiratory distress- due to possible PNA vs acute on chronic COPD. continues to have crackles. will give lasix 40mg IV. monitor for improvement. saturating 91% on 3L NC. cont prednisone 30mg with slow taper (decrease by 10mg every 5days). pulmonary on board. Supplemental oxygen to maintain spO2 >88%. 2. Sepsis due to aspiration PNA- afebrile. slight bump in leukocytosis yesterday with concern continuing to aspirate. now trending down. on cefipime day 8. ID to determine abx duration. Flu and legonella negative. ID on board 3. Dysphagia- s/p PEG 06/07. will attempt to put back on puree diet. see how tolerated 4. back pain- likely due to laying in bed. refused my exam or XR. "it will get better". tylenol as needed for pain 5. Hypophosphatemia- resolved 6. hypokalemia-resolved 7. HTN- currently normotensive. not on medications at home. cont to monitor. 8. PUD- no sings of bleeding. stress ulcer ppx. protonix po 9. DVT ppx- hep sq 10. Poor prognosis. palliative care on board. DNR/DNI, no central line or pressors. family desires pt to return to [facility]. not interested in Hospice at this time. can liekly return tomorrow. if breathing status is improved. Visit type - Emergency Visit Emergency Visit: Yes ED Registration Date: 05/22/17 Care time: The patient presented to the Emergency Department on the above date and was hospitalized for further evaluation of their emergent condition. - New Patient This patient is new to me today: No - Critical Care Critical Care patient: No - Discharge Referral Referred to [facility] No
[2017-06-10] MEDS ORDERED: FUROSEMIDE 40 MG/4 ML INJECTABLE VIAL IVPUSH ONE (10:49)
[2017-06-10] MEDS: CEFEPIME HCL/D5W 1 GM/50 ML BAG IVPB SCH ×2 (11:14→21:49)
--- NOTE | 2017-06-10 12:19 | PN ---
Progress Note (short form) - Note Progress Note: Still with TAPIA / SOB, but better than yesterday. No CP. No acute events overnight. Intake & Output 06/07/17 06/08/17 06/09/17 06/10/17 23:59 23:59 23:59 23:59 Intake Total 200 600 894 100 Output Total 442 602 5893 200 Balance -400 -200 -756 -100 Weight 160 lb 1.6 oz 166 lb 165 lb 4 oz 161 lb Last Vital Signs Temp Pulse Resp BP Pulse Ox 98.3 F 85 20 130/78 89 L 06/10/17 06:51 06/10/17 06:51 06/10/17 06:51 06/10/17 06:51 06/09/17 21:00 Active Medications Acetaminophen (Ofirmev Injection -) 1,000 mg IVPB Q6H PRN PRN Reason: FEVER OR PAIN Last Admin: 06/10/17 10:11 Dose: 1,000 mg Albuterol Sulfate (Ventolin 0.083% Nebulizer Soln -) 1 amp NEB Q4H PRN PRN Reason: SHORT OF BREATH/WHEEZING Last Admin: 05/30/17 10:11 Dose: 1 amp Albuterol/Ipratropium (Duoneb -) 1 amp NEB RQID [facility] Last Admin: 06/10/17 11:19 Dose: 1 amp Amino Acids (Prosource No Carb Liquid Pkt) 30 ml PEG BID@0800,1730 [facility] Last Admin: 06/10/17 10:10 Dose: Not Given Cefepime HCl (Maxipime 1 Gm Premix Ivpb) 1 gm in 50 mls @ 100 mls/hr IVPB Q12H [facility] Last Admin: 06/10/17 11:14 Dose: 100 mls/hr Pantoprazole Sodium (Protonix Packets For Oral Suspension -) 40 mg PEG DAILY [facility] Last Admin: 06/10/17 10:11 Dose: 40 mg Polyethylene Glycol (Miralax (For Daily Use) -) 17 gm NGT BID [facility] Last Admin: 06/10/17 10:19 Dose: 17 gm Prednisone (Deltasone -) 30 mg PEG DAILY [facility] Last Admin: 06/10/17 10:11 Dose: 30 mg Scopolamine HBr (Transderm-Scop -) 1 patch TD Q3D [facility] Last Admin: 06/08/17 13:48 Dose: 1 patch Gen: Mildly tachypneic at rest Heart: RRR Lung: bilateral rhonchi, no wheeze Abd: soft, nontender Ext: no edema Laboratory Results - last 24 hr 06/09/17 06/09/17 06/10/17 12:35 12:35 06:00 WBC 18.1 H D RBC 4.59 Hgb 13.1 D Hct 42.5 MCV 92.6 MCH 28.5 MCHC 30.8 L RDW 17.3 H Plt Count 206 MPV 8.7 Neutrophils % Lymphocytes % Monocytes % Eosinophils % Basophils % Sodium 136 139 Potassium 3.7 3.6 Chloride 99 96 L Carbon Dioxide 30 34 H Anion Gap 7 L 9 BUN 20 H 21 H Creatinine 0.4 L D 0.3 L D Creat Clearance w eGFR > 60 Random Glucose 163 H D 103 D Calcium 8.6 9.3 Magnesium 2.3 Total Bilirubin 0.7 AST 21 D ALT 42 D Alkaline Phosphatase 106 Total Protein 6.5 Albumin 2.9 L D 06/10/17 06:20 WBC 12.4 H D RBC 4.65 Hgb 13.3 Hct 43.1 MCV 92.6 MCH 28.7 MCHC 30.9 L RDW 17.7 H Plt Count 176 MPV 8.9 Neutrophils % 88.1 H Lymphocytes % 4.0 L D Monocytes % 7.7 Eosinophils % 0.1 D Basophils % 0.1 Sodium Potassium Chloride Carbon Dioxide Anion Gap BUN Creatinine Creat Clearance w eGFR Random Glucose Calcium Magnesium Total Bilirubin AST ALT Alkaline Phosphatase Total Protein Albumin A/P Acute COPD/Bronchiectasis Exacerbation Acute on Chronic Hypoxic Respiratory Failure r/o Pneumonia Emphysema +Troponins likely Demand Ischemia HTN - antibiotics per ID - prednisone taper - inhaled bronchodilators standing and PRN - O2 to keep SpO2 >90% - OOB to chair if possible - rehab/physical therapy - DVT prophylaxis - DNR/DNI Dr Tobar
--- NOTE | 2017-06-10 13:54 | PN ---
Progress Note (short form) - Note Progress Note: alert moist cough unchanged on antibiotics since 06/03 s/p PEG 06/07 Vital Signs Period Temp Pulse Resp BP Sys/Calderon Pulse Ox Last 24 Hr 97.5 F-98.3 F 85-103 20-20 122-141/73-93 89 cor-rrr lungs decreased bs at bases abd soft,nt +GT ext no edema CBC, BMP 06/10/17 06:20 06/10/17 06:00 Microbiology 05/22/17 09:15 Blood - Peripheral Venous Blood Culture - Final NO GROWTH AFTER 5 DAYS INCUBATION 05/22/17 09:15 Blood - Peripheral Venous Blood Culture - Final NO GROWTH AFTER 5 DAYS INCUBATION 05/22/17 22:52 Urine - Urine Clean Catch Urine Culture - Final NO GROWTH OBTAINED 05/23/17 18:15 Urine For Antigen Detection Legionella Antigen - Final 05/23/17 18:15 Urine For Antigen Detection Streptococcus pneumoniae Antigen (M - Final 05/22/17 17:30 Nasopharyngeal Swab Influenza Types A,B Antigen (LAURA) - Final 05/22/17 17:30 Nasopharyngeal Swab - Final cxray unchanged a/p aspiration pneumonia- day #8 antibiotics, will d/c and observe aspiration precautions s/p peg placement COPD please call back if needed Problem List - Problems (1) Pneumonia Code(s): J18.9 - PNEUMONIA, UNSPECIFIED ORGANISM Qualifiers: Pneumonia type: due to unspecified organism Laterality: left Lung location: lower lobe of lung Qualified Code(s): J18.1 - Lobar pneumonia, unspecified organism (2) Respiratory failure Code(s): J96.90 - RESPIRATORY FAILURE, UNSP, UNSP W HYPOXIA OR HYPERCAPNIA (3) COPD (chronic obstructive pulmonary disease) Code(s): J44.9 - CHRONIC OBSTRUCTIVE PULMONARY DISEASE, UNSPECIFIED Qualifiers: COPD type: COPD with acute lower respiratory infection Qualified Code(s): J44.0 - Chronic obstructive pulmonary disease with acute lower respiratory infection
--- NOTE | 2017-06-10 14:37 | PN ---
Progress Note, Physician History of Present Illness: No events. Awake and alert. Mild pain at PEG. Skin intact, no leaks, bleeding - Current Medication List Current Medications: Active Medications Acetaminophen (Ofirmev Injection -) 1,000 mg IVPB Q6H PRN PRN Reason: FEVER OR PAIN Last Admin: 06/10/17 10:11 Dose: 1,000 mg Albuterol Sulfate (Ventolin 0.083% Nebulizer Soln -) 1 amp NEB Q4H PRN PRN Reason: SHORT OF BREATH/WHEEZING Last Admin: 05/30/17 10:11 Dose: 1 amp Albuterol/Ipratropium (Duoneb -) 1 amp NEB RQID [facility] Last Admin: 06/10/17 11:19 Dose: 1 amp Amino Acids (Prosource No Carb Liquid Pkt) 30 ml PEG BID@0800,1730 [facility] Last Admin: 06/10/17 10:10 Dose: Not Given Cefepime HCl (Maxipime 1 Gm Premix Ivpb) 1 gm in 50 mls @ 100 mls/hr IVPB Q12H [facility] Last Admin: 06/10/17 11:14 Dose: 100 mls/hr Pantoprazole Sodium (Protonix Packets For Oral Suspension -) 40 mg PEG DAILY [facility] Last Admin: 06/10/17 10:11 Dose: 40 mg Polyethylene Glycol (Miralax (For Daily Use) -) 17 gm NGT BID [facility] Last Admin: 06/10/17 10:19 Dose: 17 gm Prednisone (Deltasone -) 30 mg PEG DAILY [facility] Last Admin: 06/10/17 10:11 Dose: 30 mg Scopolamine HBr (Transderm-Scop -) 1 patch TD Q3D [facility] Last Admin: 06/08/17 13:48 Dose: 1 patch - Objective Vital Signs: Vital Signs Temperature 98.3 F 06/10/17 06:51 Pulse Rate 85 06/10/17 06:51 Respiratory Rate 20 06/10/17 06:51 Blood Pressure 130/78 06/10/17 06:51 O2 Sat by Pulse Oximetry (%) 89 L 06/09/17 21:00 Constitutional: Yes: No Distress, Calm Eyes: Yes: Conjunctiva Clear HENT: Yes: Atraumatic Gastrointestinal: Yes: Soft, Tenderness (at PEG, mild) Neurological: Yes: Alert Labs: CBC, BMP 06/10/17 06:20 06/10/17 06:00 INR, PTT INR 0.96 (0.82-1.09) 06/07/17 06:35 Laboratory Results - last 24 hr 06/10/17 06/10/17 06:00 06:20 WBC 12.4 H D RBC 4.65 Hgb 13.3 Hct 43.1 MCV 92.6 MCH 28.7 MCHC 30.9 L RDW 17.7 H Plt Count 176 MPV 8.9 Neutrophils % 88.1 H Lymphocytes % 4.0 L D Monocytes % 7.7 Eosinophils % 0.1 D Basophils % 0.1 Sodium 139 Potassium 3.6 Chloride 96 L Carbon Dioxide 34 H Anion Gap 9 BUN 21 H Creatinine 0.3 L D Random Glucose 103 D Calcium 9.3 Magnesium 2.3 Problem List - Problems (1) Aspiration into airway Code(s): T17.908A - UNSP FB IN RESP TRACT, PART UNSP CAUSING OTH INJURY, INIT (2) Inadequate oral nutritional intake Code(s): R63.8 - OTHER SYMPTOMS AND SIGNS CONCERNING FOOD AND FLUID INTAKE Assessment/Plan Keep bumper at 4-5. PEG care and aspiration precautions as per protocol PO/PEG nutrition as tolerated. PEG hydration
--- NOTE | 2017-06-10 15:06 | PN ---
Progress Note, HAM SAWYER - Note Progress Note: Pt now on pureed diet PO. He should not be receiving PO liquids, and per nursing he is not. He is not receiving hydration or nutrition though PEG, with concern of aspiration, per nursing. Pt seen reclining. He refuses to main HOB elevated and lowers the HOB. With HOB rclined, risk of aspiration will be increased. Reviewed with Nursing and GI. Selected Entries 06/09/17 06/09/17 06/09/17 06:03 10:00 15:30 Temperature 97.3 F L 98.2 F 98.2 F 06/09/17 06/09/17 06/10/17 18:06 22:00 02:03 Temperature 97.7 F 97.5 F L 97.5 F L 06/10/17 06:51 Temperature 98.3 F Laboratory Tests 06/07/17 06/09/17 06/10/17 06:35 12:35 06:20 WBC 11.4 H 18.1 H D 12.4 H D Consider slow rate of hydration/possibly some supplemental nutrition nocturnally via PEG, with HOB elevated, as tolerated. Puree/no liquids PO. Supervision with [employer] reminding pt of multiple swallows per bite to clear pharynx.
[2017-06-10] MEDS ORDERED: PT OWN MED DRAWER 7, Y5N ONE (20:52)
[2017-06-11] MEDS: ALBUTEROL SO4 2.5/IPRATROPIUM 0.5 INH SOL 3 ML VIAL.NEB. NEB SCH ×5 (08:42→20:00)
[2017-06-11] MEDS: AMINO ACIDS/PROTEIN HYDROLYS 30 ML LIQUID.PKT PEG SCH ×2 (10:00→20:16)
[2017-06-11] MEDS: SCOPOLAMINE HYDROBROMIDE 1 PATCH PATCH.TD72 TD SCH ×2 (10:00→20:16)
[2017-06-11] MEDS: POLYETHYLENE GLYCOL 3350 119 GM BTL NGT SCH ×2 (10:00→22:20)
[2017-06-11] MEDS: predniSONE 10 MG TABLET (UD) PEG SCH (10:00)
[2017-06-11] MEDS: PANTOPRAZOLE SOD 40 MG SUSPENSION PACKET PEG SCH (10:00)
[2017-06-11] MEDS: CEFEPIME HCL/D5W 1 GM/50 ML BAG IVPB SCH (10:00)
--- NOTE | 2017-06-11 15:18 | PN ---
Teaching Attending Note Name of Resident: Jose F Young ATTENDING PHYSICIAN STATEMENT Time of evaluation: 10:10 AM I saw and evaluated the patient. I reviewed the resident's note and discussed the case with the resident. I agree with the resident's findings and plan as documented. SUBJECTIVE: Patient seen and examined. reports some abdominal and back pain, says is ' chronic'. no urinary or bowel symptoms. Denies any new dyspnea, otherwise no new complaints. OBJECTIVE: Vital Signs Period Temp Pulse Resp BP Sys/Calderon Pulse Ox Last 24 Hr 97.4 F-98.1 F 81-100 18-20 119-136/66-87 90 Intake & Output 06/08/17 06/09/17 06/10/17 06/11/17 23:59 23:59 23:59 23:59 Intake Total 600 894 150 150 Output Total 800 1650 1400 100 Balance -200 -756 -1250 50 Weight 166 lb 165 lb 4 oz 161 lb General: lying in bed, mild use of acessory muscles of respiration Chest: right sided rhonchi, right basilar rales Abdomen: soft, tenderness in RLQ/LLQ, no voluntary or involuntary guarding or rigidity, positive bowel sounds, no suprapubic tenderness Extremities: no edema Home Medication List Medication Instructions Recorded Confirmed Type Acetaminophen [Tylenol] 2 tab PO Q6H PRN 05/22/17 05/22/17 History Albuterol 2.5/Ipratropium 0.5 1 amp NEB TID 05/22/17 05/22/17 History [Duoneb -] Budesonide [Pulmicort 0.5 mg 1 neb PO BID 05/22/17 05/22/17 History Nebulizer -] Ipratropium 0.02% Nebulizer 1 amp NEB Q6H PRN 05/22/17 05/22/17 History [Atrovent 0.02% Nebulizer -] Menthol/Phenol [Cepastat Lozenge -] 1 each MM QID PRN 05/22/17 05/22/17 History Metoclopramide HCl 10 mg PO TID 05/22/17 05/22/17 History Prednisone 10 mg PO BID 05/22/17 05/22/17 History Tramadol HCl [Ultram] 2 mg PO DAILY 05/22/17 05/22/17 History Active Medications Generic Name Dose Route Start Last Admin Trade Name Freq PRN Reason Stop Dose Admin Acetaminophen 1,000 mg 05/23/17 16:51 06/10/17 10:11 Ofirmev Injection - IVPB 1,000 mg Q6H PRN Administration FEVER OR PAIN Albuterol Sulfate 1 amp 05/23/17 16:51 05/30/17 10:11 Ventolin 0.083% Nebulizer Soln - NEB 1 amp Q4H PRN Administration SHORT OF BREATH/WHEEZING Albuterol/Ipratropium 1 amp 06/04/17 10:22 06/11/17 12:50 Duoneb - NEB 1 amp RQID BRITTNY Administration Amino Acids 30 ml 06/08/17 17:30 06/11/17 10:00 Prosource No Carb Liquid Pkt PEG 30 ml BID@0800,1730 BRITTNY Administration Pantoprazole Sodium 40 mg 06/08/17 16:15 06/11/17 10:00 Protonix Packets For Oral Suspension - PEG 40 mg DAILY BRITTNY Administration Polyethylene Glycol 17 gm 06/09/17 22:00 06/11/17 10:00 Miralax (For Daily Use) - NGT Not Given BID BRITTNY Prednisone 30 mg 06/08/17 16:15 06/11/17 10:00 Deltasone - PEG 30 mg DAILY BRITTNY Administration Scopolamine HBr 1 patch 06/02/17 12:30 06/11/17 10:00 Transderm-Scop - TD 1 patch Q3D BRITTNY Administration Microbiology 05/22/17 09:15 Blood - Peripheral Venous Blood Culture - Final NO GROWTH AFTER 5 DAYS INCUBATION 05/22/17 09:15 Blood - Peripheral Venous Blood Culture - Final NO GROWTH AFTER 5 DAYS INCUBATION 05/22/17 22:52 Urine - Urine Clean Catch Urine Culture - Final NO GROWTH OBTAINED 05/23/17 18:15 Urine For Antigen Detection Legionella Antigen - Final 05/23/17 18:15 Urine For Antigen Detection Streptococcus pneumoniae Antigen (M - Final 05/22/17 17:30 Nasopharyngeal Swab Influenza Types A,B Antigen (LAURA) - Final 05/22/17 17:30 Nasopharyngeal Swab - Final ASSESSMENT AND PLAN: 87 year old male with a PMHx of HTN, COPD (3L NC at night), Osteoarthritis, Dysphagia, PUD presented to the ER with acute hypoxic respiratory distress -acute hypoxic/hypercapneic respiratory distress, suspect aspiration PNA, acute on chronic COPD with mild diastolic HF. -Sepsis due to aspiration PNA -Dysphagia -leucocytosis, suspect ongoing aspriation -Back pain -Abdominal pain -hypokalemia -Hypophosphatemia -HTN -PUD plan; s/p 8 days of cefepime, off antibiotics. WBC improved. Suspect ongoing aspiration. Aspiration precautions (patient no compliant with HOB elevation). Check CT A/p given a vague abdominal symptoms. Speech/swallow/nutrition input noted. Start nocturnal tube feeds pending CT A/P , calorie count. s/p PEG 06/07. Hold off additional lasix as looks clinically dry, respiratory symptoms predominantly suspect from ongoing aspiration. Slow prednisone taper. replete lytes prn. GI/DVTPPX Poor prognosis, DNR/DNI, no central line or pressors. Per prior discussion, not interested in hospice at this time, want patient to return to [facility], [place], patient with ongoing respiratory symptoms, with minimal activity or conversation. Dispo planning on hold pending abdominal w/u as above and as respiratory symptoms stable.
--- NOTE | 2017-06-11 15:47 | PN ---
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 LABS/IMAGES/MEDS/NOTES REVIEWED Hypoxemic respiratory failure Multilobar PNA/ aspiration Fluid overload Acute COPD exacerbation HTN - peg in place -ABX discontinued as per ID -BD TX - prednisone to taper -heparin SubQ -protonix for GI ppx -O2 to maintain saturation -DNR/DNI -Aspiration precautions Raheem MONROE MD Problem List - Problems (1) COPD (chronic obstructive pulmonary disease) Code(s): J44.9 - CHRONIC OBSTRUCTIVE PULMONARY DISEASE, UNSPECIFIED Qualifiers: COPD type: COPD with acute lower respiratory infection Qualified Code(s): J44.0 - Chronic obstructive pulmonary disease with acute lower respiratory infection (2) Pneumonia Code(s): J18.9 - PNEUMONIA, UNSPECIFIED ORGANISM Qualifiers: Pneumonia type: due to unspecified organism Laterality: left Lung location: lower lobe of lung Qualified Code(s): J18.1 - Lobar pneumonia, unspecified organism (3) Anemia Code(s): D64.9 - ANEMIA, UNSPECIFIED (4) Sepsis Code(s): A41.9 - SEPSIS, UNSPECIFIED ORGANISM Qualifiers: Sepsis type: sepsis due to unspecified organism Qualified Code(s): A41.9 - Sepsis, unspecified organism (5) Hypertension Code(s): I10 - ESSENTIAL (PRIMARY) HYPERTENSION (6) Chronic steroid use Code(s): [id number] -
--- NOTE | 2017-06-11 18:40 | PN ---
Physical Exam: SUBJECTIVE: Patient seen and examined. Says he feels better today except for RLQ abdominal pain that started a few days ago. He says his last bowel movement was 3 days ago. Denies worsening SOB, dizziness, chest pain, nausea and vomiting. OBJECTIVE: Vital Signs Period Temp Pulse Resp BP Sys/Calderon Pulse Ox Last 24 Hr 97.4 F-98.1 F 81-108 18-20 119-141/66-87 90 GENERAL: Laying in bed, in no acute distress HEAD: Normal with no signs of trauma. EYES: EOMI, PERRLA ENT: Dry mucous membranes LUNGS: course breath sounds throughout, mild use of accessory muscle HEART: regular rate and rhythm, no murmurs appreciated ABDOMEN: RLQ tenderness to palpation, +BS, Peg tube: no drainage, erythema. EXTREMITIES: 2+ pulses, warm, well-perfused, no edema. SKIN: Warm, dry, normal turgor, no rashes or lesions noted Active Medications Generic Name Dose Route Start Last Admin Trade Name Freq PRN Reason Stop Dose Admin Acetaminophen 1,000 mg 05/23/17 16:51 06/10/17 10:11 Ofirmev Injection - IVPB 1,000 mg Q6H PRN Administration FEVER OR PAIN Albuterol Sulfate 1 amp 05/23/17 16:51 05/30/17 10:11 Ventolin 0.083% Nebulizer Soln - NEB 1 amp Q4H PRN Administration SHORT OF BREATH/WHEEZING Albuterol/Ipratropium 1 amp 06/04/17 10:22 06/11/17 16:00 Duoneb - NEB 1 amp RQID BRITTNY Administration Amino Acids 30 ml 06/08/17 17:30 06/11/17 10:00 Prosource No Carb Liquid Pkt PEG 30 ml BID@0800,1730 BRITTNY Administration Pantoprazole Sodium 40 mg 06/08/17 16:15 06/11/17 10:00 Protonix Packets For Oral Suspension - PEG 40 mg DAILY BRITTNY Administration Polyethylene Glycol 17 gm 06/09/17 22:00 06/11/17 10:00 Miralax (For Daily Use) - NGT Not Given BID BRITTNY Prednisone 30 mg 06/08/17 16:15 06/11/17 10:00 Deltasone - PEG 30 mg DAILY BRITTNY Administration Scopolamine HBr 1 patch 06/02/17 12:30 06/11/17 10:00 Transderm-Scop - TD 1 patch Q3D BRITTNY Administration ASSESSMENT/PLAN: 87yo M with h/o COPD (baseline 3LNC at night), HTN, OA who was found to acute hypoxic hypercapnic distress. #Acute hypoxic hypercapnic respiratory distress -2/2 to PNA most likely with component of COPD -Prednisone 30mg qDaily (day 3); continue to taper -Maintain SpO2 >88-90% -Pulmonology on board -Duoneb QID PRN -Nebs PRN q4h #Sepsis 2/2 to PNA -Cefepime day 8 today -Suspected on-going aspiration due to no improvement in breath sounds -s/p PEG tube 06/07; currently being used -Aspiration precautions -Afebrile -Leukocytosis downtrending #UTI -Day 2 Abx: Ceftriaxone -pending urine cultures #Abdominal Pain -resolved #HTN -Currently controlled -Continue BP monitoring #FEN: Fluids: None; free water with Jevity feeds Electrolyte abnormalities: None Nutrition: Dysphagia puree diet with NO PO fluids initiate nocturnal feedings with TF Jevity 1.5 @ 40 ml/10 hr advance by 10 ml q day to goal of 60 ml/10 hrs (8 pm to 6 am) (900 kcal/38 gm Prot/456 ml free water in 600 ml volume) #PPX: DVT - Heparin SQ TID Dispo: Will discharge once moved from IV ABx to PO. Poor prognosis Visit type - Emergency Visit Emergency Visit: Yes ED Registration Date: 05/22/17 Care time: The patient presented to the Emergency Department on the above date and was hospitalized for further evaluation of their emergent condition. - New Patient This patient is new to me today: Yes Date on this admission: 06/11/17 - Critical Care Critical Care patient: No
[2017-06-12 07:58] LABS: HEMATOCRIT 41.7 % (35.4-49); HEMOGLOBIN 12.9 GM/dL (11.7-16.9); MCH 28.7 pg (25.7-33.7); MEAN CELL VOLUME 92.7 fl (80-96); MEAN PLT VOLUME 9.1 fl (7.5-11.1); PLATELET COUNT 133 K/MM3 (134-434); RDW 17.3 % (11.9-15.9)
[2017-06-12 08:12] LABS: ALBUMIN 2.6 g/dl (3.4-5.0); ANION GAP 6 (8-16); BILIRUBIN,TOTAL 0.4 mg/dL (0.2-1.0); BLOOD UREA NITROGEN 23 mg/dL (7-18); CHLORIDE 99 mmol/L (98-107); CO2 37 mmol/L (21-32); CREATININE 0.4 mg/dL (0.7-1.3); GLUCOSE,RANDOM 134 mg/dL (74-106); POTASSIUM 3.7 mmol/L (3.5-5.1); SGOT/AST 14 U/L (15-37); SGPT/ALT 27 U/L (12-78); SODIUM 142 mmol/L (136-145); TOT PROT 6.1 g/dl (6.4-8.2)
[2017-06-12 08:13] LABS: ALK PHOS 93 U/L (45-117)
[2017-06-12] MEDS: ALBUTEROL SO4 2.5/IPRATROPIUM 0.5 INH SOL 3 ML VIAL.NEB. NEB SCH ×4 (08:55→21:45)
[2017-06-12] MEDS: AMINO ACIDS/PROTEIN HYDROLYS 30 ML LIQUID.PKT PEG SCH ×2 (10:35→18:15)
[2017-06-12] MEDS: predniSONE 10 MG TABLET (UD) PEG SCH (10:35)
[2017-06-12] MEDS: POLYETHYLENE GLYCOL 3350 119 GM BTL NGT SCH ×2 (10:35→22:06)
[2017-06-12] MEDS: PANTOPRAZOLE SOD 40 MG SUSPENSION PACKET PEG SCH (10:35)
--- NOTE | 2017-06-12 12:46 | PN ---
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 LABS/IMAGES/MEDS/NOTES REVIEWED Hypoxemic respiratory failure resolved Multilobar PNA/ aspiration Fluid overload Acute COPD exacerbation HTN - peg in place/tolerating oral feedings -ABX discontinued as per ID -BD TX -prednisone to taper -heparin SubQ -protonix for GI ppx -O2 to maintain saturation -DNR/DNI -Aspiration precautions Raheem MONROE MD Problem List - Problems (1) COPD (chronic obstructive pulmonary disease) Code(s): J44.9 - CHRONIC OBSTRUCTIVE PULMONARY DISEASE, UNSPECIFIED Qualifiers: COPD type: COPD with acute lower respiratory infection Qualified Code(s): J44.0 - Chronic obstructive pulmonary disease with acute lower respiratory infection (2) Pneumonia Code(s): J18.9 - PNEUMONIA, UNSPECIFIED ORGANISM Qualifiers: Pneumonia type: due to unspecified organism Laterality: left Lung location: lower lobe of lung Qualified Code(s): J18.1 - Lobar pneumonia, unspecified organism (3) Anemia Code(s): D64.9 - ANEMIA, UNSPECIFIED (4) Sepsis Code(s): A41.9 - SEPSIS, UNSPECIFIED ORGANISM Qualifiers: Sepsis type: sepsis due to unspecified organism Qualified Code(s): A41.9 - Sepsis, unspecified organism (5) Hypertension Code(s): I10 - ESSENTIAL (PRIMARY) HYPERTENSION (6) Chronic steroid use Code(s): [id number] -
--- NOTE | 2017-06-12 13:18 | PN ---
Progress Note, [employer] - Note Progress Note: Selected Entries 06/11/17 06/11/17 06/11/17 06:00 10:00 14:17 Breakfast 25% Lunch 25% Supper Temperature 98.1 F 97.7 F 97.7 F 06/11/17 06/11/17 06/11/17 20:02 20:05 22:27 Breakfast Lunch Supper 25% Temperature 98 F 98 F 06/12/17 06/12/17 06:00 11:44 Breakfast 0 Lunch Supper Temperature 98.3 F Laboratory Tests 06/10/17 06/12/17 06:20 06:00 WBC 12.4 H D 11.0 H Pt now on pureed diet PO. Pt is frequently reclining. He refuses to main HOB elevated and lowers the HOB due to pain. With HOB reclined, risk of aspiration will be increased. Pain mgmt in order to maintain HOB elevation? Supervision with meals. Assist pt, reminding him to swallow HARD with each bite.Monitor pulmonary status. PEG for hydration. Supplemental nutrition via PEG may be beneficial.
--- NOTE | 2017-06-12 17:51 | PN ---
Teaching Attending Note Name of Resident: Jose F Young ATTENDING PHYSICIAN STATEMENT Time of evaluation: 11:20 AM I saw and evaluated the patient. I reviewed the resident's note and discussed the case with the resident. I agree with the resident's findings and plan as documented. SUBJECTIVE: Patient seen and examined. No complaints. Denies any new dyspnea. OBJECTIVE: Vital Signs Period Temp Pulse Resp BP Sys/Calderon Pulse Ox Last 24 Hr 97.9 F-98.3 F 80-103 20-20 116-136/65-91 85-94 Intake & Output 06/09/17 06/10/17 06/11/17 06/12/17 23:59 23:59 23:59 23:59 Intake Total 894 150 150 715 Output Total 1650 1400 300 Balance -756 -1250 -150 715 Weight 165 lb 4 oz 161 lb General: lying in bed, audible gurgling, tachypneic, mild use of accessory muscles of respiration CVS:S1s2 regular Chest: bilateral coarse rhonchi, few scattered rales Abdomen: soft, NT throughout, positive bowel sounds extremities: no edema Home Medication List Medication Instructions Recorded Confirmed Type Acetaminophen [Tylenol] 2 tab PO Q6H PRN 05/22/17 05/22/17 History Albuterol 2.5/Ipratropium 0.5 1 amp NEB TID 05/22/17 05/22/17 History [Duoneb -] Budesonide [Pulmicort 0.5 mg 1 neb PO BID 05/22/17 05/22/17 History Nebulizer -] Ipratropium 0.02% Nebulizer 1 amp NEB Q6H PRN 05/22/17 05/22/17 History [Atrovent 0.02% Nebulizer -] Menthol/Phenol [Cepastat Lozenge -] 1 each MM QID PRN 05/22/17 05/22/17 History Metoclopramide HCl 10 mg PO TID 05/22/17 05/22/17 History Prednisone 10 mg PO BID 05/22/17 05/22/17 History Tramadol HCl [Ultram] 2 mg PO DAILY 05/22/17 05/22/17 History Active Medications Generic Name Dose Route Start Last Admin Trade Name Freq PRN Reason Stop Dose Admin Acetaminophen 1,000 mg 05/23/17 16:51 06/10/17 10:11 Ofirmev Injection - IVPB 1,000 mg Q6H PRN Administration FEVER OR PAIN Albuterol Sulfate 1 amp 05/23/17 16:51 05/30/17 10:11 Ventolin 0.083% Nebulizer Soln - NEB 1 amp Q4H PRN Administration SHORT OF BREATH/WHEEZING Albuterol/Ipratropium 1 amp 06/04/17 10:22 06/12/17 16:47 Duoneb - NEB 1 amp RQID BRITTNY Administration Amino Acids 30 ml 06/08/17 17:30 06/12/17 10:35 Prosource No Carb Liquid Pkt PEG 30 ml BID@0800,1730 BRITTNY Administration Pantoprazole Sodium 40 mg 06/08/17 16:15 06/12/17 10:35 Protonix Packets For Oral Suspension - PEG 40 mg DAILY BRITTNY Administration Polyethylene Glycol 17 gm 06/09/17 22:00 06/12/17 10:35 Miralax (For Daily Use) - NGT 17 gm BID BRITTNY Administration Prednisone 20 mg 06/13/17 10:00 Deltasone - PEG DAILY BRITTNY Scopolamine HBr 1 patch 06/02/17 12:30 06/11/17 20:16 Transderm-Scop - TD Not Given Q3D BRITTNY Laboratory Results - last 24 hr 06/12/17 06/12/17 06:00 06:00 WBC 11.0 H RBC 4.50 Hgb 12.9 Hct 41.7 MCV 92.7 MCH 28.7 MCHC 31.0 L RDW 17.3 H Plt Count 133 L D MPV 9.1 Sodium 142 Potassium 3.7 Chloride 99 Carbon Dioxide 37 H Anion Gap 6 L BUN 23 H Creatinine 0.4 L D Creat Clearance w eGFR > 60 Random Glucose 134 H D Calcium 9.0 Total Bilirubin 0.4 D AST 14 L D ALT 27 D Alkaline Phosphatase 93 Total Protein 6.1 L Albumin 2.6 L Microbiology 05/22/17 09:15 Blood - Peripheral Venous Blood Culture - Final NO GROWTH AFTER 5 DAYS INCUBATION 05/22/17 09:15 Blood - Peripheral Venous Blood Culture - Final NO GROWTH AFTER 5 DAYS INCUBATION 05/22/17 22:52 Urine - Urine Clean Catch Urine Culture - Final NO GROWTH OBTAINED 05/23/17 18:15 Urine For Antigen Detection Legionella Antigen - Final 05/23/17 18:15 Urine For Antigen Detection Streptococcus pneumoniae Antigen (M - Final 05/22/17 17:30 Nasopharyngeal Swab Influenza Types A,B Antigen (LAURA) - Final 05/22/17 17:30 Nasopharyngeal Swab - Final ASSESSMENT AND PLAN: 87 year old male with a PMHx of HTN, COPD (3L NC at night), Osteoarthritis, Dysphagia, PUD presented to the ER with acute hypoxic respiratory distress -acute hypoxic/hypercapneic respiratory distress, suspect aspiration PNA, acute on chronic COPD with mild diastolic HF. -Sepsis due to aspiration PNA -Dysphagia -leucocytosis, suspect ongoing aspriation -Back pain -Abdominal pain -hypokalemia -Hypophosphatemia -HTN -PUD plan; s/p 8 days of cefepime, off antibiotics. WBC improved. Suspect ongoing aspiration. Aspiration precautions (patient no compliant with HOB elevation). Abdominal symptoms resolved after BM. No new concerns. Patient with worsening rhonchi and gurgling today, had received trial with tube feeds over the weekend, held given increased aspiration concerns. Will need to hold tube feeds for now. Dysphagia pureed diet. Reconsult palliative care to address goals of care as patient wtih ongoing aspiration and tenuous respiratory status. Oxygen saturations 80s today that improved later in low 90s. Hold off additional lasix as looks clinically dry, respiratory symptoms predominantly suspect from ongoing aspiration. Slow prednisone taper. replete lytes prn. GI/DVTPPX Poor prognosis, DNR/DNI, no central line or pressors. Discussed with palliative care, will re-address goals of care with HCP as patient with ongoing aspiration , tenuous respiratory status and poor oxygenation inspite of multiple runs of antibiotics, steroids and diuresis. Dispo planning pending above.
--- NOTE | 2017-06-12 17:57 | PN ---
Physical Exam: SUBJECTIVE: Patient seen and examined. No acute events overnight. Offers no new complaints. OBJECTIVE: Vital Signs Period Temp Pulse Resp BP Sys/Calderon Pulse Ox Last 24 Hr 97.9 F-98.3 F 80-103 20-20 116-136/65-91 85-94 GENERAL: Laying in bed, in no acute distress HEAD: Normal with no signs of trauma. EYES: EOMI, PERRLA ENT: Dry mucous membranes LUNGS: course breath sounds throughout (worse than yesterday), mild use of accessory muscle HEART: regular rate and rhythm, no murmurs appreciated ABDOMEN: RLQ tenderness to palpation, +BS, Peg tube: no drainage, erythema. EXTREMITIES: 2+ pulses, warm, well-perfused, no edema. SKIN: Warm, dry, normal turgor, no rashes or lesions noted Laboratory Results - last 24 hr 06/12/17 06/12/17 06:00 06:00 WBC 11.0 H RBC 4.50 Hgb 12.9 Hct 41.7 MCV 92.7 MCH 28.7 MCHC 31.0 L RDW 17.3 H Plt Count 133 L D MPV 9.1 Sodium 142 Potassium 3.7 Chloride 99 Carbon Dioxide 37 H Anion Gap 6 L BUN 23 H Creatinine 0.4 L D Creat Clearance w eGFR > 60 Random Glucose 134 H D Calcium 9.0 Total Bilirubin 0.4 D AST 14 L D ALT 27 D Alkaline Phosphatase 93 Total Protein 6.1 L Albumin 2.6 L Active Medications Generic Name Dose Route Start Last Admin Trade Name Freq PRN Reason Stop Dose Admin Acetaminophen 1,000 mg 05/23/17 16:51 06/10/17 10:11 Ofirmev Injection - IVPB 1,000 mg Q6H PRN Administration FEVER OR PAIN Albuterol Sulfate 1 amp 05/23/17 16:51 05/30/17 10:11 Ventolin 0.083% Nebulizer Soln - NEB 1 amp Q4H PRN Administration SHORT OF BREATH/WHEEZING Albuterol/Ipratropium 1 amp 06/04/17 10:22 06/12/17 16:47 Duoneb - NEB 1 amp RQID BRITTNY Administration Amino Acids 30 ml 06/08/17 17:30 06/12/17 10:35 Prosource No Carb Liquid Pkt PEG 30 ml BID@0800,1730 BRITTNY Administration Pantoprazole Sodium 40 mg 06/08/17 16:15 06/12/17 10:35 Protonix Packets For Oral Suspension - PEG 40 mg DAILY BRITTNY Administration Polyethylene Glycol 17 gm 06/09/17 22:00 06/12/17 10:35 Miralax (For Daily Use) - NGT 17 gm BID BRITTNY Administration Prednisone 20 mg 06/13/17 10:00 Deltasone - PEG DAILY BRITTNY Scopolamine HBr 1 patch 06/02/17 12:30 06/11/17 20:16 Transderm-Scop - TD Not Given Q3D BRITTNY ASSESSMENT/PLAN: 87yo M with h/o COPD (baseline 3LNC at night), HTN, OA who was found to acute hypoxic hypercapnic distress. #Acute hypoxic hypercapnic respiratory distress -2/2 to PNA most likely with component of COPD -Prednisone 20mg qDaily; continue to taper -Maintain SpO2 >88-90% -Pulmonology on board -Duoneb QID PRN -Nebs PRN q4h #Sepsis 2/2 to PNA -Abx completed -Suspected on-going aspiration due to no improvement in breath sounds -worsening breath sounds today. It is documented patient drank juice. -Will stop tube feeds, not tolerating. -s/p PEG tube 06/07; currently being used -Aspiration precautions -Afebrile -Leukocytosis downtrending #Abdominal Pain -resolved #HTN -Currently controlled -Continue BP monitoring #FEN: Fluids: None Electrolyte abnormalities: None Nutrition: Dysphagia puree diet with NO PO fluids #PPx: Heparin SQ TID Dispo: Poor prognosis. DNR/DNI, no central line or pressors. Meeting set up with healthcare proxy for tomorrow to discuss goals of care. Visit type - Emergency Visit Emergency Visit: Yes ED Registration Date: 05/22/17 Care time: The patient presented to the Emergency Department on the above date and was hospitalized for further evaluation of their emergent condition. - New Patient This patient is new to me today: No - Critical Care Critical Care patient: No - Discharge Referral Referred to [facility] Med P.C.: No
[2017-06-12] MEDS: HEPARIN NA (PORCINE) 5,000 UNITS/ML 1ML VIAL SQ SCH (22:06)
[2017-06-13] MEDS: ALBUTEROL SO4 0.083% IH SOL 2.5 MG/3 ML VIAL.NEB. NEB PRN (03:01)
[2017-06-13] MEDS: HEPARIN NA (PORCINE) 5,000 UNITS/ML 1ML VIAL SQ SCH ×3 (05:52→22:24)
[2017-06-13 07:28] LABS: HEMOGLOBIN 12.7 GM/dL (11.7-16.9); MCH 28.6 pg (25.7-33.7); MCHC 30.9 g/dl (32.0-35.9); MEAN CELL VOLUME 92.6 fl (80-96); MEAN PLT VOLUME 8.7 fl (7.5-11.1); PLATELET COUNT 124 K/MM3 (134-434); RBC 4.43 M/mm3 (4.00-5.60); RDW 17.4 % (11.9-15.9); WHITE BLOOD COUNT 9.2 K/mm3 (4.0-10.0)
[2017-06-13 08:25] LABS: CHLORIDE 99 mmol/L (98-107); POTASSIUM 3.8 mmol/L (3.5-5.1); SODIUM 141 mmol/L (136-145)
[2017-06-13] MEDS: ALBUTEROL SO4 2.5/IPRATROPIUM 0.5 INH SOL 3 ML VIAL.NEB. NEB SCH ×4 (08:35→20:00)
[2017-06-13 08:51] LABS: ANION GAP 9 (8-16); BLOOD UREA NITROGEN 20 mg/dL (7-18); CALCIUM 8.9 mg/dL (8.5-10.1); CO2 33 mmol/L (21-32); CREATININE 0.3 mg/dL (0.7-1.3); GLUCOSE,RANDOM 94 mg/dL (74-106)
[2017-06-13] MEDS: AMINO ACIDS/PROTEIN HYDROLYS 30 ML LIQUID.PKT PEG SCH ×2 (08:52→17:01)
--- NOTE | 2017-06-13 09:58 | PN ---
Progress Note (short form) - Note Progress Note: Resting in NAD. Breathing non-labored. No acute events overnight. Intake & Output 06/10/17 06/11/17 06/12/17 06/13/17 23:59 23:59 23:59 23:59 Intake Total 150 150 715 200 Output Total 1400 300 200 Balance -1250 -150 515 200 Weight 161 lb 159 lb 9.6 oz Last Vital Signs Temp Pulse Resp BP Pulse Ox 97.8 F 79 20 138/70 90 L 06/13/17 09:09 06/13/17 09:09 06/13/17 09:09 06/13/17 09:09 06/12/17 21:00 Active Medications Acetaminophen (Ofirmev Injection -) 1,000 mg IVPB Q6H PRN PRN Reason: FEVER OR PAIN Last Admin: 06/10/17 10:11 Dose: 1,000 mg Albuterol Sulfate (Ventolin 0.083% Nebulizer Soln -) 1 amp NEB Q4H PRN PRN Reason: SHORT OF BREATH/WHEEZING Last Admin: 06/13/17 03:01 Dose: 1 amp Albuterol/Ipratropium (Duoneb -) 1 amp NEB RQID [facility] Last Admin: 06/12/17 21:45 Dose: 1 amp Amino Acids (Prosource No Carb Liquid Pkt) 30 ml PEG BID@0800,1730 [facility] Last Admin: 06/13/17 08:52 Dose: 30 ml Heparin Sodium (Porcine) (Heparin -) 5,000 unit SQ TID [facility] Last Admin: 06/13/17 05:52 Dose: 5,000 unit Pantoprazole Sodium (Protonix Packets For Oral Suspension -) 40 mg PEG DAILY [facility] Last Admin: 06/12/17 10:35 Dose: 40 mg Polyethylene Glycol (Miralax (For Daily Use) -) 17 gm NGT BID [facility] Last Admin: 06/12/17 22:06 Dose: 17 gm Prednisone (Deltasone -) 20 mg PEG DAILY [facility] Scopolamine HBr (Transderm-Scop -) 1 patch TD Q3D [facility] Last Admin: 06/11/17 20:16 Dose: Not Given Gen: NAD Heart: RRR Lung: bilateral rhonchi, no wheeze Abd: soft, nontender Ext: no edema Laboratory Results - last 24 hr 06/13/17 06/13/17 06:30 06:30 WBC 9.2 RBC 4.43 Hgb 12.7 Hct 41.0 MCV 92.6 MCH 28.6 MCHC 30.9 L RDW 17.4 H Plt Count 124 L MPV 8.7 Sodium 141 Potassium 3.8 Chloride 99 Carbon Dioxide 33 H Anion Gap 9 BUN 20 H Creatinine 0.3 L D Random Glucose 94 D Calcium 8.9 A/P Acute COPD/Bronchiectasis Exacerbation Acute on Chronic Hypoxic Respiratory Failure r/o Pneumonia Emphysema +Troponins likely Demand Ischemia HTN - prednisone taper - inhaled bronchodilators standing and PRN - O2 to keep SpO2 >90% - OOB to chair if possible - rehab/physical therapy - DVT prophylaxis - DNR/DNI - D/C planning Dr Tobar
[2017-06-13] MEDS: predniSONE 20 MG TABLET (UD) PEG SCH (10:23)
[2017-06-13] MEDS: PANTOPRAZOLE SOD 40 MG SUSPENSION PACKET PEG SCH (10:23)
[2017-06-13] MEDS: POLYETHYLENE GLYCOL 3350 119 GM BTL NGT SCH ×2 (10:23→22:04)
--- NOTE | 2017-06-13 14:39 | PN ---
Progress Note, [employer]IMAL BEH[employer] - Note Progress Note: Selected Entries 06/12/17 06/12/17 06/12/17 06:00 10:00 15:35 Lunch 50% Supper Temperature 98.3 F 98.3 F 97.9 F 06/12/17 06/12/17 06/12/17 20:15 20:17 22:00 Lunch Supper 25% Temperature 97.9 F 97.5 F L 06/13/17 06/13/17 06/13/17 05:37 05:51 09:09 Lunch Supper Temperature 97.6 F 97.2 F L 97.8 F Pureed diet by mouth. Receiving hydration via PEG. Plan is to return [facility].
--- NOTE | 2017-06-13 15:44 | PN ---
Progress Note, Physician History of Present Illness: No events. Awake and alert. Mild pain at PEG. Skin intact, minimal leak, no bleeding. - Current Medication List Current Medications: Active Medications Acetaminophen (Ofirmev Injection -) 1,000 mg IVPB Q6H PRN PRN Reason: FEVER OR PAIN Last Admin: 06/10/17 10:11 Dose: 1,000 mg Albuterol Sulfate (Ventolin 0.083% Nebulizer Soln -) 1 amp NEB Q4H PRN PRN Reason: SHORT OF BREATH/WHEEZING Last Admin: 06/13/17 03:01 Dose: 1 amp Albuterol/Ipratropium (Duoneb -) 1 amp NEB RQID [facility] Last Admin: 06/13/17 12:07 Dose: 1 amp Amino Acids (Prosource No Carb Liquid Pkt) 30 ml PEG BID@0800,1730 [facility] Last Admin: 06/13/17 08:52 Dose: 30 ml Heparin Sodium (Porcine) (Heparin -) 5,000 unit SQ TID [facility] Last Admin: 06/13/17 14:01 Dose: 5,000 unit Pantoprazole Sodium (Protonix Packets For Oral Suspension -) 40 mg PEG DAILY [facility] Last Admin: 06/13/17 10:23 Dose: 40 mg Polyethylene Glycol (Miralax (For Daily Use) -) 17 gm NGT BID [facility] Last Admin: 06/13/17 10:23 Dose: 17 gm Prednisone (Deltasone -) 20 mg PEG DAILY [facility] Last Admin: 06/13/17 10:23 Dose: 20 mg Scopolamine HBr (Transderm-Scop -) 1 patch TD Q3D [facility] Last Admin: 06/11/17 20:16 Dose: Not Given - Objective Vital Signs: Vital Signs Temperature 97.8 F 06/13/17 15:20 Pulse Rate 87 06/13/17 15:20 Respiratory Rate 20 06/13/17 15:20 Blood Pressure 127/69 06/13/17 15:20 O2 Sat by Pulse Oximetry (%) 96 06/13/17 09:00 Gastrointestinal: Yes: Other (G-tube bumper was to tight. Readjusted to 4 from 3.5.) Neurological: Yes: Alert, Oriented Labs: CBC, BMP 06/13/17 06:30 06/13/17 06:30 INR, PTT INR 0.96 (0.82-1.09) 06/07/17 06:35 CBCD WBC 9.2 K/mm3 (4.0-10.0) 06/13/17 06:30 RBC 4.43 M/mm3 (4.00-5.60) 06/13/17 06:30 Hgb 12.7 GM/dL (11.7-16.9) 06/13/17 06:30 Hct 41.0 % (35.4-49) 06/13/17 06:30 MCV 92.6 fl (80-96) 06/13/17 06:30 MCHC 30.9 g/dl (32.0-35.9) L 06/13/17 06:30 RDW 17.4 % (11.9-15.9) H 06/13/17 06:30 Plt Count 124 K/MM3 (134-434) L 06/13/17 06:30 MPV 8.7 fl (7.5-11.1) 06/13/17 06:30 CMP Sodium 141 mmol/L (136-145) 06/13/17 06:30 Potassium 3.8 mmol/L (3.5-5.1) 06/13/17 06:30 Chloride 99 mmol/L (98-107) 06/13/17 06:30 Carbon Dioxide 33 mmol/L (21-32) H 06/13/17 06:30 Anion Gap 9 (8-16) 06/13/17 06:30 BUN 20 mg/dL (7-18) H 06/13/17 06:30 Creatinine 0.3 mg/dL (0.7-1.3) L D 06/13/17 06:30 Creat Clearance w eGFR > 60 (>60) 06/12/17 06:00 Calcium 8.9 mg/dL (8.5-10.1) 06/13/17 06:30 Total Bilirubin 0.4 mg/dL (0.2-1.0) D 06/12/17 06:00 AST 14 U/L (15-37) L D 06/12/17 06:00 ALT 27 U/L (12-78) D 06/12/17 06:00 Alkaline Phosphatase 93 U/L (45-117) 06/12/17 06:00 Total Protein 6.1 g/dl (6.4-8.2) L 06/12/17 06:00 Albumin 2.6 g/dl (3.4-5.0) L 06/12/17 06:00 Problem List - Problems (1) Aspiration into airway Code(s): T17.908A - UNSP FB IN RESP TRACT, PART UNSP CAUSING OTH INJURY, INIT (2) Inadequate oral nutritional intake Code(s): R63.8 - OTHER SYMPTOMS AND SIGNS CONCERNING FOOD AND FLUID INTAKE Assessment/Plan Keep external bumper at about 4. It should be not too tight, or too lose PEG care and aspiration precautions as per protocol PO/PEG nutrition as tolerated. PEG hydration
--- NOTE | 2017-06-13 17:04 | PN ---
Teaching Attending Note Name of Resident: Jose F Young ATTENDING PHYSICIAN STATEMENT Time of evaluation: 9:40 AM and again 2;30 PM I saw and evaluated the patient. I reviewed the resident's note and discussed the case with the resident. I agree with the resident's findings and plan as documented. SUBJECTIVE: Patient seen and examined. Breathing overall unchanged, no new complaints. OBJECTIVE: Vital Signs Period Temp Pulse Resp BP Sys/Calderon Pulse Ox Last 24 Hr 97.2 F-97.9 F 74-92 20-22 115-142/69-87 90-96 Intake & Output 06/10/17 06/11/17 06/12/17 06/13/17 23:59 23:59 23:59 23:59 Intake Total 150 150 715 200 Output Total 1400 300 200 100 Balance -1250 -150 515 100 Weight 161 lb 159 lb 9.6 oz general: lying in bed, tachypneic, some use of accessory muscles of respiration Chest: bilateral scattered rhonchi R>L, decreased air entry all over Abdomen: soft, NT, ND, positive bowel sounds, PEG in place Extremities: no edema Home Medication List Medication Instructions Recorded Confirmed Type Acetaminophen [Tylenol] 2 tab PO Q6H PRN 05/22/17 05/22/17 History Albuterol 2.5/Ipratropium 0.5 1 amp NEB TID 05/22/17 05/22/17 History [Duoneb -] Budesonide [Pulmicort 0.5 mg 1 neb PO BID 05/22/17 05/22/17 History Nebulizer -] Ipratropium 0.02% Nebulizer 1 amp NEB Q6H PRN 05/22/17 05/22/17 History [Atrovent 0.02% Nebulizer -] Menthol/Phenol [Cepastat Lozenge -] 1 each MM QID PRN 05/22/17 05/22/17 History Metoclopramide HCl 10 mg PO TID 05/22/17 05/22/17 History Prednisone 10 mg PO BID 05/22/17 05/22/17 History Tramadol HCl [Ultram] 2 mg PO DAILY 05/22/17 05/22/17 History Active Medications Generic Name Dose Route Start Last Admin Trade Name Freq PRN Reason Stop Dose Admin Acetaminophen 1,000 mg 05/23/17 16:51 06/10/17 10:11 Ofirmev Injection - IVPB 1,000 mg Q6H PRN Administration FEVER OR PAIN Albuterol Sulfate 1 amp 05/23/17 16:51 06/13/17 03:01 Ventolin 0.083% Nebulizer Soln - NEB 1 amp Q4H PRN Administration SHORT OF BREATH/WHEEZING Albuterol/Ipratropium 1 amp 06/04/17 10:22 06/13/17 16:41 Duoneb - NEB 1 amp RQID [facility] Administration Amino Acids 30 ml 06/08/17 17:30 06/13/17 08:52 Prosource No Carb Liquid Pkt PEG 30 ml BID@0800,1730 [facility] Administration Heparin Sodium (Porcine) 5,000 unit 06/12/17 22:00 06/13/17 14:01 Heparin - SQ 5,000 unit TID [facility] Administration Pantoprazole Sodium 40 mg 06/08/17 16:15 06/13/17 10:23 Protonix Packets For Oral Suspension - PEG 40 mg DAILY [facility] Administration Polyethylene Glycol 17 gm 06/09/17 22:00 06/13/17 10:23 Miralax (For Daily Use) - NGT 17 gm BID [facility] Administration Prednisone 20 mg 06/13/17 10:00 06/13/17 10:23 Deltasone - PEG 20 mg DAILY [facility] Administration Scopolamine HBr 1 patch 06/02/17 12:30 06/11/17 20:16 Transderm-Scop - TD Not Given Q3D [facility] Laboratory Results - last 24 hr 06/13/17 06/13/17 06:30 06:30 WBC 9.2 RBC 4.43 Hgb 12.7 Hct 41.0 MCV 92.6 MCH 28.6 MCHC 30.9 L RDW 17.4 H Plt Count 124 L MPV 8.7 Sodium 141 Potassium 3.8 Chloride 99 Carbon Dioxide 33 H Anion Gap 9 BUN 20 H Creatinine 0.3 L D Random Glucose 94 D Calcium 8.9 Microbiology 05/22/17 09:15 Blood - Peripheral Venous Blood Culture - Final NO GROWTH AFTER 5 DAYS INCUBATION 05/22/17 09:15 Blood - Peripheral Venous Blood Culture - Final NO GROWTH AFTER 5 DAYS INCUBATION 05/22/17 22:52 Urine - Urine Clean Catch Urine Culture - Final NO GROWTH OBTAINED 05/23/17 18:15 Urine For Antigen Detection Legionella Antigen - Final 12/28/17 18:15 Urine For Antigen Detection Streptococcus pneumoniae Antigen (M - Final 05/22/17 17:30 Nasopharyngeal Swab Influenza Types A,B Antigen ([facility]) - Final 05/22/17 17:30 Nasopharyngeal Swab - Final ASSESSMENT AND PLAN: 87 year old male with a PMHx of HTN, COPD (3L NC at night), Osteoarthritis, Dysphagia, PUD presented to the ER with acute hypoxic respiratory distress -acute hypoxic/hypercapneic respiratory distress, suspect aspiration PNA, acute on chronic COPD with mild diastolic HF. -Sepsis due to aspiration PNA -Dysphagia -leucocytosis, suspect ongoing aspriation -Back pain -Abdominal pain -hypokalemia -Hypophosphatemia -HTN -PUD plan; s/p 8 days of cefepime, off antibiotics. WBC improved. Suspect ongoing aspiration. Aspiration precautions (patient no compliant with HOB elevation). Abdominal symptoms resolved after BM. No new concerns. Trial with nocturnal tube feeds x 2, patient noted with increased gurgling and respiratory symptoms. Dysphagia pureed diet. Palliative care consulted. detailed meeting with HCP today. Explained about recurrent trials with broad spectrum antibiotics, steroids, diuresis, and ongoing aspiration with or without feeds with poor functional status, continued tenuous respiratory status with respiratory distress at rest and poor oral intake. Discussed overall poor prognosis. HCP confirms DNR/DNI, no aggressive measures. HCP wants patient to be comfortable and does not want to be brought back to the hospital. Agrees with focusing on comfort measures and DNH. Patient agreable with the plan. Agreeable to [facility] with hospice if able. Will consider [place] as indicated. Will follow up with palliative care and social work for possible d/c to [facility] with hospice in AM. Total time spent including patient visit and exam, detailed discussion about goals of care and co-ordination of care 45 min.
--- NOTE | 2017-06-13 18:04 | PN ---
Physical Exam: SUBJECTIVE: Patient seen and examined. No acute events overnight. Patient offers no new complaints. Denies chest pain, dizziness, diarrhea, and abdominal pain. OBJECTIVE: Vital Signs Period Temp Pulse Resp BP Sys/Calderon Pulse Ox Last 24 Hr 97.2 F-97.9 F 74-92 20-22 115-142/69-87 90-96 GENERAL: Laying in bed, in no acute distress HEAD: Normal with no signs of trauma. EYES: EOMI, PERRLA ENT: Dry mucous membranes LUNGS: course breath sounds throughout, use of accessory muscle HEART: regular rate and rhythm, no murmurs appreciated ABDOMEN: +BS, NT, ND, Peg tube: no drainage, erythema. EXTREMITIES: 2+ pulses, warm, well-perfused, no edema. SKIN: Warm, dry, normal turgor, no rashes or lesions noted Laboratory Results - last 24 hr 06/13/17 06/13/17 06:30 06:30 WBC 9.2 RBC 4.43 Hgb 12.7 Hct 41.0 MCV 92.6 MCH 28.6 MCHC 30.9 L RDW 17.4 H Plt Count 124 L MPV 8.7 Sodium 141 Potassium 3.8 Chloride 99 Carbon Dioxide 33 H Anion Gap 9 BUN 20 H Creatinine 0.3 L D Random Glucose 94 D Calcium 8.9 Active Medications Generic Name Dose Route Start Last Admin Trade Name Bj PRN Reason Stop Dose Admin Acetaminophen 1,000 mg 05/23/17 16:51 06/10/17 10:11 Ofirmev Injection - IVPB 1,000 mg Q6H PRN Administration FEVER OR PAIN Albuterol Sulfate 1 amp 05/23/17 16:51 06/13/17 03:01 Ventolin 0.083% Nebulizer Soln - NEB 1 amp Q4H PRN Administration SHORT OF BREATH/WHEEZING Albuterol/Ipratropium 1 amp 06/04/17 10:22 06/13/17 16:41 Duoneb - NEB 1 amp RQID [facility] Administration Amino Acids 30 ml 06/08/17 17:30 06/13/17 17:01 Prosource No Carb Liquid Pkt PEG 30 ml BID@0800,1730 [facility] Administration Heparin Sodium (Porcine) 5,000 unit 06/12/17 22:00 06/13/17 14:01 Heparin - SQ 5,000 unit TID [facility] Administration Pantoprazole Sodium 40 mg 06/08/17 16:15 06/13/17 10:23 Protonix Packets For Oral Suspension - PEG 40 mg DAILY [facility] Administration Polyethylene Glycol 17 gm 06/09/17 22:00 06/13/17 10:23 Miralax (For Daily Use) - NGT 17 gm BID [facility] Administration Prednisone 20 mg 06/13/17 10:00 06/13/17 10:23 Deltasone - PEG 20 mg DAILY [facility] Administration Scopolamine HBr 1 patch 06/02/17 12:30 06/11/17 20:16 Transderm-Scop - TD Not Given Q3D [facility] ASSESSMENT/PLAN: ASSESSMENT/PLAN: 87yo M with h/o COPD (baseline 3LNC at night), HTN, OA who was found to acute hypoxic hypercapnic distress. #Acute hypoxic hypercapnic respiratory distress -2/2 to PNA most likely with component of COPD -off antibiotics s/p 8 days cefepime -Prednisone 20mg; continue to taper -2 trials with nocturnal tube feeds. Patient noted with increased respiratory symptoms. -Maintain SpO2 >88-90% -O2 3L NC -Pulmonology on board -Duoneb QID PRN -Nebs PRN q4h -Palliative care consulted. #Sepsis 2/2 to PNA -Suspected on-going aspiration due to no improvement in breath sounds -s/p PEG tube 06/07; -stopped tube feeds -Aspiration precautions -Afebrile -Leukocytosis downtrending #Abdominal Pain -resolved after BM #HTN -Currently controlled -Continue BP monitoring #FEN: No fluids Will replete if needed Dysphagia puree diet #PPX: DVT - Heparin SQ TID Long discussion today with Health care proxy. Discussed hospital course with no improvement in symptoms with steroids, antibiotic trials, on going aspiration and also failed tube feeds. Explained to HCP prognosis was poor. Patient is DNR /DNI. HCP and patien both agreed for no agressive and comfort care. They are agreenable to [facility] for hospice and will consider [place]. Will FU with Palliative for possible DC tomorrow. Visit type - Emergency Visit Emergency Visit: Yes ED Registration Date: 05/22/17 Care time: The patient presented to the Emergency Department on the above date and was hospitalized for further evaluation of their emergent condition. - New Patient This patient is new to me today: No - Critical Care Critical Care patient: No
[2017-06-14] MEDS: HEPARIN NA (PORCINE) 5,000 UNITS/ML 1ML VIAL SQ SCH ×3 (06:18→22:33)
[2017-06-14 07:56] LABS: ANION GAP 6 (8-16); BLOOD UREA NITROGEN 19 mg/dL (7-18); CALCIUM 8.5 mg/dL (8.5-10.1); CHLORIDE 99 mmol/L (98-107); CO2 34 mmol/L (21-32); GLUCOSE,RANDOM 99 mg/dL (74-106); POTASSIUM 3.7 mmol/L (3.5-5.1); SODIUM 139 mmol/L (136-145)
[2017-06-14 07:57] LABS: CREATININE 0.3 mg/dL (0.7-1.3)
[2017-06-14 08:13] LABS: HEMATOCRIT 40.2 % (35.4-49); HEMOGLOBIN 12.3 GM/dL (11.7-16.9); MCH 28.6 pg (25.7-33.7); MCHC 30.7 g/dl (32.0-35.9); MEAN CELL VOLUME 93.2 fl (80-96); MEAN PLT VOLUME 9.1 fl (7.5-11.1); PLATELET COUNT 126 K/MM3 (134-434); RBC 4.31 M/mm3 (4.00-5.60); RDW 17.5 % (11.9-15.9)
[2017-06-14] MEDS: ALBUTEROL SO4 2.5/IPRATROPIUM 0.5 INH SOL 3 ML VIAL.NEB. NEB SCH ×4 (08:55→20:45)
[2017-06-14] MEDS: PANTOPRAZOLE SOD 40 MG SUSPENSION PACKET PEG SCH (09:22)
[2017-06-14] MEDS: AMINO ACIDS/PROTEIN HYDROLYS 30 ML LIQUID.PKT PEG SCH ×2 (09:23→17:24)
[2017-06-14] MEDS: predniSONE 20 MG TABLET (UD) PEG SCH (09:23)
[2017-06-14] MEDS: POLYETHYLENE GLYCOL 3350 119 GM BTL NGT SCH ×2 (09:24→22:34)
--- NOTE | 2017-06-14 11:43 | PN ---
Progress Note (short form) - Note Progress Note: PULMONAR VSS/AFEBRILE CHRONICALLY ILL IN APPEARANCE PALE/ANICTERIC BIBASILAR DIMINISHED BREATH SOUNDS/SCATTERED RHONCHI S1S2 BS+/PEG HEEL OFF-ORNAMENTAL PLASTER STICKER NO EDEMA LABS/IMAGES/MEDS/NOTES REVIEWED Hypoxemic respiratory failure resolved Multilobar PNA/ aspiration Fluid overload Acute COPD exacerbation HTN - peg in place/ -ABX discontinued as per ID -BD TX -prednisone to taper -heparin SubQ -protonix for GI ppx -O2 to maintain saturation -DNR/DNI -Aspiration precautions -Agree with attending regarding need for comfort measures and hospice evaluation -Please call PRN Thank you, Raheem MONROE MD Problem List - Problems (1) COPD (chronic obstructive pulmonary disease) Code(s): J44.9 - CHRONIC OBSTRUCTIVE PULMONARY DISEASE, UNSPECIFIED Qualifiers: COPD type: COPD with acute lower respiratory infection Qualified Code(s): J44.0 - Chronic obstructive pulmonary disease with acute lower respiratory infection (2) Pneumonia Code(s): J18.9 - PNEUMONIA, UNSPECIFIED ORGANISM Qualifiers: Pneumonia type: due to unspecified organism Laterality: left Lung location: lower lobe of lung Qualified Code(s): J18.1 - Lobar pneumonia, unspecified organism (3) Anemia Code(s): D64.9 - ANEMIA, UNSPECIFIED (4) Sepsis Code(s): A41.9 - SEPSIS, UNSPECIFIED ORGANISM Qualifiers: Sepsis type: sepsis due to unspecified organism Qualified Code(s): A41.9 - Sepsis, unspecified organism (5) Hypertension Code(s): I10 - ESSENTIAL (PRIMARY) HYPERTENSION (6) Chronic steroid use Code(s): VWC2032 -
[2017-06-14] MEDS: SCOPOLAMINE HYDROBROMIDE 1 PATCH PATCH.TD72 TD SCH (13:08)
--- NOTE | 2017-06-14 15:04 | PN ---
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 No liquids. Hydration via PEG. Day 1 Calorie Count results: Pt consumed all of breakfast, 25-50% lunch and dinner. Day 1 intake: 891 Myles 27 g protein. Nutrition Selected Entries 06/13/17 06/13/17 06/13/17 05:37 05:51 09:09 Breakfast Lunch Supper Temperature 97.6 F 97.2 F L 97.8 F 06/13/17 06/13/17 06/13/17 15:18 15:20 19:45 Breakfast 75% Lunch 50% Supper 50% Temperature 97.8 F 98.0 F 06/13/17 06/14/17 06/14/17 22:27 06:17 10:00 Breakfast Lunch Supper Temperature 98 F 97.4 F L 98 F 06/14/17 14:40 Breakfast 75% Lunch 75% Supper Temperature 97.7 F Laboratory Tests 06/14/17 06:30 WBC 9.0 Pending d/c to [facility].
--- NOTE | 2017-06-14 15:23 | PN ---
Progress Note, Physician History of Present Illness: No events. Awake and alert. Skin intact, no leak, no bleeding - Current Medication List Current Medications: Active Medications Acetaminophen (Ofirmev Injection -) 1,000 mg IVPB Q6H PRN PRN Reason: FEVER OR PAIN Last Admin: 06/10/17 10:11 Dose: 1,000 mg Albuterol Sulfate (Ventolin 0.083% Nebulizer Soln -) 1 amp NEB Q4H PRN PRN Reason: SHORT OF BREATH/WHEEZING Last Admin: 06/13/17 03:01 Dose: 1 amp Albuterol/Ipratropium (Duoneb -) 1 amp NEB RQID [facility] Last Admin: 06/14/17 12:19 Dose: 1 amp Amino Acids (Prosource No Carb Liquid Pkt) 30 ml PEG BID@0800,1730 [facility] Last Admin: 06/14/17 09:23 Dose: 30 ml Heparin Sodium (Porcine) (Heparin -) 5,000 unit SQ TID [facility] Last Admin: 06/14/17 13:08 Dose: 5,000 unit Pantoprazole Sodium (Protonix Packets For Oral Suspension -) 40 mg PEG DAILY [facility] Last Admin: 06/14/17 09:22 Dose: 40 mg Polyethylene Glycol (Miralax (For Daily Use) -) 17 gm NGT BID [facility] Last Admin: 06/14/17 09:24 Dose: 17 gm Prednisone (Deltasone -) 20 mg PEG DAILY [facility] Last Admin: 06/14/17 09:23 Dose: 20 mg Scopolamine HBr (Transderm-Scop -) 1 patch TD Q3D [facility] Last Admin: 06/14/17 13:08 Dose: 1 patch - Objective Vital Signs: Vital Signs Temperature 97.7 F 06/14/17 14:40 Pulse Rate 76 06/14/17 14:40 Respiratory Rate 20 06/14/17 14:40 Blood Pressure 129/74 06/14/17 14:40 O2 Sat by Pulse Oximetry (%) 98 06/14/17 09:00 Neurological: Yes: Alert, Oriented Labs: CBC, BMP 06/14/17 06:30 06/14/17 06:30 INR, PTT INR 0.96 (0.82-1.09) 06/07/17 06:35 Laboratory Results - last 24 hr 06/14/17 06/14/17 06:30 06:30 WBC 9.0 RBC 4.31 Hgb 12.3 Hct 40.2 MCV 93.2 MCH 28.6 MCHC 30.7 L RDW 17.5 H Plt Count 126 L MPV 9.1 Sodium 139 Potassium 3.7 Chloride 99 Carbon Dioxide 34 H Anion Gap 6 L BUN 19 H Creatinine 0.3 L Random Glucose 99 Calcium 8.5 Problem List - Problems (1) Aspiration into airway Code(s): T17.908A - UNSP FB IN RESP TRACT, PART UNSP CAUSING OTH INJURY, INIT (2) Inadequate oral nutritional intake Code(s): R63.8 - OTHER SYMPTOMS AND SIGNS CONCERNING FOOD AND FLUID INTAKE Assessment/Plan Keep external bumper at about 4. It should be not too tight, or too lose PEG care and aspiration precautions as per protocol PO/PEG nutrition as tolerated. PEG hydration
[2017-06-14] MEDS: ALBUTEROL SO4 0.083% IH SOL 2.5 MG/3 ML VIAL.NEB. NEB PRN (15:28)
--- NOTE | 2017-06-14 18:31 | PN ---
Teaching Attending Note Name of Resident: Jose F Young ATTENDING PHYSICIAN STATEMENT time of evaluation: 1:20 PM I saw and evaluated the patient. I reviewed the resident's note and discussed the case with the resident. I agree with the resident's findings and plan as documented. SUBJECTIVE: Patient seen and examined. breathing overall unchanged, no new complaints. OBJECTIVE: Vital Signs Period Temp Pulse Resp BP Sys/Calderon Pulse Ox Last 24 Hr 97.4 F-98.0 F 66-77 18-20 114-129/68-74 96-98 Intake & Output 06/11/17 06/12/17 06/13/17 06/14/17 23:59 23:59 23:59 23:59 Intake Total 150 715 300 500 Output Total 300 200 350 650 Balance -150 515 -50 -150 Weight 159 lb 9.6 oz General: lying in bed, mild tachypnea, some use of accessory muscles of respiration Chest: coarse bilateral rhonchi Home Medication List Medication Instructions Recorded Confirmed Type Acetaminophen [Tylenol] 2 tab PO Q6H PRN 05/22/17 05/22/17 History Albuterol 2.5/Ipratropium 0.5 1 amp NEB TID 05/22/17 05/22/17 History [Duoneb -] Budesonide [Pulmicort 0.5 mg 1 neb PO BID 05/22/17 05/22/17 History Nebulizer -] Ipratropium 0.02% Nebulizer 1 amp NEB Q6H PRN 05/22/17 05/22/17 History [Atrovent 0.02% Nebulizer -] Menthol/Phenol [Cepastat Lozenge -] 1 each MM QID PRN 05/22/17 05/22/17 History Metoclopramide HCl 10 mg PO TID 05/22/17 05/22/17 History Tramadol HCl [Ultram] 2 mg PO DAILY 05/22/17 05/22/17 History Active Medications Generic Name Dose Route Start Last Admin Trade Name Freq PRN Reason Stop Dose Admin Acetaminophen 1,000 mg 05/23/17 16:51 06/10/17 10:11 Ofirmev Injection - IVPB 1,000 mg Q6H PRN Administration FEVER OR PAIN Albuterol Sulfate 1 amp 05/23/17 16:51 06/14/17 15:28 Ventolin 0.083% Nebulizer Soln - NEB 1 amp Q4H PRN Administration SHORT OF BREATH/WHEEZING Albuterol/Ipratropium 1 amp 06/04/17 10:22 06/14/17 16:12 Duoneb - NEB 1 amp RQID [facility] Administration Amino Acids 30 ml 06/08/17 17:30 06/14/17 17:24 Prosource No Carb Liquid Pkt PEG 30 ml BID@0800,1730 [facility] Administration Heparin Sodium (Porcine) 5,000 unit 06/12/17 22:00 06/14/17 13:08 Heparin - SQ 5,000 unit TID [facility] Administration Pantoprazole Sodium 40 mg 06/08/17 16:15 06/14/17 09:22 Protonix Packets For Oral Suspension - PEG 40 mg DAILY [facility] Administration Polyethylene Glycol 17 gm 06/09/17 22:00 06/14/17 09:24 Miralax (For Daily Use) - NGT 17 gm BID [facility] Administration Prednisone 20 mg 06/13/17 10:00 06/14/17 09:23 Deltasone - PEG 20 mg DAILY [facility] Administration Scopolamine HBr 1 patch 06/02/17 12:30 06/14/17 13:08 Transderm-Scop - TD 1 patch Q3D [facility] Administration Laboratory Results - last 24 hr 06/14/17 06/14/17 06:30 06:30 WBC 9.0 RBC 4.31 Hgb 12.3 Hct 40.2 MCV 93.2 MCH 28.6 MCHC 30.7 L RDW 17.5 H Plt Count 126 L MPV 9.1 Sodium 139 Potassium 3.7 Chloride 99 Carbon Dioxide 34 H Anion Gap 6 L BUN 19 H Creatinine 0.3 L Random Glucose 99 Calcium 8.5 Microbiology 05/22/17 09:15 Blood - Peripheral Venous Blood Culture - Final NO GROWTH AFTER 5 DAYS INCUBATION 05/22/17 09:15 Blood - Peripheral Venous Blood Culture - Final NO GROWTH AFTER 5 DAYS INCUBATION 05/22/17 22:52 Urine - Urine Clean Catch Urine Culture - Final NO GROWTH OBTAINED 05/23/17 18:15 Urine For Antigen Detection Legionella Antigen - Final 05/23/17 18:15 Urine For Antigen Detection Streptococcus pneumoniae Antigen (M - Final 05/22/17 17:30 Nasopharyngeal Swab Influenza Types A,B Antigen ([facility]) - Final 05/22/17 17:30 Nasopharyngeal Swab - Final ASSESSMENT AND PLAN: 87 year old male with a PMHx of HTN, COPD (3L NC at night), Osteoarthritis, Dysphagia, PUD presented to the ER with acute hypoxic respiratory distress -acute hypoxic/hypercapneic respiratory distress, suspect aspiration PNA, acute on chronic COPD with mild diastolic HF. -Sepsis due to aspiration PNA -Dysphagia -leucocytosis, suspect ongoing aspriation -Back pain -Abdominal pain -hypokalemia -Hypophosphatemia -HTN -PUD plan; s/p 8 days of cefepime, off antibiotics. WBC improved. Suspect ongoing aspiration. Aspiration precautions (patient no compliant with HOB elevation). Abdominal symptoms resolved after BM. No new concerns. Trial with nocturnal tube feeds x 2, patient noted with increased gurgling and respiratory symptoms. Dysphagia pureed diet. Palliative care consulted. 87 year old male with a PMHx of HTN, COPD (3L NC at night), Osteoarthritis, Dysphagia, PUD presented to the ER with acute hypoxic respiratory distress -acute hypoxic/hypercapneic respiratory distress, suspect aspiration PNA, acute on chronic COPD with mild diastolic HF. -Sepsis due to aspiration PNA -Dysphagia -leucocytosis, suspect ongoing aspriation -Back pain -Abdominal pain -hypokalemia -Hypophosphatemia -HTN -PUD plan; s/p 8 days of cefepime, off antibiotics. WBC improved. Suspect ongoing aspiration. Aspiration precautions (patient no compliant with HOB elevation). Abdominal symptoms resolved after BM. No new concerns. Trial with nocturnal tube feeds x 2, patient noted with increased gurgling and respiratory symptoms. Dysphagia pureed diet. Palliative care consulted. Discussed with HCP, goals to focus on comfort and DNH. [facility] unable to take patient back. Application sent to [facility]. ANticipate d/c if patient patient accepted to [facility] and arrangements made.
--- NOTE | 2017-06-14 18:51 | DS ---
Physical Exam: SUBJECTIVE: Patient seen and examined OBJECTIVE: Patient seen and examined. Events overnight: Patient not tolerating peg tube flushes. Became more congested. When stopped, patient improved as per nurse. Patient offers no new complaints. Denies chest pain, dizziness, diarrhea, and abdominal pain. Vital Signs Period Temp Pulse Resp BP Sys/Calderon Pulse Ox Last 24 Hr 97.4 F-98.2 F 66-77 18-20 113-129/68-74 96-98 PHYSICAL EXAM GENERAL: Laying in bed, in no acute distress HEAD: Normal with no signs of trauma. EYES: EOMI, PERRLA ENT: Dry mucous membranes LUNGS: course breath sounds throughout, use of accessory muscle HEART: regular rate and rhythm, no murmurs appreciated ABDOMEN: +BS, NT, ND, Peg tube: no drainage, erythema. EXTREMITIES: 2+ pulses, warm, well-perfused, no edema. SKIN: Warm, dry, normal turgor, no rashes or lesions noted LABS Laboratory Results - last 24 hr 06/14/17 06/14/17 06:30 06:30 WBC 9.0 RBC 4.31 Hgb 12.3 Hct 40.2 MCV 93.2 MCH 28.6 MCHC 30.7 L RDW 17.5 H Plt Count 126 L MPV 9.1 Sodium 139 Potassium 3.7 Chloride 99 Carbon Dioxide 34 H Anion Gap 6 L BUN 19 H Creatinine 0.3 L Random Glucose 99 Calcium 8.5 HOSPITAL COURSE: Date of Admission:05/22/17 87yo M with h/o COPD (baseline 3LNC at night), HTN, OA who was found to acute hypoxic hypercapnic distress secondary to PNA and and most likely with component of COPD with Sepsis and ongoing aspiration. Patient was started on recurrent trials of broad spectrum antibiotics including Cefepime and steroids without improvement of function status. He also had ongoing aspiration with or without feeds status without improvement. Long discussion with Health care proxy. Discussed hospital course with no improvement in symptoms with steroids, antibiotic trials, on going aspiration and also failed tube feeds. Explained to HCP prognosis was poor. Patient is DNR/DNI. HCP and patient both agreed for no agressive and comfort care. They are agreeable for hospice care. Date of Discharge: 06/14/17 Discharge Summary Reason For Visit: SEPSIS,COPD,PNEUMONIA Current Active Problems Anemia (Acute) Aspiration into airway (Acute) COPD (chronic obstructive pulmonary disease) (Acute) Chronic steroid use (Acute) Hypertension (Acute) Inadequate oral nutritional intake (Acute) Pneumonia (Acute) Respiratory failure (Acute) Sepsis (Acute) Condition: Poor - Instructions Diet, Activity, Other Instructions: You will be sent to [facility] for Hospice care. Referrals: Elkin Lockwood MD [Primary Care Provider] - Disposition: HOME - Home Medications Comprehensive Discharge Medication List: Ambulatory Orders Acetaminophen [Tylenol] 2 tab PO Q6H PRN 05/22/17 Albuterol 2.5/Ipratropium 0.5 [Duoneb -] 1 amp NEB TID 05/22/17 Budesonide [Pulmicort 0.5 mg Nebulizer -] 1 neb PO BID 05/22/17 Ipratropium 0.02% Nebulizer [Atrovent 0.02% Nebulizer -] 1 amp NEB Q6H PRN 05/22 Menthol/Phenol [Cepastat Lozenge -] 1 each MM QID PRN 05/22/17 Metoclopramide HCl 10 mg PO TID 05/22/17 Tramadol HCl [Ultram] 2 mg PO DAILY 05/22/17 Amino Acids/Protein Hydrolys [Prosource No Carb Liquid Pkt] 30 ml PEG BID@0800, 1730 packet 06/13/17 Pantoprazole Suspension [Protonix Packets For Oral Suspension -] 40 mg PEG DAILY packet 06/13/17 Polyethylene Glycol 3350 [Miralax 119 gm Btl -] 17 gm NGT BID bottle 06/13/17 Scopolamine Hydrobromide [Transderm-Scop -] 1 patch TD Q3D patch.[id number] 06/13/17 - Discharge Referral Referred to [facility] No
[2017-06-14] MEDS: ACETAMINOPHEN 325 MG TABLET (FP) PO PRN (20:06)
[2017-06-15] MEDS: HEPARIN NA (PORCINE) 5,000 UNITS/ML 1ML VIAL SQ SCH ×3 (05:37→22:02)
[2017-06-15] MEDS: ALBUTEROL SO4 2.5/IPRATROPIUM 0.5 INH SOL 3 ML VIAL.NEB. NEB SCH ×4 (08:15→20:59)
[2017-06-15] MEDS: predniSONE 20 MG TABLET (UD) PEG SCH (09:56)
[2017-06-15] MEDS: AMINO ACIDS/PROTEIN HYDROLYS 30 ML LIQUID.PKT PEG SCH ×2 (09:56→16:58)
[2017-06-15] MEDS: PANTOPRAZOLE SOD 40 MG SUSPENSION PACKET PEG SCH (09:56)
[2017-06-15] MEDS: POLYETHYLENE GLYCOL 3350 119 GM BTL NGT SCH ×2 (09:56→22:03)
--- NOTE | 2017-06-15 11:40 | PN ---
Progress Note (short form) - Note Progress Note: Breathing non-labored on NC O2. No acute events overnight. Intake & Output 06/12/17 06/13/17 06/14/17 06/15/17 23:59 23:59 23:59 23:59 Intake Total 715 300 700 100 Output Total 200 350 650 400 Balance 515 -50 50 -300 Weight 159 lb 9.6 oz Last Vital Signs Temp Pulse Resp BP Pulse Ox 97.9 F 96 H 20 122/76 94 L 06/15/17 10:00 06/15/17 10:00 06/15/17 10:00 06/15/17 10:00 06/14/17 21:00 Active Medications Acetaminophen (Ofirmev Injection -) 1,000 mg IVPB Q6H PRN PRN Reason: FEVER OR PAIN Last Admin: 06/10/17 10:11 Dose: 1,000 mg Acetaminophen (Tylenol -) 650 mg PO Q6H PRN PRN Reason: PAIN Last Admin: 06/14/17 20:06 Dose: 650 mg Albuterol Sulfate (Ventolin 0.083% Nebulizer Soln -) 1 amp NEB Q4H PRN PRN Reason: SHORT OF BREATH/WHEEZING Last Admin: 06/14/17 15:28 Dose: 1 amp Albuterol/Ipratropium (Duoneb -) 1 amp NEB RQID [facility] Last Admin: 06/15/17 08:15 Dose: 1 amp Amino Acids (Prosource No Carb Liquid Pkt) 30 ml PEG BID@0800,1730 [facility] Last Admin: 06/15/17 09:56 Dose: 30 ml Heparin Sodium (Porcine) (Heparin -) 5,000 unit SQ TID [facility] Last Admin: 06/15/17 05:37 Dose: 5,000 unit Pantoprazole Sodium (Protonix Packets For Oral Suspension -) 40 mg PEG DAILY [facility] Last Admin: 06/15/17 09:56 Dose: 40 mg Polyethylene Glycol (Miralax (For Daily Use) -) 17 gm NGT BID [facility] Last Admin: 06/15/17 09:56 Dose: 17 gm Prednisone (Deltasone -) 20 mg PEG DAILY [facility] Last Admin: 06/15/17 09:56 Dose: 20 mg Scopolamine HBr (Transderm-Scop -) 1 patch TD Q3D [facility] Last Admin: 06/14/17 13:08 Dose: 1 patch Gen: NAD Heart: RRR Lung: bilateral rhonchi, no wheeze Abd: soft, nontender Ext: no edema A/P Acute COPD/Bronchiectasis Exacerbation Acute on Chronic Hypoxic Respiratory Failure r/o Pneumonia Emphysema +Troponins likely Demand Ischemia HTN - prednisone taper - inhaled bronchodilators standing and PRN - O2 to keep SpO2 >90% - OOB to chair if possible - rehab/physical therapy - DVT prophylaxis - DNR/DNI - D/C planning Dr Tobar
[2017-06-15] MEDS: ACETAMINOPHEN 325 MG TABLET (FP) PO PRN (14:06)
--- NOTE | 2017-06-15 14:47 | PN ---
Physical Exam: SUBJECTIVE: Patient seen and examined. Events overnight: Patient not tolerating peg tube flushes. Became more congested. When stopped, patient improved as per nurse. Patient offers no new complaints. Denies chest pain, dizziness, diarrhea, and abdominal pain. OBJECTIVE: Vital Signs Period Temp Pulse Resp BP Sys/Calderon Pulse Ox Last 24 Hr 97.4 F-98.5 F 67-100 18-20 113-127/71-76 94 GENERAL: Laying in bed, in no acute distress HEAD: Normal with no signs of trauma. EYES: EOMI, PERRLA ENT: Dry mucous membranes LUNGS: course breath sounds throughout, use of accessory muscle HEART: regular rate and rhythm, no murmurs appreciated ABDOMEN: +BS, NT, ND, Peg tube: no drainage, erythema. EXTREMITIES: 2+ pulses, warm, well-perfused, no edema. SKIN: Warm, dry, normal turgor, no rashes or lesions noted Active Medications Generic Name Dose Route Start Last Admin Trade Name Freq PRN Reason Stop Dose Admin Acetaminophen 1,000 mg 05/23/17 16:51 06/10/17 10:11 Ofirmev Injection - IVPB 1,000 mg Q6H PRN Administration FEVER OR PAIN Acetaminophen 650 mg 06/14/17 19:50 06/15/17 14:06 Tylenol - PO 650 mg Q6H PRN Administration PAIN Albuterol Sulfate 1 amp 05/23/17 16:51 06/14/17 15:28 Ventolin 0.083% Nebulizer Soln - NEB 1 amp Q4H PRN Administration SHORT OF BREATH/WHEEZING Albuterol/Ipratropium 1 amp 06/04/17 10:22 06/15/17 08:15 Duoneb - NEB 1 amp RQID [facility] Administration Amino Acids 30 ml 06/08/17 17:30 06/15/17 09:56 Prosource No Carb Liquid Pkt PEG 30 ml BID@0800,1730 [facility] Administration Heparin Sodium (Porcine) 5,000 unit 06/12/17 22:00 06/15/17 14:06 Heparin - SQ 5,000 unit TID [facility] Administration Pantoprazole Sodium 40 mg 06/08/17 16:15 06/15/17 09:56 Protonix Packets For Oral Suspension - PEG 40 mg DAILY [facility] Administration Polyethylene Glycol 17 gm 06/09/17 22:00 06/15/17 09:56 Miralax (For Daily Use) - NGT 17 gm BID [facility] Administration Prednisone 20 mg 06/13/17 10:00 06/15/17 09:56 Deltasone - PEG 20 mg DAILY [facility] Administration Scopolamine HBr 1 patch 06/02/17 12:30 06/14/17 13:08 Transderm-Scop - TD 1 patch Q3D [facility] Administration Silver Sulfadiazine 1 applic 06/16/17 10:00 Silvadene - TP DAILY [facility] ASSESSMENT/PLAN: 87yo M with h/o COPD (baseline 3LNC at night), HTN, OA who was found to acute hypoxic hypercapnic distress. #Acute hypoxic hypercapnic respiratory distress -2/2 to PNA most likely with component of COPD -Patient clinically declining -off antibiotics s/p 8 days cefepime -Prednisone 20mg; continue to taper -2 trials with nocturnal tube feeds. Patient noted with increased respiratory symptoms. -Maintain SpO2 >88-90% -O2 3L NC -Pulmonology on board -Duoneb QID PRN -Nebs PRN q4h -Palliative care consulted. #Sepsis 2/2 to PNA -Suspected on-going aspiration due to no improvement in breath sounds -s/p PEG tube 06/07; -stopped tube feeds, not tolerating -Peg tube flushes -Aspiration precautions -Afebrile -Leukocytosis resolved #Abdominal Pain -resolved after BM #HTN -Currently controlled -Continue BP monitoring #FEN: No fluids Will replete if needed Dysphagia puree diet #PPX: DVT - Heparin SQ TID Dispo: Health care proxy and patient in agreement with hospice care. Will transfer to [place] pending bed availability. Visit type - Emergency Visit Emergency Visit: Yes ED Registration Date: 05/22/17 Care time: The patient presented to the Emergency Department on the above date and was hospitalized for further evaluation of their emergent condition. - New Patient This patient is new to me today: No - Critical Care Critical Care patient: No
--- NOTE | 2017-06-15 14:51 | DS ---
Physical Exam: SUBJECTIVE: Patient seen and examined. Overnight events: patient not able to tolerate hourly Peg Tube flushes as per nurse. She says patient gets more congested and becomes dyspneic. Patient offers no new complaints. Denies chest pain, abdominal pain, dizziness, nausea, vomiting, diarrhea. OBJECTIVE: Vital Signs Period Temp Pulse Resp BP Sys/Calderon Pulse Ox Last 24 Hr 97.4 F-98.5 F 67-100 18-20 113-127/71-76 92-94 PHYSICAL EXAM GENERAL: On 2 L NC, Laying in bed, in no acute distress HEAD: Normal with no signs of trauma. EYES: EOMI, PERRLA ENT: Dry mucous membranes LUNGS: course breath sounds throughout > on right side, use of accessory muscle HEART: regular rate and rhythm, no murmurs appreciated ABDOMEN: +BS, NT, ND, Peg tube: no drainage, erythema. EXTREMITIES: 2+ pulses, warm, well-perfused, no edema. SKIN: Warm, dry, normal turgor, no rashes or lesions noted LABS HOSPITAL COURSE: Date of Admission:05/22/17 87yo M with h/o COPD (baseline 3LNC at night), HTN, OA who was found to acute hypoxic hypercapnic distress secondary to PNA and and most likely with component of COPD with Sepsis and ongoing aspiration. Patient was started on recurrent trials of broad spectrum antibiotics including Cefepime and steroids without improvement of functional status. He also had ongoing aspiration with or without feeds status without improvement. Long discussion with Health care proxy. Discussed hospital course with no improvement in symptoms with steroids, antibiotic trials, on going aspiration and also failed tube feeds. Explained to HCP prognosis was poor. Patient is DNR/DNI. HCP and patient both agreed for no agressive and comfort care. They are agreeable for hospice care. Date of Discharge: 06/15/17 Minutes to complete discharge: 35 Discharge Summary Reason For Visit: SEPSIS,COPD,PNEUMONIA Current Active Problems Anemia (Acute) Aspiration into airway (Acute) COPD (chronic obstructive pulmonary disease) (Acute) Chronic steroid use (Acute) Hypertension (Acute) Inadequate oral nutritional intake (Acute) Pneumonia (Acute) Respiratory failure (Acute) Sepsis (Acute) Condition: Poor - Instructions Diet, Activity, Other Instructions: You will be sent to [facility] for Hosp[facility] care. Referrals: Elkin Lockwood MD [Primary Care Provider] - Disposition: HOME - Home Medications Comprehensive Discharge Medication List: Ambulatory Orders Acetaminophen [Tylenol] 2 tab PO Q6H PRN 05/22/17 Albuterol 2.5/Ipratropium 0.5 [Duoneb -] 1 amp NEB TID 05/22/17 Budesonide [Pulmicort 0.5 mg Nebulizer -] 1 neb PO BID 05/22/17 Ipratropium 0.02% Nebulizer [Atrovent 0.02% Nebulizer -] 1 amp NEB Q6H PRN 05/22 Menthol/Phenol [Cepastat Lozenge -] 1 each MM QID PRN 05/22/17 Metoclopramide HCl 10 mg PO TID 05/22/17 Tramadol HCl [Ultram] 2 mg PO DAILY 05/22/17 Amino Acids/Protein Hydrolys [Prosource No Carb Liquid Pkt] 30 ml PEG BID@0800, 1730 packet 06/13/17 Pantoprazole Suspension [Protonix Packets For Oral Suspension -] 40 mg PEG DAILY packet 06/13/17 Polyethylene Glycol 3350 [Miralax 119 gm Btl -] 17 gm NGT BID bottle 06/13/17 Scopolamine Hydrobromide [Transderm-Scop -] 1 patch TD Q3D patch.td72 06/13/17 - Discharge Referral Referred to [facility] No
--- NOTE | 2017-06-15 16:43 | PN ---
Teaching Attending Note Name of Resident: Jose F Young ATTENDING PHYSICIAN STATEMENT Time of evaluation: 8:45 AM I saw and evaluated the patient. I reviewed the resident's note and discussed the case with the resident. I agree with the resident's findings and plan as documented. SUBJECTIVE: Patient seen and examined. breathing unchanged, no new complaints. OBJECTIVE: Vital Signs Period Temp Pulse Resp BP Sys/Calderon Pulse Ox Last 24 Hr 97.4 F-98.5 F 67-100 18-20 113-127/71-76 92-94 Intake & Output 06/12/17 06/13/17 06/14/17 06/15/17 23:59 23:59 23:59 23:59 Intake Total 715 300 700 100 Output Total 200 350 650 700 Balance 515 -50 50 -600 Weight 159 lb 9.6 oz General: mild tachypnea,unchanged CVS;S1s2 regular Chest: coarse rhonchi Abdomen: soft, NT, PEG in place Home Medication List Medication Instructions Recorded Confirmed Type Acetaminophen [Tylenol] 2 tab PO Q6H PRN 05/22/17 05/22/17 History Albuterol 2.5/Ipratropium 0.5 1 amp NEB TID 05/22/17 05/22/17 History [Duoneb -] Budesonide [Pulmicort 0.5 mg 1 neb PO BID 05/22/17 05/22/17 History Nebulizer -] Ipratropium 0.02% Nebulizer 1 amp NEB Q6H PRN 05/22/17 05/22/17 History [Atrovent 0.02% Nebulizer -] Menthol/Phenol [Cepastat Lozenge -] 1 each MM QID PRN 05/22/17 05/22/17 History Metoclopramide HCl 10 mg PO TID 05/22/17 05/22/17 History Tramadol HCl [Ultram] 2 mg PO DAILY 05/22/17 05/22/17 History Active Medications Generic Name Dose Route Start Last Admin Trade Name Freq PRN Reason Stop Dose Admin Acetaminophen 1,000 mg 05/23/17 16:51 06/10/17 10:11 Ofirmev Injection - IVPB 1,000 mg Q6H PRN Administration FEVER OR PAIN Acetaminophen 650 mg 06/14/17 19:50 06/15/17 14:06 Tylenol - PO 650 mg Q6H PRN Administration PAIN Albuterol Sulfate 1 amp 05/23/17 16:51 06/14/17 15:28 Ventolin 0.083% Nebulizer Soln - NEB 1 amp Q4H PRN Administration SHORT OF BREATH/WHEEZING Albuterol/Ipratropium 1 amp 06/04/17 10:22 06/15/17 08:15 Duoneb - NEB 1 amp RQID [facility] Administration Amino Acids 30 ml 06/08/17 17:30 06/15/17 09:56 Prosource No Carb Liquid Pkt PEG 30 ml BID@0800,1730 [facility] Administration Heparin Sodium (Porcine) 5,000 unit 06/12/17 22:00 06/15/17 14:06 Heparin - SQ 5,000 unit TID [facility] Administration Pantoprazole Sodium 40 mg 06/08/17 16:15 06/15/17 09:56 Protonix Packets For Oral Suspension - PEG 40 mg DAILY [facility] Administration Polyethylene Glycol 17 gm 06/09/17 22:00 06/15/17 09:56 Miralax (For Daily Use) - NGT 17 gm BID [facility] Administration Prednisone 20 mg 06/13/17 10:00 06/15/17 09:56 Deltasone - PEG 20 mg DAILY [facility] Administration Scopolamine HBr 1 patch 06/02/17 12:30 06/14/17 13:08 Transderm-Scop - TD 1 patch Q3D [facility] Administration Silver Sulfadiazine 1 applic 06/16/17 10:00 Silvadene - TP DAILY [facility] ASSESSMENT AND PLAN: 87 year old male with a PMHx of HTN, COPD (3L NC at night), Osteoarthritis, Dysphagia, PUD presented to the ER with acute hypoxic respiratory distress -acute hypoxic/hypercapneic respiratory distress, suspect aspiration PNA, acute on chronic COPD with mild diastolic HF. -Sepsis due to aspiration PNA -Dysphagia -leucocytosis, suspect ongoing aspriation -Back pain -Abdominal pain -hypokalemia -Hypophosphatemia -HTN -PUD plan; s/p 8 days of cefepime, off antibiotics. WBC improved. Suspect ongoing aspiration. Aspiration precautions (patient no compliant with HOB elevation). Abdominal symptoms resolved after BM. No new concerns. Trial with nocturnal tube feeds x 2, patient noted with increased gurgling and respiratory symptoms. Dysphagia pureed diet. Palliative care consulted. Discussed with HCP, goals to focus on comfort and DNH. [facility] unable to take patient back. Application sent to [facility]. ANticipate d/c if patient patient accepted to [facility] and arrangements made.
[2017-06-15] MEDS ORDERED: ACETAMINOPHEN 325 MG TABLET (FP) NR PRN ×2 (18:51→18:52)
[2017-06-15] MEDS ORDERED: ACETAMINOPHEN 325 MG TABLET (FP) PO PRN (20:10)
[2017-06-16] MEDS: HEPARIN NA (PORCINE) 5,000 UNITS/ML 1ML VIAL SQ SCH ×3 (06:12→22:30)
[2017-06-16] MEDS: ALBUTEROL SO4 2.5/IPRATROPIUM 0.5 INH SOL 3 ML VIAL.NEB. NEB SCH ×4 (07:30→20:50)
[2017-06-16] MEDS: PANTOPRAZOLE SOD 40 MG SUSPENSION PACKET PEG SCH (10:22)
[2017-06-16] MEDS: POLYETHYLENE GLYCOL 3350 119 GM BTL NGT SCH ×2 (10:22→22:30)
[2017-06-16] MEDS: predniSONE 20 MG TABLET (UD) PEG SCH (10:22)
[2017-06-16] MEDS: AMINO ACIDS/PROTEIN HYDROLYS 30 ML LIQUID.PKT PEG SCH ×2 (10:22→18:10)
--- NOTE | 2017-06-16 11:16 | PN ---
Progress Note (short form) - Note Progress Note: Breathing non-labored on NC O2. No acute events overnight. Intake & Output 06/13/17 06/14/17 06/15/17 06/16/17 23:59 23:59 23:59 23:59 Intake Total 300 700 190 90 Output Total 350 650 900 200 Balance -50 50 -710 -110 Weight 159 lb 9.6 oz 161 lb Last Vital Signs Temp Pulse Resp BP Pulse Ox 97.8 F 87 18 123/70 92 L 06/16/17 09:15 06/16/17 09:15 06/16/17 09:15 06/16/17 09:15 06/15/17 21:00 Active Medications Acetaminophen (Ofirmev Injection -) 1,000 mg IVPB Q6H PRN PRN Reason: FEVER OR PAIN Last Admin: 06/10/17 10:11 Dose: 1,000 mg Acetaminophen (Tylenol -) 650 mg PO Q4H PRN PRN Reason: MODERATE PAIN Albuterol Sulfate (Ventolin 0.083% Nebulizer Soln -) 1 amp NEB Q4H PRN PRN Reason: SHORT OF BREATH/WHEEZING Last Admin: 06/14/17 15:28 Dose: 1 amp Albuterol/Ipratropium (Duoneb -) 1 amp NEB RQID [facility] Last Admin: 06/16/17 07:30 Dose: 1 amp Amino Acids (Prosource No Carb Liquid Pkt) 30 ml PEG BID@0800,1730 [facility] Last Admin: 06/16/17 10:22 Dose: 30 ml Heparin Sodium (Porcine) (Heparin -) 5,000 unit SQ TID [facility] Last Admin: 06/16/17 06:12 Dose: 5,000 unit Pantoprazole Sodium (Protonix Packets For Oral Suspension -) 40 mg PEG DAILY [facility] Last Admin: 06/16/17 10:22 Dose: 40 mg Polyethylene Glycol (Miralax (For Daily Use) -) 17 gm NGT BID [facility] Last Admin: 06/16/17 10:22 Dose: 17 gm Prednisone (Deltasone -) 20 mg PEG DAILY [facility] Last Admin: 06/16/17 10:22 Dose: 20 mg Scopolamine HBr (Transderm-Scop -) 1 patch TD Q3D [facility] Last Admin: 06/14/17 13:08 Dose: 1 patch Silver Sulfadiazine (Silvadene -) 1 applic TP DAILY [facility] Gen: NAD Heart: RRR Lung: bilateral rhonchi, no wheeze Abd: soft, nontender Ext: no edema A/P Acute COPD/Bronchiectasis Exacerbation Acute on Chronic Hypoxic Respiratory Failure r/o Pneumonia Emphysema +Troponins likely Demand Ischemia HTN - prednisone taper - inhaled bronchodilators standing and PRN - O2 to keep SpO2 >90% - OOB to chair if possible - rehab/physical therapy - DVT prophylaxis - DNR/DNI - D/C planning Dr Tobar
--- NOTE | 2017-06-16 13:25 | PN ---
Teaching Attending Note Name of Resident: . ATTENDING PHYSICIAN STATEMENT Time of evaluation: 8:50 AM SUBJECTIVE: Patient seen and examined. breathing overall unchanged, denies back pain currently. OBJECTIVE: Vital Signs Period Temp Pulse Resp BP Sys/Calderon Pulse Ox Last 24 Hr 97.8 F-98.5 F 77-100 18-18 120-137/70-76 92 Intake & Output 06/13/17 06/14/17 06/15/17 06/16/17 23:59 23:59 23:59 23:59 Intake Total 300 700 190 90 Output Total 350 650 900 200 Balance -50 50 -710 -110 Weight 159 lb 9.6 oz 161 lb general: lying in bed, mild tachypnea noted Chest: coarse rhonchi, Abdomen: soft, PEG in place, NT, nD extremities: no edema Home Medication List Medication Instructions Recorded Confirmed Type Acetaminophen [Tylenol] 2 tab PO Q6H PRN 05/22/17 05/22/17 History Albuterol 2.5/Ipratropium 0.5 1 amp NEB TID 05/22/17 05/22/17 History [Duoneb -] Budesonide [Pulmicort 0.5 mg 1 neb PO BID 05/22/17 05/22/17 History Nebulizer -] Ipratropium 0.02% Nebulizer 1 amp NEB Q6H PRN 05/22/17 05/22/17 History [Atrovent 0.02% Nebulizer -] Menthol/Phenol [Cepastat Lozenge -] 1 each MM QID PRN 05/22/17 05/22/17 History Metoclopramide HCl 10 mg PO TID 05/22/17 05/22/17 History Tramadol HCl [Ultram] 2 mg PO DAILY 05/22/17 05/22/17 History Active Medications Generic Name Dose Route Start Last Admin Trade Name Freq PRN Reason Stop Dose Admin Acetaminophen 1,000 mg 05/23/17 16:51 06/10/17 10:11 Ofirmev Injection - IVPB 1,000 mg Q6H PRN Administration FEVER OR PAIN Acetaminophen 650 mg 06/15/17 20:10 Tylenol - PO Q4H PRN MODERATE PAIN Albuterol Sulfate 1 amp 05/23/17 16:51 06/14/17 15:28 Ventolin 0.083% Nebulizer Soln - NEB 1 amp Q4H PRN Administration SHORT OF BREATH/WHEEZING Albuterol/Ipratropium 1 amp 06/04/17 10:22 06/16/17 11:10 Duoneb - NEB 1 amp RQID [facility] Administration Amino Acids 30 ml 06/08/17 17:30 06/16/17 10:22 Prosource No Carb Liquid Pkt PEG 30 ml BID@0800,1730 [facility] Administration Heparin Sodium (Porcine) 5,000 unit 06/12/17 22:00 06/16/17 06:12 Heparin - SQ 5,000 unit TID [facility] Administration Pantoprazole Sodium 40 mg 06/08/17 16:15 06/16/17 10:22 Protonix Packets For Oral Suspension - PEG 40 mg DAILY [facility] Administration Polyethylene Glycol 17 gm 06/09/17 22:00 06/16/17 10:22 Miralax (For Daily Use) - NGT 17 gm BID [facility] Administration Prednisone 20 mg 06/13/17 10:00 06/16/17 10:22 Deltasone - PEG 20 mg DAILY [facility] Administration Scopolamine HBr 1 patch 06/02/17 12:30 06/14/17 13:08 Transderm-Scop - TD 1 patch Q3D [facility] Administration Silver Sulfadiazine 1 applic 06/16/17 10:00 Silvadene - TP DAILY [facility] Microbiology 05/22/17 09:15 Blood - Peripheral Venous Blood Culture - Final NO GROWTH AFTER 5 DAYS INCUBATION 05/22/17 09:15 Blood - Peripheral Venous Blood Culture - Final NO GROWTH AFTER 5 DAYS INCUBATION 05/22/17 22:52 Urine - Urine Clean Catch Urine Culture - Final NO GROWTH OBTAINED 05/23/17 18:15 Urine For Antigen Detection Legionella Antigen - Final 05/23/17 18:15 Urine For Antigen Detection Streptococcus pneumoniae Antigen (M - Final 05/22/17 17:30 Nasopharyngeal Swab Influenza Types A,B Antigen (LAURA) - Final 05/22/17 17:30 Nasopharyngeal Swab - Final ASSESSMENT AND PLAN: 87 year old male with a PMHx of HTN, COPD (3L NC at night), Osteoarthritis, Dysphagia, PUD presented to the ER with acute hypoxic respiratory distress -acute hypoxic/hypercapneic respiratory distress, suspect aspiration PNA, acute on chronic COPD with mild diastolic HF. -Sepsis due to aspiration PNA -Dysphagia -leucocytosis, suspect ongoing aspriation -Chronic Back pain -Abdominal pain -hypokalemia -Hypophosphatemia -HTN -PUD plan; s/p 8 days of cefepime, off antibiotics. WBC improved. Suspect ongoing aspiration. Aspiration precautions (patient no compliant with HOB elevation). Abdominal symptoms resolved after BM. No new concerns. Tylenol prn for back pain, add lidocaine patch. Trial with nocturnal tube feeds x 2, patient noted with increased gurgling and respiratory symptoms. Dysphagia pureed diet. Palliative care consulted. Discussed with HCP, goals to focus on comfort and DNH. [facility] unable to take patient back. Application sent to [facility]. Anticipate d/c if patient patient accepted to [facility] and arrangements made.
[2017-06-16] MEDS: LIDOCAINE 5% TOPICAL PATCH TP SCH (15:16)
[2017-06-16] MEDS: SILVER SULFADIAZINE 1% TOP CREAM 50 GM JAR TP SCH (15:16)
[2017-06-16] MEDS ORDERED: PT OWN MED DRAWER 7, Y5N ONE (18:04)
[2017-06-16] MEDS ORDERED: LIDOCAINE PATCH REMOVAL MC SCH (22:00)
[2017-06-17] MEDS: HEPARIN NA (PORCINE) 5,000 UNITS/ML 1ML VIAL SQ SCH (05:30)
[2017-06-17] MEDS: ALBUTEROL SO4 2.5/IPRATROPIUM 0.5 INH SOL 3 ML VIAL.NEB. NEB SCH (07:30)
[2017-06-17] MEDS: AMINO ACIDS/PROTEIN HYDROLYS 30 ML LIQUID.PKT PEG SCH (08:28)
--- NOTE | 2017-06-17 08:39 | PN ---
Teaching Attending Note Name of Resident: Jose F Young ATTENDING PHYSICIAN STATEMENT Time of evaluation: I saw and evaluated the patient. I reviewed the resident's note and discussed the case with the resident. I agree with the resident's findings and plan as documented. SUBJECTIVE: Patient seen and examined. Overall breathing the same. Chronic back pain but currently denies. OBJECTIVE: Vital Signs Period Temp Pulse Resp BP Sys/Calderon Pulse Ox Last 24 Hr 97.6 F-98.2 F 70-87 18-20 121-123/66-79 91-93 Intake & Output 06/14/17 06/15/17 06/16/17 06/17/17 23:59 23:59 23:59 23:59 Intake Total 700 190 150 120 Output Total 690 842 7664 200 Balance 50 -710 -850 -80 Weight 161 lb 162 lb general: lying in bed, mild tachypnea, Chest: bilateral coarse rales, R>L abdomen: soft, pEG in place, NT Home Medication List Medication Instructions Recorded Confirmed Type Acetaminophen [Tylenol] 2 tab PO Q6H PRN 05/22/17 05/22/17 History Albuterol 2.5/Ipratropium 0.5 1 amp NEB TID 05/22/17 05/22/17 History [Duoneb -] Budesonide [Pulmicort 0.5 mg 1 neb PO BID 05/22/17 05/22/17 History Nebulizer -] Ipratropium 0.02% Nebulizer 1 amp NEB Q6H PRN 05/22/17 05/22/17 History [Atrovent 0.02% Nebulizer -] Menthol/Phenol [Cepastat Lozenge -] 1 each MM QID PRN 05/22/17 05/22/17 History Metoclopramide HCl 10 mg PO TID 05/22/17 05/22/17 History Tramadol HCl [Ultram] 2 mg PO DAILY 05/22/17 05/22/17 History Microbiology 05/22/17 09:15 Blood - Peripheral Venous Blood Culture - Final NO GROWTH AFTER 5 DAYS INCUBATION 05/22/17 09:15 Blood - Peripheral Venous Blood Culture - Final NO GROWTH AFTER 5 DAYS INCUBATION 05/22/17 22:52 Urine - Urine Clean Catch Urine Culture - Final NO GROWTH OBTAINED 05/23/17 18:15 Urine For Antigen Detection Legionella Antigen - Final 05/23/17 18:15 Urine For Antigen Detection Streptococcus pneumoniae Antigen (M - Final 05/22/17 17:30 Nasopharyngeal Swab Influenza Types A,B Antigen (LAURA) - Final 05/22/17 17:30 Nasopharyngeal Swab - Final ASSESSMENT AND PLAN: 87 year old male with a PMHx of HTN, COPD (3L NC at night), Osteoarthritis, Dysphagia, PUD presented to the ER with acute hypoxic respiratory distress -acute hypoxic/hypercapneic respiratory distress, suspect aspiration PNA, acute on chronic COPD with mild diastolic HF. -Sepsis due to aspiration PNA -Dysphagia -leucocytosis, suspect ongoing aspriation -Chronic Back pain -Abdominal pain -hypokalemia -Hypophosphatemia -HTN -PUD plan; s/p 8 days of cefepime, off antibiotics. WBC improved. Suspect ongoing aspiration. Aspiration precautions (patient no compliant with HOB elevation). Abdominal symptoms resolved after BM. No new concerns. Tylenol prn for back pain, add lidocaine patch. Trial with nocturnal tube feeds x 2, patient noted with increased gurgling and respiratory symptoms. Dysphagia pureed diet. Palliative care consulted. Discussed with HCP, goals to focus on comfort and DNH. [facility] unable to take patient back. Bed available at [place], d/c today.
[2017-06-17 10:33] VITALS: BP 137/81; PULSE 81; TEMP 97.4
--- NOTE | 2017-06-17 11:27 | PN ---
Progress Note (short form) - Note Progress Note: PULMONARY States breathing is relatively comfortable today. +occasional cough, wheezing. Last Vital Signs Temp Pulse Resp BP Pulse Ox 97.4 F L 81 18 137/81 92 L 06/17/17 09:00 06/17/17 09:00 06/17/17 09:00 06/17/17 09:00 06/17/17 09:00 Gen: tachypneic with minimal movement Heart: RRR Lung: bilateral rhonchi Abd: soft, nontender Ext: no edema CBC, BMP 06/14/17 06:30 06/14/17 06:30 Active Medications Acetaminophen (Ofirmev Injection -) 1,000 mg IVPB Q6H PRN PRN Reason: FEVER OR PAIN Last Admin: 06/10/17 10:11 Dose: 1,000 mg Acetaminophen (Tylenol -) 650 mg PO Q4H PRN PRN Reason: MODERATE PAIN Last Admin: 06/16/17 22:30 Dose: 650 mg Albuterol Sulfate (Ventolin 0.083% Nebulizer Soln -) 1 amp NEB Q4H PRN PRN Reason: SHORT OF BREATH/WHEEZING Last Admin: 06/14/17 15:28 Dose: 1 amp Albuterol/Ipratropium (Duoneb -) 1 amp NEB RQID [facility] Last Admin: 06/17/17 07:30 Dose: 1 amp Amino Acids (Prosource No Carb Liquid Pkt) 30 ml PEG BID@0800,1730 [facility] Last Admin: 06/17/17 08:28 Dose: 30 ml Heparin Sodium (Porcine) (Heparin -) 5,000 unit SQ TID [facility] Last Admin: 06/17/17 05:30 Dose: 5,000 unit Lidocaine (Lidoderm Patch -) 1 patch TP DAILY [facility] Last Admin: 06/16/17 15:16 Dose: 1 patch Miscellaneous (Lidoderm Patch Removal) 1 each MC DAILY@2200 [facility] Last Admin: 06/16/17 22:30 Dose: 1 each Pantoprazole Sodium (Protonix Packets For Oral Suspension -) 40 mg PEG DAILY [facility] Last Admin: 06/16/17 10:22 Dose: 40 mg Polyethylene Glycol (Miralax (For Daily Use) -) 17 gm NGT BID [facility] Last Admin: 06/16/17 22:30 Dose: 17 gm Prednisone (Deltasone -) 20 mg PEG DAILY [facility] Last Admin: 06/16/17 10:22 Dose: 20 mg Scopolamine HBr (Transderm-Scop -) 1 patch TD Q3D [facility] Last Admin: 06/14/17 13:08 Dose: 1 patch Silver Sulfadiazine (Silvadene -) 1 applic TP DAILY [facility] Last Admin: 06/16/17 15:16 Dose: 1 applic A/P Acute COPD/Bronchiectasis Exacerbation Acute on Chronic Hypoxic Respiratory Failure r/o Pneumonia Emphysema +Troponins likely Demand Ischemia HTN - continue prednisone at current dose - inhaled bronchodilators standing and PRN - O2 to keep SpO2 >90% - OOB to chair if possible - enteral feeds - rehab/physical therapy - DVT prophylaxis - for [facility] placement
[2017-06-17] MEDS: POLYETHYLENE GLYCOL 3350 119 GM BTL NGT SCH (11:40)
[2017-06-17] MEDS: predniSONE 20 MG TABLET (UD) PEG SCH (11:40)
[2017-06-17] MEDS: PANTOPRAZOLE SOD 40 MG SUSPENSION PACKET PEG SCH (11:40)
[2017-06-17] MEDS: LIDOCAINE 5% TOPICAL PATCH TP SCH (11:40)
[2017-06-17] MEDS: SILVER SULFADIAZINE 1% TOP CREAM 50 GM JAR TP SCH (11:41)
[2017-06-17] MEDS: SCOPOLAMINE HYDROBROMIDE 1 PATCH PATCH.TD72 TD SCH (12:10)
--- NOTE | 2017-06-17 18:07 | DS ---
Physical Exam: SUBJECTIVE: Patient seen and examined. Overnight events: Patient more congested and has worsening dyspnea, as per Nurse. Patient offers no new complaints. Denies chest pain, abdominal pain, dizziness, nausea, vomiting, diarrhea. OBJECTIVE: Vital Signs Period Temp Pulse Resp BP Sys/Calderon Pulse Ox Last 24 Hr 97.4 F-98.2 F 70-81 18-20 121-137/66-81 91-92 PHYSICAL EXAM GENERAL: On 5 L NC, Laying in bed, in no acute distress HEAD: Normal with no signs of trauma. EYES: EOMI, PERRLA ENT: Dry mucous membranes LUNGS: course breath sounds throughout (worse today)> on right side, use of accessory muscle HEART: regular rate and rhythm, no murmurs appreciated ABDOMEN: +BS, NT, ND, Peg tube: no drainage, erythema. EXTREMITIES: 2+ pulses, warm, well-perfused, no edema. SKIN: Warm, dry, normal turgor, no rashes or lesions noted LABS HOSPITAL COURSE: Date of Admission:05/22/17 87yo M with h/o COPD , HTN, OA who was found to acute hypoxic hypercapnic distress secondary to PNA and and most likely with component of COPD with Sepsis and ongoing aspiration. Patient was started on recurrent trials of broad spectrum antibiotics including Cefepime and steroids without improvement of functional status. He also had ongoing aspiration with or without feeds status without improvement. Long discussion with Health care proxy. Discussed hospital course with no improvement in symptoms with steroids, antibiotic trials , on going aspiration and also failed tube feeds. Explained to HCP prognosis was poor. Patient is DNR/DNI. HCP and patient both agreed for no agressive and comfort care. They are agreeable for hospice care. Date of Discharge: 06/17/17 Discharge Summary Reason For Visit: SEPSIS,COPD,PNEUMONIA Condition: Poor - Instructions Diet, Activity, Other Instructions: You will be sent to [facility] for Hospice care. Disposition: TRANSFER ACUTE CARE/OTHER HOSP - Home Medications Comprehensive Discharge Medication List: Ambulatory Orders Acetaminophen [Tylenol] 2 tab PO Q6H PRN 05/22/17 Albuterol 2.5/Ipratropium 0.5 [Duoneb -] 1 amp NEB TID 05/22/17 Budesonide [Pulmicort 0.5 mg Nebulizer -] 1 neb PO BID 05/22/17 Ipratropium 0.02% Nebulizer [Atrovent 0.02% Nebulizer -] 1 amp NEB Q6H PRN 05/22 Menthol/Phenol [Cepastat Lozenge -] 1 each MM QID PRN 05/22/17 Metoclopramide HCl 10 mg PO TID 05/22/17 Tramadol HCl [Ultram] 2 mg PO DAILY 05/22/17 Amino Acids/Protein Hydrolys [Prosource No Carb Liquid Pkt] 30 ml PEG BID@0800, 1730 packet 06/13/17 Pantoprazole Suspension [Protonix Packets For Oral Suspension -] 40 mg PEG DAILY packet 06/13/17 Polyethylene Glycol 3350 [Miralax 119 gm Btl -] 17 gm NGT BID bottle 06/13/17 Scopolamine Hydrobromide [Transderm-Scop -] 1 patch TD Q3D patch.[id number] 06/13/17 Lidocaine 5% Patch [Lidoderm -] 1 patch TP DAILY patch 06/17/17 Lidocaine Patch Removal [Lidoderm Patch Removal] 1 each MC DAILY@2200 each Prednisone [Deltasone -] 10 mg PEG DAILY 3 Days #3 tablet 06/17/17 - Discharge Referral Referred to [facility] No
== END 2017-06-17 13:15 | disposition hospice, inpatient (51) | DRG 871 ==
LOC: JER 08:22 → JERBED 11:50 → JICU 14:46 → J4S 05-23 17:03 → J7W 05-28 16:01
PROVIDERS: ADMIT Internal Medicine; ATTEND Hospitalist
PROC: 0DH63UZ Insertion of Feeding Device into Stomach, Percutaneous Approach (ICD-10-PCS; principal; 2017-06-07 13:45)
DX: A41.9 Sepsis, unspecified organism (principal); J96.21 Acute and chronic respiratory failure with hypoxia; J69.0 Pneumonitis due to inhalation of food and vomit; J96.22 Acute and chronic respiratory failure with hypercapnia; J47.1 Bronchiectasis with (acute) exacerbation; J44.1 Chronic obstructive pulmonary disease with (acute) exacerbation; I10 Essential (primary) hypertension; R13.10 Dysphagia, unspecified; D72.829 Elevated white blood cell count, unspecified; E87.6 Hypokalemia; E83.39 Other disorders of phosphorus metabolism; R10.9 Unspecified abdominal pain; M54.9 Dorsalgia, unspecified; E87.70 Fluid overload, unspecified; K27.9 Peptic ulcer, site unspecified, unspecified as acute or chronic, without hemorrhage or perforation
CPT/HCPCS: 36415; 36600; 71010-TC; 71045-TC; 71250-TC; 74019-TC; 74230-TC; 80048; 80053; 81003; 81015; 82375; 82550; 82803; 83050; 83605; 83735; 83880; 84100; 84484; 85025; 85027; 85610; 85730; 86738; 86850; 86900; 86901; 87040; 87086; 87804; 87899; 92611-GN; 93005; 93010; 93306-TC; 94640; 94660; 97161-GP; 99283-25; G0480; J1644